=== PATIENT | female | born 1940 | race Hispanic/Latino ===

== ENCOUNTER 2020-06-20 09:51 | Inpatient (IN) | payer OTHER ==
--- OUTSIDE RECORDS SUMMARY | 2020-06-20 10:01 | XMS REPORT | Clinical Summary ---
:1940 Author Organization [facility] Address [address] [place] [address] Care Team Providers Name Role Phone Meghann Koroma MD Primary Care Provider Allergies No Known Active Allergies Medications Medication Sig Dispensed Refills Start Date End Date Status atorvastatin (LIPITOR) Take 80 mg by 0 Active 80 MG tablet mouth nightly. allopurinol (ZYLOPRIM) Take 100 mg by 1 Active 100 MG tablet mouth every morning. levETIRAcetam (KEPPRA) Take 500 mg by 3 Active 250 MG tablet mouth 2 (two) times a day. amLODIPine (NORVASC) 10 Take 10 mg by 3 Active MG tablet mouth daily. NAMENDA XR 28 mg Take 1 capsule by 0 Active capsule,sprinkle,ER mouth every 24hr morning. clopidogrel (PLAVIX) 75 Take 75 mg by 0 Active mg tablet mouth every morning. metoprolol succinate XL Take 100 mg by 0 Active (TOPROL-XL) 50 MG 24 hr mouth 2 (two) tablet times a day. ALPRAZolam (XANAX) 0.5 Take 0.5 mg by 0 Active MG tablet mouth 2 (two) times a day. aspirin (ECOTRIN) 81 MG Take 81 mg by 0 Active enteric coated tablet mouth every morning. cyanocobalamin, vitamin Place 6,000 mcg 0 Active B-12, 3,000 mcg tablet, under the tongue sublingual every morning. GLUC/CHND/OM3/DHA/EPA/F Take 1 tablet by 0 Active TERESA/STR (GLUCOSAMINE mouth daily. CHONDROITIN PLUS ORAL) [id number] Take 1 tablet by 0 Active S-MANGA ORAL mouth daily. Active Problems Problem Noted Date Dizziness 04/16/2016 Surgical History Surgery Date Site/Laterality Comments HYSTERECTOMY PERCUTANEOUS PLACEMENT INTRAVASCULAR 06/17/2013 - 06/16/2014 Right STENT CERVICAL CAROTID ARTERY PERCUTANEOUS PLACEMENT INTRAVASCULAR 06/17/2013 - 06/16/2014 Left STENT CERVICAL CAROTID ARTERY Medical History Medical History Date Comments Hypertension Stroke (HCC) CHF (congestive heart failure) (HCC) Hyperlipidemia Carotid arterial disease (HCC) Alzheimer disease (HCC) CKD (chronic kidney disease) Social History Tobacco Use Types Packs/Day Years Used Date Former Smoker 1 40 Alcohol Use Drinks/Week oz/Week Comments No Sex Assigned at Date Recorded Not on file Last Filed Vital Signs Not on file Plan of Treatment Health Maintenance Due Date Last Done Comments COVID-19 VACCINE (#1) 1957 SHINGLES VACCINES (#1) 1991 65+ PNEUMOCOCCAL VACCINE (1 of 1 - PPSV23) 2006 INFLUENZA VACCINE 01/16/2020 Results Not on fileafter 06/20/2019 Insurance Payer Benefit Plan / Subscriber ID Effective Dates Phone Addre ss Type Group MEDICARE MEDICARE PART A [id number] 2006-Present [place], [place] Medicare [place] B ([place] [address] Advance Directives For more information, please contact: [phone] Type Date Recorded Patient Doctor Of Podiatric Medicine Explanati on Advance Directives, Living Will and Medical Power of [employer]
--- OUTSIDE RECORDS SUMMARY | 2020-06-20 10:04 | XMS REPORT | Continuity of Care Document ---
:1940 Author Organization [facility] Information [place] Care Team Providers Name Role Phone [facility] [place] Unavailable Un available Problems Problem Status Onset Classification Date Comments Sour e Date Reported NEW ONSET OF Active 12/15/19 [facility] 19 Leonila theast FAILURE, P WEAKNESS Active 12/15/19 [facility] 19 [place] POSSIBLE STROKE Active 05/13/20 Jensen rial 17 Mikey RIGHT SIDED Active 05/13/20 [facility] WEAKNESS 17 [place] ACUTE KIDNEY Active 05/08/20 Memoria l INJURY, 17 Mikey GENERALIZED WEAKNES Weakness 05/18/2017 [place] Acute on chronic 12/22/2018 diastolic [place] (congestive) heart failure Carotid Active Problem 12/22/2018 endarterectomy [place] and, (procedure) [place] Cerebrovascular Resolved Problem 12/22/2018 accident [facility] (disorder) [place] Chronic Resolved Problem 12/22/2018 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[facility], disease (disorder) [place] Congestive heart Resolved Problem 12/22/2018 failure (disorder) [place], [place] Dementia Resolved Problem 12/22/2018 (disorder) [place], [place] Hypertensive Active Problem 12/22/2018 disorder, systemic [place], arterial [place] (disorder) ACUTE KIDNEY Active Memoria l FAILURE, Mikey UNSPECIFIED WEAKNESS Active [facility] DEHYDRATION Active [facility] ACUTE ON CHRONIC Active DIASTOLIC [place] (CONGESTIVE) Medications Medication Details Route Status Patient Ordering Order Source Instructions Provider Date apixaban 5 MG 5 mg, PO, Q12H, Active Oral Tablet # 60 tab, 3 2019 [place] [Eliquis] Refill(s) Doxycycline 100 mg = 1 tab, Active Monohydrate 100 PO, Q12H, X 7 2019 [place] MG Oral Tablet day, # 14 tab, 0 Refill(s) Furosemide 40 MG 40 mg = 1 tab, Active Oral Tablet PO, BID, # 60 2019 [place] [Lasix] tab, 0 Refill(s) Aspirin 81 MG Notes: Do not Inactive Enteric Coated crush or chew. 2019 [place] Tablet (Same As: Ecotrin) Aspirin Notes: Do not No Longer crush or chew. Active 2018 [facility] (Same As: Ecotrin) Eliquis Notes: Same as: No Longer Eliquis Active 2018 [facility] atorvastatin Notes: (Same Inactive as: Lipitor) 2018 [facility] Memantine Notes: (Same Inactive As: Namenda) 2018 [facility] Levetiracetam Notes: (Same Inactive as:Keppra) 2018 [facility] Furosemide 40 MG Notes: (Same No Longer Oral Tablet as: Lasix) October Active 2018 [place] [Lasix] cause GI upset. Give with food or milk. donepezil Notes: (Same Inactive as: Aricept) 2018 [facility] Spironolactone Notes: (Same Inactive As: Aldactone) 2018 [facility] Potassium Notes: (Same Inactive Chloride 1.33 as: K-Dur 20) 2018 [place] MEQ/ML Oral "Do Not Crush" Solution Give with food and full glass of water For patients unable to swallow tablet, dissolve in one half glass of water. Allow about 2 minutes for the tablets to disintegrate. Stir before giving to prepare slurry and administer. Please exclude Patient’s with feeding tube less than 14 Welsh (Dobhoff, J-tube etc) and pediatric and patients. Lasix Notes: (Same No Longer as: Lasix) Active 2018 [facility] MEDICATION WASTE Product Size: 40 mg Product Wasted: ___ mg pantoprazole Notes: Tablet No Longer should not be Active 2018 [facility] chewed or crushed. (Same as: Protonix) Atorvastatin 80 Atorvastatin 80 No Longer mg tab Pt's mg tab Pt's Active 2018 [place] Own MED Own MED, 80 mg, Drug form: MISC, Route: PO, Bedtime, 12/15/18 21:00:00 CDT, Duration: 30 day, Stop date: 01/13/19 21:00:00 CDT, 0 atorvastatin Notes: (Same Inactive as: Lipitor) 2018 [facility] Memantine 10 mg Memantine 10 mg No Longer tab Pt's Own tab Pt's Own Active 2019 [facility] Med Med, 10 mg, Drug form: MISC, Route: PO, BID, 12/15/18 17:00:00 CDT, Duration: 30 day, Stop date: 01/14/19 9:00:00 CDT, 0 Aspirin EC 81 mg Aspirin EC 81 No Longer tab Pt's Own mg tab Pt's Active 2018 Leonila theast Med Own Med, 81 mg, Drug form: MISC, Route: PO, Daily, 12/15/18 12:00:00 CDT, Duration: 30 day, Stop date: 01/14/19 9:00:00 CDT, 0 Levetiracetam Levetiracetam No Longer 250 mg tab 250 mg tab Active 2018 [facility] Pt's Own Med Pt's Own Med, 250 mg, Drug form: MISC, Route: PO, Q12H, 12/15/18 12:00:00 CDT, Duration: 30 day, Stop date: 01/14/19 9:00:00 CDT, 0 Donepezil 10 mg Donepezil 10 mg No Longer tab Pt's Own tab Pt's Own Active 2018 [facility] MED MED, 10 mg, Drug form: MISC, Route: PO, BID, 12/15/18 12:00:00 CDT, Duration: 30 day, Stop date: 01/14/19 9:00:00 CDT, 0 Clopidogrel 75 Clopidogrel 75 No Longer mg tab Pt's mg tab Pt's Active 2018 [place] Own MED Own MED, 75 mg, Drug form: MISC, Route: PO, Daily, 12/15/18 12:00:00 CDT, Duration: 30 day, Stop date: 01/14/19 9:00:00 CDT, 0 Levetiracetam Notes: (Same Inactive as:Keppra) 2018 [facility] donepezil Notes: (Same Inactive as: Aricept) 2018 [facility] clopidogrel Notes: (Same Inactive As: Plavix) 2018 [facility] carvedilol Notes: Give No Longer with food. Active 2018 [facility] (Same As: Coreg) Aspirin Notes: Take Inactive with food. 2019 [facility] Memantine Notes: (Same Inactive As: Namenda) 2018 [facility] losartan 25 mg 25 mg = 1 tab, No Longer oral tablet PO, Daily, 0 Active [address] [facility] [address] Refill(s) heparin Notes: porcine No Longer heparin Active 2018 [facility] Lasix Notes: (Same No Longer as: Lasix) Active 2018 [facility] MEDICATION WASTE Product Size: 40 mg Product Wasted: ___ mg Budesonide 0.25 Notes: (Same No Longer H MG/ML Inhalant As: Pulmicort) Active [place] Solution [Pulmicort] Albuterol 0.833 Notes: (Same No Longer H MG/ML / as: Duoneb) Active 2018 [facility] Ipratropium [place] 0.167 MG/ML Inhalant Solution [DuoNeb] Rocephin + Notes: (Same No Longer sterile water 10 As: Rocephin). Active 2018 [facility] mL Use with 100 mL NS and infuse over 30 min MEDICATION WASTE Product Size: 1000 mg Product Wasted: ___ mg Azithromycin Notes: (Same No Longer As: Zithromax Active 2018 [facility] IV) Lasix Notes: (Same Inactive as: Lasix) 2018 [place] MEDICATION WASTE Product Size: 40 mg Product Wasted: ___ mg Solu-Medrol Notes: (Same Inactive as:Solu-MEDROL, 2019 [place] A-Methapred) Magnesium Notes: WASTE: Inactive Sulfate F/P - Sink; E - 2019 [place] [facility] Albuterol 0.833 Notes: (Same Inactive MG/ML / as: Duoneb) 2018 [place] Ipratropium [place] 0.167 MG/ML Inhalant Solution [DuoNeb] pantoprazole 40 40 mg = 1 tab, Active H mg oral enteric PO, Before 2016 Elvie and coated tablet Breakfast, # 30 tab, 0 Refill(s), Pharmacy: [id number] Sodium Chloride 1,000 mL, Rate: Inactive 0.9% IV 1,000 mL 21 ml/hr, 2016 Elvie and Infuse over: 47.6 hr, Route: IV, Dosing Weight 65.2 kg, Total Volume: 1,000, Start date: 05/15/17 7:30:00 [facility] [employer], Duration: 30 day, Stop date: 06/14/17 7:29:00 [employer]MM[employer], 1.71, m2 atorvastatin atorvastatin No Longer 80mg pt own med 80mg pt own Active 2016 [place] med, 80 mg, Drug form: MISC, Route: PO, Bedtime, 05/14/17 21:00:00 [employer] IMM[employer]OLOGY, Duration: 30 day, Stop date: 06/12/17 21:00:00 [employer] atorvastatin Notes: (Same Inactive as: Lipitor) 2016 [place] Amlodipine Notes: (Same No Longer as: Norvasc) Active 2016 [place] Memantine Notes: (Same Inactive As: Namenda) 2016 [place] Allopurinol Notes: (Same No Longer as: Zyloprim) Active 2016 [place] Levetiracetam Notes: (Same No Longer as:Keppra) Active 2016 [place] donepezil Notes: (Same Inactive as: Aricept) 2016 [place] Memantine 10mg Memantine 10mg No Longer pt own med pt own med, 10 Active 2016 [place] mg, Drug form: MISC, Route: PO, BID, 05/14/17 9:00:00 SCI[employer] IMMUN[employer]Y, Duration: 30 day, Stop date: 06/12/17 17:00:00 [employer] clopidogrel Notes: (Same No Longer As: Plavix) Active 2016 [place] carvedilol Notes: Give No Longer with food. Active 2016 [place] (Same As: Coreg) Donepezil 10mg Donepezil 10mg No Longer pt own med pt own med, 10 Active 2016 [place] mg, Drug form: MISC, Route: PO, BID, 05/14/17 9:00:00 [employer] IMMUNOLOGY, Duration: 30 day, Stop date: 06/12/17 17:00:00 [employer] IMMUN[employer] Streptococcus Notes: Shake Inactive pneumoniae well prior to 2016 [place] serotype 1 use (Same as: capsular antigen Prevnar 13) diphtheria [id number] protein conjugate vaccine / Streptococcus pneumoniae serotype 14 capsular antigen diphtheria [id number] protein conjugate vaccine / Streptococcus pneumoniae serotype 18C capsular antigen d Aspirin Notes: Do not No Longer crush or chew. Active 2016 [place] (Same As: Ecotrin) influenza virus Notes: (Same Inactive vaccine, as: Fluzone 2016 [place] inactivated Quadrivalent, Fluarix Quadrivalent) For 3 years of age and older (0.5 mL IM) Shake well before use Protonix Notes: Tablet No Longer should not be Active 2016 [place] chewed or crushed. (Same as: Protonix) Saline Flush Notes: (Same No Longer 0.9% as: BD Active 2016 [place] Posiflush) Sodium Chloride 1,000 mL, Rate: No Longer 0.9% IV 1,000 mL 100 ml/hr, Active 2016 [place] Infuse over: 10 hr, Route: IV, Dosing Weight 65.2 kg, Total Volume: 1,000, Start date: 05/13/17 21:15:00 SCIENTIST IMMUNOLOGY, Duration: 30 day, Stop date: 06/12/17 21:14:00 SCI[employer] IMMUNOLOGY, 1.71, m2 Acetaminophen Notes: Do not No Longer exceed 4 Active 2016 [place] gm/day. (Same as: Tylenol) Ondansetron Notes: (Same No Longer as: Zofran) Active 2016 [place] MEDICATION WASTE Product Size: 4 mg Product Wasted: ___ mg Sodium Chloride 500 mL, 500 Inactive 0.9% (Bolus) IV ml/hr, Infuse 2016 [place] Over: 1 hr, Route: IV, 500, Drug form: INJ, ONCE, Priority: STAT, Dosing Weight 68.182 kg, Start date: 05/13/17 18:13:00 SCIENTIST IMMUNOLOGY, Stop date: 05/13/17 18:13:00 SCI[employer]IST IMMUNOLOGY NS (Bolus) IV 1,000 mL, 1,000 Inactive H ml/hr, Infuse 2016 [place] Over: 1 hr, Route: IV, 1,000, Drug form: INJ, ONCE, Priority: STAT, Dosing Weight 68.182 kg, Start date: 05/13/17 16:25:00 SCIENTIST IMMUNOLOGY, Stop date: 05/13/17 16:25:00 SCIENT[employer] IMMUNOLOG[employer] Saline Flush Notes: (Same No Longer 0.9% as: BD Active 2016 [place] Posiflush) Streptococcus Notes: Shake Inactive pneumoniae well prior to 2016 [place] serotype 1 use (Same as: capsular antigen Prevnar 13) diphtheria [id number] protein conjugate vaccine / Streptococcus pneumoniae serotype 14 capsular antigen diphtheria [id number] protein conjugate vaccine / Streptococcus pneumoniae serotype 18C capsular antigen d influenza virus Notes: (Same Inactive vaccine, as: Fluzone 2017 [place] inactivated Quadrivalent, Fluarix Quadrivalent) For 3 years of age and older (0.5 mL IM) Shake well before use clopidogrel Notes: (Same Inactive As: Plavix) 2016 [place] Aspirin Notes: Do not Inactive 05/09[facility] crush or chew. 2016 [place] (Same As: Ecotrin) Allopurinol Notes: (Same Inactive as: Zyloprim) 2016 [place] Sodium Chloride 1,000 mL, 1,000 Inactive 0.9% (Bolus) IV ml/hr, Infuse 2016 [facility] Over: 1 hr, Route: IV, 1,000, Drug form: INJ, ONCE, Priority: STAT, Dosing Weight 64.716 kg, Start date: 05/09/17 8:14:00 SCIENTIST IMMUNOLOGY, Stop date: 05/09/17 8:14:00 SCIENT[employer] IMMUN[employer] heparin Notes: porcine Inactive heparin 2016 [place] atorvastatin atorvastatin No Longer 80mg pt own med 80mg pt own Active 2016 [place] med, 80 mg, Drug form: MISC, Route: PO, Bedtime, 05/08/17 22:31:00 SCIENTIST IMMUNOLOGY, Duration: 30 day, Stop date: 06/07/17 21:00:00 SCI[employer] IMMUNOLOGY Memantine 10mg Memantine 10mg No Longer pt own med pt own med, 10 Active 2016 [place] mg, Drug form: MISC, Route: PO, BID, 05/08/17 22:29:00 SCIENTIST IMMUNOLOGY, Duration: 30 day, Stop date: 06/07/17 17:00:00 SCI[employer] IMMUNOLOG[employer] Donepezil 10mg Donepezil 10mg No Longer pt own med pt own med, 10 Active 2016 [place] mg, Drug form: MISC, Route: PO, BID, 05/08/17 22:24:00 SCIENTIST IMMUNOLOGY, Duration: 30 day, Stop date: 06/07/17 17:00:00 SCI[employer] IMMUNOLOG[employer] atorvastatin 80 mg, Route: Inactive PO, Drug form: 2016 [place] TAB, Bedtime, Dosing Weight 64.716, kg, Start date: 05/08/17 22:09:00 SCIENTIST IMMUNOLOGY, Duration: 30 day, Stop date: 06/07/17 21:00:00 [employer] IMM[employer] Levetiracetam Notes: (Same No Longer 250 MG Oral as:Keppra) Active 2016 [place] Tablet Amlodipine Notes: (Same No Longer as: Norvasc) Active 2016 [place] Memantine 10 mg, Route: Inactive PO, Drug form: 2016 [place] TAB, BID, Dosing Weight 64.716, kg, Start date: 05/08/17 22:07:00 SCIENTIST IMMUNOLOGY, Duration: 30 day, Stop date: 06/07/17 17:00:00 SCI[employer] IMM[employer] carvedilol Notes: Give No Longer with food. Active 2016 [place] (Same As: Coreg) donepezil Notes: (Same Inactive as: Aricept) 2017 [place] clopidogrel 75 mg, PO, Active Daily, 0 2016 [place] Refill(s) Azithromycin 250 mg, PO, No Longer Daily, Take 2 Active 2016 [place] tablets by mouth the first day then 1 tablet by mouth daily on days 2-5, # 6 tab, 0 Refill(s) Aspirin 81 mg, PO, Active Daily, 0 2016 [place] Refill(s) atorvastatin 80 mg, PO, Active Bedtime, 0 2016 [place] Refill(s) donepezil 10 mg, PO, BID, Active 0 Refill(s) 2016 [place] Levetiracetam 250 mg, PO, Active BID, 0 2016 [place] Refill(s) Memantine 10 mg, PO, BID, Active 0 Refill(s) 2016 [place] Amlodipine 10 mg, PO, Active Bedtime, 0 2016 [place] Refill(s) carvedilol 6.25 mg, PO, Active BID, 0 2016 [place] Refill(s) Allopurinol 100 mg, PO, Active Daily, 0 2016 [place] Refill(s) morphine Sulfate Notes: (Same No Longer as:MORPine Active 2016 [place] Sulfate) Docusate Notes: (Same No Longer as: Colace) (Do Active 2016 [place] Not Crush) Saline Flush Notes: (Same No Longer 0.9% as: BD Active 2016 [place] Posiflush) Sodium Chloride 1,000 mL, Rate: No Longer 0.9% IV 1,000 mL 125 ml/hr, Active 2016 [facility] Infuse over: 8 hr, Route: IV, Dosing Weight 63.636 kg, Total Volume: 1,000, Start date: 05/08/17 16:14:00 SCIENTIST IMMUNOLOGY, Duration: 30 day, Stop date: 06/07/17 16:13:00 SCIENTIST IMMUNOLOGY, 1.69, m2 Acetaminophen Notes: Do not No Longer exceed 4 Active 2016 [place] gm/day. (Same as: Tylenol) Acetaminophen Notes: (Same No Longer 325 MG / as: [place] Active 2016 [place] Hydrocodone 325/5) Do not Bitartrate 5 MG exceed 4gm/day Oral Tablet of acetaminophen. Morphine 2 mg, Route: Inactive IVP, Q4H, 2016 [place] Dosing Weight 63.636, kg, PRN Pain Score 7-10, Start date: 05/08/17 16:14:00 SCIENTIST IMMUNOLOGY, Duration: 30 day, Stop date: 06/07/17 16:13:00 SCI[employer] IMMUN[employer] Ondansetron Notes: (Same No Longer as: Zofran) Active 2016 [place] MEDICATION WASTE Product Size: 4 mg Product Wasted: ___ mg NS (Bolus) IV 1,000 mL, 1,000 Inactive H ml/hr, Infuse [place] Over: 1 hr, Route: IV, 1,000, Drug form: INJ, ONCE, Priority: STAT, Dosing Weight 63.636 kg, Start date: 05/08/17 14:28:00 SCIENTIST IMMUNOLOGY, Stop date: 05/08/17 14:28:00 SCIENTIST IMMUNOLOGY Pepcid Notes: (Same Inactive as: Pepcid) Can 2016 [place] be dilute in 5-10cc NS IVP: Slow IV push over at least 2 minutes. Allergies, Adverse Reactions, Alerts Substance Category Reaction Severity Reaction Status Date Comments S ource type Reported No Known Assertion Drug MH Medication allergy [facility] Allergies Immunizations Immunization Date Site Status Last Comments Source Given Updated pneumococcal Right completed Huang MH 13-valent 7 Deltoid [place],M H vaccine [place] influenza virus Left completed Huang MH vaccine, 7 Deltoid [place] H inactivated [place] influenza virus Not Given MH vaccine, 7 [place] inactivated [place] pneumococcal Not Given 13-valent 7 [place],M H vaccine [place] pneumococcal Left completed Emiliano MH 23-valent 0 deltoid [place],M H vaccine [place] Results Order Name Results Value Reference Date Interpretation Comments Leonila rce Range CHEM PANEL Glucose Lvl 99 70 - 99 12/19 [place] CHEM PANEL BUN 63 7 - 22 12/19 [place] CHEM PANEL Creatinine 2.55 0.50 - 07 Lvl 1.40 /2018 [place] CHEM PANEL Sodium Lvl 138 135 - 145 12/19 [place] CHEM PANEL Potassium 4.3 3.5 - 5.1 12/19 Lvl [place] CHEM PANEL Chloride Lvl 100 95 - 109 12/19 [place] CHEM PANEL CO2 28 24 - 32 12/19 [place] CHEM PANEL Calcium Lvl 8.9 8.5 - 10.5 12/19 [facility] CHEM PANEL AGAP 14.3 10.0 - 12/19 MH 20.0 /2018 [place] CHEM PANEL eGFR 18 12/19 Result Comment: [facility] eGFR is calculated using the CKD-EPI formula. In most young, healthy individuals the eGFR will be >90 mL/min/1.73m2 . The eGFR declines with age. An eGFR of 60-89 may be normal in some populations, particularly the elderly, for whom the CKD-EPI formula has not been extensively validated. Use of the eGFR is not recommended in the following populations:< br/>
Sadia viduals with unstable creatinine concentration s, including patients and those with serious co-morbid conditions.<b r/>
Patie nts with extremes in muscle mass or diet.

The data above are obtained from the National Kidney Disease Education Program (NKDEP) which additionally recommends that when the eGFR is used in patients with extremes of body mass index for purposes of drug dosing, the eGFR should be multiplied by the estimated BMI. CHEM PANEL Creatinine 2.35 0.50 - 12/18 Lvl 1.40 /2018 [place] CHEM PANEL BUN 60 7 - 22 12/18 [place] CHEM PANEL Glucose Lvl 122 70 - 99 12/18 [facility] CHEM PANEL Calcium Lvl 9.4 8.5 - 10.5 12/18 [place] CHEM PANEL CO2 30 24 - 32 12/18 [place] CHEM PANEL Chloride Lvl 101 95 - 109 12/18 [place] CHEM PANEL Potassium 4.0 3.5 - 5.1 12/18 MH Lvl [place] CHEM PANEL Sodium Lvl 139 135 - 145 12/18 [place] CHEM PANEL eGFR 19 12/18 Result Comment: [facility] eGFR is calculated using the CKD-EPI formula. In most young, healthy individuals the eGFR will be >90 mL/min/1.73m2 . The eGFR declines with age. An eGFR of 60-89 may be normal in some populations, particularly the elderly, for whom the CKD-EPI formula has not been extensively validated. Use of the eGFR is not recommended in the following populations:< br/>
Sadia viduals with unstable creatinine concentration s, including patients and those with serious co-morbid conditions.<b r/>
Patie nts with extremes in muscle mass or diet.

The data above are obtained from the National Kidney Disease Education Program (NKDEP) which additionally recommends that when the eGFR is used in patients with extremes of body mass index for purposes of drug dosing, the eGFR should be multiplied by the estimated BMI. CHEM PANEL AGAP 12.0 10.0 - 07/ MH 20.0 /2018 [facility] CHEM PANEL Magnesium 2.2 1.8 - 2.4 07/ MH Lvl /2018 [facility] HEMATOLOGY Lymphocytes 2.0 1.0 - 5.5 07/04 MH # /2019 [facility] HEMATOLOGY Monocytes # 0.8 0.0 - 0.8 07/ MH /2018 [facility] HEMATOLOGY Eosinophils 0.2 0.0 - 0.5 07/ MH # /2018 [facility] HEMATOLOGY Segs 57.0 45.0 - 07/ MH 75.0 /2018 [facility] HEMATOLOGY Monocytes 11.6 2.0 - 12.0 07/ MH /2018 [facility] HEMATOLOGY Eosinophils 2.7 0.0 - 4.0 07/ /2018 [facility] HEMATOLOGY Lymphocytes 28.5 20.0 - 07/ MH 40.0 /2018 [facility] HEMATOLOGY Neutrophils 4.0 1.5 - 8.1 / MH # /2018 [facility] HEMATOLOGY Basophils 0.2 0.0 - 1.0 07/ /2018 [facility] HEMATOLOGY Platelet 234 133 - 450 07/ /2018 [facility] HEMATOLOGY MCHC 32.2 32.0 - 07/ MH 36.0 /2019 [facility] HEMATOLOGY RDW 16.0 11.5 - 07/ MH 14.5 /2019 [facility] HEMATOLOGY MPV 9.0 7.4 - 10.4 07/ MH /2018 [facility] HEMATOLOGY MCV 91.9 80.0 - 07/ MH 98.0 /2019 [facility] HEMATOLOGY MCH 29.6 27.0 - 07/04 MH 31.0 /2019 [facility] HEMATOLOGY Hct 43.0 36.0 - 07/04 MH 48.0 /2019 [facility] HEMATOLOGY Hgb 13.9 12.0 - 07/04 MH 16.0 /2018 [facility] HEMATOLOGY RBC 4.68 4.20 - 07/04 MH 5.40 /2019 [facility] HEMATOLOGY WBC 7.0 3.7 - 10.4 07/04 /2018 [facility] CARDIAC Troponin-I <0.02 0.00 - 07 ENZYMES 0.40 /2018 [facility] ELECTROLYT AGAP 11.1 10.0 - 12/17 ES 20.0 /2018 [place] ELECTROLYT eGFR 20 12/17 Result Comment: The [facility] eGFR is calculated using the CKD-EPI formula. In most young, healthy individuals the eGFR will be >90 mL/min/1.73m2 . The eGFR declines with age. An eGFR of 60-89 may be normal in some populations, particularly the elderly, for whom the CKD-EPI formula has not been extensively validated. Use of the eGFR is not recommended in the following populations:< br/>
Sadia viduals with unstable creatinine concentration s, including patients and those with serious co-morbid conditions.<b r/>
Patie nts with extremes in muscle mass or diet.

The data above are obtained from the National Kidney Disease Education Program (NKDEP) which additionally recommends that when the eGFR is used in patients with extremes of body mass index for purposes of drug dosing, the eGFR should be multiplied by the estimated BMI. ELECTROLYT Sodium Lvl 140 135 - 145 12/17 ES [facility] ELECTROLYT BUN 61 7 - 22 12/17 ES [facility] ELECTROLYT Creatinine 2.30 0.50 - 12/17 ES Lvl 1.40 /2018 [facility] ELECTROLYT Potassium 3.1 3.5 - 5.1 12/17 ES Lvl /2018 [facility] ELECTROLYT Calcium Lvl 9.5 8.5 - 10.5 12/17 ES [facility] ELECTROLYT CO2 29 24 - 32 12/17 ES /2018 [facility] ELECTROLYT Chloride Lvl 103 95 - 109 12/17 ES /2018 [facility] ELECTROLYT Glucose Lvl 110 70 - 99 12/17 ES /2018 [facility] HEMATOLOGY Neutrophils 6.3 1.5 - 8.1 12/17 MH # /2018 [facility] HEMATOLOGY Basophils 0.2 0.0 - 1.0 12/17 /2018 [facility] HEMATOLOGY Lymphocytes 1.6 1.0 - 5.5 12/17 MH # /2019 [facility] HEMATOLOGY Monocytes # 0.9 0.0 - 0.8 12/17 /2018 [facility] HEMATOLOGY Segs 71.2 45.0 - 12/17 MH 75.0 /2018 [place] HEMATOLOGY Lymphocytes 18.5 20.0 - 07/ MH 40.0 /2018 [place] HEMATOLOGY Eosinophils 0.5 0.0 - 4.0 07/ /2018 [place] HEMATOLOGY Monocytes 9.6 2.0 - 12.0 07/ /2018 [place] HEMATOLOGY MPV 9.6 7.4 - 10.4 07/ /2018 [place] HEMATOLOGY WBC 8.8 3.7 - 10.4 07/ /2018 [place] HEMATOLOGY RBC 4.43 4.20 - 12/17 5.40 [place] HEMATOLOGY Hgb 13.3 12.0 - 07 16.0 [place] HEMATOLOGY MCV 91.6 80.0 - 07 98.0 /2018 [place] HEMATOLOGY Hct 40.6 36.0 - 12/17 48.0 [place] HEMATOLOGY MCHC 32.7 32.0 - 07 36.0 [place] HEMATOLOGY MCH 29.9 27.0 - 07 31.0 [place] HEMATOLOGY Platelet 217 133 - 450 07/ [place] HEMATOLOGY RDW 16.1 11.5 - 07 14.5 /2018 [place] HEMATOLOGY RDW 15.6 11.5 - 07/ 14.5 [place] HEMATOLOGY MPV 9.5 7.4 - 10.4 07/ [place] HEMATOLOGY Platelet 205 133 - 450 07/ MH /2018 [place] HEMATOLOGY RBC 3.86 4.20 - 07 5.40 [place] HEMATOLOGY Hgb 11.6 12.0 - 07 16.0 /2018 [place] HEMATOLOGY Hct 35.0 36.0 - 12/16 48.0 [place] HEMATOLOGY MCV 90.6 80.0 - 07/ 98.0 /2018 [place] HEMATOLOGY MCHC 33.3 32.0 - 07/ MH 36.0 /2018 [place] HEMATOLOGY MCH 30.2 27.0 - 07/ 31.0 [place] HEMATOLOGY WBC 11.7 3.7 - 10.4 07/ /2018 [place] HEMATOLOGY Lymphocytes 6.2 20.0 - 07/ 40.0 /2018 [place] HEMATOLOGY Segs 87.6 45.0 - 07/02 75.0 /2018 [place] HEMATOLOGY Basophils 0.4 0.0 - 1.0 07/02 /2018 [place] HEMATOLOGY Monocytes 5.8 2.0 - 12.0 / [facility] HEMATOLOGY Lymphocytes 0.7 1.0 - 5.5 / # /2019 [facility] HEMATOLOGY Neutrophils 10.3 1.5 - 8.1 / # /2018 [facility] HEMATOLOGY Monocytes # 0.7 0.0 - 0.8 12/16 [place] CHEM PANEL Magnesium 2.6 1.8 - 2.4 / [place] CHEM PANEL Phosphorus 5.1 2.5 - 4.5 12/15 [place] CHEM PANEL Magnesium 3.0 1.8 - 2.4 12/15 [place] CHEM PANEL AST 15 0 - 37 12/15 [place] CHEM PANEL Alk Phos 101 39 - 136 12/15 [facility] CHEM PANEL Bili Total 0.4 0.2 - 1.3 12/15 [place] CHEM PANEL ALT 16 0 - 65 12/15 [place] CHEM PANEL Total 7.4 6.4 - 8.4 12/15 Protein [place] CHEM PANEL Albumin Lvl 2.7 3.5 - 5.0 12/15 [place] CHEM PANEL A/G Ratio 0.6 0.7 - 1.6 12/15 [place] CHEM PANEL B/C Ratio 22 6 - 25 12/15 [place] CHEM PANEL Globulin 4.7 2.7 - 4.2 12/15 [place] CHEM PANEL Phosphorus 4.2 2.5 - 4.5 12/15 [place] CHEM PANEL ALT 16 0 - 65 12/15 [place] CHEM PANEL Alk Phos 103 39 - 136 12/15 [place] CHEM PANEL AST 15 0 - 37 / [place] CHEM PANEL Globulin 4.5 2.7 - 4.2 12/15 [place] CHEM PANEL A/G Ratio 0.6 0.7 - 1.6 12/15 [place] CHEM PANEL Bili Total 0.7 0.2 - 1.3 12/15 [place] CHEM PANEL Albumin Lvl 2.8 3.5 - 5.0 12/15 [place] CHEM PANEL Total 7.3 6.4 - 8.4 12/15 Protein [place] CHEM PANEL B/C Ratio 22 6 - 25 12/15 [facility] HEMATOLOGY Plt Morph Normal Normal 12/15 (12/15/18 1:30 AM) /2018 [facility] HEMATOLOGY RBC Morph Normal Normal 12/15 (12/15/18 1:30 AM) /[address] [facility] [address] URINE AND UA <=1.0 0.1 - 1.0 12/15 STOOL Urobilinogen mg/dL [place] URINE AND UA Color STRAW 12/15 STOOL [place] URINE AND UA Hyal Cast 3 0 - 2 12/15 STOOL [place] URINE AND UA pH 5.0 5.0 - 8.0 12/15 STOOL [place] URINE AND UA Protein 100 mg/dL Negative 12/15 [facility] mg/dL [place] URINE AND UA Spec Grav 1.008 <=1.030 12/15 [place] URINE AND UA Turbidity Slight Clear 12/15 [facility] *ABN* /2018 [place] (12/14/18 9:51 PM) URINE AND UA Blood Negative Negative 12/15 [facility] (12/14/18 9:51 PM) [place] URINE AND UA Nitrite Negative Negative 12/15 [facility] (12/14/18 9:51 PM) [place] URINE AND UA Ketones Negative Negative 12/15 [facility] mg/dL mg/dL [place] URINE AND UA Glucose Negative Negative 12/15 [facility] mg/dL mg/dL [place] URINE AND UA Bili Negative Negative 12/15 [facility] *NA* /2018 [place] (12/14/18 9:51 PM) URINE AND UA RBC 3 0 - 2 12/15 STOOL [place] URINE AND UA Bacteria Occasional None Seen 12/15 [facility]OOL /HPF /HPF /2018 [place] URINE AND UA Sq Epi Occasional Few /LPF 12/15 STOOL /LPF [place] URINE AND UA Mucus Few /LPF None Seen 12/15 STOOL /LPF [place] URINE AND UA Leuk Est Negative Negative 12/15 [facility] (12/14/18 9:51 PM) [place] URINE AND UA WBC 3 0 - 5 12/15 STOOL [place] CARDIAC BNP 764 <=100 12/15 [facility] pg/mL /2018 [place] CARDIAC Troponin-I 0.02 0.00 - 12/15 [facility] 0.40 [place] CHEM PANEL Lactic Acid 1.5 0.5 - 2.2 12/15 Lvl [place] ELECTROLYT AGAP 14.0 10.0 - 12/15 MH ES 20.0 /2018 [place] ELECTROLYT Globulin 4.7 2.7 - 4.2 12/15 [place] ELECTROLYT B/C Ratio 19 6 - 25 12/15 [place] ELECTROLYT A/G Ratio 0.6 0.7 - 1.6 12/15 [place] ELECTROLYT eGFR 21 12/15 Comment: The [place] eGFR is calculated using the CKD-EPI formula. In most young, healthy individuals the eGFR will be >90 mL/min/1.73m2 . The eGFR declines with age. An eGFR of 60-89 may be normal in some populations, particularly the elderly, for whom the CKD-EPI formula has not been extensively validated. Use of the eGFR is not recommended in the following populations:< br/>
Sadia viduals with unstable creatinine concentration s, including patients and those with serious co-morbid conditions.<b r/>
Patie nts with extremes in muscle mass or diet.

The data above are obtained from the National Kidney Disease Education Program (NKDEP) which additionally recommends that when the eGFR is used in patients with extremes of body mass index for purposes of drug dosing, the eGFR should be multiplied by the estimated BMI. ELECTROLYT AST 18 0 - 37 12/15 [place] ELECTROLYT Total 7.7 6.4 - 8.4 12/15 ES Protein [place] ELECTROLYT Calcium Lvl 8.9 8.5 - 10.5 12/15 [place] ELECTROLYT ALT 22 0 - 65 12/15 [place] ELECTROLYT Albumin Lvl 3.0 3.5 - 5.0 12/15 [place] ELECTROLYT Bili Total 0.6 0.2 - 1.3 12/15 [place] ELECTROLYT Alk Phos 109 39 - 136 12/15 [place] ELECTROLYT BUN 43 7 - 22 12/15 [place] ELECTROLYT Glucose Lvl 142 70 - 99 12/15 [place] ELECTROLYT CO2 23 24 - 32 12/15 MH ES [place] ELECTROLYT Sodium Lvl 140 135 - 145 07/ MH ES [place] ELECTROLYT Creatinine 2.22 0.50 - 07/ MH ES Lvl 1. [place] ELECTROLYT Chloride Lvl 107 95 - 109 07/ MH ES [place] ELECTROLYT Potassium 4.0 3.5 - 5.1 07/ MH ES Lvl /2018 [place] HEMATOLOGY Lymphocytes 1.5 1.0 - 5.5 07/ MH # /2018 [place] HEMATOLOGY Monocytes # 1.5 0.0 - 0.8 07/ [place] HEMATOLOGY Basophils 1.1 0.0 - 1.0 07/ [place] HEMATOLOGY Neutrophils 9.6 1.5 - 8.1 07 MH [place] HEMATOLOGY Monocytes 12.0 2.0 - 12.0 12/15 [place] HEMATOLOGY Segs 74.7 45.0 - 07/ MH 75.0 /2018 [place] HEMATOLOGY Lymphocytes 11.7 20.0 - 07 MH 40.0 [place] HEMATOLOGY Eosinophils 0.5 0.0 - 4.0 07/ [place] HEMATOLOGY Eosinophils 0.1 0.0 - 0.5 07/ MH [place] HEMATOLOGY Basophils # 0.1 0.0 - 0.2 07 [place] HEMATOLOGY MCV 90.9 80.0 - 07/ MH 98.0 [place] HEMATOLOGY Hct 35.4 36.0 - 07/ MH 48.0 2019 [place] HEMATOLOGY MCH 30.3 27.0 - 07/ MH 31.0 2019 [place] HEMATOLOGY WBC 12.9 3.7 - 10.4 07/ [place] HEMATOLOGY Hgb 11.8 12.0 - 07/ MH 16.0 2019 [place] HEMATOLOGY RBC 3.89 4.20 - 07 MH 5.40 [place] HEMATOLOGY MPV 9.2 7.4 - 10.4 07 [place] HEMATOLOGY Platelet 202 133 - 450 07 [place] HEMATOLOGY RDW 15.6 11.5 - 07/ MH 14.5 [place] HEMATOLOGY MCHC 33.3 32.0 - 07/ MH 36.0 2018 [place] MOLECULAR vanB Not Detected Not 07/01 DIAGNOSTIC Vancomycin (12/14/18 7:46 PM) Detected /2018 [place] Resistance MOLECULAR Nazanin Not Detected Not 12/15 DIAGNOSTIC Vancomycin (12/14/18 7:46 PM) Detected /2018 [place] Resistance MOLECULAR E. faecium Not Detected Not 12/15 DIAGNOSTIC (12/14/18 7:46 PM) Detected /2018 [place] MOLECULAR S. Not Detected Not 12/15 DIAGNOSTIC pneumoniae (12/14/18 7:46 PM) Detected /2018 [place] MOLECULAR S. pyogenes Not Detected Not 12/15 DIAGNOSTIC (12/14/18 7:46 PM) Detected /2018 [facility] MOLECULAR Streptococcu Not Detected Not 12/15 DIAGNOSTIC s spp. (12/14/18 7:46 PM) Detected /2018 [facility] MOLECULAR E. faecalis Not Detected Not 12/15 DIAGNOSTIC (12/14/18 7:46 PM) Detected /2018 [facility] MOLECULAR Staphylococc Not Detected Not 12/15 DIAGNOSTIC us spp. (12/14/18 7:46 PM) Detected /2018 [facility] MOLECULAR S. anginosus Not Detected Not 12/15 DIAGNOSTIC grp (12/14/18 7:46 PM) Detected /2018 [facility] MOLECULAR S. Not Detected Not 12/15 DIAGNOSTIC agalactiae (12/14/18 7:46 PM) Detected /2018 [place] MOLECULAR S. Not Detected Not 12/15 DIAGNOSTIC lugdunensis (12/14/18 7:46 PM) Detected /2018 [place] MOLECULAR S. Not Detected Not 12/15 DIAGNOSTIC epidermidis (12/14/18 7:46 PM) Detected /2018 [place] MOLECULAR S. aureus Not Detected Not 12/15 DIAGNOSTIC (12/14/18 7:46 PM) Detected /2018 [place] MOLECULAR Listeria Not Detected Not 12/15 DIAGNOSTIC spp. (12/14/18 7:46 PM) Detected /2018 [facility] MOLECULAR mecA Not Detected Not 12/15 DIAGNOSTIC Methicillin (12/14/18 7:46 PM) Detected [place] [facility] CHEM PANEL Magnesium 1.9 1.8 - 2.4 05/15 Lvl /2016 [place] CHEM PANEL Calcium Lvl 8.6 8.5 - 10.5 05/15 [place] CHEM PANEL AGAP 10.7 10.0 - 11/29 MH 20. [place] CHEM PANEL eGFR 46 05/15 Result Comment: The [place] eGFR is calculated using the CKD-EPI formula. In most young, healthy individuals the eGFR will be >90 mL/min/1.73m2 . The eGFR declines with age. An eGFR of 60-89 may be normal in some populations, particularly the elderly, for whom the CKD-EPI formula has not been extensively validated. Use of the eGFR is not recommended in the following populations:< br/>
Sadia viduals with unstable creatinine concentration s, including patients and those with serious co-morbid conditions.<b r/>
Patie nts with extremes in muscle mass or diet.

The data above are obtained from the National Kidney Disease Education Program (NKDEP) which additionally recommends that when the eGFR is used in patients with extremes of body mass index for purposes of drug dosing, the eGFR should be multiplied by the estimated BMI. CHEM PANEL Glucose Lvl 89 70 - 99 05/15 [place] CHEM PANEL CO2 26 24 - 32 05/15 [place] CHEM PANEL Potassium 3.7 3.5 - 5.1 05/15 Lv [place] CHEM PANEL Chloride Lvl 109 95 - 109 05/15 [place] CHEM PANEL Sodium Lvl 142 135 - 145 05/15 [place] CHEM PANEL BUN 22 7 - 22 05/15 [place] CHEM PANEL Creatinine 1.15 0.50 - 05/15 Lvl 1.40 [place] CHEM PANEL Magnesium 2.1 1.8 - 2.4 05/14 [place] CHEM PANEL Phosphorus 3.4 2.5 - 4.5 05/14 [place] ELECTROLYT AGAP 11.6 10.0 - 05/14 ES 20. [place] ELECTROLYT Calcium Lvl 9.0 8.5 - 10.5 05/14 [place] ELECTROLYT eGFR 43 05/14 Result Comment: The [place] eGFR is calculated using the CKD-EPI formula. In most young, healthy individuals the eGFR will be >90 mL/min/1.73m2 . The eGFR declines with age. An eGFR of 60-89 may be normal in some populations, particularly the elderly, for whom the CKD-EPI formula has not been extensively validated. Use of the eGFR is not recommended in the following populations:< br/>
Sadia viduals with unstable creatinine concentration s, including patients and those with serious co-morbid conditions.<b r/>
Patie nts with extremes in muscle mass or diet.

The data above are obtained from the National Kidney Disease Education Program (NKDEP) which additionally recommends that when the eGFR is used in patients with extremes of body mass index for purposes of drug dosing, the eGFR should be multiplied by the estimated BMI. ELECTROLYT Potassium 3.6 3.5 - 5.1 05/14 ES Lvl [place] ELECTROLYT Creatinine 1.23 0.50 - 05/14 ES Lvl 1.40 [place] ELECTROLYT Chloride Lvl 107 95 - 109 05/14 [place] ELECTROLYT Sodium Lvl 141 135 - 145 05/14 [place] ELECTROLYT CO2 26 24 - 32 05/14 [place] ELECTROLYT BUN 30 7 - 22 05/14 [place] ELECTROLYT Glucose Lvl 86 70 - 99 05/14 [place] HEMATOLOGY Platelet 155 133 - 450 05/14 [place] HEMATOLOGY MPV 9.6 7.4 - 10.4 05/14 [place] HEMATOLOGY WBC X 10x3 7.4 3.7 - 10.4 05/14 [place] HEMATOLOGY Hgb 14.2 12.0 - 05/14 MH 16.0 [place] HEMATOLOGY RBC X 10x6 4.75 4.20 - 05/14 MH 5.40 [place] HEMATOLOGY MCH 29.9 27.0 - 05/14 MH 31.0 [place] HEMATOLOGY MCV 90.0 80.0 - 05/14 MH 98.0 [place] HEMATOLOGY MCHC 33.3 32.0 - 05/14 MH 36.0 [place] HEMATOLOGY RDW 15.6 11.5 - 05/14 MH 14.5 [place] HEMATOLOGY Hct 42.7 36.0 - 05/14 MH 48.0 [place] HEMATOLOGY Basophils # 0.1 0.0 - 0.2 05/14 [place] HEMATOLOGY Segs-Bands # 3.6 1.5 - 8.1 05/14 /2016 [place] HEMATOLOGY Basophils 1.1 0.0 - 1.0 05/14 [place] HEMATOLOGY Lymphocytes 2.4 1.0 - 5.5 05/14 MH # /2017 [place] HEMATOLOGY Segs 48.0 45.0 - 05/14 MH 75.0 [place] HEMATOLOGY Eosinophils 0.7 0.0 - 0.5 05/14 MH # /2016 [place] HEMATOLOGY Monocytes # 0.7 0.0 - 0.8 05/14 /2016 [place] HEMATOLOGY Monocytes 9.4 2.0 - 12.0 05/14 [place] HEMATOLOGY Eosinophils 9.6 0.0 - 4.0 05/14 [place] HEMATOLOGY Lymphocytes 31.9 20.0 - 05/14 MH 40.0 [place] URINE AND UA WBC 0-2 /HPF None Seen 05/14 STOOL /HPF /2016 [place] URINE AND UA RBC None Seen 0 - 2 05/14 STOOL (05/13/17 6:20 PM) [place] [facility] URINE AND UA Bacteria None Seen None Seen 05/14 STOOL (05/13/17 6:20 PM) [place] [facility] URINE AND UA Sq Epi Rare /LPF Few /LPF 05/14 STOOL /2016 [place] URINE AND UA Hyal Cast 0-2 0 - 2 05/14 STO[facility] (05/13/17 6:20 PM) [place] [facility] URINE AND UA 0.2 0.1 - 1.0 05/14 STOOL Urobilinogen /2016 [place] URINE AND UA Nitrite Negative Negative 05/14 STOOL (05/13/17 6:20 PM) [place] [facility] URINE AND UA Leuk Est Negative Negative 05/14 STOOL (05/13/17 6:20 PM) [place] [facility] URINE AND UA Protein 100 mg/dL Negative 05/14 [facility] mg/dL /2016 [place] URINE AND UA Glucose Negative Negative 05/14 STOOL (05/13/17 6:20 PM) [place] [facility] URINE AND UA Ketones Negative Negative 05/14 STOOL *NA* /2016 [place] (05/13/17 6:20 PM) URINE AND UA Bili Negative Negative 05/14 STOOL *NA* /2016 [place] (05/13/17 6:20 PM) URINE AND UA Blood Negative Negative 05/14 STOOL (05/13/17 6:20 PM) [place] [facility] URINE AND UA Turbidity Clear Clear 05/14 STOOL (05/13/17 6:20 PM) [place] [facility] URINE AND UA Spec Grav 1.020 <=1.030 05/14 STOOL [place] URINE AND UA pH 6.5 5.0 - 8.0 05/14 STOOL [place] URINE AND UA Color Yellow Yellow 05/14 STOOL *NA* /2016 [place] (05/13/17 6:20 PM) CARDIAC Total CK 50 12 - 191 05/13 EN[facility] [place] CARDIAC Troponin-I 0.02 0.00 - 05/13 [facility] 0.40 [place] CARDIAC CK MB 3.3 0.5 - 3.6 05/13 EN[facility] [place] CARDIAC CK-MB INDEX 6.6 0.0 - 2.5 05/13 EN[facility] [place] CHEM PANEL eGFR 36 05/13 [facility] Comment: The [place] eGFR is calculated using the CKD-EPI formula. In most young, healthy individuals the eGFR will be >90 mL/min/1.73m2 . The eGFR declines with age. An eGFR of 60-89 may be normal in some populations, particularly the elderly, for whom the CKD-EPI formula has not been extensively validated. Use of the eGFR is not recommended in the following populations:< br/>
Sadia viduals with unstable creatinine concentration s, including patients and those with serious co-morbid conditions.<b r/>
Patie nts with extremes in muscle mass or diet.

The data above are obtained from the National Kidney Disease Education Program (NKDEP) which additionally recommends that when the eGFR is used in patients with extremes of body mass index for purposes of drug dosing, the eGFR should be multiplied by the estimated BMI. CHEM PANEL Creatinine 1.43 0.50 - 05/13 MH Lvl 1.40 [place] CHEM PANEL Calcium Lvl 9.8 8.5 - 10.5 05/13 [place] CHEM PANEL AGAP 10.0 10.0 - 05/13 MH 20.0 [place] CHEM PANEL Sodium Lvl 138 135 - 145 05/13 [place] CHEM PANEL CO2 28 24 - 32 05/13 [place] CHEM PANEL Potassium 4.0 3.5 - 5.1 05/13 MH Lvl /2016 [place] CHEM PANEL BUN 34 7 - 22 05/13 [place] CHEM PANEL Glucose Lvl 105 70 - 99 05/13 [place] CHEM PANEL Chloride Lvl 104 95 - 109 05/13 [place] HEMATOLOGY INR 1.03 0.85 - 05/13 MH 1.17 [place] HEMATOLOGY PROTIME 13.5 12.0 - 05/13 MH 14.7 [place] HEMATOLOGY aPTT 38.0 22.9 - 05/13 MH 35.8 [place] HEMATOLOGY MCH 29.8 27.0 - 05/13 MH 31.0 [place] HEMATOLOGY RDW 15.9 11.5 - 05/13 MH 14. [place] HEMATOLOGY Hct 46.5 36.0 - 05/13 MH 48.0 [place] HEMATOLOGY Hgb 15.4 12.0 - 05/13 MH 16.0 [place] HEMATOLOGY MCV 90.2 80.0 - 05/13 MH 98.0 [place] HEMATOLOGY MPV 9.0 7.4 - 10.4 05/13 [place] HEMATOLOGY Platelet 175 133 - 450 05/13 [place] HEMATOLOGY MCHC 33.0 32.0 - 05/13 MH 36.0 [place] HEMATOLOGY RBC X 10x6 5.16 4.20 - 05/13 MH 5.40 [place] HEMATOLOGY WBC X 10x3 8.2 3.7 - 10.4 05/13 [place] HEMATOLOGY Eosinophils 0.7 0.0 - 0.5 05/13 MH # /2016 [place] HEMATOLOGY Basophils # 0.1 0.0 - 0.2 05/13 [place] HEMATOLOGY Lymphocytes 2.6 1.0 - 5.5 05/13 MH # /2016 [place] HEMATOLOGY Segs-Bands # 4.2 1.5 - 8.1 05/13 [place] HEMATOLOGY Monocytes # 0.7 0.0 - 0.8 05/13 [place] HEMATOLOGY Basophils 1.0 0.0 - 1.0 05/13 [place] HEMATOLOGY Segs 51.6 45.0 - 05/13 MH 75.0 [place] HEMATOLOGY Lymphocytes 30.9 20.0 - 11 MH 40.0 [place] HEMATOLOGY Monocytes 8.5 2.0 - 12.0 05/13 [place] HEMATOLOGY Eosinophils 8.0 0.0 - 4.0 05/13 [place] CHEM PANEL Bili Total 0.6 0.2 - 1.3 05/09 [place] CHEM PANEL Alk Phos 116 39 - 136 05/09 [place] CHEM PANEL ASPARTATE 25 0 - 37 05/09 TRANSAMINASE [place] CHEM PANEL Bili Direct 0.1 0.0 - 0.3 05/09 [place] CHEM PANEL Bili 0.5 0.0 - 1.0 05/09 Indirect [place] CHEM PANEL ALANINE 21 0 - 65 05/09 AMINOTRANSFE [place] RASE CHEM PANEL Globulin 3.7 2.7 - 4.2 05/09 [place] CHEM PANEL Total 6.7 6.4 - 8.4 05/09 Protein [place] CHEM PANEL A/G Ratio 0.8 0.7 - 1.6 05/09 [place] CHEM PANEL Albumin Lvl 3.0 3.5 - 5.0 05/09 [place] CHEM PANEL Calcium Lvl 9.0 8.5 - 10.5 05/09 [place] CHEM PANEL eGFR 41 05/09 [facility] Comment: The [place] eGFR is calculated using the CKD-EPI formula. In most young, healthy individuals the eGFR will be >90 mL/min/1.73m2 . The eGFR declines with age. An eGFR of 60-89 may be normal in some populations, particularly the elderly, for whom the CKD-EPI formula has not been extensively validated. Use of the eGFR is not recommended in the following populations:< br/>
Sadia viduals with unstable creatinine concentration s, including patients and those with serious co-morbid conditions.<b r/>
Patie nts with extremes in muscle mass or diet.

The data above are obtained from the National Kidney Disease Education Program (NKDEP) which additionally recommends that when the eGFR is used in patients with extremes of body mass index for purposes of drug dosing, the eGFR should be multiplied by the estimated BMI. CHEM PANEL Glucose Lvl 97 70 - 99 05/09 [place] CHEM PANEL Creatinine 1.26 0.50 - 05/09 MH Lvl 1.40 [place] CHEM PANEL CO2 25 24 - 32 05/09 [place] CHEM PANEL AGAP 10.7 10.0 - 05/09 MH 20.0 [place] CHEM PANEL BUN 27 7 - 22 05/09 [place] CHEM PANEL Sodium Lvl 140 135 - 145 05/09 [place] CHEM PANEL Potassium 3.7 3.5 - 5.1 05/09 MH Lvl [place] CHEM PANEL Chloride Lvl 108 95 - 109 05/09 [place] LIPIDS VLDL 23 05/09 [place] LIPIDS LDL 34 <=99 mg/dL 05/09 (Calculated) [place] LIPIDS Trig 117 <=149 05/09 mg/dL [place] LIPIDS CHD Risk 2.30 3.90 - 05/09 MH 5.80 [place] LIPIDS HDL 44 >=61 mg/dL 05/09 [place] LIPIDS Chol 101 <=199 05/09 mg/dL [place] ANEMIA Vitamin B12 >2000 254 - 1320 05/09 STUDY Lvl [place] ANEMIA Folate Lvl 49.5 >=3.0 05/09 STUDY ng/mL [place] CHEM PANEL Procalcitoni <0.05 0.00 - 05/09 MH n Lvl ng/mL 0.10 [place] HEMATOLOGY Sed Rate 5 0 - 20 05/09 [place] HEMATOLOGY MPV 9.2 7.4 - 10.4 05/09 [place] HEMATOLOGY RBC X 10x6 5.36 4.20 - 05/09 MH 5.40 [place] HEMATOLOGY Hgb 15.8 12.0 - 05/09 MH 16.0 [place] HEMATOLOGY WBC X 10x3 8.5 3.7 - 10.4 05/09 [place] HEMATOLOGY MCH 29.6 27.0 - 05/09 MH 31.0 [place] HEMATOLOGY MCHC 32.8 32.0 - 05/09 MH 36.0 [place] HEMATOLOGY RDW 15.7 11.5 - 05/09 MH 14.5 /2017 [place] HEMATOLOGY Platelet 199 133 - 450 05/09 [place] HEMATOLOGY Hct 48.3 36.0 - 05/09 MH 48.0 [place] HEMATOLOGY MCV 90.2 80.0 - 05/09 MH 98.0 [place] HEMATOLOGY Basophils # 0.1 0.0 - 0.2 05/09 [place] HEMATOLOGY Monocytes # 0.5 0.0 - 0.8 05/09 [place] HEMATOLOGY Eosinophils 0.5 0.0 - 0.5 05/09 MH # /2016 [place] HEMATOLOGY Lymphocytes 3.0 1.0 - 5.5 05/09 MH # /2016 [place] HEMATOLOGY Segs 52.2 45.0 - 05/09 MH 75.0 [place] HEMATOLOGY Lymphocytes 35.2 20.0 - 05/09 MH 40.0 [place] HEMATOLOGY Monocytes 6.4 2.0 - 12.0 05/09 [place] HEMATOLOGY Segs-Bands # 4.4 1.5 - 8.1 05/09 [place] HEMATOLOGY Eosinophils 5.5 0.0 - 4.0 05/09 [place] HEMATOLOGY Basophils 0.7 0.0 - 1.0 05/09 [place] IMMUNOLOGY C-REACTIVE <2.9 <=2.9 mg/L 05/09 [place] IMMUNOLOGY RF Qnt <10 0 - 20 05/09 [place] IMMUNOLOGY P-ANCA Negative Negative 05/09 (05/08/17 6:52 PM) [place] [facility] IMMUNOLOGY C-ANCA Negative Negative 05/09 (05/08/17 6:52 PM) [place] [facility] IMMUNOLOGY [place] Positive Negative 05/09 *ABN* /2016 [place] (05/08/17 6:52 PM) IMMUNOLOGY Sm Ab <0.2 <=0.9 AI 05/09 [place] IMMUNOLOGY IT INSTRUCTOR Ab <0.2 <=0.9 AI 05/09 [place] IMMUNOLOGY [place] Interp Pattern 05/09 appears [place] Nucleolar. IMMUNOLOGY SS-A (Ro) Ab <0.2 <=0.9 AI 05/09 [place] IMMUNOLOGY SS-B (La) Ab <0.2 <=0.9 AI 05/09 [place] IMMUNOLOGY [place] Titer 1:40 Negative 05/09 MH *ABN* /2016 [place] (05/08/17 6:52 PM) IMMUNOLOGY Hep B Core Negative Negative 05/09 IgM *NA* [place] (05/08/17 6:52 PM) IMMUNOLOGY Hep C Ab Negative 05/09 MH *NA* [place] (05/08/17 6:52 PM) IMMUNOLOGY Hep Bs Ag Negative Negative 05/09 MH *NA* [place] (05/08/17 6:52 PM) IMMUNOLOGY Hep A IgM Negative Negative 05/09 MH *NA* [place] (05/08/17 6:52 PM) IMMUNOLOGY EBV VCA IgG >8.0 <=0.8 AI 05/09 [place] IMMUNOLOGY EBV NA IgG >8.0 <=0.8 AI 05/09 [place] IMMUNOLOGY EBV VCA IgM <0.2 <=0.8 AI 05/09 [place] MYOGLOBIN Myoglobin 93 25 - 72 05/09 [place] URINE AND UA Protein 100 mg/dL Negative 05/08 STOOL mg/dL [place] URINE AND UA Glucose Negative Negative 05/08 STOOL (05/08/17 2:02 PM) [place] and URINE AND UA Ketones Negative Negative 05/08 STOOL *NA* [place] (05/08/17 2:02 PM) URINE AND UA Bili Negative Negative 05/08 STOOL *NA* [place] (05/08/17 2:02 PM) URINE AND UA Leuk Est Negative Negative 05/08 STOOL (05/08/17 2:02 PM) [place] and URINE AND UA Nitrite Negative Negative 05/08 STOOL (05/08/17 2:02 PM) [place] [facility] URINE AND UA Blood Negative Negative 05/08 STOOL (05/08/17 2:02 PM) [place] and URINE AND UA 0.2 0.1 - 1.0 05/08 STOOL Urobilinogen [place] URINE AND UA Color Yellow Yellow 05/08 STOOL *NA* [place] (05/08/17 2:02 PM) URINE AND UA Turbidity Clear Clear 05/08 STOOL (05/08/17 2:02 PM) [place] and URINE AND UA Spec Grav 1.020 <=1.030 05/08 STOOL [place] URINE AND UA pH 6.0 5.0 - 8.0 05/08 STOOL [place] URINE AND UA RBC None Seen 0 - 2 05/08 STOOL (05/08/17 2:02 PM) [place] and URINE AND UA Bacteria None Seen None Seen 05/08 STOOL (05/08/17 2:02 PM) [place] [facility] URINE AND UA WBC 0-2 /HPF None Seen 05/08 STOOL /HPF /2016 [place] URINE AND UA Sq Epi Rare /LPF Few /LPF 05/08 STOOL [place] CARDIAC Troponin-I <0.02 0.00 - 05/08 [facility] 0.40 /2016 [place] CARDIAC CK MB 2.5 0.5 - 3.6 05/08 ENZYMES [place] CARDIAC Total CK 74 12 - 191 05/08 ENZYMES [place] CARDIAC CK-MB INDEX 3.4 0.0 - 2.5 05/08 ENZYMES [place] CHEM PANEL eGFR 27 05/08 Comment: The [place] eGFR is calculated using the CKD-EPI formula. In most young, healthy individuals the eGFR will be >90 mL/min/1.73m2 . The eGFR declines with age. An eGFR of 60-89 may be normal in some populations, particularly the elderly, for whom the CKD-EPI formula has not been extensively validated. Use of the eGFR is not recommended in the following populations:< br/>
Sadia viduals with unstable creatinine concentration s, including patients and those with serious co-morbid conditions.<b r/>
Patie nts with extremes in muscle mass or diet.

The data above are obtained from the National Kidney Disease Education Program (NKDEP) which additionally recommends that when the eGFR is used in patients with extremes of body mass index for purposes of drug dosing, the eGFR should be multiplied by the estimated BMI. CHEM PANEL A/G Ratio 0.8 0.7 - 1.6 05/08 [place] CHEM PANEL ASPARTATE 42 0 - 37 05/08 TRANSAMINASE [place] CHEM PANEL ALANINE 24 0 - 65 05/08 AMINOTRANSFE [place] RASE CHEM PANEL Alk Phos 137 39 - 136 05/08 [place] CHEM PANEL Bili Total 0.8 0.2 - 1.3 05/08 [place] CHEM PANEL Potassium 4.7 3.5 - 5.1 05/08 Result MH Lvl /2016 Comment: [place] Specimen Hemolyzed. CHEM PANEL Albumin Lvl 3.7 3.5 - 5.0 05/08 [place] CHEM PANEL Globulin 4.7 2.7 - 4.2 05/08 [place] CHEM PANEL Calcium Lvl 9.5 8.5 - 10.5 05/08 [place] CHEM PANEL CO2 27 24 - 32 05/08 [place] CHEM PANEL AGAP 12.7 10.0 - 05/08 MH 20.0 [place] CHEM PANEL Total 8.4 6.4 - 8.4 05/08 MH [place] CHEM PANEL B/C Ratio 22 6 - 25 05/08 [place] CHEM PANEL Glucose Lvl 116 70 - 99 05/08 [place] CHEM PANEL BUN 39 7 - 22 05/08 [place] CHEM PANEL Creatinine 1.80 0.50 - 05/08 MH Lvl 1.40 [place] CHEM PANEL Sodium Lvl 138 135 - 145 05/08 [place] CHEM PANEL Chloride Lvl 103 95 - 109 05/08 [place] CHEM PANEL Lactic Acid 1.5 0.5 - 2.2 05/08 [facility] Lvl /2016 [place] [facility] PANEL Lipase Lvl 465 73 - 393 05/08 [place] [facility]EMATOLOG[facility] MPV 9.0 7.4 - 10.4 05/08 [place] [facility] RDW 15.7 11.5 - 05/08 [facility] 14.5 [place] [facility] Platelet 207 133 - 450 05/08 [place] [facility]EMAT[facility] MCH 29.9 27.0 - 05/08 [facility] 31.0 [place] [facility] MCHC 33.2 32.0 - 05/08 [facility] 36.0 [place] [facility] Hct 50.0 36.0 - 05/08 [facility] 48.0 [place] [facility] MCV 90.2 80.0 - 05/08 [facility] 98.0 [place] [facility] Hgb 16.6 12.0 - 05/08 [facility] 16.0 [place] [facility] WBC X 10x3 10.0 3.7 - 10.4 05/08 [place] [facility] RBC X 10x6 5.54 4.20 - 05/08 5.40 /2016 [place] [facility]EMATOLOG[facility] Basophils # 0.1 0.0 - 0.2 05/08 [place] HEMATOLOGY Eosinophils 0.5 0.0 - 0.5 05/08 # /2017 [place] HEMATOLOGY Segs-Bands # 6.1 1.5 - 8.1 05/08 [place] HEMATOLOGY Basophils 1.0 0.0 - 1.0 05/08 [place] HEMATOLOGY Monocytes # 1.0 0.0 - 0.8 05/08 [place] HEMATOLOGY Lymphocytes 2.3 1.0 - 5.5 05/08 [place] HEMATOLOGY Eosinophils 5.1 0.0 - 4.0 05/08 [place] HEMATOLOGY Monocytes 9.7 2.0 - 12.0 05/08 [place] HEMATOLOGY Lymphocytes 23.1 20.0 - 05/08 40.0 [place] HEMATOLOGY Segs 61.1 45.0 - 05/08 75.0 [place] Pathology Reports No Data Provided for This Section Diagnostic Reports Report Value Date Source Chest 1view DX Portable chest: There is bee n improvement in pulmonary venous congestion and edema compared to 12/15/2018 with mild residual interstitial edema in the perihilar regions. The lungs and pleural spaces are 12/18/2018 [facility] otherwise clear. The cardia c silhouette is enlarged but decreased in size. There is no other significant change. SL [id number] Chest 1view DX Portable chest: The cardiac silhouette is enlarged. There is pulmonary venous congestion and perihilar edema in the lung showing no significant change from the previous day considering technical differe 12/15/2018 [facility] nces and phase of respiratio n. There is no significant effusion. There is no other change. SL [id number] Retroperitoneal Complete Clinical Indication: - LILIANA. 12/15/2018 [facility] US Comparison: None. TECHNIQUE: Multiple longitudinal and tr ansverse real time sonographic images of the kidneys and urinary bladder are obtained. FINDINGS: KIDNEY: The right kidney measures 7.7 x 4.1 x 4.3 cm. The left kidney measures 9.8 x 6.0 x 4.0 cm. The right kidney demonstrate s cortical thinning and increased echogenicity. The left kidney appears to demonstrate normal echogenicity. No hydronephrosis. No echoge chaitanya foci/nephrolithiasis. No abnormal perinephric collections. A small simple appearing right renal cyst measuring 1.0 x 0.9 cm. BLADDER: The bladder is decompressed by Song catheter, l imiting evaluation. AORTA, COMMON ILIAC ARTERIES AND IVC: The visualized segments of t he aorta are within normal caliber. The common iliac arteries are not well visualized due to overlying bowel gas. The visualized segment of the IVC is patent. ASCITES: No ascites noted. IMPRESSION: The right kidney is small an d demonstrates increased echogenicity without evidence of hydronephrosis. The left kidney demonstrates no evidence of hydronephrosis and appears to demonstrate normal echogenicity. SL: CLAUDIA Chest 1view DX PROCEDURE: Chest Radiograph. 12/14/2018 [facility] Clinical Indication: Cough, shortness of breath. Comparison: Chest radiograph 05/13/2017. FINDINGS: The chest shows diffuse bila teral pulmonary infiltrate/edema most pronounced in the midlung zones and lower lobes. The cardiac silhouette is en larged. Degenerative change involves the thoracic spine. IMPRESSION: 1. Cardiomegaly with bilateral pulmonary infiltr ate/edema. [id number] Carotid artery Doppler Study: Carotid artery Dopple r bilat US 05/14/2017 9:47 AM SCIENTIST IMMUNOLOGY 05/14/2017 [facility] bil US Clinical Indication: - stro ke like symptoms; status post left carotid stenting Comparison: Neck CTA of 12/16/2009 TECHNIQUE: Calvillo-scale, color Doppler and spectral Doppler of the carotid arteries was performed. Any reported ICA stenoses indirectly reference the distal internal carotid diameter as the denominator fo r stenosis measurement, utilizing consensus pane l criteria. FINDINGS: RIGHT: There is mild visible plaque formation. ICA PSV 17 0 cm/sec CCA PSV 201 cm/sec ICA/CCA ratio 1.2 Vertebral flow is antegrade. LEFT: Left carotid stent is noted ICA PSV 62 cm/sec CCA PSV 75 c m/sec ICA/CCA ratio 1.2 Vertebral flow is antegrade. IMPRESSION: 1. RIGHT: ICA stenosis less than 50 % by velocit y criteria. 2. LEFT: ICA stenosis less than 50 % by velocity criteria. End Impression Consensus panel Doppler US criteria for diagnosi s of ICA stenosis. Stenosis (%) ICA PSV (cm/sec) ICA/CC A ratio <50 <125 <2.0 50-69 125-230 2.0-4.0 >70 but less than >230 >4.0 near occlusion Near occlusion High, low, or undetectab le Variable SL: JH-M Brain wo contrast MRI Clinical Indication: - Right sided we akness x 2 weeks; 05/13/2017 [facility] Comparison: None TECHNIQUE: MRI of the brain is performed without gadolinium contrast with axial T1, T2, FLAIR and diffusion weighted imaging along with sagittal T2, and coronal T1 weighted imaging. FINDINGS: BRAIN PARENCHYMA: There is m ild generalized cortical atrophy. Moderate nonspecific periventricular white matter foci of increased T2 and FLAIR signal are seen, likely related to small vessel disease. T here is volume loss involvin g the left posterior parietal vertex. There is no mass effect or midline shift. There are no extra-axial fluid collection, or intraparenchymal hemorrhage. The corpus callosum appears normal. There is no diffusion weighted imaging or ADC map abnormality to suggest acute/subacute ischemia. . There is serpiginous susceptibility artifact visualized along the left posterior parietal lobe.. CEREBELLOPONTINE REGIONS AND SKULL BASE: The cerebellopontine angles appear unremarkable. The skull base, craniocervical junction, and brainstem region are normal. The optic chiasm is normal. The sellar and pineal regions are unremarkable. VENTRICLES: The ventricles a re normal in size and configuration. The basilar cisterns are normal. VESSELS: The venous sinuses are grossly unremarkable. The expected intracranial flow voids are present. ORBITS, VISUALIZED PARANASAL SINUSES AND MASTOIDS: The visualized orbits and paranasal sinuses are unremarkable. The mastoid air cells are clear. IMPRESSION: 1. No acute intracranial abnormality wit hout acute stroke, hemorrhage or mass. 2. Generalized brain parench ymal atrophy with associated nonspecific periventricular white matter disease changes/small vessel disease. There is encephalomalacia along with chronic cortical hemosiderin from remote hemorrhage in the left posterior par ietal vertex. SL: [id number] Brain wo contrast CT Patient Name: LAURIE OLEARY 04/18 [facility] : 1940; Age: 77 years y/o Female MR: [id number] Study: Brain wo contrast CT 05/13/2017 2:[address] Ordering Physician: Kate Rodriguez Clinical Indication: - right side weakness, DLP -910.57MGY-CM; Comparison: 05/08/2017 TECHNIQUE: CT images were ob tained from the foramen magnum to the vertex without the use of intravenous contrast on a multidetector CT. Coronal and sagittal reconstructions were obtained. CT radiation dose DLP: 910 mGy-cm FINDINGS: There is no evidence of acut e intracranial hemorrhage, subacute territorial infarct, mass effect, midline shift, extra-axial fluid collection, hydrocephalus or other acute abnormalities. There is moderate generalize d cerebral volume loss with associated ventricular prominence. There are moderate nonspecific supratentorial white matter ill- defined hypodensities likely representing chroni c small vessel ischemic altamirano ges in this age. Small cortically based encephalomalacia/gliosis in the left parietal lobe involving the postcentral gyri suggestive of old infarct. There are calcifications in the carotid siphons and intradural vertebral arteries. The calvarium, paranasal sinuses and mastoids ar e unremarkable. If there is further concern for intracranial pathology or acute stroke, further assessment with an MRI of the brain should be considered. IMPRESSION: No evidence of acute intracranial process. Moderate chronic small vessel ischemic changes. 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 SL: [id number] Chest 1view DX Chest 1view DX 05/13/2017 2:15 PM SCIENTIST IMMUNOLOGY 05/13/2017 [facility] Ordering Physician: Kate Rodriguez CLINICAL HISTORY: - weakness//pt to ER for righ t sided weakness x 2 weeks; TECHNIQUE: A single AP view of the chest was obt ained. COMPARISON: None FINDINGS: No focal consolidation or pl eural effusion is seen. No radiographically detectable pneumothorax is present. The cardiomediastinal silhou ette and its contours are normal. No acute osseous abnormality is evident. Vascular stent in the left neck is partly seen. IMPRESSION: No acute radiographic abnormality of the chest. SL: [id number] Abdomen RUQ US Patient Name: LAURIE OLEARY 7 [facility] : 1940; Age: 77 years y/o Female MR: [id number] Study: Abdomen RUQ US Order Date: 05/08/2017 5:07 PM SCIENTIST IMMUNOLOGY Ordering Physician: Clinical Indication: Elevated hepatic enzymes Comparison: None TECHNIQUE: Grayscale and limited color sonographic evaluation of the right upper quadrant of the abdomen and gallbladder region was performed with standard technique. FINDINGS: LIVER: The visualized liver shows n ormal contour, size, and morphology with normal parenchymal echo texture. BILE DUCTS: The intrahepatic and extrahe patic bile ducts are not dilated with the common bile duct measuring 2 mm. The distal common bile duct is not well seen. GALLBLADDER: There are no gallstones, gal lbladder sludge, pericholecystic fluid or wall thickening. PANCREAS: The visualized pancreas appears unremarkable. KIDNEY: The right kidney measures 6.9 x 3.8 x 4.0 cm. There is normal renal contou r with diffuse increased parenchymal echotexture. Right kidney shows 0.9 x 0.9 x 1.0 cm midpole hypoechoic lesion. There is no hydronephrosis. AORTA AND INFERIOR VENA CAVA: Visualized portions appear unremarkable. ASCITES: There is no right upper quadrant abdominal ascit es. IMPRESSION: No focal hepatic lesion Atrophic kidney shows diffus e increased renal cortical echogenicity compatible with medical renal disease. SL: PRASHANTH Chest wo contrast CT Study: Chest wo contrast CT 05/08/2017 [facility] Clinical Indication: - r/o acute pathology/Weakness, not eating for the past 8 days. Seen by PCP yesterday \\T\\ was Rx Z-pack. Seen at [facility] last Saturday \\T\\ Saturday for the same problem/pt. denies pain/ct dlp 439.99 mGy-cm Comparison: Chest x-ray from 05/08/2017 TECHNIQUE: Multiple axial CT images of the chest were acquired without the administration of intravenous contrast. Coronal and sagittal reconstructions were obtained. Dose: DLP = 439.99 mGy-cm FINDINGS: Heart is normal in size. Pericardium is unremarkable. Aortic annular, coronary artery, and thoracic aortic calcifications are seen. No pathologic mediastinal, hilar, or axillary adenopathy is seen. No endobronchial lesions are identified within the central airways. Mild dependent atelectasis i n the bilateral lower lobes is seen.No pleural effusion or pneumothorax is seen. The superficial soft tissues of the chest wall are unremarkable. No suspicious osseous lesions are seen. Limited views of the upper abdomen show no focal abnormality. IMPRESSION: 1. No acute cardiopulmonary disease. 2. Mild dependent atelectasis in the bilateral l ower lobes. SL: CHENTE-PC Abdomen/Pelvis wo IV Patient Name: LAURIE CEDILLO 05/08/2017 [facility] contrast CT : 1940; Age: 77 years y/o Female MR: [id number] Study: Abdomen/Pelvis wo IV contrast CT 05/08/20 17 2:44 PM SCIENTIST IMMUNOLOGY Referring physician:Antonette Giordano DO Clinical Indication: abdomin al pain - pt complain of decreased appetite and abdominal pain/DLP:435.44mGy-cm; Comparison: None TECHNIQUE: Sequential trans-axial image s were obtained with a multi-detector helical CT without administration of IV contrast. Coronal and sagittal reconstructions were obtained. FINDINGS: LUNG BASES: Lung bases are c lear without significant pleural effusion bilaterally. ABDOMINAL ORGANS: No focal l iver or splenic abnormality. Right kidney is severely atrophic. 1 cm right renal cyst. Left kidney normal. No adrenal mass. Pancreas normal. Gallbladder normal. No biliary ductal dilatation. PERITONEUM AND RETROPERITONE UM: No abdominal or pelvic lymphadenopathy. No free intraperitoneal air. No abnormal fluid collection identified in the abdomen or pelvis. The abdominal aorta is nonaneurysma l. There is extensive athero sclerotic calcific plaque within the abdominal aorta and proximal visceral arteries. Bilateral renal artery stents are present. BOWEL: No bowel abnormality identified in the abdomen or pelvis. The appendix is not specifically visualized although no pericecal inflammation or pathologic fluid. No evidence for colitis or diverticulitis. PELVIS: Hysterectomy. No pelvic mass. Bladder is unremarkable. BONES: There are no definite significant osseous abnormalities seen. IMPRESSION: Extensive aortic and proximal visceral artery at herosclerosis. Although no definite signs o f acute mesenteric ischemia, consider mesenteric vascular evaluation to consider possibility of chronic mesenteric ischemia. (Considering the stated clinical indication) No additional acute abdominal or pelvic noncontr ast CT findings. SL: [id number] Brain wo contrast CT Patient Name: LAURIE CEDILLO 05/08/2017 [facility] : 1940; Age: 77 years y/o Female MR: [id number] Study: Brain wo contrast CT 05/08/2017 2:[address] Ordering Physician: Opal Quintanilla MD Clinical Indication: - ams, weakness/DLP: 884.2 4mGy-cm; Comparison: 08/07/2008 TECHNIQUE: CT images were ob tained from the foramen magnum to the vertex without the use of intravenous contrast on a multidetector CT. Coronal and sagittal reconstructions were obtained. CT radiation dose DLP: 884 mGy-cm FINDINGS: There is no evidence of acut e intracranial hemorrhage, subacute territorial infarct, mass effect, midline shift, extra-axial fluid collection, hydrocephalus or other acute abnormalities. There is moderate generalize d volume loss. There are confluent hypodensities in the supratentorial white matter, predominantly in the periventricular regions,, more prominent compared to 08/07/2001. Thes e likely represent chronic s mall vessel ischemic changes. There is resultant increase in ventricular size, likely secondary to volume loss. There is a chronic appearing cortically based infarct in the l eft parietal lobe involving the postcentral/sensory gyrus. There are calcifications in the carotid siphons and intradural vertebral arteries. The calvarium, paranasal sinuses and mastoids ar e unremarkable. If there is further concern for intracranial pathology or acute stroke, further assessment with an MRI of the brain should be considered. IMPRESSION: 1. No acute intracranial hemorrhage. 2. Interval progression of chronic small vessel ischemic changes compared to 08/07/2008. Ventricular prominence is most likely related to atrophy. 3. 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 SL: [id number] Chest 1view DX CHEST 1 VIEW 05/08/2017 [facility] INDICATION: Heart failure. Not eating for the co st 8 days. COMPARISON: 08/10/2008 chest x-ray FINDINGS: Faint opacity righ t base. The lungs are otherwise clear. No pleural abnormality. The cardiomediastinal silhouette is normal. Vascular stent left side of the neck. IMPRESSION: Subtle area of a telectasis or infiltrate right base. Otherwise normal exam. END IMPRESSION SL: [id number] Consultation Notes No Data Provided for This Section Discharge Summaries No Data Provided for This Section History and Physicals No Data Provided for This Section Vital Signs Vital Sign Value Date Comments Source Temperature Oral (F) 98.2 F 12/20/2018 [place] Systolic (mm Hg) 120 12/20/2018 [facility] [place] Diastolic (mm Hg) 98 12/20/[address] [address] Respitory Rate 18 12/20/2018 [place] Systolic (mm Hg) 132 12/20/2018 [facility] [place] [facility] Diastolic (mm Hg) 84 12/20/[address] Respitory Rate 19 12/20/2018 [place] Systolic (mm Hg) 119 12/20/2018 [facility] [place] [facility] Diastolic (mm Hg) 75 12/20/[address] Respitory Rate 16 12/20/2018 [place] Temperature Oral (F) 98.0 F 12/20/2018 [facility] Temperature Oral (F) 97.7 F 12/20/2018 [facility] Height 160.02 cm 12/15/2018 [place] Weight 69.545 12/15/2018 [facility] BMI Calculated 27.16 12/15/2018 [place] Systolic (mm Hg) 141 12/15/2018 [place] Diastolic (mm Hg) 66 12/15/2018 [place] Respitory Rate 17 12/15/2018 [facility] [place] Systolic (mm Hg) 141 12/15/2018 [facility] [place] Diastolic (mm Hg) 61 12/15/2018 [place] Respitory Rate 25 12/15/2018 [place] Temperature Oral (F) 97.9 F 12/15/2018 [place] Systolic (mm Hg) 156 12/15/2018 [place] Diastolic (mm Hg) 68 12/15/2018 [place] Respitory Rate 41 12/15/2018 [place] Height 162.56 cm 12/14/2018 [place] Heart Rate 85 12/14/2018 [facility] [place] Temperature Oral (F) 97.9 F 12/14/2018 [place] BMI Calculated 24.08 12/14/2018 [place] Weight 63.636 12/14/2018 [facility] [place] Respitory Rate 18 05/15/2017 [place] Systolic (mm Hg) 165 05/15/2017 [facility] [place] Diastolic (mm Hg) 73 05/15/2017 [place] Systolic (mm Hg) 161 05/15/2017 [facility] [place] Diastolic (mm Hg) 76 05/15/2017 [place] Respitory Rate 14 05/15/2017 [place] Systolic (mm Hg) 164 05/15/2017 [place] Diastolic (mm Hg) 77 05/15/2017 [place] Heart Rate 67 05/15/2017 [place] Respitory Rate 19 05/15/2017 [place] Heart Rate 73 05/15/2017 [place] Temperature Oral (F) 99.1 F 05/15/2017 [place] Heart Rate 70 05/15/2017 [place] Temperature Oral (F) 97.5 F 05/15/2017 [place] Temperature Oral (F) 98.1 F 05/15/2017 [place] Weight 65.2 05/14/2017 [place] Height 157.48 cm 05/14/2017 [place] BMI Calculated 26.29 05/14/2017 [place] Weight 68.182 05/13/2017 [place] BMI Calculated 22.86 05/13/2017 [place] Height 172.72 cm 05/13/2017 [place] Heart Rate 63 05/09/2017 [place] Temperature Oral (F) 97.8 F 05/09/2017 [place] Systolic (mm Hg) 138 05/09/2017 [place] Diastolic (mm Hg) 76 05/09/2017 [place] Respitory Rate 17 05/09/2017 [place] Respitory Rate 15 05/09/2017 [place] Systolic (mm Hg) 153 05/09/2017 [place] Diastolic (mm Hg) 73 05/09/2017 [place] Respitory Rate 17 05/09/2017 [place] Temperature Oral (F) 97.7 F 05/09/2017 [place] Heart Rate 60 05/09/2017 [place] Temperature Oral (F) 97.9 F 05/09/2017 [place] Heart Rate 62 05/09/2017 [place] Systolic (mm Hg) 144 05/09/2017 [place] Diastolic (mm Hg) 74 05/09/2017 [place] Height 157.48 cm 05/08/2017 [place] BMI Calculated 26.1 05/08/2017 [place] Weight 64.716 05/08/2017 [place] Weight 63.636 05/08/2017 [place] BMI Calculated 25.66 05/08/2017 [place] Height 157.48 cm 05/08/2017 [facility] Encounters Location Location Encounter Encounter Reason Attending ADM DC Stat us Source Details Type Number For Provider Date Date Visit [facility] [id number] Shruthi 05/08 05/09 Mikey Vazquez /2016 [facility] [id number] Valeri 05/13 05/15 Mikey Amor /2016 [facility] Emergency [id number] Angie Felicity 12/14 12/15 Mikey /2018 [facility] Inpatient [id number] Taso 12/15 [facility] Procedures Procedure Code Date Perfomer Comments Source Hysterectomy [id number] Mariano [id number] [facility] and [facility] Assessment and Plan Date Source Extracted from:Title: Clinical Document 12/20/2018 [facility] Author: Fransisca Hensley MD Date: 12/20/18 Pulmonary and Critical Care Progress Note [facility] Sujective/overnight events: Chart reviewed. Patient seen and examin ed. She is on 2 L nasal cannula and when I took her off supplemental oxygen her oxygenation remained stable on room air. She states that her shortness of breath and cough is overall improved. Scheduled Meds (13): 12/15/18 albuterol-ipratropium (DuoNeb inhalation solution) 3 mL NEB RQ4H 12/18/18 apixaban (Eliquis) 5 mg PO Q12H 12/20/18 aspirin (aspirin 81 mg tablet, enteric coated) 81 m g PO Daily 12/15/18 budesonide (Pulmicort Respules 0.5 mg/2 mL inhalation suspension) 0.5 mg NEB RBID 12/18/18 carvedilol 6.25 mg PO BID 12/15/18 cefTRIAXone + sterile water 10 mL (Rocephin + sterile water 10 mL) 1 gm IV [id number] 120 ml/hr 12/18/18 furosemide (Lasix 40 mg oral tablet) 40 mg PO BID 12/15/18 non-formulary (Levetiracetam 25 0 mg tab Pt's Own Med) 250 mg PO Q12H 12/15/18 non-formulary (Aspirin EC 81 mg tab Pt's Own Med* *) 81 mg PO Daily 12/15/18 non-formulary (Donepezil 10 mg tab Pt's Own MED* *) 10 mg PO BID 12/15/18 non-formulary (Atorvastatin 80 mg tab Pt's Own MED) 80 mg PO Bedtime 12/15/18 non-formulary (Memantine 10 mg tab Pt's Own Med* *) 10 mg PO BID 12/16/18 pantoprazole 40 mg PO Before Breakfast Continuous Infusions: None Labs (Last four charted values) WBC 7.0 (DEC 18) 8.8 (DEC 17) H 11.7 (DEC 16) 8.9 (DEC 15) Hgb 13.9 (DEC 18) 13.3 (DEC 17) L 11.6 (DEC 16) 12.0 (DEC 15) Hct 43.0 (DEC 18) 40.6 (DEC 17) L 35.0 (DEC 16) 36.3 (DEC 15) Plt 234 (DEC 18) 217 (DEC 17) 205 (DEC 16) 174 (DEC 15) Na 138 (DEC 19) 139 (DEC 18) 140 (DEC 17) 137 (DEC 16) K 4.3 (DEC 19) 4.0 (DEC 18) L 3.1 (DEC 17) 3.5 (DEC 16) CO2 28 (DEC 19) 30 (DEC 18) 29 (DEC 17) L 23 (DEC 16) Cl 100 (DEC 19) 101 (DEC 18) 103 (DEC 17) 105 (DEC 16) Cr H 2.55 (Dec) H 2.35 (DEC 18) H 2.30 (DEC 17) H 2.37 (DEC 16) BUN H 63 (DEC 19) H 60 (DEC 18) H 61 (DEC 17) H 63 (DEC 16) Glucose Random 99 (DEC 19) H 122 (DEC 18) H 110 (DEC 17) H 214 (DEC 16) Mg 2.2 (DEC 18) H 2.6 (DEC 16) H 3.0 (DEC 15) H 2.9 (DEC 15) Phos H 5.1 (DEC 15) 4.2 (DEC 15) Ca 8.9 (DEC 19) 9.4 (GAEL 04) 9.5 (DEC 17) 9.1 (DEC 16) Troponin <0.02 (DEC 17) Objective: I&O Record In Out Bal 12/20 24hr Tot 0 0 0 12/19 24hr Tot 10 0 10 12/20/2018 11:01 Oxygen Therapy Mode Nasal cannula SpO2 percent 92 12/19/2018 15:12 FIO2 (%) 21 Vital Signs (last 24 hrs) Last Charted Temp Oral 98.0 DegF (DEC 20 12:02) Heart Rate Apical 81 bpm (DEC 20) Resp Rate 15 BRMIN (DEC 20) SBP 130 mmHg (DEC 20) DBP 73 mmHg (DEC 20:) SpO2 92 % (DEC 20) Exam: General: No acute distress HEENT: No pallor, anicteric sclera CV: irregular Resp: CTAB Abd: Soft, NTTP, ND, +BS Extremities: No c/c/e Neuro: A&Ox3, non focal Skin: No break down . Problems: Acute hypoxic respiratory failure Acute on chronic diastolic heart failure exacerbation Hypertension COPD Acute on chronic kidney disease Coronary artery disease Possible pneumonia Atrial fibrillation Plan: I discussed the case with the nurse at t he bedside. Please obtain ambulatory saturations. Continue to wean oxygen to maintain SPO2 greater than 89%. Today's day 6 of antibiotics she can be switc hed to p.o. antibiotic to complete a 7-d ay course total. Oxygenation remained stable on exertion she is okay to discharge from pulmonary standpoint. Fransisca Hensley MD Pulmonary and Critical Care Medicine Extracted from:Title: Clinical Document Author: Ankit De Los Santos MD Date: 12/16/18 Internal Medicine Consultation [facility] Ankit De Los Santos MD SUBJECTIVE: pt seen and examined, events noted no new c/o today OBJECTIVE: Vitals and Temp: Vitals Tmp(F) Pulse BP RR SpO2 FIO2 12/16 20:11 ---- --- ----- 21 95 32% 12/16 20:10 ---- --- ----- -- 95 3.0L/m 12/16 20:00 98.3 --- ----- -- --- --- 12/16 18:00 ---- 88 141/75 21 92 --- 12/16 17:16 ---- 89 98/72 21 91 --- 24 Hr Tmax: 98.4F (36.89c) at 12/16 00:0 0 Vital Signs are the last 5 in the past 48 hours. Labs (Last four charted values) WBC H 11.7 (Dec 2) 8.9 (DEC 15) 9.7 (DEC 15) Hgb L 11.6 (Dec 2) 12.0 (DEC 15) L 11.8 (DEC 15) Hct L 35.0 (Dec 2) 36.3 (DEC 15) L 35.5 (DEC 15) Plt 205 (DEC 16) 174 (DEC 15) 180 (DEC 15) Na 137 (DEC 16) 140 (DEC 15) 138 (DEC 15) K 3.5 (DEC 16) 3.9 (DEC 15) 3.9 (DEC 15) CO2 L 23 (DEC 16) L 21 (DEC 15) L 21 (DEC 15) Cl 105 (DEC 16) 109 (DEC 15) 109 (DEC 15) Cr H 2.37 (Dec 2) H 2.14 (DEC 15) H 2.18 (DEC 15) BUN H 63 (DEC 16) H 47 (DEC 15) H 47 (DEC 15) Glucose Random H 214 () H 193 (DEC 15) H 187 (DEC 15) Mg H 2.6 (DEC 16 ) H 3.0 (DEC 15) H 2.9 (DEC 15) Phos H 5.1 (DEC 15) 4.2 (DEC 15) Ca 9.1 (DEC 16) 9.0 (DEC 15) 8.8 (DEC 15) ASSESSMENT and EXAM: General: in no apparent distress at this time. Eyes: Pupils equal, round and reactive to light. Eyes shira l inspection. ENT: Ears normal. Nose normal. Pharynx normal. Neck: Normal inspection. No jugular venous distention. Nec k supple. CVS: Heart sounds normal. Pulses normal. no murmurs Respiratory: No respiratory distress. Breath sounds normal. no wheezing Abdomen: Soft and nontender. no organomegaly Back: Normal inspection. Skin: Skin warm and dry. Normal skin color. Extremities: Extremities exhibit normal ROM. No lower extre mity edema. Neuro: Oriented X 3. No motor deficit. DIAGNOSES and PROBLEMS: PLAN and TREATMENT: MEDICATIONS Scheduled Meds (14):albuterol-ipratropiu m (DuoNeb inhalation solution), azithromycin + Sodium Chloride 0.9% IV 250 mL, budesonide (Pulmicort Respules 0.5 mg/2 mL inhalation suspension), (Suspended) carv edilol, cefTRIAXone + sterile water 10 m L (Rocephin + sterile water 10 mL), furosemide (Lasix), heparin, non-formulary (Levetiracetam 250 mg tab Pt's Own Med), non-formulary (Clopidogrel 75 mg tab Pt's Own MED), non-formulary (A spirin EC 81 mg tab Pt's Own Med), non-formulary (Donepezil 10 mg tab Pt's Own MED), non-formulary (Atorvastatin 80 mg tab Pt's Ow n MED), non-formulary (Memantine 10 mg tab Pt's Own Med ), pantoprazole Unscheduled Meds: None PRN Meds: None One Time Meds: None Continuous Infusions: None Extracted from:Title: Shortness of breath Author: Francisco Cano DO Date: 12/15/18 Critical Care Medicine Chief complaint: Shortness of breath History of present illness: 78 y.o female with a h/o diastolic CHF, CAD with h/o stents, HTN, dementia, and COPD presented to [facility] with a 2 day h/o progressive shortness of breath. She was hypoxic on presentation and placed on NIP PV. She has LILIANA on CKD with a BNP of 764 . CXR reveals CM and pulm edema. The patient also has been having nasal congestion and her WBC is slightly at 12. Past medical history: HTN (hypertension) COPD (chronic obstructive pulmonary disease) CHF (congestive heart failure) Stroke Dementia Past family history: Father: Heart attack Brother: Stroke Sister: Stroke Surgical history: Stent placement Hysterectomy Social history: Alcohol Details: Never Tobacco Details: Use: Former smoker. Type: Ciga rettes. Tobacco smoke exposure: None. Did the Patient Smoke Cigarettes Anytime During the Last 365 Days? No. Cessation Counseling Provided? No. Substance Abuse Details: Use: None. Medications: Medication List Active Medications Prescribed pantoprazole: 40 mg, 1 tab, P O, Before Breakfast, for 30 day, 30 tab, 0 Refill(s). Documented allopurinol: 100 mg, PO, Daily, 0 Refill(s). amLODIPine: 10 mg, PO, Bedtime, 0 Refill(s). aspirin: 81 mg, PO, Daily, 0 Refill(s). atorvastatin: 80 mg, PO, Bedtime, 0 Refill(s). carvedilol: 6.25 mg, PO, BID, 0 Refill(s). clopidogrel: 75 mg, PO, Daily, 0 Refill(s). donepezil: 10 mg, PO, BID, 0 Refill(s). levETIRAcetam: 250 mg, PO, BID, 0 Refill(s). memantine: 10 mg, PO, BID, 0 Refill(s). Medications Inactivated in the Last 72 Hours albuterol-ipratropium: 9 mL, NEB, ONCE. albuterol-ipratropium: 9 mL, PYXIS, ONCE. furosemide: 40 mg, 4 mL, IVP, ONCE. furosemide: 40 mg, 4 mL, PYXIS, ONCE. magnesium sulfate: 2 gm, 50 mL, 25 ml/hr, IVPB, ONCE. magnesium sulfate: 2 gm, 50 mL, PYXIS, ONCE. methylPREDNISolone: 125 mg, 2 mL, IVP, ONCE. methylPREDNISolone: 125 mg, 2 mL, PYXIS, ONCE. Review of systems: General: No fevers chills, weight loss, weakness. HEENT: No blurring of vision, sore throa t, nasal congestion, epistaxis, tinnitus. Cardiovascular: No palpitations, chest p ain, syncope/near syncope, dyspnea on exertion, paroxysmal nocturnal dyspnea Respiratory: shortness of breath, cough, pain with respirati on, hemoptysis Gastrointestinal: Normal appetite, no h ematemesis, vomiting, bloody stool, abdominal pain, diarrhea Genitourinary: No frequency, urgency, nocturia, hematuria or dysuria. Musculoskeletal: No arthralgias or myalgias. Dermatology: No swelling, bruising, contusions, abrasions, l ymphangitis. Neurology: No headache, neck pain, numbn ess or tingling of the extremities. or weakness. Endocrine: No history of thyroid, diabetes or adrenal proble ms. Hematologic: No bleeding, petechiae, bruising. Allergy: No asthma, urticaria. Psychiatric: No confusion or depression Physical Exam Vitals Tmp(F) Pulse BP RR SpO2 FIO2 12/15 00:50 97.9 63 116/49 17 98 --- 12/15 00:43 ---- --- ----- 18 98 50% 24 Hr Tmax: 97.9F (36.61c) at 12/15 00:5 0 Vital Signs are the last 5 in the past 48 hours. Gen: no acute distress HEENT: protecting airway Neuro: nonlateralizing, somnolent but wakes up when stimula luís Cardio: S1S2 reg, no murmurs Pulm: diminished Abd: soft, normal bowel sounds Derm: no rash Ext: no edema, no cyanosis, no limb ischemia All imaging and labs from [facility] reviewed Impression: 1. Hypoxic respiratory failure 2. Need for NIPPV 3. Acute on chronic diastolic heart failure 4. Pulmonary edema 5. Possible pneumonia 6. CAD with h/o stents 7. HTN 8. LILIANA on CKD 9. COPD Plan: - ICU care - cont NIPPV - IV diuresis - renal US, nephro consultation - cardiac echo, cardiology notified - zithromax and rocephin - SQ prophylaxis CCM time exclusive of procedures is: 34min Time was spent in reviewing, laboratory and radiographic data, in direct management of patient at bedside as well as coordination Requires critical care due to the acute impairment of vital organ systems and a high probability of imminent and life threatening deterioration. 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 intake. The patient does not endorse any other significant GI symptoms except poor appetite and mild weight loss. GI consult called for the same. EGD 05/15/17 with Small hiatal hernia. Mild to moderate antr al gastritis. Submucosal antral nodule; biopsied. Random stomach biopsied. Recommend Follow up results of biopsies. Follow antireflux precautions including raising the head end of bed, small frequent low fat meals, no meals within 2 hours of bedtime and avoiding caffiene, peppermint and alcohol in evening. Prilosec 40 mg po once daily. 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 Outpt EUS for antral nodule. Colonoscopy can be done at the same time as pt will need to come off Plavix for both. F/up with Dr. Gomez in clinic in 2 weeks Consider Marinol for appetite stimulation. Consider underlying depression as cause of her symptoms. Contrast study with CT angio protocol of abd/pelvis can be considered as outp if above unrevealing and symptoms persist. SUBJECTIVE: Pt underwent EGD today. 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 Lines, Tubes, and Drains: 05/13/2017 17:02 Peripheral Lines: Antec ubital Right 20 gauge Over the needle catheter Stent placement Hysterectomy I&O Record In Out Bal 05/15 24hr Tot 0 0 0 05/14 24hr Tot 1840 0 1840 Medications (15) Active Scheduled: (10) allopurinol 100 mg TAB 100 mg 1 tab, PO, Daily amLODIPine 5 mg TAB 10 mg 2 tab, PO, Bedtime aspirin 81 mg ECT 81 mg 1 tab, PO, Daily atorvastatin 80mg pt own med 80 mg, PO, Bedtime carvedilol 3.125 mg TAB 6.25 mg 2 tab, PO, BID clopidogrel 75 mg TAB 75 mg 1 tab, PO, Daily Donepezil 10mg pt own med 10 mg, PO, BID levETIRAcetam 250 mg TAB 250 mg 1 tab, PO, BID Memantine 10mg pt own med 10 mg, PO, BID pantoprazole 40 mg ECT 40 mg 1 tab, PO, Before Breakfast Continuous: (1) sodium chloride 0.9% 1000 ml INJ 1,000 mL 1,000 mL, IV, 21 ml/hr PRN: (4) acetaminophen 325 mg TABLET 325 mg 1 tab, PO, Q4H ondansetron 4 mg/2ml INJ VL 4 mg 2 mL, IVP, Q6H sodium chloride 0.9% 10 ml flush syr BD 10 mL, IVP, PRN sodium chloride 0.9% 10 ml flush syr BD 10 ml, IVP, PRN Labs Most Recent Results Previous Results Previous Results Previous Results WBC 7.4 (MAY 14) 8.2 (MAY 13) -- -- Hgb 14.2 (MAY 14) 15.4 (MAY 13) -- -- Hct 42.7 (MAY 14) 46.5 (MAY 13) -- -- Plt 155 (MAY 14) 175 (MAY 13) -- -- Na 142 (MAY 15) 141 (MAY 14) 138 (MAY 13) -- K 3.7 (MAY 15) 3.6 (MAY 14) 4.0 (MAY 13) -- CO2 26 (MAY 15) 26 (MAY 14) 28 (MAY 13) -- Cl 109 (MAY 15) 107 (MAY 14) 104 (MAY 13) -- Cr 1.15 (MAY 15) 1.23 (MAY 14) H 1.43 (MAY 13) -- BUN 22 (MAY 15) H 30 (MAY 14) H 34 (MAY 13) -- Glucose Random 89 (MAY 15) 86 (MAY 14) H 105 (MAY 13) -- Mg 1.9 (MAY 15) 2.1 (MAY 14) -- -- Phos 3.4 (MAY 14) -- -- -- Ca 8.6 (MAY 15) 9.0 (MAY 14) 9.8 (MAY 13) -- PT 13.5 (MAY 13) -- -- -- INR 1.03 (MAY 13) -- -- -- PTT H 38.0 (MAY 13) -- -- -- Troponin 0.02 (MAY 13) -- -- -- CK MB 3.3 (MAY 13) -- -- -- Total CK 50 (MAY 13) [facility], -- [facility], -- [facility], -- Extracted from:Title: Clinical Document Author: Ford Rowan MD Date: 05/14/17 full H&P dictated, #[id number] date/time: 05/13/2017 20:45 Extracted from:Title: Teleneurology Consultation--ROUTINE GEORGE Quintana Author: Juan Lockhart MD Date: 05/09/17 TELEMEDICINE NEUROLOGY - HISTORY AND PHYSICAL Date of Consult: 05/09/17 CC: Gen Weakness HISTORY OF PRESENT ILLNESS: Patient is a 77 yr old with a past medic al history sig for CHF, CVA with min to no residual right sided deficits, dementia, sz, and CKD who was brought in for generalized weakness per family. She has be en treated for flu and ? strep but again brought back to ED for persistent chills and body aches, did have a recent cough. SHe had been feeling more lethargic At baseline she walks on her own, and ca n take care of herself. She does see Dr. Lacy at [facility] as her neurological issues. no new med changes Since admission she has improved a bit s/p IVF PAST MEDICAL HISTORY: per HPI PAST SURGICAL HISTORY: Carotid stents b/l hysterectomy SOCIAL HISTORY: no current t/a/d MEDS: asa, plavix, aricept, namenda, norvasc, coreg, lipitor MAR: Scheduled Meds (11): 05/09/17 9:00 allopurinol 100 mg PO Daily 05/08/17 22:08 amLODIPine 10 mg PO Bedtime 05/09/17 9:00 aspirin 81 mg PO Daily 05/08/17 22:05 carvedilol 6.25 mg PO Q12H 05/09/17 9:00 clopidogrel 75 mg PO Daily 05/08/17 17:00 docusate 100 mg PO BID 05/09/17 0:00 heparin 5,000 unit SUB-Q Q8H 05/08/17 22:08 levETIRAcetam (levETIRAcetam 250 mg oral tabl et) 250 mg PO BID 05/08/17 22:24 non-formulary (Donepezil 10mg pt own med) 10 mg PO BID 05/08/17 22:29 non-formulary (Memantine 10mg pt own med) 10 mg PO BID 05/08/17 22:31 non-formulary (atorvastatin 80mg pt own med) 80 mg PO Bedtime PHYSICAL EXAM: Vitals Tmp(F) Tmp(C) Ttype B P MAP Pulse RR SpO2 FIO2 ETCO2 05/09 08:29 ---- ---- ---- - ---- --- --- 15 97 3.0L/m --- 05/09 08:28 ---- ---- ---- - ---- --- --- -- 97 3.0L/m --- 05/09 07:36 97.7 36.50 oral 153/73 --- 60 17 95 --- --- 05/09 04:00 97.9 36.61 oral 144/74 --- 62 20 96 3.0L/m --- 05/09 02:33 ---- ---- ---- - ---- --- --- 20 97 3.0L/m --- 24 Hr Tmax: 98.2F (36.78c) at 05/09 00:0 0 24 Hr Tmin: 97.6F (36.44c) at 05/08 16:40 36 Hr Tmax: 98.2F (36.78c) at 05/09 00:0 0 36 Hr Tmin: 97.6F (36.44c) at 05/08 16:40 Vital Signs are the last 5 in the past 4 8 hours. Weights are the last 5 in 60 days, plus initial. NEURO: Pt is awake, speech is fluent, follows commands Oriented to self, age, knows [place] [place] C/W diffuse body aches moves all ext antigravity LABS: 36hr Labs 05/09 0652 Glucose Lvl 97 BUN 27 H Creatinine Lvl 1.26 Sodium Lvl 140 Potassium Lvl 3.7 Chloride Lvl 108 CO2 25 AGAP 10.7 Calcium Lvl 9.0 eGFR 41 Total Protein 6.7 Albumin Lvl 3.0 L Bili Total 0.6 Bili Direct 0.1 Bili Indirect 0.5 Alk Phos 116 AST 25 ALT 21 Globulin 3.7 A/G Ratio 0.8 05/08 1852 T4 Free 1.45 TSH 1.800 Procalcitonin Lvl <0.05 Folate Lvl 49.5 Vitamin B12 Lvl >2000 H Myoglobin 93 H WBC 8.5 RBC 5.36 Hgb 15.8 Hct 48.3 H MCV 90.2 MCH 29.6 MCHC 32.8 RDW 15.7 H Platelet 199 MPV 9.2 Segs 52.2 Monocytes 6.4 Lymphocytes 35.2 Eosinophils 5.5 H Basophils 0.7 Segs-Bands # 4.4 Lymphocytes # 3.0 Monocytes # 0.5 Eosinophils # 0.5 Basophils # 0.1 Sed Rate 5 CRP <2.9 Hep Bs Ag Negative Hep B Core IgM Negative Hep A IgM Negative Hep C Ab Negative RF Qnt <10 UA Color Yellow UA Turbidity Clear UA Spec Grav 1.020 UA pH 6.0 UA Protein 100 UA Glucose Negative UA Ketones Negative UA Bili Negative UA Blood Negative UA Urobilinogen 0.2 UA Nitrite Negative UA Leuk Est Negative UA RBC None Seen UA WBC 0-2 UA Bacteria None Seen UA Sq Epi Rare 05/08 1341 Blood Cx: Pending DIAGNOSTIC TESTS: CT Head: 1. No acute intracranial hemorrhage. 2. Interval progression of chronic smal l vessel ischemic changes compared to 08/07/2008. Ventricular prominence is most likely related to atrophy. 3. 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 ASSESSMENT: Patient is a 77 yr old with a past medic al history sig for CHF, CVA, dementia, sz, and CKD, p/w gen weakenss PLAN --no new focal neurological complaints/sxn --appears to be systemic, ? related to dehydration --no further neurological issues or testing needed --will sign off, please call with ? Juan Lockhart MD ([place]) [employer] Attendant of Neurology Call Center: [phone] Extracted from:Title: Nephrology Progress Note * Author: Chris Blum MD Date: 05/09/17 Impression and Plan This is a 77-year-old female with histor y of chronic kidney disease, COPD, congestive heart failure, previous stroke, dementia, seizure, presented to the emergency room complaining of generalized weakne ss. Found to have a creatinine 1.8. Re nal was consulted for evaluation of renal failure. 1. Resolving LILIANA on Chronic kidney dise ase stage 3. unknown creatinine baseline. Creatinine on admission 1.8. Current creat: 1.26. Etiology likely related to hypertension atherosclerosis. 2. Congestive heart failure, not in exacerbation. 3. History of COPD. No wheezing. 4. Corrected hypovolemia. Recommendations Taper off fluids. Avoid nephrotoxic medi cation will NSAIDs. Avoid KESHIA inhibitors or ARB which can be introduced as outpatient. Plan of Care No Data Provided for This Section Social History Social History Date Source Social History TypeResponse 05/08/2017 [facility] Substance Abuse Use: None. Alcohol Never Smoking Status Former smoker; Type: Cigarettes; Exposur e to Tobacco Smoke None; Cigarette Smoking Last 365 Days No; Reg Smoking Cessation Counseling No entered on: 12/14/18 Social History TypeResponse 05/08/2017 [facility] Substance Abuse Use: None. Alcohol Never Smoking Status Former smoker; Type: Cigarettes; Exposur e to Tobacco Smoke None; Cigarette Smoking Last 365 Days No; Reg Smoking Cessation Counseling No entered on: 12/14/18 Family History No Data Provided for This Section Advance Directives No Data Provided for This Section Functional Status No Data Provided for This Section
--- OUTSIDE RECORDS SUMMARY | 2020-06-20 10:08 | XMS REPORT | Continuity of Care Document ---
:1940 Author Organization [facility] t Address [address] [place] [address] Care Team Providers Name Role Phone Ga GILBERT, Meghann Primary Care Physician Filiberto Attending Clinician Sheryl Blevins Attending Clinician Anjum Amor Attending Clinician Breonna Vazquez Attending Clinician Filiberto Admitting Clinician Anjum Amor Admitting Clinician Breonna Vazquez Admitting Clinician Problems Condition Condition Condition Status Onset Resolution Last Treating Co mments Source Name Details Category Date Date Treatment Clinician Date NEW ONSET Diagnosis Active 2018-12-29 Memoria OF 12-14 22:24:00 l CONGESTIVE NEW 00:00: Eduardo ingram HEART ONSET OF 00 FAILURE, P CONGESTIVE HEART FAILURE, P Active 12/14/2018 [facility] WEAKNESS Diagnosis Active 2018-12-14 M emoria 12-14 18:48:00 l WEAKNESS 00:00: Eduardo n 00 Active 12/14/2018 [facility] Mikey POSSIBLE Diagnosis Active 2016-062017-05-13 M emoria STROKE 07-13 15:34:00 l POSSIBLE 00:00: Eduardo n STROKE 00 Active 05/13/2017 [facility] RIGHT Diagnosis Active 2016-062017-06-12 Mem oria SIDED 07-13 11:14:00 l WEAKNESS RIGHT 00:00: Mikey SIDED 00 WEAKNESS Active 05/13/[address] [facility] ACUTE Diagnosis Active 2016-2017-05-15 Mem oria KIDNEY - 21:58:00 l INJURY, ACUTE 00:00: Mikey GENERALIZE KIDNEY 00 D WEAKNES INJURY, GENERALIZE D WEAKNES Active 05/08/2017 [facility] Dizziness Dizziness Disease Active 2015-06 [facility] 0-31 [facility] 00:00: st 00 Weakness Problem 2017-05-18 Mem oria 03:14:20 l Weakness Eduardo n 05/18/2017 [facility] Acute on Problem 2018-12-22 Mem oria chronic 21:52:09 l diastolic Acute on Her grider (congestiv chronic e) heart diastolic failure (congestiv e) heart failure 12/22/2018 [facility] Cerebrovas Problem Resolve 2018-12-22 Memoria cular d 21:52:09 l accident Mikey (disorder) Cerebrovas cular accident (disorder) Resolved Problem [facility]22[facility] Problem Resolve 2018-12-22 Mem oria obstructiv d 21:52:09 l e lung 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 (disorder) Resolved Problem 12/22/2018 [facility] Congestive Problem Resolve 2018-12-22 Memoria heart d 21:52:09 l failure Mikey (disorder) Congestive heart failure (disorder) Resolved Problem 12/22/2018 [facility] Dementia Problem Resolve 2018-12-22 Me moria (disorder) d 21:52:09 l Dementia Eduardo n (disorder) Resolved [facility] Carotid Problem Active 2018-12-22 Jensen ricco endarterec 21:52:09 l delmis Carotid Mikey (procedure endarterec ) delmis (procedure ) Active Problem 12/22/2018 [facility] Hypertensi Problem Active 2018-12-22 M emoria ve 21:52:09 l disorder, [place] systemic Hypertensi arterial ve (disorder) disorder, systemic arterial (disorder) Active Problem [facility]/22/[facility] ACUTE Diagnosis Active 2017-05-15 Mem oria KIDNEY 21:58:00 l FAILURE, ACUTE Mikey UNSPECIFIE KIDNEY D FAILURE, UNSPECIFIE D Active [facility] DEHYDRATIO Diagnosis Active 2017-05-15 Memoria N 21:58:00 l Mikey DEHYDRATIO N Active [facility] ACUTE ON Diagnosis Active 2018-12-29 M emoria CHRONIC 22:24:00 l DIASTOLIC ACUTE ON Her grider (CONGESTIV CHRONIC E) DIASTOLIC (CONGESTIV E) Active [facility] Allergies, Adverse Reactions, Alerts Allergy Allergy Status Severity Reaction(s) Onset Inactive Treating Comm ents Source Name Type Date Date Clinician No Known No Known Active Memori a Medicati Medicati l on on Mikey Allergie Allergmakayla s s Social History Social Habit Start Date Stop Date Quantity Comments Source Sex Assigned At [facility] ethodist Social History 2017-05-08 2017-05-08 [facility] ermann 23:39:20 23:39:20 Cigarettes smoked 2016-04-17 2016-04-17 Joe Anglin current (pack per 00:00:00 00:00:00 day) - Reported Cigarette 2016-04-17 2016-04-17 Joe Mcnamara ist pack-years 00:00:00 00:00:00 Alcohol intake 2016-04-17 2016-04-17 Current Joe Garibay thodist 00:00:00 00:00:00 non-drinker of alcohol (finding) Smoking Status Start Date Stop Date Source Former smoker 2016-04-17 00:00:00 2016-04-17 00:00:00 Joe Anglin Medications Ordered Filled Start Stop Current Ordering Indication Dosage Frequency Signature Comments Components Source Medication Medication Date Date Medication? Clinician (SIG) Name Name apixaban 5 Yes 5 mg, PO, Me moria MG Oral 706 Q12H, # 60 l Tablet 20:41: tab, 3 Mikey [Eliquis] 00 Refill(s) Doxycycline Yes 100 mg = 1 Memoria Monohydrate 7-06 tab, PO, l 100 MG Oral 19:01: Q12H, X 7 H ermann Tablet 00 day, # 14 tab, 0 Refill(s) Furosemide Yes 40 mg = 1 Me moria 40 MG Oral 7-06 tab, PO, l Tablet 19:01: BID, # 60 Eduardo n [Lasix] 00 tab, 0 Refill(s) Aspirin 81 No Notes: Do Me moria MG Enteric -06 not crush l Coated 14:00: or chew. [place] Tablet 00 (Same As: Ecotrin) Aspirin No Notes: Do Memor ia - not crush l 14:00: or chew. Mikey (Same As: Ecotrin) Eliquis No Notes: Memoria 12-19 Same as: l 02:00: Eliquis atorvastati No Notes: Jensen ricco n 12-19 (Same as: l 02:00: Lipitor) Memantine No Notes: Memori a - (Same As: l 22:00: Namenda) Levetiracet No Notes: Jnesen ricco am 12-18 (Same l 22:00: as:Keppra) Furosemide No Notes: Memor ia 40 MG Oral 12-18 (Same as: l Tablet 22:00: Lasix) [Lasix] May cause GI upset. Give with food or milk. donepezil No Notes: Memori a 12-18 (Same as: l 22:00: Aricept) Spironolact No Notes: Jensen ricco one 12-17 (Same As: l 15:06: Aldactone) Potassium No Notes: Memori a Chloride 12-17 (Same as: l 1.33 MEQ/ML 15:06: K-Dur 20) H erm Oral "Do Not Solution Crush" Give with food and full glass of water For patients unable to swallow tablet, dissolve in one half glass of water. Allow about 2 minutes for the tablets to disintegra te. Stir before giving to prepare slurry and administer . Please exclude Patient s with feeding tube less than 14 Telugu (Dobhoff, J-tube etc) and pediatric and patients. Lasix No Notes: Memoria 12-16 (Same as: l 18:00: Lasix) MEDICATION WASTE Product Size: 40 mg Product Wasted: ___ mg pantoprazol No Notes: Jensen ricco e - Tablet l 12:30: should not be chewed or crushed. (Same as: Protonix) Atorvastati No Atorvastat Memoria n 80 mg tab 7-02 in 80 mg l Pt's Own 02:00: tab Eduardo n MED 00 Pt's Own MED, 80 mg, Drug form: MISC, Route: PO, Bedtime, 12/15/18 21:00:00 CDT, Duration: 30 day, Stop date: 01/13/19 21:00:00 CDT, 0 atorvastati 2019-0 No Notes: Jensen ricco n 12-16 (Same as: l 02:00: Lipitor) [place] 00 Memantine 2018-0 No Memantine Mem oria 10 mg tab 12-15 10 mg tab l Pt's Own 22:00: Pt's Her grider Med 00 Own Med, 10 mg, Drug form: MISC, Route: PO, BID, 12/15/18 17:00:00 CDT, Duration: 30 day, Stop date: 01/14/19 9:00:00 CDT, 0 Aspirin EC 2018-0 No Aspirin EC M emoria 81 mg tab 12-15 81 mg tab l Pt's Own 17:00: Pt's Own H ermann Med 00 Med, 81 mg, Drug form: MISC, Route: PO, Daily, 12/15/18 12:00:00 CDT, Duration: 30 day, Stop date: 01/14/19 9:00:00 CDT, 0 Levetiracet 2018-0 No Levetirace Memoria am 250 mg 12-15 saba 250 mg l tab Pt's 17:00: tab Pt's H ermann Own Med 00 Own Med, 250 mg, Drug form: MISC, Route: PO, Q12H, 12/15/18 12:00:00 CDT, Duration: 30 day, Stop date: 01/14/19 9:00:00 CDT, 0 Donepezil 2018-0 No Donepezil Mem oria 10 mg tab 12-15 10 mg tab l Pt's Own 17:00: Pt's Her grider MED 00 Own MED, 10 mg, Drug form: MISC, Route: PO, BID, 12/15/18 12:00:00 CDT, Duration: 30 day, Stop date: 01/14/19 9:00:00 CDT, 0 Clopidogrel No Clopidogre Memoria 75 mg tab 12-15 l 75 mg l Pt's Own 17:00: tab Eduardo n MED 00 Pt's Own MED, 75 mg, Drug form: MISC, Route: PO, Daily, 12/15/18 12:00:00 CDT, Duration: 30 day, Stop date: 01/14/19 9:00:00 CDT, 0 Levetiracet No Notes: Jensen ricco am 12-15 (Same l 14:00: as:Keppra) donepezil No Notes: Memori a 12-15 (Same as: l 14:00: Aricept) clopidogrel No Notes: Jensen ricco 12-15 (Same As: l 14:00: Plavix) carvedilol No Notes: Memor ia 12-15 Give with l 14:00: food. (Same As: Coreg) Aspirin No Notes: Memoria 12-15 Take with l 14:00: food. Memantine No Notes: Memori a 12-15 (Same As: l 14:00: Namenda) [place] losartan 25 No 25 mg = 1 M emoria mg oral 12-15 tab, PO, l tablet 13:25: Daily, 0 Refill(s) heparin No Notes: Memoria 12-15 porcine l 13:00: heparin Lasix No Notes: Memoria 12-15 (Same as: l 13:00: Lasix) MEDICATION WASTE Product Size: 40 mg Product Wasted: ___ mg Budesonide No Notes: Memor ia 0.25 MG/ML 12-15 (Same As: l Inhalant 13:00: Pulmicort) [facility] Solution [Pulmicort] Albuterol No Notes: Memori a 0.833 MG/ML 12-15 (Same as: l / 08:00: Duoneb) Mikey Ipratropium 00 [place] 0.167 MG/ML Inhalant Solution [DuoNeb] Rocephin + No Notes: Memor ia sterile 12-15 (Same As: l water 10 mL 06:28: Rocephin). [place] 00 Use with 100 mL NS and infuse over 30 min MEDICATION WASTE Product Size: 1000 mg Product Wasted: ___ mg Azithromyci No Notes: Jensen ricco n 12-15 (Same As: l 06:28: Zithromax Mikey 00 IV) Lasix No Notes: Memoria 12-15 (Same as: l 00:08: Lasix) MEDICATION WASTE Product Size: 40 mg Product Wasted: ___ mg Solu-Medrol No Notes: Jensen ricco 12-14 (Same l 23:39: as:Solu-ME DROL, A-Methapre d) Magnesium No Notes: Memori a Sulfate 12-14 WASTE: F/P l 23:39: - Sink; E Mikey - [employer] Trash [facility] Albuterol No Notes: Memori a 0.833 MG/ML 12-14 (Same as: l / 23:38: Duoneb) Ipratropium 00 [place] 0.167 MG/ML Inhalant Solution [DuoNeb] pantoprazol 2016-06 Yes 40 mg = 1 M emoria e 40 mg 1-29 tab, PO, l oral 19:38: Before [place] enteric 00 Breakfast, coated # 30 tab, tablet 0 Refill(s), Pharmacy: [facility] [id number] Sodium 2016-06 No 1,000 mL, Memori a Chloride - Rate: 21 l 0.9% IV 13:30: ml/hr, Mikey 1,000 mL 00 Infuse over: 47.6 hr, Route: IV, Dosing Weight 65.2 kg, Total Volume: 1,000, Start date: 05/15/17 7:30:00 BAR ATTENDANT, Duration: 30 day, Stop date: 06/14/17 7:29:00 BAR ATTENDANT, 1.71, m2 atorvastati 2016-06 No atorvastat Memoria n 80mg pt -29 in 80mg pt l own med 03:00: own med, Eduardo n 00 80 mg, Drug form: MISC, Route: PO, Bedtime, 05/14/17 21:00:00 BAR ATTENDANT, Duration: 30 day, Stop date: 06/12/17 21:00:00 BAR ATTENDANT atorvastati 2016-06 No Notes: Jensen ricco n 07-15 (Same as: l 03:00: Lipitor) Amlodipine 2016-06 No Notes: Memor ia 07-15 (Same as: l 03:00: Norvasc) Memantine 2016-06 No Notes: Memori a 07-14 (Same As: l 15:00: Namenda) Allopurinol 2016-06 No Notes: Jensen ricco 07-14 (Same as: l 15:00: Zyloprim) Levetiracet 2016-06 No Notes: Jensen ricco am 07-14 (Same l 15:00: as:Keppra) donepezil 2016-06 No Notes: Memori a 07-14 (Same as: l 15:00: Aricept) Memantine 2016-06 No Memantine Mem oria 10mg pt own 07-14 10mg pt l med 15:00: own med, Mikey 00 10 mg, Drug form: MISC, Route: PO, BID, 05/14/17 9:00:00 BAR ATTENDANT, Duration: 30 day, Stop date: 06/12/17 17:00:00 BAR ATTENDANT clopidogrel 2016-06 No Notes: Jensen ricco 07-14 (Same As: l 15:00: Plavix) carvedilol 2016-06 No Notes: Memor ia 07-14 Give with l 15:00: food. (Same As: Coreg) Donepezil 2016-06 No Donepezil Mem oria 10mg pt own 28 10mg pt l med 15:00: own med, Mikey 00 10 mg, Drug form: MISC, Route: PO, BID, 05/14/17 9:00:00 BAR ATTENDANT, Duration: 30 day, Stop date: 06/12/17 17:00:00 BAR ATTENDANT Streptococc 2016-06 No Notes: Jensen ricco us 07-14 Shake well l pneumoniae 15:00: prior to Her grider serotype 1 00 use (Same capsular as: antigen Prevnar diphtheria 13) [id number] protein conjugate vaccine / Streptococc us pneumoniae serotype 14 capsular antigen diphtheria [id number] protein conjugate vaccine / Streptococc us pneumoniae serotype 18C capsular antigen d Aspirin 2016-06 No Notes: Do Memor ia 07-14 not crush l 15:00: or chew. [place] 00 (Same As: Ecotrin) influenza 2016-06 No Notes: Memori a virus 07-14 (Same as: l vaccine, 15:00: Fluzone Eduardo n inactivated 00 Quadrivale nt, Fluarix Quadrivale nt) For 3 years of age and older (0.5 mL IM) Shake well before use Protonix 2016-06 No Notes: Memoria 07-14 Tablet l 13:30: should not Mikey 00 be chewed or crushed. (Same as: Protonix) Saline 2016-06 No Notes: Memoria Flush 0.9% 07-14 (Same as: l 03:15: BD [place] 00 Posiflush) Sodium 2016-06 No 1,000 mL, Memori a Chloride 07-14 Rate: 100 l 0.9% IV 03:15: ml/hr, Mikey 1,000 mL 00 Infuse over: 10 hr, Route: IV, Dosing Weight 65.2 kg, Total Volume: 1,000, Start date: 05/13/17 21:15:00 BAR ATTENDANT, Duration: 30 day, Stop date: 06/12/17 21:14:00 BAR ATTENDANT, 1.71, m2 Acetaminoph 2016-06 No Notes: Do M emoria en 07-14 not exceed l 03:15: 4 gm/day. Mikey 00 (Same as: Tylenol) Ondansetron 2016-06 No Notes: Jensen ricco 07-14 (Same as: l 03:15: Zofran) Mikey 00 MEDICATION WASTE Product Size: 4 mg Product Wasted: ___ mg Sodium 2016-06 No 500 mL, Memoria Chloride 07-14 500 ml/hr, l 0.9% 00:13: Infuse Mikey (Bolus) IV 00 Over: 1 hr, Route: IV, 500, Drug form: INJ, ONCE, Priority: STAT, Dosing Weight 68.182 kg, Start date: 05/13/17 18:13:00 BAR ATTENDANT, Stop date: 05/13/17 18:13:00 BAR ATTENDANT NS (Bolus) 2016-06 No 1,000 mL, Me moria IV -27 1,000 l 22:25: ml/hr, Mikey 00 Infuse Over: 1 hr, Route: IV, 1,000, Drug form: INJ, ONCE, Priority: STAT, Dosing Weight 68.182 kg, Start date: 05/13/17 16:25:00 BAR ATTENDANT, Stop date: 05/13/17 16:25:00 BAR ATTENDANT Saline 2016-06 No Notes: Memoria Flush 0.9% 07-13 (Same as: l 20:15: BD [place] Posiflush) Streptococc 2016-06 No Notes: Jensen ricco us -23 Shake well l pneumoniae 15:00: prior to Her grider serotype 1 00 use (Same capsular as: antigen Prevnar diphtheria 13) [id number] protein conjugate vaccine / Streptococc us pneumoniae serotype 14 capsular antigen diphtheria [id number] protein conjugate vaccine / Streptococc us pneumoniae serotype 18C capsular antigen d influenza 2016-06 No Notes: Memori a virus - (Same as: l vaccine, 15:00: Fluzone Eduardo n inactivated 00 Quadrivale nt, Fluarix Quadrivale nt) For 3 years of age and older (0.5 mL IM) Shake well before use clopidogrel 2016-06 No Notes: Jensen ricco -23 (Same As: l 15:00: Plavix) Mikey Aspirin 2016-06 No Notes: Do Memor ia - not crush l 15:00: or chew. [place] 00 (Same As: Ecotrin) Allopurinol 2016-06 No Notes: Jensen ricco -23 (Same as: l 15:00: Zyloprim) Mikey 00 Sodium 2016-06 No 1,000 mL, Memori a Chloride 1-23 1,000 l 0.9% 14:14: ml/hr, Mikey (Bolus) IV 00 Infuse Over: 1 hr, Route: IV, 1,000, Drug form: INJ, ONCE, Priority: STAT, Dosing Weight 64.716 kg, Start date: 05/09/17 8:14:00 BAR ATTENDANT, Stop date: 05/09/17 8:14:00 BAR ATTENDANT heparin 2016-06 No Notes: Memoria 1-23 porcine l 06:00: heparin Mikey 00 atorvastati 2016-06 No atorvastat Memoria n 80mg pt 1-23 in 80mg pt l own med 04:31: own med, Eduardo n 00 80 mg, Drug form: MISC, Route: PO, Bedtime, 05/08/17 22:31:00 BAR ATTENDANT, Duration: 30 day, Stop date: 06/07/17 21:00:00 BAR ATTENDANT Memantine 2016-06 No Memantine Mem oria 10mg pt own 1-23 10mg pt l med 04:29: own med, Mikey 00 10 mg, Drug form: MISC, Route: PO, BID, 05/08/17 22:29:00 BAR ATTENDANT, Duration: 30 day, Stop date: 06/07/17 17:00:00 BAR ATTENDANT Donepezil 2016-06 No Donepezil Mem oria 10mg pt own 1-23 10mg pt l med 04:24: own med, Mikey 00 10 mg, Drug form: MISC, Route: PO, BID, 05/08/17 22:24:00 BAR ATTENDANT, Duration: 30 day, Stop date: 06/07/17 17:00:00 BAR ATTENDANT atorvastati 2016-06 No 80 mg, Jensen ricco n 07-09 Route: PO, l 04:09: Drug form: Mikey 00 TAB, Bedtime, Dosing Weight 64.716, kg, Start date: 05/08/17 22:09:00 BAR ATTENDANT, Duration: 30 day, Stop date: 06/07/17 21:00:00 BAR ATTENDANT Levetiracet 2016-06 No Notes: Jensen ricco am 250 MG 07-09 (Same l Oral Tablet 04:08: as:Keppra) Amlodipine 2016-06 No Notes: Memor ia -23 (Same as: l 04:08: Norvasc) Memantine 2016-06 No 10 mg, Memori a - Route: PO, l 04:07: Drug form: [place] 00 TAB, BID, Dosing Weight 64.716, kg, Start date: 05/08/17 22:07:00 BAR ATTENDANT, Duration: 30 day, Stop date: 06/07/17 17:00:00 BAR ATTENDANT carvedilol 2016-06 No Notes: Memor ia 07-09 Give with l 04:05: food. [place] 00 (Same As: Coreg) donepezil 2016-06 No Notes: Memori a 07-09 (Same as: l 04:03: Aricept) clopidogrel 2016-06 Yes 75 mg, PO, Memoria - Daily, 0 l 23:43: Refill(s) Azithromyci 2016-06 No 250 mg, Mem oria n 07-08 PO, Daily, l 23:43: Take 2 tablets by mouth the first day then 1 tablet by mouth daily on days 2-5, # 6 tab, 0 Refill(s) Aspirin 2016-06 Yes 81 mg, PO, Jensen ricco 07-08 Daily, 0 l 23:43: Refill(s) atorvastati 2016-06 Yes 80 mg, PO, Memoria n 07-08 Bedtime, 0 l 23:43: Refill(s) donepezil 2016-06 Yes 10 mg, PO, Me moria 07-08 BID, 0 l 23:43: Refill(s) Levetiracet 2016-06 Yes 250 mg, Mem oria am 07-08 PO, BID, 0 l 23:43: Refill(s) Memantine 2016-06 Yes 10 mg, PO, Me moria 07-08 BID, 0 l 23:43: Refill(s) Amlodipine 2016-06 Yes 10 mg, PO, M emoria 07-08 Bedtime, 0 l 23:43: Refill(s) carvedilol 2016-06 Yes 6.25 mg, Mem oria 07-08 PO, BID, 0 l 23:43: Refill(s) Allopurinol 2016-06 Yes 100 mg, Mem oria 22 PO, Daily, l 23:43: 0 Refill(s) morphine 2016-06 No Notes: Memoria Sulfate 07-08 (Same l 23:20: as:[place] Sulfate) Docusate 2016-06 No Notes: Memoria 07-08 (Same as: l 23:00: Colace) (Do Not Crush) Saline 2016-06 No Notes: Memoria Flush 0.9% 07-08 (Same as: l 22:14: BD [place] 00 Posiflush) Sodium 2016-06 No 1,000 mL, Memori a Chloride 07-08 Rate: 125 l 0.9% IV 22:14: ml/hr, Mikey 1,000 mL 00 Infuse over: 8 hr, Route: IV, Dosing Weight 63.636 kg, Total Volume: 1,000, Start date: 05/08/17 16:14:00 BAR ATTENDANT, Duration: 30 day, Stop date: 06/07/17 16:13:00 BAR ATTENDANT, 1.69, m2 Acetaminoph 2016-06 No Notes: Do M emoria en 07-08 not exceed l 22:14: 4 gm/day. Mikey 00 (Same as: Tylenol) Acetaminoph 2016-06 No Notes: Jensen ricco en 325 MG / 07-08 (Same as: l Hydrocodone 22:14: [place] Naty nn Bitartrate 00 325/5) Do 5 MG Oral not exceed Tablet 4gm/day of acetaminop hen. Morphine 2016-06 No 2 mg, Memoria 07-08 Route: l 22:14: IVP, Q4H, [place] 00 Dosing Weight 63.636, kg, PRN Pain Score 7-10, Start date: 05/08/17 16:14:00 BAR ATTENDANT, Duration: 30 day, Stop date: 06/07/17 16:13:00 BAR ATTENDANT Ondansetron 2016-06 No Notes: Jensen ricco 07-08 (Same as: l 22:14: Zofran) Mikey 00 MEDICATION WASTE Product Size: 4 mg Product Wasted: ___ mg NS (Bolus) 2016-06 No 1,000 mL, Me moria IV 07-08 1,000 l 20:28: ml/hr, Mikey 00 Infuse Over: 1 hr, Route: IV, 1,000, Drug form: INJ, ONCE, Priority: STAT, Dosing Weight 63.636 kg, Start date: 05/08/17 14:28:00 BAR ATTENDANT, Stop date: 05/08/17 14:28:00 BAR ATTENDANT Pepcid 2016-06 No Notes: Memoria 07-08 (Same as: l 18:11: Pepcid) Mikey Can be dilute in 5-10cc NS IVP: Slow IV push over at least 2 minutes. atorvastati 2015-06 Yes 80mg QD Take 80 mg Diaz n (LIPITOR) 02 by mouth Meth wilber 80 MG 14:17: nightly. st tablet 31 allopurinol 2015-06 Yes 100mg QD Take 100 [place] (ZYLOPRIM) 1-02 mg by Methodi 100 MG 14:17: mouth st tablet 31 every morning. levETIRAcet 2015-06 Yes 500mg Q.5D Take 500 [place] am (KEPPRA) 1-02 mg by Method[facility] 250 MG 14:17: mouth 2 st tablet 31 (two) times a day. amLODIPine 2015-06 Yes 10mg QD Take 10 mg [place] (NORVASC) 02 by mouth Method i 10 MG 14:17: daily. st tablet 31 NAMENDA XR 2015-06 Yes 1{capsu QD Take 1 [place] 28 mg 06-18 le} capsule by [facility] capsule,spr 14:17: mouth st inkle,ER 31 every 24hr morning. clopidogrel 2015-06 Yes 75mg QD Take 75 mg Diaz (PLAVIX) 75 02 by mouth Meth wilber mg tablet 14:17: every st 31 morning. metoprolol 2015-06 Yes 100mg Q.5D Take 100 [place] succinate 1-02 mg by Method[facility] XL 14:17: mouth 2 st (TOPROL-XL) 31 (two) 50 MG 24 hr times a tablet day. ALPRAZolam 2015-06 Yes .5mg Q.5D Take 0.5 [address] (XANAX) 0.5 1-02 mg by Method[facility] MG tablet 14:17: mouth 2 st 31 (two) times a day. aspirin 2015-06 Yes 81mg QD Take 81 mg [place] (ECOTRIN) 02 by mouth Method i 81 MG 14:17: every st enteric 31 morning. coated tablet cyanocobala 2015-[address] [place] ston min, -02 6,000 mcg [facility] vitamin 14:17: under the st B-12, 3,000 31 tongue mcg tablet, every sublingual morning. GLUC/CHND/O 2015-06 Yes 1{tbl} QD Take 1 [place] M3/DHA/EPA/ 02 tablet by Met francis FISH/STR 14:17: mouth st (GLUCOSAMIN 31 daily. E CHONDROITIN PLUS ORAL) POTASSIUM-C 2015- Yes 1{tbl} QD Take 1 [place] ALCIUM-MAGN 1-02 tablet by Met francis HOLDER 14:17: mouth st ORAL 31 daily. Vital Signs Vital Name Observation Time Observation Value Comments Source Temperature Oral (F) 2018-12-20 21:37:00 98.2 F [facility]key Systolic (mm Hg) 2018-12-20 20:13:00 Jensen rial [place] Diastolic (mm Hg) 2018-12-20 20:13:00 Mem orial Mikey Respitory Rate 2018-12-20 20:13:00 Memori al Mikey Systolic (mm Hg) 2018-12-20 19:00:00 Jensen rial Mikey Diastolic (mm Hg) 2018-12-20 19:00:00 Mem orial [place] Respitory Rate 2018-12-20 19:00:00 Memori al [place] Systolic (mm Hg) 2018-12-20 18:00:00 Jensen rial [place] Diastolic (mm Hg) 2018-12-20 18:00:00 Mem orial Mikey Respitory Rate 2018-12-20 18:00:00 Memori al [place] Temperature Oral (F) 2018-12-20 17:02:00 98.0 F [facility] [place] Temperature Oral (F) 2018-12-20 13:00:00 97.7 F [facility] Height 2018-12-15 06:10:00 160.02 cm [facility] Weight 2018-12-15 06:10:00 [facility] BMI Calculated 2018-12-15 06:10:00 Memori al [place] Systolic (mm Hg) 2018-12-15 03:53:00 Jensen rial [place] Diastolic (mm Hg) 2018-12-15 03:53:00 Mem orial [place] Respitory Rate 2018-12-15 03:53:00 Memori al [place] Systolic (mm Hg) 2018-12-15 02:45:00 Jensen rial Mikey Diastolic (mm Hg) 2018-12-15 02:45:00 Mem orial Mikey Respitory Rate 2018-12-15 02:45:00 Memori al [place] Temperature Oral (F) 2018-12-15 02:45:00 97.9 F [facility] [place] Systolic (mm Hg) 2018-12-15 01:04:00 Jensen rial [place] Diastolic (mm Hg) 2018-12-15 01:04:00 Mem orial [place] Respitory Rate 2018-12-15 01:04:00 Memori al Mikey Height 2018-12-14 23:18:00 162.56 cm [facility] [place] Heart Rate 2018-12-14 23:18:00 [facility] [place] Temperature Oral (F) 2018-12-14 23:18:00 97.9 F [facility] [place] BMI Calculated 2018-12-14 23:18:00 Memori al [place] Weight 2018-12-14 23:18:00 [facility] [place] Respitory Rate 2017-05-15 18:40:00 Memori al [place] Systolic (mm Hg) 2017-05-15 18:40:00 Jensen rial Mi[place] Diastolic (mm Hg) 2017-05-15 18:40:00 Mem orial Mi[place] Systolic (mm Hg) 2017-05-15 18:30:00 Jensen rial [place] Diastolic (mm Hg) 2017-05-15 18:30:00 Mem orial Mikey Respitory Rate 2017-05-15 18:30:00 Memori al [place] Systolic (mm Hg) 2017-05-15 17:36:00 Jensen rial Mikey Diastolic (mm Hg) 2017-05-15 17:36:00 Mem orial [place] Heart Rate 2017-05-15 17:36:00 [facility] [place] Respitory Rate 2017-05-15 17:36:00 Memori al [place] Heart Rate 2017-05-15 14:54:00 [facility] [place] Temperature Oral (F) 2017-05-15 14:54:00 99.1 F [facility] [place] Heart Rate 2017-05-15 09:05:00 [facility] [place] Temperature Oral (F) 2017-05-15 09:05:00 97.5 F [facility] Temperature Oral (F) 2017-05-15 05:40:00 98.1 F [facility] [place] Weight 2017-05-14 02:15:00 [facility] [place] Height 2017-05-14 02:15:00 157.48 cm [facility] BMI Calculated 2017-05-14 02:15:00 [facility] Weight 2017-05-13 20:07:00 [facility] BMI Calculated 2017-05-13 20:07:00 [facility] Height 2017-05-13 20:07:00 172.72 cm [facility] Heart Rate 2017-05-09 17:15:00 [facility] Temperature Oral (F) 2017-05-09 17:15:00 97.8 F [facility] Systolic (mm Hg) 2017-05-09 17:15:00 [facility] Diastolic (mm Hg) 2017-05-09 17:15:00 [facility] Respitory Rate 2017-05-09 17:15:00 [facility] Respitory Rate 2017-05-09 14:29:00 [facility] Systolic (mm Hg) 2017-05-09 13:36:00 [facility] Diastolic (mm Hg) 2017-05-09 13:36:00 [facility] Respitory Rate 2017-05-09 13:36:00 [facility] Temperature Oral (F) 2017-05-09 13:36:00 97.7 F [facility] Heart Rate 2017-05-09 13:36:00 [facility] Temperature Oral (F) 2017-05-09 10:00:00 97.9 F [facility] [place] [facility] Rate 2017-05-09 10:00:00 [facility] Systolic (mm Hg) 2017-05-09 10:00:00 [facility] [place] Diastolic (mm Hg) 2017-05-09 10:00:00 [facility] [place] Height 2017-05-08 23:34:00 157.48 cm [facility] BMI Calculated 2017-05-08 23:34:00 [facility] [place] Weight 2017-05-08 23:34:00 [facility] [place] Weight 2017-05-08 18:08:00 [facility] BMI Calculated 2017-05-08 18:08:00 [facility] [place] Height 2017-05-08 18:08:00 157.48 cm [facility] Procedures Procedure Date / Time Performed Performing Clinician Sourc e Hysterectomy [facility] Stent placement [facility] Plan of Care Planned Activity Planned Date Details Comments Source Future Scheduled 2020-01-16 INFLUENZA VACCINE [place] [facility] 00:00:00 [code = INFLUENZA VACCINE] Future Scheduled 2006 65+ PNEUMOCOCCAL [facility] 00:00:00 VACCINE (1 of 1 - PPSV23) [code = 65+ PNEUMOCOCCAL VACCINE (1 of 1 - PPSV23)] Future Scheduled 1991 SHINGLES VACCINES (#1) H [facility] 00:00:00 [code = SHINGLES VACCINES (#1)] Future Scheduled 1957 COVID-19 VACCINE (#1) Ho pamela [facility] 00:00:00 [code = COVID-19 VACCINE (#1)] Encounters Start End Encounter Admission Attending Care Care Encounter Source Date/Time Date/Time Type Type Clinicians Facility Department ID 2018-12-15 Inpatient U MHSE MED [id number] 00:39:00 [facility] l 2018-12-15 2018-12-20 Outpatient Filiberto SE SE [id number] 00:39:00 16:45:00 Taso 81 2018-12-14 2018-12-14 Outpatient Angie Blevins MHPL MHPL [id number] 18:07:42 23:10:00 Sheryl 04 2018-12-14 2018-12-14 Emergency E MHBL MHBL [id number] MHBL 18:07:00 18:07:00 2017-05-13 2017-05-15 Outpatient Mt, MHPL MHPL [id number] 14:04:00 14:38:00 Trammell 03 Anjum 2017-05-08 2017-05-09 Outpatient George, MHPL MHPL [id number] 11:57:00 13:32:00 Shruthi 02 Breonna Results Test Description Test Time Test Comments Results Result Comments Source CHEM PANEL 2018-12-19 99 [facility] 12:08:00 CHEM PANEL 2018-12-19 63 [facility] 12:08:00 CHEM PANEL 2018-12-19 2.55 [facility] 12:08:00 CHEM PANEL 2018-12-19 138 [facility] 12:08:00 CHEM PANEL 2018-12-19 4.3 [facility] 12:08:00 CHEM PANEL 2018-12-19 100 [facility] 12:08:00 CHEM PANEL 2018-12-19 28 [facility] 12:08:00 CHEM PANEL 2018-12-19 8.9 [facility] 12:08:00 CHEM PANEL 2018-12-19 14.3 [facility] 12:08:00 CHEM PANEL 2018-12-19 18 [facility] 12:08:00 CHEM PANEL 2018-12-18 2.35 [facility] 09:42:00 CHEM PANEL 2018-12-18 60 [facility] 09:42:00 CHEM PANEL 2018-12-18 122 [facility] 09:42:00 CHEM PANEL 2018-12-18 9.4 [facility] 09:42:00 CHEM PANEL 2018-12-18 30 [facility] 09:42:00 CHEM PANEL 2018-12-18 101 [facility] 09:42:00 CHEM PANEL 2018-12-18 4.0 [facility] 09:42:00 CHEM PANEL 2018-12-18 139 [facility] 09:42:00 CHEM PANEL 2018-12-18 19 [facility] 09:42:00 CHEM PANEL 2018-12-18 12.0 [facility] 09:42:00 CHEM PANEL 2018-12-18 2.2 [facility] 09:42:00 HEMATOLOGY 2018-12-18 2.0 [facility] 09:42:00 HEMATOLOGY 2018-12-18 0.8 [facility] 09:42:00 HEMATOLOGY 2018-12-18 0.2 [facility] 09:42:00 HEMATOLOGY 2018-12-18 57.0 [facility] 09:42:00 HEMATOLOGY 2018-12-18 11.6 [facility] 09:42:00 HEMATOLOGY 2018-12-18 2.7 [facility] 09:42:00 HEMATOLOGY 2018-12-18 28.5 [facility] 09:42:00 HEMATOLOGY 2018-12-18 4.0 [facility] 09:42:00 HEMATOLOGY 2018-12-18 0.2 [facility] 09:42:00 HEMATOLOGY 2018-12-18 234 [facility] 09:42:00 HEMATOLOGY 2018-12-18 32.2 [facility] 09:42:00 HEMATOLOGY 2018-12-18 16.0 [facility] 09:42:00 HEMATOLOGY 2018-12-18 9.0 [facility] 09:42:00 HEMATOLOGY 2018-12-18 91.9 [facility] 09:42:00 HEMATOLOGY 2018-12-18 09:42:00 Test Item Value Reference Range Interpretation Comme nts MCH (test code = MCH) 29.6 pg 27.0-31.0 [facility] ExuiymsTURXAWRLCE3632-82-34 09:42:0043.0[facility]annHEMATOLOGY 2018-12-18 09:42:0013.9[facility] EbqdwivXVPCHIIMWG2191-70-69 09:42:004.68[facility] UslsevtMWHCOHVOZI1533-61-53 09:42:007.0[facility] HermannCARDIAC FICGUTS7603-85-63 12:00:00<0.02[facility] DpcfrttTDCFTBSOLAOJ9435-21-96 12:00:0011.1[facility] WsezdheATLQBZSOLPTQ0941-72-95 12:00:0020[facility] LnaidhnGHCNMRDTOXJY3121-79-71 12:00:23385Kydgxdjd OmqqptqEAHISPFGRYOP4625-94-44 12:00:0061[facility] ULRBVUBCUCIA4288-92-63 12:00:002.30[facility] VuguvanQLDBNUHOXKYW1931-79-00 12:00:003.1[facility] UtxhxvqONAFXTHZZISZ7429-40-71 12:00:009.5[facility] WWSMVIGCYCOR7763-37-89 12:00:0029[facility] ApyuwexVCLIRYRAFISQ1577-74-30 12:00:00 103[facility] MldwfhmCAIBQCGADOGS4516-40-29 12:00:60469Gplozzpi HermannHEMATOLOGY 2018-12-17 12:00:006.3[facility] AyiocruJKXCFNGTOS7564-20-82 12:00:000.2[facility] IcklrkeZQOKWWBFIV8348-92-37 12:00:001.6[facility] NmwnyiuDVCYXVJTWM6939-20-74 12:00:000.9[facility] UidllioZKHRELNJFO0960-13-83 12:00:0071.2[facility] RJXDDMAQZK0027-57-96 12:00:0018.5[facility] MuxaqyiXCOSMPXGQD6064-85-19 12:00:00 0.5[facility] EdlwawdBOCHIZNBNU1578-66-12 12:00:009.6[facility] HermannHEMATOLOGY 2018-12-17 12:00:009.6[facility] OizrtzaQQBQUQAZMB8104-03-09 12:00:008.8[facility] DlgjpqnPDEXHJMPBH1292-54-88 12:00:004.43[facility] LnhibthJQHDSIJWRG5429-18-80 12:00:0013.3[facility] RfzetcoXDZAPQMHKR2675-57-39 12:00:0091.6[facility] AEWXHYQVOL5783-82-25 12:00:0040.6[facility] HcbavabLIUXGNNMNH9073-10-81 12:00:00 32.7[facility] MtzjssjAPGMTTSRBW8263-92-51 12:00:00 Test Item Value Reference Range Interpretation Comments MCH (test code = MCH) 29.9 pg 27.0-31.0 [facility] YxfnfvuGQVKLGCUQW9511-39-38 12:00:23964Mzobwint HermannHEMATOLOGY 2018-12-17 12:00:0016.1[facility] JzlnnknHDKSOOIQSK7934-47-30 09:47:0015.6[facility] TaezrvwVJACHPNIKJ4669-39-14 09:47:009.5[facility] OshyjnpRPGLNSGVAK4121-72-08 09:47:01529Hhhjoxhi GwfxxevVPWGYWHXEY9367-40-75 09:47:003.86[facility] POWCGFYOAG3623-39-26 09:47:0011.em[facility] HozrkktKQKUMXSMFT7779-30-45 09:47:00 35.0[facility] MezvulgLMIOLSXKMS5234-77-53 09:47:0090.6[facility] HermannHEMATOLOGY 2018-12-16 09:47:0033.3[facility] PymwbrgGDVOKTWUFW4656-76-31 09:47:00 Test Item Value Reference Range Interpretation Comments MCH (test code = MCH) 30.2 pg 27.0-31.0 [facility] VqqzvdvLBTFIFGDEJ9970-75-06 09:47:0011.7[facility] HermannHEMATOLOGY 2018-12-16 09:47:006.2[facility] GgerxjlJIRPJXPUBM2940-09-74 09:47:0087.6[facility] LdnkkxyHNJYIZGPMH3034-43-76 09:47:000.4[facility] OmioaczIKTRJVCATK3031-69-87 09:47:005.8[facility] LyftekpULUDJUWAAR9505-30-64 09:47:000.7[facility] JDCDFSLGNN1876-94-42 09:47:0010.3[facility] CwgntwyIWPYAZIAFG9500-25-39 09:47:00 0.7[facility] HermannCHEM UIFGD9038-61-46 05:14:002.6[facility] HermannCHEM PANEL 2018-12-15 09:25:005.1[facility] HermannCHEM WEADB9253-04-62 09:25:003.0[facility] HermannCHEM ZMWTF5464-97-47 09:25:0015[facility]annCHEM BIENQ4708-91-20 09:25:76314Kltstsvz HermannCHEM XADPO4377-33-32 09:25:000.4[facility]annCHEM LKWEQ2805-02-96 09:25:0016[facility] HermannCHEM MOENF1254-71-51 09:25:007.4 [facility]annCHEM GVYXN6844-62-37 09:25:002.7[facility] HermannCHEM PANEL 2018-12-15 09:25:00 Test Item Value Reference Range Interpretation Comments A/G Ratio (test code = A/G Ratio) 0.6 1 0.7-1.6 [facility]annCHEM KKCPG7887-99-72 09:25:00 Test Item Value Reference Range Interpretation Comments B/C Ratio (test code = B/C Ratio) 22 1 6-25 [facility]annCHE[facility] KBIKF7090-56-64 09:25:004.7[facility] HermannCHEM PANEL 2018-12-15 06:30:004.2[facility] HermannCHEM ZMTMN2150-61-40 06:30:0016[facility]annCHEM TKIVZ0144-55-87 06:30:95517Itszfpgf HermannCHEM IMUAH9388-54-69 06:30:0015[facility] HermannCHEM AFVEG4536-69-63 06:30:004.5[facility]annCHEM YMDQR7932-16-28 06:30:00 Test Item Value Reference Range Interpretation Comments A/G Ratio (test code = A/G Ratio) 0.6 1 0.7-1.6 [facility]annCHEM FQPZZ1833-05-97 06:30:000.7[facility] HermannCHEM PANEL 2018-12-15 06:30:002.8[facility] HermannCHEM NNIYW5174-15-96 06:30:007.3[facility] HermannCHEM BGXOU5538-64-13 06:30:00 Test Item Value Reference Range Interpretation Comments B/C Ratio (test code = B/C Ratio) 22 1 6-25 [facility] HlxiyjaRYOCZRQFPL8445-83-94 06:30:00Normal (12/15/18 1:30 AM)[facility] WvbmfdnNOOOOTVYIX2990-29-02 06:30:00Normal (12/15/18 1:30 AM)[facility] AND PJAOC2379-37-18 02:51:003[facility] AND JFHOJ7744-39-43 02:51:00 Test Item Value Reference Range Interpretation Comments UA pH (test code = UA pH) 5.0 1 5.0-8.0 [facility] LAHEF6179-19-16 02:51:00 Test Item Value Reference Range Interpretation Comments UA Spec Grav (test code = UA Spec 1.008 1 Grav) [facility] JEIQI8619-44-98 02:51:00Slight *ABN*(12/14/18 9:51 PM) [facility] EBQTQ0579-05-56 02:51:00Negative (12/14/18 9:51 PM) [facility] ZYNZB9898-79-07 02:51:00Negative (12/14/18 9:51 PM) [facility] SXMEV0237-98-12 02:51:00Negative *NA*(12/14/18 9:51 PM) [facility] FTCZL6581-12-45 02:51:003[facility] DXXXH6189-62-54 02:51:00Negative (12/14/18 9:51 PM)[facility] AHJGX5141-04-55 02:51:003[facility] HermannCARDIAC KTTLSWT5654-43-29 00:46:24843 [facility]annCARDIAC RHQQBNE7344-84-96 00:46:000.02[facility] HermannCHEM PANEL 2018-12-15 00:46:001.5[facility] UapbkdjEJIZBYLVKVRB3144-54-57 00:46:0014.0 [facility] XfsgozzTCFMNHJPQUMK2847-15-52 00:46:004.7[facility] HermannELECTROLYTES 2018-12-15 00:46:00 Test Item Value Reference Range Interpretation Comments B/C Ratio (test code = B/C Ratio) 19 1 6-25 [facility] IznirdnUDVRIWHPUYOY1674-15-71 00:46:00 Test Item Value Reference Range Interpretation Comments A/G Ratio (test code = A/G Ratio) 0.6 1 0.7-1.6 [facility] CpqjhogYOBFGZHOTXBB0399-59-37 00:46:0021[facility] HermannELECTROLYTES 2018-12-15 00:46:0018[facility] MriojviBCKGQUCJCCIG9474-89-97 00:46:007.7[facility] DuzkogbXCMMZMYMEBID1690-79-94 00:46:008.9[facility] JmadgmvUDVAXCWSHYXW5349-49-86 00:46:0022[facility] AxktmylRKIBAJIQHLXM8294-40-06 00:46:003.0[facility] XKXWYZGPQZFA4265-77-60 00:46:000.6[facility] NyeanfqMDZJTXAWPVYC2165-01-32 00:46:61983Udacijxt PakehxyDNZWPGYPEMFB1231-36-55 00:46:0043[facility] MOJZMXDIDRPL2508-15-25 00:46:00200Nicdoodr NsewrnzGEIPUHOFSCWG6968-25-26 00:46:0023[facility] VtbibcdVMPWYZVHWMXV4856-80-23 00:46:08889Acuxgerj [place] IVJCPZALTHFQ3287-95-55 00:46:002.22[facility] FheszglDKQMOZEHGZDJ1314-99-23 00:46:88069Wmaiuull SsbhwqjUWOEPQEFXRSH7986-44-31 00:46:004.0[facility] JYVFDEHKIS1817-43-68 00:46:001.5[facility] FpnkiexYYZFRGCDVN7680-71-85 00:46:001.5 [facility] EwkcnqpQNZTCHJTBG6143-41-36 00:46:001.1[facility] HermannHEMATOLOGY 2018-12-15 00:46:009.6[facility] VgziozdLOIXUYLTPA3050-18-77 00:46:0012.0[facility] LfukfapTFGMSIIRKJ2079-82-07 00:46:0074.7[facility] ObwwfsdHBEGRWGDVP4855-85-55 00:46:0011.7[facility] HvqblsxVLSCJHUNKL8020-08-54 00:46:000.5[facility] LJWSLHHPER7372-53-48 00:46:000.1[facility] JyfzrkmQYDMCTABMN9810-30-73 00:46:000.1 [facility] ZcyakvaKUMUMSEODS1206-86-32 00:46:0090.9[facility] HermannHEMATOLOGY 2018-12-15 00:46:0035.4[facility] KbeooxiNQMHGZZBXG2635-40-69 00:46:00 Test Item Value Reference Range Interpretation Comments MCH (test code = MCH) 30.3 pg 27.0-31.0 [facility] UgvpkcsPHRVQMDYPJ0459-52-62 00:46:0012.9[facility] HermannHEMATOLOGY 2018-12-15 00:46:0011.8[facility] FykwvdaYILYKQLOKP0928-68-03 00:46:003.89[facility] KacawsiIKHXPLCSTZ8503-91-64 00:46:009.2[facility] LvvkmdjWNPJUEOJUA4330-33-90 00:46:20032Rvstwind QdkkarqIOSJZDBBXZ4752-09-18 00:46:0015.6[facility] GUWVFVIVST5252-17-30 00:46:0033.3[facility] HermannMOLECULAR GKXWXSAQHW9778-19-30 00:46:00Not Detected (12/14/18 7:46 PM)[facility]annMOLECULAR DIAGNOSTIC 2018-12-15 00:46:00Not Detected (12/14/18 7:46 PM)[facility]annMOLECULAR SJFEFURWTW9993-48-39 00:46:00Not Detected (12/14/18 7:46 PM)[facility] MOLECULAR UEBBDJKJFH4948-91-78 00:46:00Not Detected (12/14/18 7:46 PM)[facility] HermannMOLECULAR KHAHGHGTNX6576-48-03 00:46:00Not Detected (12/14/18 7:46 PM) [facility]annMOLECULAR MVIDFIBFLD8025-24-94 00:46:00Not Detected (12/14/18 7:46 PM)[facility]annMOLECULAR TBVAGEDVEZ3060-06-63 00:46:00Not Detected (12/14/18 7:46 PM)[facility]annMOLECULAR LIIUOYJRRM6730-37-79 00:46:00Not Detected (12/14/18 7:46 PM)[facility]annMOLECULAR GQPUOHAMCI5459-15-66 00:46:00Not Detected (12/14/18 7:46 PM)[facility]annMOLECULAR DIAGNOSTIC 2018-12-15 00:46:00Not Detected (12/14/18 7:46 PM)[facility]annMOLECULAR XTKRUGHZHK1606-31-74 00:46:00Not Detected (12/14/18 7:46 PM)[facility] MOLECULAR XWTGKPSRUX1779-18-57 00:46:00Not Detected (12/14/18 7:46 PM)[facility]annMOLECULAR SCDUPNMBMN6270-86-12 00:46:00Not Detected (12/14/18 7:46 PM) [facility]annMOLECULAR TPOOGVKTRQ1641-04-48 00:46:00Not Detected (12/14/18 7:46 PM)[facility]annMOLECULAR GGQYFNRIBH7665-62-82 00:46:00Not Detected (12/14/18 7:46 PM)[facility]annCHEM ARMSV7236 10:55:001.9[facility] HermannCHEM MIJNW3674-16-09 10:55:008.6[facility]annCHEM YFEPT2620-81-39 10:55:0010.7[facility]annCHEM IYIZS9904-96-01 10:55:0046[facility]annCHEM QBHIQ8677-02-76 10:55:0089[facility]annCHEM BTMQH3631-77-66 10:55:0026 [facility]annCHEM IZANK8477-54-44 10:55:003.7[facility]annCHEM PANEL 2017-05-15 10:55:95403Mdsrukko HermannCHEM QYQEW4266-72-82 10:55:58475Kmgqchip HermannCHEM OHMKU2136-67-94 10:55:0022[facility]annCHEM NUJFP4557-43-11 10:55:001.15[facility]annCHEM PAGWY7403-52-61 09:12:002.1[facility]annCHEM RACPH2151-53-29 09:12:003.4[facility] YcgvcgyJODAYGTZDQTB3168-21-15 09:12:0011.6 [facility] FbyqxrlGJBBVKBIUSPR1384-51-54 09:12:009.0[facility] HermannELECTROLYTES 2017-05-14 09:12:0043[facility] MmnnxexGNJGVBBVTNXC0639-64-73 09:12:003.6[facility] ZxljzvlLSTJPNJIGIKG8725-33-01 09:12:001.23[facility] JldmgnoNXZTSDZNPVEC7801-20-72 09:12:16823Inprszpq QdoyorvSFPDNTGVRZNF2326-34-56 09:12:63587Anfctxam [facility] GOTGFGVBHIRU5003-31-68 09:12:0026[facility] WkxqkabUQCGOXSKHRCC3486-89-75 09:12:00 30[facility] QcamixlQRLVSMVBJFYH7786-08-55 09:12:0086[facility]annHEMATOLOGY 2017-05-14 09:12:34283Xcqtmnhk MgpiplpRTRQHLIYKU3455-41-06 09:12:009.6[facility] EtdmshdHGIXTWVJLU7858-16-69 09:12:007.4[facility] YhrrlpaDDCSORMHFX9420-64-28 09:12:0014.2[facility] OneztedKITYXATHTC4618-92-81 09:12:004.75[facility] FLHLNPOHIH7357-03-99 09:12:00 Test Item Value Reference Range Interpretation Comments MCH (test code = MCH) 29.9 pg 27.0-31.0 [facility] FerufghLDCFQSSMDJ1902-66-58 09:12:0090.0[facility] HermannHEMATOLOGY 2017-05-14 09:12:0033.3[facility] PojkhzkAJQDZUBUXQ7357-52-61 09:12:0015.6[facility] DrlqwruYNNLXQWWWF8452-87-01 09:12:0042.7[facility] DwsnklcJAEJPNRYHS8257-05-92 09:12:000.1[facility] VlcafenJRGFWHZXHV1760-27-37 09:12:003.6[facility] BFPMDLSNFT5593-18-00 09:12:001.1[facility] FvwhfphFTODJKIGFQ3982-22-35 09:12:002.4 [facility] PqijcxaVLXQOQOLUF3024-75-75 09:12:0048.0[facility] HermannHEMATOLOGY 2017-05-14 09:12:000.7[facility] GpgtoknCTPCIXQROK9895-83-86 09:12:000.7[facility] ZzldkdgMNDBQWUKNM0634-02-76 09:12:009.4[facility] RzffujpCUNJLKTBMC4009-17-62 09:12:009.6[facility] NivdghdQQWCINGNQM2181-87-70 09:12:0031.9[facility] URINE AND RMNBC9011-20-54 00:20:00None Seen (05/13/17 6:20 PM)[facility] URINE AND MBJCB6211-74-21 00:20:00None Seen (05/13/17 6:20 PM)[facility] URINE AND XYTPU7127-89-07 00:20:000-2 (05/13/17 6:20 PM)[facility]annUR[facility] AND FTMXC3009-22-83 00:20:000.2[facility]UR[facility] AND TWKRQ1064-37-22 00:20:00Negative (05/13/17 6:20 PM)[facility] JQKVH5864-73-23 00:20:00Negative (05/13/17 6:20 PM)[facility] KILQV4373-53-69 00:20:00Negative (05/13/17 6:20 PM)[facility] UMLPO4535-43-89 00:20:00Negative *NA*(05/13/17 6:20 PM)[facility] GMXGB9220-61-56 00:20:00Negative *NA*(05/13/17 6:20 PM)[facility] ZPLZO0882-02-44 00:20:00Negative (05/13/17 6:20 PM)[facility] YFCEJ0013-09-32 00:20:00Clear (05/13/17 6:20 PM)[facility] YJCIB5347-24-58 00:20:00 Test Item Value Reference Range Interpretation Comments UA Spec Grav (test code = UA Spec 1.020 1 Grav) [facility] LOFLQ8691-33-50 00:20:00 Test Item Value Reference Range Interpretation Comments UA pH (test code = UA pH) 6.5 1 5.0-8.0 [facility] XGTMU9644-70-84 00:20:00Yellow *NA*(05/13/17 6:20 PM) [facility]annCARDIAC KTSCQYE2696-12-03 22:28:0050[facility] HermannCARDIAC OYAXSOQ6109-95-61 22:28:000.02[facility] HermannCARDIAC MWDZCJG7796-10-44 22:28:00 3.3[facility]annCARDIAC DJPQFAO0375-47-45 22:28:006.6[facility] HermannCHEM RKYHB9274-44-14 22:28:0036[facility] HermannCHEM QBJIU6718-85-70 22:28:001.43 [facility]annCHEM YDUZW9061-71-80 22:28:009.8[facility] HermannCHEM PANEL 2017-05-13 22:28:0010.0[facility] HermannCHEM HSWNZ9165-66-67 22:28:82401Netqqinm HermannCHEM MXJWW6551-42-15 22:28:0028[facility] HermannCHEM FYBGF2865-75-77 22:28:004.0[facility] HermannCHEM APJHP1476-05-17 22:28:0034[facility] HermannCHEM XHDPT0280-11-55 22:28:12379Lsldwgih HermannCHEM JMPOL3548-76-30 22:28:14547 [facility] QwzxbwgEPPXRJEBWV9945-44-79 22:28:001.03[facility] HermannHEMATOLOGY 2017-05-13 22:28:00 Test Item Value Reference Range Interpretation Comments PROTIME (test code = PROTIME) 13.5 s 12.0-14.7 [facility] DakkytyCHEXVOJWMM0288-69-83 22:28:00 Test Item Value Reference Range Interpretation Comments aPTT (test code = aPTT) 38.0 s 22.9-35.[address] [facility]XapgtshZVNLRCTEFT8917-69-26 22:28:00 Test Item Value Reference Range Interpretation Comments MCH (test code = MCH) 29.8 pg 27.0-31.0 [facility] HliilbqKSUEQHCCHO1820-23-84 22:28:0015.9[facility] HermannHEMATOLOGY 2017-05-13 22:28:0046.5[facility] VifeghgSSSUFOBETN2127-73-22 22:28:0015.4[facility] PgqjjzfXFHSGEEOMC5424-44-06 22:28:0090.2[facility] SrfwmyuTIREOJVPSN2351-99-69 22:28:009.0[facility] YwfvbqaPRCWZURFVB7944-28-12 22:28:35486Rikowiyo [facility] VFJRHVPKGP3331-85-70 22:28:0033.0[facility] RvvajewUTFMQSRIXQ7159-73-02 22:28:00 5.16[facility] QyqkwzaIZOHBYDBMT2251-58-26 22:28:008.2[facility] HermannHEMATOLOGY 2017-05-13 22:28:000.7[facility] ZnxtkjyOYAHGWZGYE8535-87-70 22:28:000.1[facility] VqqjztpPSKGGUFOVR3170-76-76 22:28:002.6[facility] MytpmzoDAAZLZROUZ7064-62-64 22:28:004.2[facility] DdowkejSVKSPRWNUP3734-11-35 22:28:000.7[facility] ZWIJZTPRJD1846-45-12 22:28:001.0[facility] BnokuhvEQEFDMPNIK9477-10-02 22:28:00 51.emorial FjclqqiEBFDYFQWVI5713-28-36 22:28:0030.9[facility] HermannHEMATOLOGY 2017-05-13 22:28:008.5[facility] FlznkkoZGUKYAKNKN9276-12-63 22:28:008.0[facility] HermannCHEM AFIGO1779-09-45 12:52:000.6[facility] HermannCHEM MIIKI7819-36-27 12:52:00797Asfmzamc HermannCHEM XPTGE2405-51-82 12:52:0025[facility] HermannCHEM SVUNP5622-82-21 12:52:000.1[facility] HermannCHEM UDPTI7958-83-77 12:52:000.5 [facility]annCHEM XOBNG4707-59-26 12:52:0021[facility] HermannCHEM PANEL 2017-05-09 12:52:003.7[facility]annCHEM OEODA4292-18-28 12:52:006.7[facility]annCHE[facility] YSHBC0427-83-71 12:52:000.8[facility]annCHEM VEALD5875-70-64 12:52:003.0[facility]annCHE[facility] FIAXF5155-71-11 12:52:009.0[facility]annCHE[facility] JSWFV7653-45-11 12:52:0041[facility]annCHE[facility] XLKUG6714-86-67 12:52:0097 [facility]CHE[facility] IQMJG8066-06-62 12:52:001.26[facility]annCHEM PANEL 2017-05-09 12:52:0025[facility]annCHE[facility] HHNZA0765-36-18 12:52:0010.7[facility]annCHE[facility] GCOKJ7780-81-63 12:52:0027[facility]annCHEM SZBNA8808-73-11 12:52:24499Nceslrzd HermannCHEM ILKSJ9572-04-60 12:52:003.7[facility]annCHEM ZVLPT4571-23-81 12:52:33620Fvgdqfdw MhyxjisUFUMTS1981-08-96 12:52:0023[facility] ZnwvwuqWKUMKS1389-37-56 12:52:0034[facility] TvckuvbYSYIUS4653-60-25 12:52:20812 [facility] JzosyaaAJHYUK3558-62-09 12:52:002.30[facility] YveualjFEJSKP6300-30-49 12:52:0044[facility] EaureuuOFKDBG6549-37-63 12:52:22040Eimksxhu HermannANEMIA SVQFC5221-69-81 00:52:00>2000[facility]annANEMIA KSRXP1811-97-05 00:52:00 49.5[facility] XijdoypKKOZPCHWMO6545-29-83 00:52:005[facility]annHEMATOLOGY 2017-05-09 00:52:009.2[facility] GfihdwePWETSLVWFA1716-37-70 00:52:005.36[facility] IxjfxewCRONXKVUPA0796-83-61 00:52:0015.8[facility] PgorilbCTSCIAWTNZ1637-72-98 00:52:008.5[facility] FqpktboTTOJTPIJAQ5119-66-74 00:52:00 Test Item Value Reference Range Interpretation Comments MCH (test code = MCH) 29.6 pg 27.0-31.0 [facility] YvgqfuyCSUNQYZKBM7191-57-77 00:52:0032.8[facility] HermannHEMATOLOGY 2017-05-09 00:52:0015.7[facility] DsgsgblOOXLXAUGFT7654-00-87 00:52:84784Ftjztlyv BgnlxkvLIJPQELFOL5992-86-51 00:52:0048.3[facility] KdcduyqIGKDXXKAYR2528-86-65 00:52:0090.2[facility] ZradaxxKOWOAUJJNI9781-38-07 00:52:000.1[facility] HQCUCRGGLF4047-88-60 00:52:000.5[facility] WtplvkiLYWXWZPXUH8091-04-40 00:52:000.5 [facility] HoxrefgVUOJWLJBHH6893-52-28 00:52:003.0[facility]annHEMATOLOGY 2017-05-09 00:52:0052.2[facility] NiahsfjEOWDGVZJYW5219-64-07 00:52:0035.2[facility] ZrmvgucZQAKVHJFON1434-76-56 00:52:006.4[facility] PhfvkfpEVQKEJKUNL0610-45-62 00:52:004.4[facility] ZqbjawfQDTGEBEXAC2878-44-03 00:52:005.5[facility] HQHAWLAKYY6552-29-90 00:52:000.7[facility] VcbmifcCRJEADVDDF4766-42-35 00:52:00 <2.9[facility] UhwfwtfGQVTLNRVWV7307-94-20 00:52:00<10[facility] VRQQPLLYDR9253-00-30 00:52:00Negative (05/08/17 6:52 PM)[facility] KDCLVBBCVQ6310-30-38 00:52:00Negative (05/08/17 6:52 PM)[facility] WKPAMLZERJ2319-10-05 00:52:00Positive *ABN*(05/08/17 6:52 PM)[facility] TCLWDNNXWF8619-64-60 00:52:00<0.2[facility] OyanujgLNUXCFVOEZ9224-36-37 00:52:00<0.2[facility] DnehcyoIBXBDYALKO8095-14-75 00:52:00<0.2[facility] RjfigsmFKSETFADVK3317-20-49 00:52:00<0.2[facility] QvqmbryJZVYBSRZAS1888-39-92 00:52:001:40 *ABN*(05/08/17 6:52 PM)[facility] OndwosvGIQLYCPLLR7163-68-38 00:52:00Negative *NA*(05/08/17 6:52 PM)[facility] IrjyhbcIDHQIBCFHA5762-26-10 00:52:00Negative *NA*(05/08/17 6:52 PM)[facility] DroblggFGZZJDPUEC2491-77-20 00:52:00Negative *NA*(05/08/17 6:52 PM)[facility] JuamnzbLUKVLBNZZA1072-08-55 00:52:00Negative *NA*(05/08/17 6:52 PM)[facility] HvstqbyJEDNUGGDIC0938-63-25 00:52:00>8.0[facility] ZxugxvrLCOJPTVVUU6096-09-87 00:52:00>8.0[facility] QtzbehiYNYNWFGOKW3664-28-18 00:52:00<0.2[facility] AhgyquySEMHMNXLG1918-76-05 00:52:0093[facility]UR[facility] AND FURIL8242-49-21 20:02:00Negative (05/08/17 2:02 PM)[facility] KUPWX6522-54-95 20:02:00Negative *NA*(05/08/17 2:02 PM)[facility] MCKOQ7286-94-20 20:02:00Negative *NA*(05/08/17 2:02 PM)[facility] YMEOV3006-41-08 20:02:00Negative (05/08/17 2:02 PM)[facility] IXLFV6280-61-71 20:02:00Negative (05/08/17 2:02 PM)[facility] XBVFH6402-56-12 20:02:00Negative (05/08/17 2:02 PM)[facility] NQBVK6550-68-51 20:02:000.2[facility] URINE AND ZEHGS0187-80-65 20:02:00Yellow *NA*(05/08/17 2:02 PM)[facility] URINE AND LNVYE6305-50-87 20:02:00Clear (05/08/17 2:02 PM)[facility] FOOGF6841-44-87 20:02:00 Test Item Value Reference Range Interpretation Comments UA Spec Grav (test code = UA Spec 1.020 1 Grav) [facility] ODJXN1933-05-38 20:02:00 Test Item Value Reference Range Interpretation Comments UA pH (test code = UA pH) 6.0 1 5.0-8.0 [facility] JXUWF6770-48-51 20:02:00None Seen (05/08/17 2:02 PM) [facility] WMGFZ5585-68-22 20:02:00None Seen (05/08/17 2:02 PM) [facility]annCARDIAC GDNVCQX5440-18-78 19:41:00<0.02[facility] CARDIAC FYSYLFQ7770-20-59 19:41:002.5[facility]annCARDIAC KLNATRF8870-10-67 19:41:0074[facility]annCARDIAC NLLHLKI6285-73-10 19:41:003.4[facility] CHEM NWKDX7601-92-42 19:41:0027[facility]annCHEM SAGTC3746-36-96 19:41:000.8 [facility]annCHE[facility] JJYXN6463-50-84 19:41:0042[facility]annCHEM PANEL 2017-05-08 19:41:0024[facility]annCHEM NIQVA4609-60-04 19:41:27254Wkotisqp HermannCHEM BHNNL5046-80-97 19:41:000.8[facility]annCHEM HAZJB8241-86-11 19:41:004.7[facility]annCHEM BIUNC3605-84-80 19:41:003.7[facility]annCHEM BMAHP5725-39-48 19:41:004.7[facility]annCHEM EFHNI6964-45-82 19:41:009.5 [facility]CHE[facility] UWPIY4551-50-41 19:41:0027[facility]annCHEM PANEL 2017-05-08 19:41:0012.7[facility]annCHEM OTCIP3657-74-80 19:41:008.4[facility]annCHEM BRXAP6693-84-82 19:41:0022[facility]annCHEM NOSSU7834-48-68 19:41:16063Rfzawzii HermannCHEM PCREO3222-69-06 19:41:0039[facility]annCHEM MBDGT7152-10-57 19:41:001.80[facility]annCHE[facility] QXMQI1738-89-28 19:41:53514 [facility]annCHE[facility] LAUNU5902-86-34 19:41:40288Nhywyhcd HermannCHEM PANEL 2017-05-08 19:41:001.5[facility] HermannCHEM [id number] 19:41:34995Ayaczlaa MpttsubTKZFFYHFJY6726-42-55 19:41:009.0[facility] YpozizoXJJPVKQUCM4307-83-37 19:41:0015.7[facility] EmowbztFBYRTVOBWZ5623-65-10 19:41:41413Agicsvag [place] [id number] 19:41:00 Test Item Value Reference Range Interpretation Comments MCH (test code = MCH) 29.9 pg 27.0-31.0 [facility] [id number] 19:41:0033.2[facility] HermannHEMATOLOGY 2017-05-08 19:41:0050.0[facility] NvlngvvVXUFOROCDX8341-94-03 19:41:0090.2[facility] YzuskgbVXZTXYDKYW1375-09-47 19:41:0016.6[facility] EpyqpxnXOKXVGRVJV8101-58-33 19:41:0010.0[facility] IbqxgmdDDMBPUJBDT4517-23-16 19:41:005.54[facility] [place] HKGVQBNYOZ8214-21-06 19:41:000.1[facility] XinxdfdRYGEUFAZKS5762-36-31 19:41:000.5 [facility] XjwfvobSUXJAREPAM1474-23-92 19:41:006.1[facility] HermannHEMATOLOGY 2017-05-08 19:41:001.0[facility] DmchxcpQUFWJSWUBV3739-68-02 19:41:001.0[facility] TgwbvxvEOGJUELCLM6371-51-80 19:41:002.3[facility] LdoybznGZJEWZUABO1133-99-98 19:41:005.1[facility] YkosemzRCSBPLGVJQ0375-10-75 19:41:009.7[facility] [place] UWCGPDGYDM8910-10-47 19:41:0023.1[facility] LkuexeeWAJKCEMCVK5375-92-81 19:41:00 61.1[facility] Mikey
[2020-06-20] MEDS ORDERED: METHYLPREDNISOLONE 125 MG INJ ONE (10:36)
[2020-06-20] MEDS ORDERED: FAMOTIDINE 20 MG/2 ML VIAL IV ONE (10:37)
[2020-06-20] MEDS ORDERED: ALBUTEROL 2.5 MG/3 ML NEB SOL ONE (10:37)
[2020-06-20] MEDS ORDERED: FUROSEMIDE 40 MG/4 ML VIAL ONE (10:37)
[2020-06-20] MEDS ORDERED: CEFTRIAXONE/SWI 1gm 1 GM/10 ML SYR ONE (10:37)
[2020-06-20] MEDS ORDERED: NA CHLORIDE 0.9% 100 ML ONE (10:37)
[2020-06-20] MEDS ORDERED: IPRATROPIUM BROM 0.5MG/2.5ML ONE (10:37)
--- NOTE | 2020-06-20 10:46 | RAD REPORT ---
EXAM DESCRIPTION: RAD - Chest Single View - 06/20/2020 10:32 am CLINICAL HISTORY: COPD;Dyspnea Chest pain. COMPARISON: Chest Pa And Lat (2 Views) dated 06/04/2018; Chest Single View dated 05/03/2017; Chest P a And Lat (2 Views) dated 04/26/2017; Chest Single View dated 03/30/2016 FINDINGS: Portable technique limits examination quality. Airspace opacities are present in the right upper lobe and right lung base most compatible with pneum onia. Trace bilateral pleural effusions. The heart is moderately enlarged with pacer device present. No displaced fractures. IMPRESSION: Moderately severe right-sided pneumonia pattern.
--- NOTE | 2020-06-20 10:54 | EDPHYS ---
Physician Documentation [facility] Name: Tamia Colon Age: 80 yrs Sex: Female : 1940 Arrival Date: 06/20/2020 Time: 09:49 Bed 23 Private MD: SHY Physician Tulio Mi HPI: 06/20 10:01 This 80 yrs old Female presents to ER via EMS with complaints of Respiratory edelmira Distress. 10:01 The patient has shortness of breath at rest, with light activity. Onset: The edelmira symptoms/episode began/occurred 1 day(s) ago. Duration: The symptoms are continuous, and are steadily getting worse. The patient's shortness of breath is aggravated by exertion, supine position. Associated signs and symptoms: Pertinent positives: non-productive cough. Severity of symptoms: At their worst the symptoms were moderate in the emergency department the symptoms are unchanged. The patient or guardian reports cough, described as moderate, difficulty breathing, flu symptoms, arthralgias, myalgias. Severity of symptoms: At their worst the symptoms were moderate, in the emergency department the symptoms are actually worse, mildly. Historical: - Allergies: 10:01 No Known Allergies; bp - PMHx: 10:01 CHF; CVA; Hypertension; Renal Disease; bp - Immunization history:: Adult Immunizations not up to date. - Social history:: Smoking status: Patient denies any tobacco usage or history of. - Family history:: not pertinent. ROS: 10:01 Constitutional: Negative for fever, chills, and weight loss, Eyes: Negative for injury, edelmira pain, redness, and discharge, ENT: Negative for injury, pain, and discharge, Neck: Negative for injury, pain, and swelling, Cardiovascular: Negative for chest pain, palpitations, and edema, Abdomen/GI: Negative for abdominal pain, nausea, vomiting, diarrhea, and constipation, Back: Negative for injury and pain, : Negative for injury, bleeding, discharge, and swelling, MS/Extremity: Negative for injury and deformity, Skin: Negative for injury, rash, and discoloration, Neuro: Negative for headache, weakness, numbness, tingling, and seizure, Psych: Negative for depression, anxiety, suicide ideation, homicidal ideation, and hallucinations, Allergy/Immunology: Negative for hives, rash, and allergies, Endocrine: Negative for neck swelling, polydipsia, polyuria, polyphagia, and marked weight changes, Hematologic/Lymphatic: Negative for swollen nodes, abnormal bleeding, and unusual bruising. 10:01 Respiratory: Positive for cough, shortness of breath, at rest. wheezing, expiratory. 10:01 MS/extremity: Negative for acute changes. Exam: 10:01 Constitutional: This is a well developed, well nourished patient who is awake, alert, edelmira and in no acute distress. Head/Face: Normocephalic, atraumatic. Eyes: Pupils equal round and reactive to light, extra-ocular motions intact. Lids and lashes normal. Conjunctiva and sclera are non-icteric and not injected. Cornea within normal limits. Periorbital areas with no swelling, redness, or edema. ENT: Nares patent. No nasal discharge, no septal abnormalities noted. Tympanic membranes are normal and external auditory canals are clear. Oropharynx with no redness, swelling, or masses, exudates, or evidence of obstruction, uvula midline. Mucous membranes moist. Neck: Trachea midline, no thyromegaly or masses palpated, and no cervical lymphadenopathy. Supple, full range of motion without nuchal rigidity, or vertebral point tenderness. No Meningismus. Chest/axilla: Normal chest wall appearance and motion. Nontender with no deformity. No lesions are appreciated. Abdomen/GI: Soft, non-tender, with normal bowel sounds. No distension or tympany. No guarding or rebound. No evidence of tenderness throughout. Back: No spinal tenderness. No costovertebral tenderness. Full range of motion. Female : Normal external genitalia. Skin: Warm, dry with normal turgor. Normal color with no rashes, no lesions, and no evidence of cellulitis. MS/ Extremity: Pulses equal, no cyanosis. Neurovascular intact. Full, normal range of motion. Neuro: Awake and alert, GCS 15, oriented to person, place, time, and situation. Cranial nerves II-XII grossly intact. Motor strength 5/5 in all extremities. Sensory grossly intact. Cerebellar exam normal. Normal gait. Psych: Awake, alert, with orientation to person, place and time. Behavior, mood, and affect are within normal limits. 10:01 Cardiovascular: Rate: normal, Rhythm: regular, Pulses: Pulses are 4+ in bilateral radial, brachial, femoral, popliteal, posterior tibial and and dorsalis pedis arteries.. Heart sounds: murmur, systolic, grade 2 over 6, Edema: is not appreciated, JVD: is not appreciated. 10:01 Musculoskeletal/extremity: DVT Exam: No signs of deep vein thrombosis. no pain, no swelling, no tenderness, negative Homans' sign noted on exam, no appreciated bluish discoloration, no erythema, no increased warmth. 12:24 ECG was reviewed by the Attending Physician. [facility] Vital Signs: 09:50 BP 130 / 80; Pulse 72; Resp 28; Temp 98.3; Pulse Ox 88% 15 lpm ; bp 11:00 BP 114 / 67; Pulse 70; Resp 13; Pulse Ox 94% on 15% BiPAP; bp MDM: 09:50 Patient medically screened. [facility] 10:04 Differential diagnosis: asthma, Bronchitis CHF exacerbation, Chronic Obstructive edelmira Pulmonary Disease pneumonia, pulmonary edema, reactive airway disease, Unstable Angina. Antibiotic administration: rocephin. The patient's Wells Deep Vein Thrombosis Score was calculated as follows: Total Score: 0-2 Pts- Low Risk. Differential Diagnosis: Bronchitis Influenza Upper Respiratory Infection Pharyngitis Asthma Exacerbation Viral Syndrome Pneumonia. The patient's pulmonary embolism risk score was calculated as follows: Total Score: 0-2 points. This patient was found to be at low risk for a pulmonary embolism by using the Well's assessment criteria. Immunization status: Pneumococcal vaccine: Influenza vaccine: Data reviewed: vital signs, nurses notes, lab test result(s), EKG, radiologic studies, plain films. Data interpreted: school lunch monitor: rate is 72 beats/min, rhythm is regular, Pulse oximetry: on room air is 88 %. Test interpretation: by ED physician or midlevel provider: ECG, plain radiologic studies. 06/20 10:00 Order name: Basic Metabolic Panel; Complete Time: 12:16 [facility] 06/20 10:00 Order name: CBC with Diff; Complete Time: 12:16 [facility] 06/20 10:00 Order name: LFT's; Complete Time: 12:16 [facility] 06/20 10:00 Order name: Magnesium; Complete Time: 12:16 [facility] 06/20 10:00 Order name: NT PRO-BNP; Complete Time: 12:16 [facility] 06/20 10:00 Order name: PT-INR; Complete Time: 12:16 [facility] 06/20 10:00 Order name: Troponin (emerg Dept Use Only); Complete Time: 12:16 [facility] 06/20 10:00 Order name: Blood Culture Adult (2) [facility] 06/20 10:00 Order name: Lactate; Complete Time: 12:16 [facility] 06/20 10:00 Order name: Influenza Screen (a \T\ B) [facility] 06/20 10:00 Order name: COVID-19 [facility] 06/20 10:54 Order name: ABG; Complete Time: 12:16 06/20 11:16 Order name: Urine Culture: verbal order from Dr. iM 3 06/20 11:37 Order name: Urine Dipstick--Ancillary (enter results) 06/20 10:00 Order name: XRAY Chest (1 view); Complete Time: 10:49 [facility] 06/20 10:00 Order name: EKG; Complete Time: 10:01 [facility] 06/20 10:00 Order name: Cardiac monitoring; Complete Time: 11:10 [facility] 06/20 10:00 Order name: EKG - Nurse/Tech; Complete Time: 11:11 [facility] 06/20 10:00 Order name: IV Saline Lock; Complete Time: 11:11 [facility] 06/20 10:00 Order name: BIPAP [facility] 06/20 10:59 Order name: CONS Physician Consult [facility] 06/20 12:23 Order name: Urine Dipstick-Ancillary; Complete Time: 13:55 [facility] 06/20 14:57 Order name: COVID-19/FLU A+B EDTX 06/20 10:00 Order name: Labs collected and sent; Complete Time: 11:11 [facility] 06/20 10:00 Order name: O2 Per Protocol; Complete Time: 11:11 [facility] 06/20 10:00 Order name: O2 Sat Monitoring; Complete Time: 11:11 [facility] 06/20 10:00 Order name: Song; Complete Time: 11:09 [facility] EC:24 Rate is 73 beats/min. Rhythm is regular. QRS [place] is Normal. NE interval is normal. QRS edelmira interval is normal. QT interval is normal. No Q waves. T waves are Normal. No ST changes noted. Clinical impression: NSR w/ Non-specific ST/T Changes and No evidence of ischemia. Interpreted by me. Reviewed by me. Administered Medications: 10:30 Drug: Pepcid 20 mg Route: IVP; Site: right antecubital; bp 10:45 Drug: SOLU-Medrol 125 mg Route: IVP; Site: right antecubital; bp 10:45 Drug: Lasix 40 mg Route: IVP; Site: right antecubital; bp 10:45 Drug: Albuterol - atroVENT (3:1) (2.5 mg - 0.5 mg) 3 ml Route: Nebulizer; bp 10:45 Drug: Rocephin 1 grams Route: IV; Rate: per protocol; Site: right antecubital; bp 12:30 Drug: Zithromax 500 mg Route: IVPB; Infused Over: 1 hrs; Site: right antecubital; bp 13:26 Drug: vancoMYCIN 1 grams Route: IVPB; Infused Over: 2 hrs; Site: right antecubital; bp Disposition: 06/20/20 10:54 Hospitalization ordered by Ariana Koroma for Inpatient Admission. Preliminary diagnosis are Pneumonia due to other specified bacteria - right upper and lower lobe , moderate , severe, Hypoxemia, Urinary tract infection, site not specified. - Bed requested for Telemetry/MedSurg (Inpatient). - Status is Inpatient Admission. dm5 - Condition is Serious. - Problem is new. - Symptoms have improved. Signatures: Dispatcher [employer] EDMS Jessica Jackson RN RN hermes5 Tulio Mi MD MD cha Calderon, Audri, RN RN aa5 Lit Tipton RN RN bp Corrections: (The following items were deleted from the chart) 11:18 10:54 Hospitalization Ordered by Ariana Koroma MD for Inpatient Admission. Preliminary [facility] diagnosis is Pneumonia due to other specified bacteria - right upper and lower lobe , moderate , severe; Hypoxemia. Bed requested for Telemetry/MedSurg (Inpatient). Status is Inpatient Admission. Condition is Serious. Problem is new. Symptoms have improved. [facility] 13:28 11:18 06/20/2020 10:54 Hospitalization Ordered by Ariana Koroma MD for Inpatient dm5 Admission. Preliminary diagnosis is Pneumonia due to other specified bacteria - right upper and lower lobe , moderate , severe; Hypoxemia; Urinary tract infection, site not specified. Bed requested for Telemetry/MedSurg (Inpatient). Status is Inpatient Admission. Condition is Serious. Problem is new. Symptoms have improved. edelmira 15:57 13:28 06/20/2020 10:54 Hospitalization Ordered by Ariana Koroma MD for Inpatient aa5 Admission. Preliminary diagnosis is Pneumonia due to other specified bacteria - right upper and lower lobe , moderate , severe; Hypoxemia; Urinary tract infection, site not specified. Bed requested for [facility] ER HOLD. Status is Inpatient Admission. Condition is Serious. Problem is new. Symptoms have improved. dm5 18:08 15:57 06/20/2020 10:54 Hospitalization Ordered by Ariana Koroma MD for Inpatient dm5 Admission. Preliminary diagnosis is Pneumonia due to other specified bacteria - right upper and lower lobe , moderate , severe; Hypoxemia; Urinary tract infection, site not specified. Bed requested for Telemetry/MedSurg (Inpatient). Status is Inpatient Admission. Condition is Serious. Problem is new. Symptoms have improved. aa5
--- NOTE | 2020-06-20 10:54 | ER ---
Nurse's Notes [facility] Name: Tamia Colon Age: 80 yrs Sex: Female : 1940 Arrival Date: 06/20/2020 Time: 09:49 Bed 23 Private MD: Diagnosis: Pneumonia due to other specified bacteria-right upper and lower lobe , moderate , severe;Hypoxemia;Urinary tract infection, site not specified Presentation: 06/20 09:50 Chief complaint: EMS states: RESPIRATORY DISTRESS AT HOME. Coronavirus screen: cough bp unrelated to allergies, shortness of breath, Client presents with at least one sign or symptom that may indicate coronavirus-19. Standard/surgical mask placed on the client. Provider contacted for isolation considerations. Ebola Screen: No symptoms or risks identified at this time. Initial Sepsis Screen: Does the patient meet any 2 criteria? RR > 20 per min. No. Patient's initial sepsis screen is negative. Does the patient have a suspected source of infection? No. Patient's initial sepsis screen is negative. Risk Assessment: Do you want to hurt yourself or someone else? Patient reports no desire to harm self or others. Onset of symptoms was June 19, 2020 at 21:00. Care prior to arrival: IV initiated. 20 GA, in the right antecubital area. 09:50 Method Of Arrival: EMS: [facility] bp 09:50 Acuity: SARA 2 bp Triage Assessment: 10:01 General: Appears distressed, uncomfortable, ill, Behavior is calm, cooperative, bp appropriate for age. Pain: Denies pain. EENT: No deficits noted. Neuro: No deficits noted. Cardiovascular: Rhythm is sinus rhythm. Respiratory: Reports shortness of breath air hunger Onset: The symptoms/episode began/occurred yesterday, the patient has moderate shortness of breath. GI: No signs and/or symptoms were reported involving the gastrointestinal system. : No signs and/or symptoms were reported regarding the genitourinary system. Derm: No deficits noted. Musculoskeletal: No deficits noted. Historical: - Allergies: 10: No Known Allergies; bp - PMHx: 10: CHF; CVA; Hypertension; Renal Disease; bp - Immunization history:: Adult Immunizations not up to date. - Social history:: Smoking status: Patient denies any tobacco usage or history of. - Family history:: not pertinent. Screenin:00 Abuse screen: Denies threats or abuse. Denies injuries from another. Nutritional bp screening: No deficits noted. Tuberculosis screening: No symptoms or risk factors identified. Fall Risk None identified. Assessment: 10:00 General: SEE TRIAGE NOTE. bp 11:00 Reassessment: PT ON BIPAP, ALL CURRENT ORDERS COMPLETE. Cardiovascular: Rhythm is sinus bp rhythm. Respiratory: Airway is patent Respiratory effort is labored, Breath sounds with crackles bilaterally. Breath sounds with rhonchi bilaterally. Vital Signs: 09:50 BP 130 / 80; Pulse 72; Resp 28; Temp 98.3; Pulse Ox 88% 15 lpm ; bp 11:00 BP 114 / 67; Pulse 70; Resp 13; Pulse Ox 94% on 15% BiPAP; bp ED Course: 09:49 Patient arrived in ED. bp 09:49 Tulio Mi MD is Attending Physician. edelmira 09:54 Triage completed. bp 09:58 Lit Tipton, JHON is Primary Nurse. bp 10:00 Patient has correct armband on for positive identification. Side rails up X 1. bp 10:00 Maintain EMS IV. Dressing intact. Good blood return noted. Site clean \T\ dry. Gauge \T\ bp site: 20 G R AC. 10:01 Arm band placed on. bp 10:33 XRAY Chest (1 view) In Process Unspecified. EDMS 10:50 Song cath inserted, using sterile technique, 16 Fr., by mn, balloon inflated, to dh3 gravity drainage, urine specimen collected. returned cloudy urine. Patient tolerated well. 10:52 Ariana Koroma MD is Hospitalizing Provider. edelmira Administered Medications: 10:30 Drug: Pepcid 20 mg Route: IVP; Site: right antecubital; bp 10:45 Drug: SOLU-Medrol 125 mg Route: IVP; Site: right antecubital; bp 10:45 Drug: Lasix 40 mg Route: IVP; Site: right antecubital; bp 10:45 Drug: Albuterol - atroVENT (3:1) (2.5 mg - 0.5 mg) 3 ml Route: Nebulizer; bp 10:45 Drug: Rocephin 1 grams Route: IV; Rate: per protocol; Site: right antecubital; bp 12:30 Drug: Zithromax 500 mg Route: IVPB; Infused Over: 1 hrs; Site: right antecubital; bp 13:26 Drug: vancoMYCIN 1 grams Route: IVPB; Infused Over: 2 hrs; Site: right antecubital; bp Outcome: 10:54 Decision to Hospitalize by Provider. [facility] 18:08 Patient left the ED. dm5 Signatures: Dispatcher [employer] Jessica Hogue, RN RN dm5 Tulio Mi MD MD cha Swanson, Donovan ds4 Angela Sher 3 Lit Tipton, JHON RN bp Corrections: (The following items were deleted from the chart) 11:13 10:50 Song cath inserted, using sterile technique, 16 Fr., by mn, balloon inflated, to dh3 gravity drainage, urine specimen collected. returned clear yellow urine. Patient tolerated well. ds4
[2020-06-20 11:07] LABS: Absolute Lymphocytes (CBC) 0.6 K/uL (0.7-4.9); Basophils % 0.8 % (0-1.3); Hematocrit 34.1 % (36.0-45.0); Lymphocytes % 8.2 % (15.3-44.8); MPV 8.8 fL (7.6-11.3); RBC Red Blood Cell Count 4.04 M/uL (3.86-4.86)
[2020-06-20 11:08] LABS: Protime INR 1.99
[2020-06-20 11:29] LABS: ALT/SGPT 45 U/L (12-78); AST/SGOT 30 U/L (15-37); Albumin 2.8 g/dL (3.4-5.0); Alkaline Phosphatase 105 U/L (45-117); BUN Blood Urea Nitrogen 42 mg/dL (7-18); Bicarbonate 26 mmol/L (21-32); Bilirubin Direct 0.2 mg/dL (0-0.2); Bilirubin Total 0.6 mg/dL (0.2-1.0); Glucose Level 154 mg/dL (74-106); Magnesium 2.6 mg/dL (1.8-2.4); NT PRO-BNP 19816 pg/mL (<450); Protein, Total 7.2 g/dL (6.4-8.2); Sodium Level 138 mmol/L (136-145); Troponin (Emerg Dept Use Only) < 0.02 ng/mL (0.0-0.045)
[2020-06-20 11:38] LABS: Arterial Blood Carboxyhemoglob 1.4 % (0-1.5); Blood Gas Oxyhemoglobin 86.8 % (94-97); Blood O2 Saturation 88.6 % (92-98.5)
[2020-06-20] MEDS ORDERED: AZITHROMYCIN IV 500 MG in NA CHLORIDE 0.9% 250 ML IVPB ONE (12:00)
[2020-06-20] MEDS ORDERED: VANCOMYCIN/NS 1 gm 1 GM/250 ML BAG IV ONE (12:00)
[2020-06-20 12:22] LABS: Urine Blood TRACE (NEG); Urine Glucose NEGATIVE (NEG); Urine Protein 2+ (NEG); Urine Specific Gravity 1.025 (1.005-1.030)
[2020-06-20 14:56] LABS: SARS-COV-2 RT PCR NEGATIVE (NEGATIVE)
[2020-06-20 15:18] VITALS: BMI 24.0
[2020-06-20] MEDS ORDERED: ONDANSETRON 4 MG/2 ML VIAL IV PRN (17:05)
[2020-06-20] MEDS ORDERED: IPRATROPIUM BROM 0.5MG/2.5ML NEB PRN (17:05)
[2020-06-20] MEDS ORDERED: ALBUTEROL 2.5 MG/3 ML NEB SOL NEB PRN (17:05)
[2020-06-20] MEDS ORDERED: ACETAMINOPHEN 325 MG TABLET PO PRN (17:28)
[2020-06-20] MEDS ORDERED: MORPHINE 2 MG/ML SYR IV PRN (17:36)
[2020-06-20] MEDS: METHYLPREDNISOLONE 40 MG INJ IV SCH (18:10)
[2020-06-20] MEDS: CEFTRIAXONE/SWI 1gm 1 GM/10 ML SYR IVP SCH (21:00)
[2020-06-20] MEDS ORDERED: FAMOTIDINE 20 MG/2 ML VIAL IV SCH (21:00)
[2020-06-20] MEDS: carvediloL 12.5 MG TAB PO SCH (21:41)
[2020-06-20] MEDS: ATORVASTATIN 40 MG TAB PO SCH (21:41)
[2020-06-20] MEDS: APIXABAN 5 MG TABLET PO SCH (21:41)
--- NOTE | 2020-06-20 22:00 | HP ---
Date of Admission: 06/20/2020 History Of Present Illness: A 80-year-old female, who was brought to the emergency room bec ause of shortness of breath. It has been going on with her for few days. Her workup in the emergenc y room showed that she has a right lobar pneumonia and she was admitted for that along with hypoxia a nd respiratory failure, acute. At this time, history from her and her family, denies any fever or ch ills and no chest pain. Review of Systems: Respiratory: As above. Cardiovascular: No complaints. Genitourinary: No complaints. Skeletomuscular: Osteoarthritic pains off and on, chronic. Neurologic: No complaints. Past Medical History: Includes: 1.Hypertension. 2.Chronic renal disease, for which she follows up with Nephrology secondary to her hypertension. 3.History of CVA. 4.Congestive heart failure, systolic, chronic. Social History: No smoking, alcohol, or drug abuse history. Family History: Noncontributing. Medications: Include allopurinol 100 mg p.o. daily, Pacerone 200 mg p.o. daily, Norvasc 10 mg p.o. d aily, Eliquis 5 mg p.o. b.i.d., atorvastatin 20 mg p.o. daily, Coreg 12 mg p.o. b.i.d., donepezil 10 mg p.o. b.i.d., furosemide 40 mg p.o. b.i.d., Myrbetriq 50 mg p.o. daily, melatonin 10 mg p.o. at bed time p.r.n., vitamin D2. Allergies: NO KNOWN DRUG ALLERGIES. Physical Examination: Vital Signs: Blood pressure 130/64, pulse 79, temperature 97.5. Heart: Regular rate and rhythm. Chest: Bilateral crackles. Abdomen: Soft, benign. Bowel sounds are active. Extremities: Trace bilateral pedal and tibial edema. Neurologic: Patient is drowsy, on BiPAP, but alert. Laboratory Data: Chest x-ray showed moderate right lobar infiltrate. ABG showed pH of 7.39, pCO2 of 43.6, pO2 of 57.9, saturation 88.6, and this is on BiPAP 50% inspired oxygen. CBC; white cell count 7.5, hemoglobin 10.9, hematocrit 34.1, and platelets 284. PT 23.2 and INR 1.99. Chemistry; BUN 42, creatinine 2.76, GFR 17, glucose 164, magnesium 2.6. BNP 19,816. Assessment And Plan: Right lobar pneumonia with acute respiratory failure and hypoxia. Patient is b eing admitted to the hospital, put her on the BiPAP oxygen support and put on IV azithromycin and IV ceftriaxone and vancomycin. COVID-19 has been drawn. We will continue home medicines for chronic me dical illnesses. We will monitor her kidney functions and her electrolytes. Look orders for details . MFS/MODL Voice ID: [id number]
[2020-06-21] MEDS: METHYLPREDNISOLONE 40 MG INJ IV SCH ×2 (01:02→09:04)
[2020-06-21 05:37] LABS: Absolute Lymphocytes (CBC) 0.4 K/uL (0.7-4.9); Basophils % 0.3 % (0-1.3); Hematocrit 32.1 % (36.0-45.0); Lymphocytes % 8.2 % (15.3-44.8); MPV 8.8 fL (7.6-11.3)
[2020-06-21 05:59] LABS: Potassium 3.8 mmol/L (3.5-5.1)
--- NOTE | 2020-06-21 06:43 | RAD REPORT ---
EXAM DESCRIPTION: Nit[place] Single View06/21/2020 6:06 am CLINICAL HISTORY: Chest pain COMPARISON: June 20, 2020 FINDINGS: Some improvement in the right upper lobe alveolar opacities. Mild worsening in right basi lar lung opacities. No significant change in left basilar lung opacities. The heart remains enlarged. Pacemaker leads in place IMPRESSION: Bilateral pulmonary opacities probably pneumonia. Another consideration but probably les s likely is that this represents pulmonary edema
[2020-06-21 07:06] LABS: Blood Morphology Comment NOT SEEN (NOT SEEN); Platelet Estimate ADEQ
[2020-06-21] MEDS: APIXABAN 5 MG TABLET PO SCH ×2 (09:00→20:50)
[2020-06-21] MEDS: MIRABEGRON 50 MG PO SCH (09:00)
[2020-06-21] MEDS: AMLODIPINE 10 MG TAB PO SCH (09:00)
[2020-06-21] MEDS: carvediloL 12.5 MG TAB PO SCH ×2 (09:00→20:50)
[2020-06-21] MEDS ORDERED: FAMOTIDINE 20 MG/2 ML VIAL IV SCH (09:00)
[2020-06-21] MEDS ORDERED: AMIODARONE HCL 200 MG TAB PO SCH (09:00)
[2020-06-21] MEDS ORDERED: AZITHROMYCIN IV 500 MG in NA CHLORIDE 0.9% 250 ML IVPB SCH (09:00)
[2020-06-21] MEDS: CEFTRIAXONE/SWI 1gm 1 GM/10 ML SYR IVP SCH (09:04)
--- NOTE | 2020-06-21 12:30 | P.CNS ---
Date of Consult: 06/21/20 Reason for Consult: Pneumonia Chief Complaint: Shortness of breath History of Present Illness: An is 80 years of age current hospital admissions due to pneumonia was an [facility] twice was discharge in April suddenly became short of breath was admitted from the emergency room luu has consolidation on the right lung right upper and lower lobes as no fever patient's white count is normal for present at the bedside Allergies No Known Allergies Allergy (Verified 10/29/13 17:32) Home Medications: Amlodipine [Norvasc*] 10 mg PO DAILY 10/29/13 Atorvastatin Calcium [Lipitor*] 40 mg PO BEDTIME 10/29/13 allopurinoL [Zyloprim*] 100 mg PO DAILY 10/29/13 Amiodarone HCl [Pacerone] 1 tab PO DAILY 06/20/20 Apixaban [Eliquis] 1 tab PO BID 06/20/20 Donepezil HCl 10 mg PO BID 06/20/20 Ergocalciferol (Vitamin D2) [Vitamin D2] 50,000 unit PO SEECOM 06/20/20 Furosemide [Lasix] 40 mg PO BID 06/20/20 Memantine HCl 10 mg PO BID 06/20/20 Mirabegron [Myrbetriq] 50 mg PO DAILY 06/20/20 carvediloL [Coreg] 12.5 mg PO BID 06/20/20 - Past Medical/Surgical History Diabetic: No -: HTN -: CVA -: Pneumonia -: Atrial fibrillation -: Hysterectomy -: Carotid stents bilat -: Stent in kidney - Family History Father Medical History: Heart disease Brother Medical History: Heart disease - Social History Smoking Status: Current every day smoker Alcohol use: No CD- Drugs: No Caffeine use: Yes Review of Systems General: Weakness Respiratory: Shortness of Breath Physical Examination Temp Pulse Resp BP Pulse Ox 98 F 74 18 127/59 L 94 06/21/20 08:00 06/21/20 08:00 06/21/20 08:00 06/21/20 08:00 06/21/20 08:00 General: Alert Respiratory: Crackles/rales (On the right side) Cardiovascular: No edema Gastrointestinal: Normal bowel sounds, Soft and benign Musculoskeletal: No clubbing, No swelling Integumentary: No rashes, No breakdown External genitalia: No edema - Problems (1) Pneumonia Current Visit: Yes Status: Acute Plan: Can't is 80 years of age admitted with recurrent episodes of pneumonia last 2 admissions were heard [facility] in is mildly anemic normal white count patient was also hypoxic renal function is worse his baseline chronic renal impairment influenza and lara virus screens are both negative urinalysis shows no evidence of sepsis there is a pacemaker cardiomegaly and maybe congestive heart failure she has been form the she is fluid in the lungs would also get an echo report 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
--- NOTE | 2020-06-21 12:44 | PN ---
Subjective: The patient has no new complaints. Still short of breath, requiring CPAP/BiPAP at 40% i nspired oxygen that keeps her pulse oximetry at about 98. Objective: Vital signs: Blood pressure 127/60, pulse 74, temperature 98. Heart: Regular rate and rhythm. Chest: Bilateral crackles. Abdomen: Soft. Benign. Neurologic: Alert and oriented. Grossly intact. Extremities: Trace bilateral pedal and tibial edema. Diagnostic Data: Chest x-ray showed bilateral opacities representing pneumonia versus pulmonary zeb a. Chemistry; sodium 142, chloride 108, BUN 48, creatinine 2.62. GFR up to 18. BNP 20,662. CBC; w anjel cell count of 5, hemoglobin 10.4, hematocrit 32.1, platelets 282. Assessment And Plan: 1.Shortness of breath with acute respiratory failure and hypoxia, likely secondary to pneumonia, how ever, considering her history of systolic congestive heart failure, we will also put her on IV Lasix. We will monitor her kidney and renal functions because of her chronic renal insufficiency. 2.Microbiology; blood cultures, no growth to date. 3.Anemia of chronic illness is clinically stable. 4.Look orders for details. MFS/MODL Voice ID: [id number] Report ID: [id number]
--- NOTE | 2020-06-21 13:52 | RAD REPORT ---
EXAM DESCRIPTION: CT - Thorax Wo Con - 06/21/2020 1:42 pm CLINICAL HISTORY: recurrent pneumonia COMPARISON: Chest Single View dated 06/21/2020 TECHNIQUE: Axial 5 mm thick images of the chest were obtained without IV contrast. All CT scans are performed using dose optimization technique as appropriate and may include automated exposure control or mA/KV adjustment according to patient size. FINDINGS: Motion degradation is present. Patient has bilateral airspace opacification in all lobes. Partial atelectasis present in each lower lobe. Patient has small bilateral pleural effusions. No pne umothorax. No pleural based mass identified. Delete select No abnormal mediastinal or hilar masses or lymphadenopathy seen. No aortic dilatation. Calcifications of the aorta and coronary arteries noted. Pacemaker is in place. Minimal pericardial thickening or e ffusion noted along the left lateral and posterior border of the heart. No chest wall mass or abnormal axillary lymphadenopathy. IMPRESSION: Nonspecific bilateral pneumonia. No suspicious mass or cavitation. Small bilateral pleu ral effusions are present. Pneumonia pattern is nonspecific and can be seen in both bacterial and viral pneumonias including COV ID-19 pneumonia. Minimal pericardial effusion.
[2020-06-21] MEDS: FUROSEMIDE 20 MG/ 2ML VIAL IV SCH ×2 (16:33→16:44)
[2020-06-21] MEDS: AMOX/K CLAV 500 MG TAB PO SCH (20:46)
[2020-06-21] MEDS: ATORVASTATIN 40 MG TAB PO SCH (20:50)
[2020-06-21] MEDS ORDERED: METHYLPREDNISOLONE 40 MG INJ IV SCH (21:00)
[2020-06-22 05:48] LABS: Absolute Lymphocytes (CBC) 0.4 K/uL (0.7-4.9); Basophils % 0.2 % (0-1.3); Hematocrit 30.8 % (36.0-45.0); Lymphocytes % 4.7 % (15.3-44.8); MPV 8.4 fL (7.6-11.3); RBC Red Blood Cell Count 3.71 M/uL (3.86-4.86)
[2020-06-22 05:57] LABS: Potassium 3.8 mmol/L (3.5-5.1)
[2020-06-22 08:49] LABS: C-Reactive Protein 12.6 mg/L (<3.00); Ferritin 54.7 ng/mL (8-388)
[2020-06-22] MEDS: APIXABAN 5 MG TABLET PO SCH ×2 (09:00→20:44)
[2020-06-22] MEDS: MIRABEGRON 50 MG PO SCH (09:00)
[2020-06-22] MEDS: carvediloL 12.5 MG TAB PO SCH ×2 (09:00→20:44)
[2020-06-22] MEDS: AMLODIPINE 10 MG TAB PO SCH ×2 (09:00→20:44)
[2020-06-22] MEDS: AMOX/K CLAV 500 MG TAB PO SCH ×2 (09:31→20:45)
[2020-06-22] MEDS: METHYLPREDNISOLONE 125 MG INJ IV SCH ×2 (09:31→20:45)
[2020-06-22] MEDS: FUROSEMIDE 20 MG/ 2ML VIAL IV SCH ×2 (09:31→16:39)
--- NOTE | 2020-06-22 12:28 | P.PN ---
Subjective Date of Service: 06/22/20 Chief Complaint: Bilateral pneumonia No change still hypoxic CT scan shows bilateral pulmonary infiltrate Review of Systems General: Weakness Respiratory: Shortness of Breath Physical Examination - Vital Signs Temperature: 98.4 F Blood Pressure: 139/61 Pulse: 72 Respirations: 28 Pulse Ox (%): 92 - Physical Exam General: Alert, Cooperative Respiratory: Crackles/rales (Bilateral crackle) Cardiovascular: No edema, Regular rate/rhythm - Studies Microbiology Data (last 24 hrs): 06/20/20 10:50 Catheterized Urine [place] Count - Final No growth. 06/20/20 10:50 Catheterized Urine - Final No growth. 06/20/20 10:45 Blood - Blood Blood Culture Gram Stain - Final 06/20/20 10:45 Blood - Blood Gram Stain - Final Assessment & Plan - Problems (Diagnosis) (1) Pneumonia Current Visit: Yes Status: Acute Plan: Patient has bilateral pneumonia she is chronic she has repeatedly test negative for lara virus infection normal white count mildly anemic DT scan reviewed bilateral pulmonary infiltrates continue with steroid patient is still hypoxic renal function worse consulted Nephrology BNP is above 20,000 trial of BiPAP Qualifiers: Laterality: bilateral
[2020-06-22 13:08] LABS: Urine Appearance CLEAR; Urine Bilirubin NEGATIVE (NEG); Urine Blood NEGATIVE (NEG); Urine Color YELLOW; Urine Glucose NEGATIVE (NEG); Urine Protein 1+ (NEG); Urine Urobilinogen 0.2 mg/dL (0.2-1.0); Urine pH 5.5 (5.0-7.0)
[2020-06-22 13:20] LABS: Urine Microscopic Reflex ORDER UMIC
[2020-06-22 13:36] LABS: Urine Bacteria <20 /HPF (<20); Urine RBC <5 /HPF (NONE SEEN)
[2020-06-22 13:56] LABS: Urine Protein/Creatinine Ratio 0.44 ratio (<0.15)
--- NOTE | 2020-06-22 14:57 | RAD REPORT ---
EXAM DESCRIPTION: US - UPPER EXTREMITY VENOUS UNILATE - 06/22/2020 2:29 pm CLINICAL HISTORY: left arm swelling Arm swelling and edema. COMPARISON: No comparisons FINDINGS: Left upper extremity venous system was interrogated with Doppler technique. Normal flow, c ompressibility and augmentation was noted. There is no DVT present. IMPRESSION: No evidence of left upper extremity deep venous thrombosis.
--- NOTE | 2020-06-22 15:12 | RAD REPORT ---
EXAM DESCRIPTION: US - Renal Ultrasound-Complete - 06/22/2020 2:41 pm CLINICAL HISTORY: LILIANA Flank pain COMPARISON: Renal Ultrasound-Complete dated 04/14/2020 FINDINGS: Both kidneys are mildly echogenic. Small benign cysts are present bilaterally. The right kidney measures 6.6 x 3.9 x 3.6 cm. No hydronephrosis, focal mass or perinephric fluid. The left kidney measures 8.6 x 5.7 x 4.6 cm. No hydronephrosis, focal mass or perinephric fluid. The urinary bladder is incompletely distended without gross abnormality seen. IMPRESSION: Mildly echogenic kidneys bilaterally compatible with medical renal disease.
[2020-06-22] MEDS: ATORVASTATIN 80 MG TAB PO SCH (20:45)
--- NOTE | 2020-06-22 20:59 | PN ---
Subjective: The patient is still short of breath, requiring oxygen, but now on a nasal cannula at fl ow rate of 6 L/minute. She is having 92% saturation. Objective: Physical exam, no change. Laboratory Data: Her CBC showed white cell count 8.3, hemoglobin 10.2, hematocrit 30.8, and platelet s 304. Chemistry; BUN 68, creatinine 2.90. COVID test negative. Microbiology, no growth to date. Urine analysis for infection, result is still pending. Chest x-ray showed bilateral pneumonia. Assessment And Plan: 1.Pneumonia bilobar bilateral. We will continue current antibiotics. 2.Acute respiratory failure with hypoxia. We will continue support with oxygen. 3.Chronic renal failure, slightly worse. We have consulted Nephrology. 4.Anemia of chronic illness, stable at this time. 5.Left upper extremity swelling. No deep vein thrombosis. 6.We think that the patient also has an element of diastolic congestive heart failure. We are going to go ahead and order an echo on her heart. We will continue IV Lasix. Look orders for details. MFS/MODL Voice ID: [id number] Report ID: [id number]
[2020-06-22] MEDS ORDERED: ATORVASTATIN 80 MG TAB PO SCH (21:00)
[2020-06-22] MEDS ORDERED: carvediloL 12.5 MG TAB PO SCH (21:00)
--- NOTE | 2020-06-22 23:05 | CON ---
Date of Consultation: 06/22/2020 Reason For Consultation: Elevated BUN and creatinine. 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 The patient had baseline creatinine of 2 with GFR 24 back in March 2020, CVA, coronary artery disease with congestive heart failure, TIA, the patient was in her regular state of health. In the last couple of months started having polyuria. Visited her Urology. Patient was started on Myrbetriq. Did not find any significant response. The patient came complaining of cough and shortness of breath, found to be over volume. Upon arrival to the hospital, the patient was found to have elevation in BUN and creatinine. Creatinine 2.6 with GFR down to the 18. For that reason, we are being consulted. The patient denied taking any nonsteroidal. No change in her medication except Myrbetriq and the patient was started on diuresis. Kidney function continued to decline. Today, creatinine 2.9. GFR of 16. For that reason, we have been consulted. Again, patient denied taking any nonsteroidal. No IV contrast. No recent exposure for antibiotic. Past Medical History: Includes, 1. Chronic kidney disease, solitary kidney/polycystic kidney disease, questionable renal artery stenosis/cardiorenal. 2. Hypertension. 3. Hyperlipidemia. 4. TIA. Social History: Denies smoking. Denies drinking. Denies drugs abuse. Family History: Positive for hypertension. Allergies: NO KNOWN DRUG ALLERGIES. Home Medications: Include, 1. Allopurinol. 2. Tylenol 3. Eliquis. 4. Atorvastatin. 5. Carvedilol. 6. Donepezil. 7. Lasix 40 b.i.d. 8. Myrbetriq. 9. Melatonin. 10. Vitamin D. Review of Systems: Head and Neck: No red eye. No ear pain. GI: No nausea. No vomiting. : Has polyuria dysuria . Respiratory: has shortness of breath. Has cough. Cardiovascular: Has leg swelling. Endocrine: No polydipsia. Skin: No rash. Neuro: Has neuropathy. Has forgetfulness. Musculoskeletal: No joint pain. Physical Examination: Vital Signs: Blood pressure 119/58, pulse of 74, afebrile. The patient had urine output of 500 even balance. Chest: Crackles bilateral. Heart: S1, S2. Systolic murmur. Abdomen: Soft, nontender. Extremities: +1 edema. Neuro: Alert and oriented x3. No focal. Laboratory Data: Sodium 136, potassium 3.8, bicarb 25, BUN 68, creatinine 2.9, GFR of 16, calcium 8.8. BNP 20, 662. ABG; pH 7.39, CO2 43, O2 57. WBC 8.3, H and H 10.2/30.8, platelets 304. Current Medications: The patient on include, 1. Augmentin. 2. Tylenol. 3. Lasix 20 b.i.d. 4. Solu-Medrol. 5. Morphine. 6. Breathing treatment. Assessment And Plan: 1. Acute kidney injury, advanced solitary kidney secondary to renal artery stenosis, cardiorenal, polycystic kidney disease with acute kidney injury secondary to cardiorenal. Continue to progress. Over volume. I am going to go ahead and increase Lasix to 40 mg b.i.d. We will monitor the patient. I had long discussion with the patient in the presence of the 2 daughters regarding the disease and possible patient if kidney function continue to decline patient may need to be initiated on renal replacement therapy. Family not decided yet. 2. Given the history of the polyuria, we ordered a bladder scan and post void. We will follow up and we will do a bladder scan after pending the Song catheter and see if the patient is sensing any urge. 3. Hypertension, controlled, optimal. We will keep utilizing the blood pressure for diuresis. 4. Coronary artery disease with congestive heart failure. We will try to establish better volume control with diuresis. I am going to go ahead and decrease her prednisone if okay with Pulmonary. 5. Anemia with the presence of renal failure. We will send for anemia workup and serum protein electrophoresis. 6. Pneumonia, respiratory failure, combination of over volume and pneumonia. We will follow up with Pulmonary. time spend exam the patient face to face , place order , discussed the case with other steam distribution supervisor hospitalist and other [employer] wms consultant 75 min. DANIELE Voice ID: [id number] Report ID: [id number] [facility] CENTERMihai
[2020-06-23 06:21] LABS: Absolute Lymphocytes (CBC) 0.3 K/uL (0.7-4.9); Basophils % 0.1 % (0-1.3); Hematocrit 31.7 % (36.0-45.0); Lymphocytes % 3.6 % (15.3-44.8)
[2020-06-23 07:01] LABS: Albumin 2.5 g/dL (3.4-5.0); Ferritin 51.7 ng/mL (8-388); Folic Acid, (Folate) 7.4 ng/mL (3.1-17.5); Phosphorus 4.3 mg/dL (2.5-4.9); Potassium 4.2 mmol/L (3.5-5.1); Thyroid Stimulating Hormone 1.17 uIU/mL (0.360-3.740); Uric Acid 7.3 mg/dL (2.6-6.0)
[2020-06-23] MEDS ORDERED: FUROSEMIDE 40 MG/4 ML VIAL IV SCH (09:00)
[2020-06-23] MEDS: AMOX/K CLAV 500 MG TAB PO SCH ×2 (09:27→20:32)
[2020-06-23] MEDS: MIRABEGRON 50 MG PO SCH (09:28)
[2020-06-23] MEDS: AMLODIPINE 2.5 MG TAB PO SCH (09:28)
[2020-06-23] MEDS: METHYLPREDNISOLONE 125 MG INJ IV SCH ×2 (09:28→20:34)
[2020-06-23] MEDS: APIXABAN 5 MG TABLET PO SCH ×2 (09:29→20:35)
[2020-06-23] MEDS: carvediloL 12.5 MG TAB PO SCH ×2 (09:29→20:35)
--- NOTE | 2020-06-23 12:51 | PN ---
Date of Progress Note: 06/23/2020 Subjective: The patient was admitted with acute kidney injury on chronic kidney disease, advanced secondary to cardiorenal. The patient was placed on diuresis. Kidney function stay stable. Ultrasound did not show any obstruction. Yesterday, we had done a bladder scan after kinking the Song. The patient has sensation of urge to go to the bathroom at volume of less than 20 mL. Physical Examination: Vital Signs: When I saw the patient, blood pressure 121/56, pulse of 68. The patient had good urine output of 650. Chest: Faint rales, bilateral base. Heart: S1, S2. Systolic murmur. Abdomen: Soft, nontender. Extremities: Trace edema. Neuro: Alert, oriented no tremor. Laboratory Data: WBC 8.3, H and H 10.4/31.7, platelets 299. Sodium 137, potassium 4.2, bicarb 25, BUN 80, creatinine 2.9. GFR of 16. Calcium 8.6. Phosphorus 4.3. Iron saturation of 2. Ferritin of 51, PTH 170. Serum protein electrophoresis is still pending. Current Medications: Include Augmentin, Tylenol, furosemide 40 b.i.d., breathing treatment, Solu-Medrol. Assessment And Plan: 1. Acute kidney injury on advanced chronic kidney disease secondary to cardiorenal, still on the over volume side. I am going to continue the patient on diuresis. We will increase Lasix to 3 times a day. 2. Polyuria. No post void as by bladder scan. I had long discussion with the patient regarding the need of diuresis and the need of workup as outpatient with Urology. Daughter verbalized understanding. 3. Hypertension. We will utilize the blood pressure for more diuresis. Keep avoiding any KESHIA inhibitor or ARB. 4. Pneumonia. Continue current antibiotic. We will follow up with Pulmonary. 5. Congestive heart failure with exacerbation. We will try to establish better volume control with diuresis. 6. Iron deficiency anemia with the presence of coronary artery disease and the symptoms. I am going to start the patient on IV iron to establish better oxygenation for the patient. Time spent discussing with the patient, [id number], using the translation, discussing with the staff and placing an order, discussing with over subspecialty and hospitalist 45 minutes. DANIELE Voice ID: [id number] Report ID: [id number] MTDD
[2020-06-23] MEDS ORDERED: SOD FERRIC GLUC COMPLX/SUCROSE 250 MG in NA CHLORIDE 0.9% 250 ML IV SCH (13:00)
--- NOTE | 2020-06-23 13:15 | P.PN ---
Subjective Date of Service: 06/23/20 Chief Complaint: Bilateral pneumonia [place] present at the bedside feeling a little better oxygenation has improved Review of Systems is unable to be obtained Physical Examination - Vital Signs Temperature: 98.1 F Blood Pressure: 121/56 Pulse: 68 Respirations: 15 Pulse Ox (%): 94 - Studies Microbiology Data (last 24 hrs): 06/20/20 10:30 Blood - Blood Aerobic Blood Culture - Final Staph Aureus 06/20/20 10:30 Blood - Blood Blood Culture Gram Stain - Final 06/20/20 10:30 Blood - Blood Anaerobic Blood Culture - Final Staph Aureus 06/20/20 10:30 Blood - Blood Gram Stain - Final 06/20/20 10:45 Blood - Blood Aerobic Blood Culture - Final Staph Aureus 06/20/20 10:45 Blood - Blood Blood Culture Gram Stain - Final 06/20/20 10:45 Blood - Blood Anaerobic Blood Culture - Final Staph Aureus 06/20/20 10:45 Blood - Blood Gram Stain - Final 06/20/20 10:50 Catheterized Urine [place] Count - Final No growth. 06/20/20 10:50 Catheterized Urine - Final No growth. Assessment & Plan - Problems (Diagnosis) (1) Pneumonia Current Visit: Yes Status: Acute Plan: Bilateral pneumonia the new with steroids plan to discharge tomorrow on prednisone 10 b.i.d. for at least 2 weeks follow up in my office in 2 weeks continue with diuretics as per Nephrology the ultrasound suggestive of chronic renal disease continue with Augmentin no evidence of active ongoing sepsis patient has home oxygen [place] to per longer duration of steroids until the x- rays of cleared and then plan to taper he has had multiple intermittent doses of steroids with some help Qualifiers: Laterality: bilateral
[2020-06-23] MEDS: FUROSEMIDE 40 MG/4 ML VIAL IV SCH ×2 (13:42→20:34)
--- NOTE | 2020-06-23 13:48 | PN ---
Subjective: The patient feels better. She is on nasal prong oxygen. Eating and sitting in bed comf ortable. Objective: Vital Signs: Blood pressure 120/56, pulse 68, temperature 98.1. Heart: Regular rate and rhythm. Chest: Mild bilateral crackles. Abdomen: Soft, benign. Neurological: Alert, oriented x4. Grossly intact. Extremities: No edema. No cyanosis. Laboratory Data: The patient's CBC noted a white cell count of 8.3, hemoglobin 10.4, hematocrit 31.7 , and platelets . Chemistry; BUN 80, creatinine 2.92, GFR 16. Fingersticks blood sugar wa s 171. Iron profile is noted. C-reactive protein at 12.60, albumin at 2.5, and PTH 170.3. TSH with in normal. Assessment And Plan: 1.Mixed picture of congestive heart failure, likely diastolic and bilateral pneumonia. The patient is on IV Lasix and on IV antibiotics. We will continue this regimen. 2.Chronic renal insufficiency. Nephrology are following the patient with us at this time and they w ill not dialyze. They will initiate dialysis as needed. Her blood workup for anemia of chronic mo l disease is also ordered by Nephrology, and they will follow up on that. 3.The patient and her family complain of insomnia. She was put by Neurology on trazodone. I reques luís to reinstitute that. We are going to go ahead and do 50 mg or original dose at bedtime p.r.n. 4.Rest of her medical problems are stable. Continue current treatment. MFS/MODL Voice ID: [id number] Report ID: [id number]
--- NOTE | 2020-06-23 14:52 | ECHO ---
HEIGHT: 5 ft 4 in WEIGHT: 138 lb 0 oz DATE OF STUDY: 06/23/[address]: Ariana Koroma MD 2-DIMENSIONAL: YES M.MODE: YES DOPPLER: YES COLOR FLOW: YES TDS: PORTABLE: DEFINITY: BUBBLE STUDY: DIAGNOSIS: CONGESTIVE HEART FAILURE CARDIAC HISTORY: CATHERIZATION: YES SURGERY: NO PROSTHETIC VALVE: NO PACEMAKER: YES MEASUREMENTS (cm) DIASTOLIC (NORMALS) SYSTOLIC (NORMALS) IVSd 1.0 (0.6-1.2) LA Diam 4.2 (1.9-4.0) LVEF 64% LVIDd 4.0 (3.5-5.7) LVIDs 2.6 (2.0-3.5) %FS 34% LVPWd 1.1 (0.6-1.2) Ao Diam 2.2 (2.0-3.7) 2 DIMENSIONAL ASSESSMENT: RIGHT ATRIUM: NORMAL LEFT ATRIUM: ENLARGED RIGHT VENTRICLE: NORMAL LEFT VENTRICLE: NORMAL TRICUSPID VALVE: MILD TRICUSPID REGURGITATION MITRAL VALVE: MILD MITRAL REGURGITATION PULMONIC VALVE: NORMAL AORTIC VALVE: NORMAL PERICARDIAL EFFUSION: NONE AORTIC ROOT: NORMAL LEFT VENTRICULAR WALL MOTION: NORMAL DOPPLER/COLOR FLOW: SEE BELOW COMMENTS: NORMAL LEFT VENTRICULAR EJECTION FRACTION 55-60% WITH NORMAL WALL MOTION. DIASTOLIC DYSFUNCTION (MODERATE). MODERATE PULMONARY HYPERTENSION WITH RIGHT VENTRICULAR SYSTOLIC PRESSURE OF 50-55mmHg. MILD TRICUSPID REGURGITATION. TECHNOLOGIST: YO COMBS
[2020-06-23] MEDS: AMLODIPINE 10 MG TAB PO SCH (20:35)
[2020-06-23] MEDS: ATORVASTATIN 80 MG TAB PO SCH (20:35)
[2020-06-23] MEDS: TRAZODONE 50 MG TABLET PO PRN (20:39)
[2020-06-24 06:26] LABS: Albumin 2.5 g/dL (3.4-5.0); Phosphorus 5.5 mg/dL (2.5-4.9); Potassium 4.3 mmol/L (3.5-5.1)
[2020-06-24] MEDS: carvediloL 12.5 MG TAB PO SCH ×2 (09:22→20:49)
[2020-06-24] MEDS: AMLODIPINE 2.5 MG TAB PO SCH (09:22)
[2020-06-24] MEDS: AMOX/K CLAV 500 MG TAB PO SCH ×2 (09:22→20:47)
[2020-06-24] MEDS: APIXABAN 5 MG TABLET PO SCH ×2 (09:22→20:49)
[2020-06-24] MEDS: MIRABEGRON 50 MG PO SCH (09:22)
[2020-06-24] MEDS: FUROSEMIDE 40 MG/4 ML VIAL IV SCH ×3 (09:23→20:46)
[2020-06-24] MEDS: METHYLPREDNISOLONE 125 MG INJ IV SCH ×2 (09:23→20:46)
--- NOTE | 2020-06-24 12:36 | P.PN ---
Subjective Date of Service: 06/24/20 Chief Complaint: Bilateral pneumonia Subjective Pt with COPD on [place] oxygen , CKD baseline Cr ~2.0 , admitted with SOB and edema , Cr 2.9 today still have rales and Lt arm swelling will cont lasix will repeat CXR tomorrow Physical exam general: AAOX3, thin, in mild distress Neck; Supple, No elevated JVD hear: RRR, normal S1,2 no murmur or rub Chest: diffuse rales Abdomen: Soft , Nt Extremities No leg edema , Lt arm selling Assessment And Plan: LILIANA on CKD possibly due to cardiorenal syndrome cont lasix Cr stable HTN BP controlled now COPD exacerbation Cont lasix and inhalers Afib rate controlled now RASHAWN cpnt IV iron Lt arm swelling DVT study negative CHF cont lasix total time spent 30min Physical Examination - Vital Signs Temperature: 97.6 F Blood Pressure: 130/60 Pulse: 67 Respirations: 20 Pulse Ox (%): 95 - Studies Microbiology Data (last 24 hrs): 06/20/20 10:30 Blood - Blood Aerobic Blood Culture - Final Staph Aureus 06/20/20 10:30 Blood - Blood Blood Culture Gram Stain - Final 06/20/20 10:30 Blood - Blood Anaerobic Blood Culture - Final Staph Aureus 06/20/20 10:30 Blood - Blood Gram Stain - Final 06/20/20 10:45 Blood - Blood Aerobic Blood Culture - Final Staph Aureus 06/20/20 10:45 Blood - Blood Blood Culture Gram Stain - Final 06/20/20 10:45 Blood - Blood Anaerobic Blood Culture - Final Staph Aureus 06/20/20 10:45 Blood - Blood Gram Stain - Final
--- NOTE | 2020-06-24 13:05 | PN ---
Subjective: The patient is a doing well. No increased shortness of breath. Has no new complaints. Objective: Vital Signs: Blood pressure 130/60, pulse 67, temperature 97.6. Rest of her physical ex am, no change. Diagnostic Studies: The patient's BUN 90, creatinine 2.92, sodium 135, phosphorus 5.5, calcium 8.7. Cardiac echo showed left ventricular ejection fraction of 64% and moderate diastolic dysfunction suki ng with moderate pulmonary hypertension. Assessment And Plan: Acute respiratory failure with hypoxia, improved while the patient on nasal pro ngs and she has home oxygen. I think this is combined between the patient's pneumonia and her diasto lic congestive heart failure exacerbation. Nephrology is following up the case for diuresis because of her chronic renal insufficiency and dosage of Lasix 20 mg has been increased to 3 times a day and electrolytes are managed by Nephrology. As far as her pneumonia, Dr. Ferguson had a good suspicion t hat the patient has COVID-19 pneumonia and he put her on steroids, then prednisone 10 mg p.o. b.i.d. for the next 14 days, and will continue her antibiotics, also Augmentin. The rest of the patient's m edical problems are stable. If Nephrology by tomorrow have established a good volume and fluid yandel ce and they agree on discharging the patient, then the plan is to discharge the patient tomorrow with Home Health and look orders for details. MFS/MODL Voice ID: [id number] Report ID: [id number]
[2020-06-24] MEDS: TRAZODONE 50 MG TABLET PO PRN (20:47)
[2020-06-24] MEDS: ATORVASTATIN 80 MG TAB PO SCH (20:48)
[2020-06-24] MEDS: AMLODIPINE 10 MG TAB PO SCH (20:48)
[2020-06-25 07:12] LABS: Albumin 2.4 g/dL (3.4-5.0); Phosphorus 5.5 mg/dL (2.5-4.9); Potassium 4.3 mmol/L (3.5-5.1)
[2020-06-25] MEDS: AMOX/K CLAV 500 MG TAB PO SCH (09:44)
[2020-06-25] MEDS: METHYLPREDNISOLONE 125 MG INJ IV SCH (09:44)
[2020-06-25] MEDS: MIRABEGRON 50 MG PO SCH (09:45)
[2020-06-25] MEDS: APIXABAN 5 MG TABLET PO SCH (09:47)
[2020-06-25] MEDS: FUROSEMIDE 40 MG/4 ML VIAL IV SCH ×2 (09:49→13:28)
[2020-06-25] MEDS: carvediloL 12.5 MG TAB PO SCH (09:49)
[2020-06-25] MEDS: AMLODIPINE 2.5 MG TAB PO SCH (09:50)
--- NOTE | 2020-06-25 12:12 | RAD REPORT ---
EXAM DESCRIPTION: RAD - Chest Single View - 06/25/2020 11:26 am CLINICAL HISTORY: Pneumonia COMPARISON: June 21 TECHNIQUE: AP portable chest image was obtained 06/25/2020 11:26 am . FINDINGS: Substantial clearing of the bilateral pneumonia pattern since June 21. There is minimal remnant pneumonia changes seen. Heart size is enlarged but reduced. Vasculature is still prominent bu t also improved. Left pleural effusion is probably still present. No pneumothorax. Pacemaker in place . Long length left carotid stenting again noted. No acute bony abnormality seen. No acute aortic find ings suspected. IMPRESSION: Substantial clearing of the bilateral pneumonia pattern since June 21. Left pleural effusion is still evident.
[2020-06-25 13:28] VITALS: BP 119/76
--- NOTE | 2020-06-25 13:57 | DS ---
History Of Present Illness: 80-year-old female, who was admitted from the emergency room because of bilateral lower lobe pneumonia and acute respiratory failure on top of chronic with hypoxia secondary to pneumonia and also congestive heart failure was considered. Past Medical History: As per admit note. Social History: As per admit note. Family History: As per admit note. Medications: As per admit note. Allergies: PER ADMIT NOTE. Physical Examination: As per admit note. Diagnostic Data: As per admit note. Hospital Course: The patient was admitted to the hospital. She was put on IV azithromycin, ceftriax one. COVID-19 was negative, however, was consulted Pulmonary, Dr. Ferguson, who thought that the pat ient may still have that virus. He put her on IV steroids and the patient improved with that. Also, because of the patient's chronic renal failure with slight worsening. Because of her pneumonia, Nep hrology was consulted and they managed to see the patient with us and at this time, they did not thin k that she is to have dialysis. With the patient being on antibiotics and IV Lasix for diuresis, we did a cardiac echo which showed normal ejection fraction of the left ventricular, however patient had moderate diastolic dysfunction along with moderate pulmonary hypertension, which also improved with IV Lasix for the diastolic congestive heart failure exacerbation. A chest x-ray today showed much cl earing of the bilateral infiltrates with left pleural effusion. The patient is doing well. Dr. Beverly ingram and we thought that the patient is stable enough to be discharged. We will discharge her on oral a ntibiotic, Augmentin at the same time, give her steroids of 10 mg for the next 12 days p.o. b.i.d. an d patient continue the rest of her home medicines. We have increased her furosemide to 40 mg t.i.d. instead of b.i.d. Patient was put by Nephrology on trazodone as an outpatient for insomnia, so we wi ll discharge her on that because she is considered well while in the hospital. As per family, she sl ept better. Patient will follow up with me and with Nephrology. Look discharge orders for details. MFS/MODL Voice ID: [id number] Report ID: [id number]
[2020-06-25 14:39] VITALS: TEMP 97.3
[2020-06-25 15:47] VITALS: O2SAT 93
[2020-06-27 06:18] LABS: Albumin, (SPE) 2.7 g/dL (3.8-4.8); Alpha-1-Globulins 0.4 g/dL (0.2-0.3); Alpha-2-Globulins 0.9 g/dL (0.5-0.9); Gamma Globulins 1.1 g/dL (0.8-1.7); INTERPRETATION REPORT
[2020-06-27 13:00] LABS: Vitamin D 1,25-Dihydroxy Total 24 pg/mL (18-72); Vitamin D,1,25-OH2, D2 24 pg/mL
== END 2020-06-25 15:48 | disposition home health service (06) | DRG 177 ==
LOC: ER 09:51 → ERHOLD 10:56 → 2ND 17:53
PROVIDERS: ADMIT Internal Medicine; ATTEND Internal Medicine
DX: U07.1 COVID-19 (principal); J96.01 Acute respiratory failure with hypoxia; I50.33 Acute on chronic diastolic (congestive) heart failure; J12.82 Pneumonia due to coronavirus disease 2019; I13.0 Hypertensive heart and chronic kidney disease with heart failure and stage 1 through stage 4 chronic kidney disease, or unspecified chronic kidney disease; N17.9 Acute kidney failure, unspecified; J44.1 Chronic obstructive pulmonary disease with (acute) exacerbation; J44.0 Chronic obstructive pulmonary disease with (acute) lower respiratory infection; I27.20 Pulmonary hypertension, unspecified; I48.91 Unspecified atrial fibrillation; D50.9 Iron deficiency anemia, unspecified; N18.9 Chronic kidney disease, unspecified; E78.5 Hyperlipidemia, unspecified; I25.10 Atherosclerotic heart disease of native coronary artery without angina pectoris; D63.8 Anemia in other chronic diseases classified elsewhere; F17.200 Nicotine dependence, unspecified, uncomplicated; Z86.73 Personal history of transient ischemic attack (TIA), and cerebral infarction without residual deficits; Z79.01 Long term (current) use of anticoagulants; Z79.899 Other long term (current) drug therapy; Z90.710 Acquired absence of both cervix and uterus; Z99.81 Dependence on supplemental oxygen
CPT/HCPCS: 0240U; 36415; 51702; 71045; 71250; 76770; 80048; 80069; 80076; 81003; 81015; 82570; 82607; 82652; 82728; 82746; 82805; 83540; 83605; 83735; 83880; 83970; 84156; 84165; 84443; 84466; 84484; 84550; 85025; 85044; 85610; 86140; 87040; 87077; 87086; 87088; 87186; 87205; 93005; 93306; 93971; 94660; 94760; 96374; 96375; 97110; 97112; 97161; 99285; J0456; J0696; J1940; J2916; J2920; J2930; J3370; J7050

== ENCOUNTER 2020-07-02 17:43 | Inpatient (IN) | payer OTHER ==
--- OUTSIDE RECORDS SUMMARY | 2020-07-02 17:45 | XMS REPORT | Clinical Summary ---
:1940 Author Organization [facility] Address [address] [place] [address] Care Team Providers Name Role Phone Meghann [...] TERESA/STR (GLUCOSAMINE mouth daily. CHONDROITIN PLUS ORAL) [id number] Take 1 tablet by 0 Active S-MANGA [...] Due Date Last Done Comments COVID-19 VACCINE (1 of 2) 1957 SHINGLES VACCINES (#1) 1991 65+ PNEUMOCOCCAL VACCINE (1 of 1 - PPSV23) 2006 INFLUENZA VACCINE 01/16/2020 Results Not on fileafter 07/02/2019 Insurance Payer Benefit Plan / Subscriber ID Effective Dates Phone Addre ss Type Group MEDICARE MEDICARE PART A [id number] 2006-Present [place], [place] Medicare AND B ([place]) [place] [address] Advance Directives For more information, please contact: [phone] Type Date Recorded Patient Barrel Tester Explanati on Advance Directives, Living Will and Medical Power of Government Auditor
--- OUTSIDE RECORDS SUMMARY | 2020-07-02 17:48 | XMS REPORT | Continuity of Care Document ---
:1940 Author Organization [facility] Information [place] Care Team Providers Name Role Phone [facility] Information [place] Unavailable Un available Problems Problem Status Onset Classification Date Comments Sour e Date Reported NEW ONSET OF Active 12/15/19 [facility] 19 Leonila theast FAILURE, P WEAKNESS Active 12/15/19 [facility] [place] 19 Mikey POSSIBLE STROKE Active 05/13/20 Jensen rial 17 Corin[place] RIGHT SIDED Active 05/13/20 [facility] [place] WEAKNESS 17 [place] ACUTE KIDNEY Active 05/08/20 Memoria l INJURY, 17 Mikey GENERALIZED WEAKNES Weakness 05/18/2017 [place] Acute on chronic 12/22/2018 diastolic [place] (congestive) heart failure Carotid Active Problem 12/22/2018 endarterectomy [place] and, (procedure) [place] Cerebrovascular Resolved Problem 12/22/2018 accident [facility] (disorder) [place] Chronic Resolved Problem 12/22/2018 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 Active 2018 [facility] (Same As: Ecotrin) Eliquis Notes: Same as: No Longer Eliquis Active 2018 [facility] atorvastatin Notes: (Same Inactive as: Lipitor) 2018 [facility] Memantine Notes: (Same Inactive As: Namenda) 2018 [facility] Levetiracetam Notes: (Same Inactive as:Keppra) 2018 [facility] Furosemide 40 MG Notes: (Same No Longer Oral Tablet as: Lasix) October Active 2018 [place] [Lasix] cause GI upset. Give with food or milk. donepezil Notes: (Same Inactive as: Aricept) 2018 [facility] Spironolactone Notes: (Same Inactive As: Aldactone) 2018 [facility] Potassium Notes: (Same Inactive Chloride [...] Patient’s with feeding tube less than 14 Setswana (Dobhoff, J-tube etc) and pediatric and patients. Lasix Notes: (Same No Longer as: Lasix) Active 2018 [facility] MEDICATION WASTE Product Size: 40 mg Product Wasted: ___ mg pantoprazole Notes: Tablet No Longer should not be Active 2018 [facility] chewed or crushed. (Same as: Protonix) Atorvastatin 80 Atorvastatin 80 No Longer mg tab Pt's mg tab Pt's Active 2018 [place] Own MED Own MED, 80 mg, Drug form: MISC, Route: PO, Bedtime, 12/15/18 21:00:00 CDT, Duration: 30 day, Stop date: 01/13/19 21:00:00 CDT, 0 atorvastatin Notes: (Same Inactive as: Lipitor) 2018 [facility] Memantine 10 mg Memantine 10 mg No Longer tab Pt's Own tab Pt's Own Active 2019 [facility] Med Med, 10 mg, Drug [...] mg tab 250 mg tab Active 2018 [facility] Pt's Own Med Pt's Own Med, 250 mg, Drug form: MISC, Route: PO, Q12H, 12/15/18 12:00:00 CDT, Duration: 30 day, Stop date: 01/14/19 9:00:00 CDT, 0 Donepezil 10 mg Donepezil 10 mg No Longer tab Pt's Own tab Pt's Own Active 2018 [facility] MED MED, 10 mg, Drug [...] 0 Levetiracetam Notes: (Same Inactive as:Keppra) 2018 [facility] donepezil Notes: (Same Inactive as: Aricept) 2018 [facility] clopidogrel Notes: (Same Inactive As: Plavix) 2018 [facility] carvedilol Notes: Give No Longer with food. Active 2018 [facility] (Same As: Coreg) Aspirin Notes: Take Inactive with food. 2019 [facility] Memantine Notes: (Same Inactive As: Namenda) 2018 [facility] losartan 25 mg 25 mg = 1 tab, No Longer oral tablet PO, Daily, 0 Active [address] [facility] [address] Refill(s) heparin Notes: porcine No Longer heparin Active 2018 [facility] Lasix Notes: (Same No Longer as: Lasix) Active 2018 [facility] MEDICATION WASTE Product Size: 40 mg Product Wasted: ___ mg Budesonide 0.25 Notes: (Same No Longer H MG/ML Inhalant As: Pulmicort) Active 2018 [place] Solution [Pulmicort] Albuterol 0.833 Notes: (Same No Longer H MG/ML / as: Duoneb) Active 2018 [facility] Ipratropium Peacham 0.167 MG/ML Inhalant Solution [DuoNeb] Rocephin + Notes: (Same No Longer sterile water 10 As: Rocephin). Active 2018 [facility] mL Use with 100 mL NS and infuse over 30 min MEDICATION WASTE Product Size: 1000 mg Product Wasted: ___ mg Azithromycin Notes: (Same No Longer As: Zithromax Active 2018 [facility] IV) Lasix Notes: (Same Inactive as: Lasix) 2018 [place] MEDICATION WASTE Product Size: 40 mg Product Wasted: ___ mg Solu-Medrol Notes: (Same Inactive as:Solu-MEDROL, 2019 [place] A-Methapred) Magnesium Notes: WASTE: Inactive Sulfate F/P - Sink; E - 2019 [place] [facility] Albuterol 0.833 Notes: (Same Inactive MG/ML / as: Duoneb) 2018 [place] Ipratropium Peacham 0.167 MG/ML Inhalant Solution [DuoNeb] pantoprazole 40 40 mg = 1 tab, Active H mg oral enteric PO, Before 2016 Elvie and coated tablet Breakfast, # 30 tab, 0 Refill(s), Pharmacy: [id number] Sodium Chloride 1,000 mL, Rate: Inactive 0.9% IV 1,000 mL 21 ml/hr, 2016 Elvie and Infuse over: 47.6 hr, Route: IV, Dosing Weight 65.2 kg, Total Volume: 1,000, Start date: 05/15/17 7:30:00 DEPUTY CHIEF COUNSEL, Duration: 30 day, Stop date: 06/14/17 7:29:00 DEPUTY CHIEF COUNSEL, 1.71, m2 atorvastatin atorvastatin No Longer 80mg pt own med 80mg pt own Active 2016 [place] med, 80 mg, Drug form: MISC, Route: PO, Bedtime, 05/14/17 21:00:00 DEPUTY CHIEF COUNSEL, Duration: 30 day, Stop date: 06/12/17 21:00:00 DEPUTY CHIEF COUNSEL atorvastatin Notes: (Same Inactive as: Lipitor) 2016 [place] Amlodipine Notes: (Same No Longer as: Norvasc) Active 2016 [place] Memantine Notes: (Same Inactive As: Namenda) 2016 [place] Allopurinol Notes: (Same No Longer as: Zyloprim) Active 2016 [place] Levetiracetam Notes: (Same No Longer as:Keppra) Active 2016 [place] donepezil Notes: (Same Inactive as: Aricept) 2016 [place] Memantine 10mg Memantine 10mg No Longer pt own med pt own med, 10 Active 2016 [place] mg, Drug form: MISC, Route: PO, BID, 05/14/17 9:00:00 DEPUTY CHIEF COUNSEL, Duration: 30 day, Stop date: 06/12/17 17:00:00 DEPUTY CHIEF COUNSEL clopidogrel Notes: (Same No Longer As: Plavix) Active 2016 [place] carvedilol Notes: Give No Longer with food. Active 2016 [place] (Same As: Coreg) Donepezil 10mg Donepezil 10mg No Longer pt own med pt own med, 10 Active 2016 [place] mg, Drug form: MISC, Route: PO, BID, 05/14/17 9:00:00 DEPUTY CHIEF COUNSEL, Duration: 30 day, Stop date: 06/12/17 17:00:00 DEPUTY CHIEF COUNSEL Streptococcus Notes: Shake Inactive pneumoniae well prior to 2016 [place] serotype 1 use (Same as: capsular antigen Prevnar 13) diphtheria [id number] protein conjugate vaccine / Streptococcus pneumoniae serotype 14 capsular antigen diphtheria [id number] protein conjugate vaccine / Streptococcus pneumoniae serotype [...] No Longer should not be Active 2016 [place] chewed or crushed. (Same as: Protonix) Saline Flush Notes: (Same No Longer 0.9% as: BD Active 2016 [place] Posiflush) Sodium Chloride 1,000 mL, Rate: No Longer 0.9% IV 1,000 mL 100 ml/hr, Active 2016 [place] Infuse over: 10 hr, Route: IV, Dosing Weight 65.2 kg, Total Volume: 1,000, Start date: 05/13/17 21:15:00 DEPUTY CHIEF COUNSEL, Duration: 30 day, Stop date: 06/12/17 21:14:00 DEPUTY CHIEF COUNSEL, 1.71, m2 Acetaminophen Notes: Do not No [...] Weight 68.182 kg, Start date: 05/13/17 18:13:00 DEPUTY CHIEF COUNSEL, Stop date: 05/13/17 18:13:00 DEPUTY CHIEF COUNSEL NS (Bolus) IV 1,000 mL, 1,000 Inactive H ml/hr, Infuse 2016 [place] Over: 1 hr, Route: IV, 1,000, Drug form: INJ, ONCE, Priority: STAT, Dosing Weight 68.182 kg, Start date: 05/13/17 16:25:00 DEPUTY CHIEF COUNSEL, Stop date: 05/13/17 16:25:00 DEPUTY CHIEF COUNSEL Saline Flush Notes: (Same No Longer 0.9% as: BD Active 2016 [place] Posiflush) Streptococcus Notes: Shake Inactive pneumoniae well prior to 2016 [place] serotype 1 use (Same as: capsular antigen Prevnar 13) diphtheria [id number] protein conjugate vaccine / Streptococcus pneumoniae serotype 14 capsular antigen diphtheria [id number] protein conjugate vaccine / Streptococcus pneumoniae serotype 18C capsular antigen d influenza virus Notes: (Same Inactive vaccine, as: Fluzone 2017 [place] inactivated Quadrivalent, Fluarix Quadrivalent) For 3 years of age and older (0.5 mL IM) Shake well before use clopidogrel Notes: (Same Inactive As: Plavix) 2016 [place] Aspirin Notes: Do not Inactive 05/[facility] crush or chew. 2016 [place] (Same As: Ecotrin) Allopurinol Notes: (Same Inactive as: Zyloprim) 2016 [place] Sodium Chloride 1,000 mL, 1,000 Inactive 0.9% (Bolus) IV ml/hr, Infuse 2016 [facility] Over: 1 hr, Route: IV, 1,000, Drug form: INJ, ONCE, Priority: STAT, Dosing Weight 64.716 kg, Start date: 05/09/17 8:14:00 DEPUTY CHIEF COUNSEL, Stop date: 05/09/17 8:14:00 DEPUTY CHIEF COUNSEL heparin Notes: porcine Inactive heparin 2016 [place] atorvastatin atorvastatin No Longer 80mg pt own med 80mg pt own Active 2016 [place] med, 80 mg, Drug form: MISC, Route: PO, Bedtime, 05/08/17 22:31:00 DEPUTY CHIEF COUNSEL, Duration: 30 day, Stop date: 06/07/17 21:00:00 DEPUTY CHIEF COUNSEL Memantine 10mg Memantine 10mg No Longer pt own med pt own med, 10 Active 2016 [place] mg, Drug form: MISC, Route: PO, BID, 05/08/17 22:29:00 DEPUTY CHIEF COUNSEL, Duration: 30 day, Stop date: 06/07/17 17:00:00 DEPUTY CHIEF COUNSEL Donepezil 10mg Donepezil 10mg No Longer pt own med pt own med, 10 Active 2016 [place] mg, Drug form: MISC, Route: PO, BID, 05/08/17 22:24:00 DEPUTY CHIEF COUNSEL, Duration: 30 day, Stop date: 06/07/17 17:00:00 DEPUTY CHIEF COUNSEL atorvastatin 80 mg, Route: Inactive PO, Drug form: 2016 [place] TAB, Bedtime, Dosing Weight 64.716, kg, Start date: 05/08/17 22:09:00 DEPUTY CHIEF COUNSEL, Duration: 30 day, Stop date: 06/07/17 21:00:00 DEPUTY CHIEF COUNSEL Levetiracetam Notes: (Same No Longer 250 MG Oral as:Keppra) Active 2016 [place] Tablet Amlodipine Notes: (Same No Longer as: Norvasc) Active 2016 [place] Memantine 10 mg, Route: Inactive PO, Drug form: 2016 [place] TAB, BID, Dosing Weight 64.716, kg, Start date: 05/08/17 22:07:00 DEPUTY CHIEF COUNSEL, Duration: 30 day, Stop date: 06/07/17 17:00:00 DEPUTY CHIEF COUNSEL carvedilol Notes: Give No Longer with food. Active 2016 [place] (Same As: Coreg) donepezil Notes: (Same Inactive as: Aricept) 2017 [place] clopidogrel 75 mg, PO, Active Daily, 0 2016 [place] Refill(s) Azithromycin 250 mg, PO, No Longer Daily, Take 2 Active 2016 [place] tablets by mouth the first day then 1 tablet by mouth daily on days 2-5, # 6 tab, 0 Refill(s) Aspirin 81 mg, PO, Active Daily, 0 2016 [place] Refill(s) atorvastatin 80 mg, PO, Active Bedtime, 0 2016 [place] Refill(s) donepezil 10 mg, PO, BID, Active 0 Refill(s) 2016 [place] Levetiracetam 250 mg, PO, Active BID, 0 2016 [place] Refill(s) Memantine 10 mg, PO, BID, Active 0 Refill(s) 2016 [place] Amlodipine 10 mg, PO, Active Bedtime, 0 2016 [place] Refill(s) carvedilol 6.25 mg, PO, Active BID, 0 2016 [place] Refill(s) Allopurinol 100 mg, PO, Active Daily, 0 2016 [place] Refill(s) morphine Sulfate Notes: (Same No Longer as:MORPine Active 2016 [place] Sulfate) Docusate Notes: (Same No Longer as: Colace) (Do Active 2016 [place] Not Crush) Saline Flush Notes: (Same No Longer 0.9% as: BD Active 2016 [place] Posiflush) Sodium Chloride 1,000 mL, Rate: No Longer 0.9% IV 1,000 mL 125 ml/hr, Active 2016 [facility] Infuse over: 8 hr, Route: IV, Dosing Weight 63.636 kg, Total Volume: 1,000, Start date: 05/08/17 16:14:00 DEPUTY CHIEF COUNSEL, Duration: 30 day, Stop date: 06/07/17 16:13:00 DEPUTY CHIEF COUNSEL, 1.69, m2 Acetaminophen Notes: Do not No Longer exceed 4 Active 2016 [place] gm/day. (Same as: Tylenol) Acetaminophen Notes: (Same No Longer 325 MG / as: Hubbard Active 2016 [place] Hydrocodone 325/5) Do not Bitartrate 5 MG exceed 4gm/day Oral Tablet of acetaminophen. Morphine 2 mg, Route: Inactive IVP, Q4H, 2016 [place] Dosing Weight 63.636, kg, PRN Pain Score 7-10, Start date: 05/08/17 16:14:00 DEPUTY CHIEF COUNSEL, Duration: 30 day, Stop date: 06/07/17 16:13:00 DEPUTY CHIEF COUNSEL Ondansetron Notes: (Same No Longer as: Zofran) Active 2016 [place] MEDICATION WASTE Product Size: 4 mg Product Wasted: ___ mg NS (Bolus) IV 1,000 mL, 1,000 Inactive H ml/hr, Infuse [place] Over: 1 hr, Route: IV, 1,000, Drug form: INJ, ONCE, Priority: STAT, Dosing Weight 63.636 kg, Start date: 05/08/17 14:28:00 DEPUTY CHIEF COUNSEL, Stop date: 05/08/17 14:28:00 DEPUTY CHIEF COUNSEL Pepcid Notes: (Same Inactive as: Pepcid) Can 2016 [place] be dilute in 5-10cc NS IVP: Slow IV push over at least 2 minutes. Allergies, Adverse Reactions, Alerts Substance Category Reaction Severity Reaction Status Date Comments S ource type Reported No Known Assertion Drug MH Medication allergy [facility] Allergies Immunizations Immunization Date Site Status Last Comments Source Given Updated pneumococcal Right completed Huang MH 13-valent 7 Deltoid [place] H vaccine [place] influenza virus Left completed Huang MH vaccine, 7 Deltoid [place] inactivated [place] influenza virus Not Given MH vaccine, 7 [place] inactivated [place] pneumococcal Not Given 13-valent 7 [place] H vaccine [place] pneumococcal Left completed Emiliano MH 23-valent 0 deltoid [place] H vaccine [place] Results Order Name Results [...] Calcium Lvl 8.9 8.5 - 10.5 12/19 [facility] CHEM PANEL AGAP 14.3 10.0 - 12/19 MH 20.0 /2018 [place] CHEM PANEL eGFR 18 12/19 Result Comment: The [facility] eGFR is calculated using the [...] Glucose Lvl 122 70 - 99 12/18 [facility] CHEM PANEL Calcium Lvl 9.4 8.5 - 10.5 12/18 [place] CHEM PANEL CO2 30 24 - 32 12/18 [place] CHEM PANEL Chloride Lvl 101 95 - 109 12/18 [place] CHEM PANEL Potassium 4.0 3.5 - 5.1 12/18 MH Lvl [place] CHEM PANEL Sodium Lvl 139 135 - 145 12/18 [place] CHEM PANEL eGFR 19 12/18 Result Comment: [facility] eGFR is calculated using the [...] 12.0 10.0 - 07/ MH 20.0 /2018 [facility] CHEM PANEL Magnesium 2.2 1.8 - 2.4 07/ MH Lvl /2018 [facility] HEMATOLOGY Lymphocytes 2.0 1.0 - 5.5 07/04 MH # /2019 [facility] HEMATOLOGY Monocytes # 0.8 0.0 - 0.8 07/ MH /2018 [facility] HEMATOLOGY Eosinophils 0.2 0.0 - 0.5 07/ MH # /2018 [facility] HEMATOLOGY Segs 57.0 45.0 - 07/ MH 75.0 /2018 [facility] HEMATOLOGY Monocytes 11.6 2.0 - 12.0 07/ MH /2018 [facility] HEMATOLOGY Eosinophils 2.7 0.0 - 4.0 07/ /2018 [facility] HEMATOLOGY Lymphocytes 28.5 20.0 - 07/ MH 40.0 /2018 [facility] HEMATOLOGY Neutrophils 4.0 1.5 - 8.1 / MH # /2018 [facility] HEMATOLOGY Basophils 0.2 0.0 - 1.0 07/ /2018 [facility] HEMATOLOGY Platelet 234 133 - 450 07/ /2018 [facility] HEMATOLOGY MCHC 32.2 32.0 - 07/ MH 36.0 /2019 [facility] HEMATOLOGY RDW 16.0 11.5 - 07/ MH 14.5 /2019 [facility] HEMATOLOGY MPV 9.0 7.4 - 10.4 07/ MH /2018 [facility] HEMATOLOGY MCV 91.9 80.0 - 07/ MH 98.0 /2019 [facility] HEMATOLOGY MCH 29.6 27.0 - 07/04 MH 31.0 /2019 [facility] HEMATOLOGY Hct 43.0 36.0 - 07/04 MH 48.0 /2019 [facility] HEMATOLOGY Hgb 13.9 12.0 - 07/04 MH 16.0 /2018 [facility] HEMATOLOGY RBC 4.68 4.20 - 07/04 MH 5.40 /2019 [facility] HEMATOLOGY WBC 7.0 3.7 - 10.4 07/04 /2018 [facility] CARDIAC Troponin-I <0.02 0.00 - 07 ENZYMES 0.40 /2018 [facility] ELECTROLYT AGAP 11.1 10.0 - 12/17 ES 20.0 /2018 [place] ELECTROLYT eGFR 20 12/17 Result Comment: The [facility] eGFR is calculated using the [...] Lvl 140 135 - 145 12/17 ES [facility] ELECTROLYT BUN 61 7 - 22 12/17 ES [facility] ELECTROLYT Creatinine 2.30 0.50 - 12/17 ES Lvl 1.40 /2018 [facility] ELECTROLYT Potassium 3.1 3.5 - 5.1 12/17 ES Lvl /2018 [facility] ELECTROLYT Calcium Lvl 9.5 8.5 - 10.5 12/17 ES [facility] ELECTROLYT CO2 29 24 - 32 12/17 ES /2018 [facility] ELECTROLYT Chloride Lvl 103 95 - 109 12/17 ES /2018 [facility] ELECTROLYT Glucose Lvl 110 70 - 99 12/17 ES /2018 [facility] HEMATOLOGY Neutrophils 6.3 1.5 - 8.1 12/17 MH # /2018 [facility] HEMATOLOGY Basophils 0.2 0.0 - 1.0 12/17 /2018 [facility] HEMATOLOGY Lymphocytes 1.6 1.0 - 5.5 12/17 MH # /2019 [facility] HEMATOLOGY Monocytes # 0.9 0.0 - 0.8 12/17 /2018 [facility] HEMATOLOGY Segs 71.2 45.0 - [...] HEMATOLOGY Monocytes 5.8 2.0 - 12.0 / [facility] HEMATOLOGY Lymphocytes 0.7 1.0 - 5.5 / # /2019 [facility] HEMATOLOGY Neutrophils 10.3 1.5 - 8.1 / # /2018 [facility] HEMATOLOGY Monocytes # 0.7 0.0 - 0.8 12/16 [place] CHEM PANEL Magnesium 2.6 1.8 - 2.4 / [place] CHEM PANEL Phosphorus 5.1 2.5 - 4.5 12/15 [place] CHEM PANEL Magnesium 3.0 1.8 - 2.4 12/15 [place] CHEM PANEL AST 15 0 - 37 12/15 [place] CHEM PANEL Alk Phos 101 39 - 136 12/15 [facility] CHEM PANEL Bili Total 0.4 [...] B/C Ratio 22 6 - 25 12/15 [facility] HEMATOLOGY Plt Morph Normal Normal 12/15 (12/15/18 1:30 AM) /2018 [facility] HEMATOLOGY RBC Morph Normal Normal 12/15 (12/15/18 1:30 AM) /2018 [facility] [address] URINE AND UA <=1.0 0.1 - 1.0 12/15 STOOL Urobilinogen mg/dL [place] URINE AND UA Color STRAW 12/15 STOOL [place] URINE AND UA Hyal Cast 3 0 - 2 12/15 STOOL [place] URINE AND UA pH 5.0 5.0 - 8.0 12/15 STOOL [place] URINE AND UA Protein 100 mg/dL Negative 12/15 [place] mg/dL [place] URINE AND UA Spec Grav 1.008 <=1.030 12/15 [place] URINE AND UA Turbidity Slight Clear 12/15 [place] *ABN* /2018 [place] (12/14/18 9:51 PM) URINE AND UA Blood Negative Negative 12/15 [place] (12/14/18 9:51 PM) [place] URINE AND UA Nitrite Negative Negative 12/15 [place] (12/14/18 9:51 PM) [place] URINE AND UA Ketones Negative Negative 12/15 [place]O[facility] mg/dL mg/dL [place] URINE AND UA Glucose Negative Negative 12/15 [place]OOL mg/dL mg/dL [place] URINE AND UA Bili Negative Negative 12/15 [place]O[facility] *NA* /2018 [place] (12/14/18 9:51 PM) URINE AND UA RBC 3 0 - 2 12/15 STOOL [place] URINE AND UA Bacteria Occasional None Seen 12/15 STOOL /HPF /HPF /2018 [place] URINE AND UA Sq Epi Occasional Few /LPF 12/15 STOOL /LPF [place] URINE AND UA Mucus Few /LPF None Seen 12/15 [place]OOL /LPF [place] URINE AND UA Leuk Est Negative Negative 12/15 [place] (12/14/18 9:51 PM) [place] URINE AND UA WBC 3 0 - 5 12/15 STOOL [place] CARDIAC BNP 764 <=100 12/15 ENZYMES pg/mL /2018 [place] CARDIAC Troponin-I 0.02 0.00 - 12/15 ENZYMES 0.40 [place] CHEM PANEL Lactic Acid 1.5 0.5 - 2.2 12/15 Lvl [place] ELECTROLYT AGAP 14.0 10.0 - 12/15 MH ES 20.0 /2018 [place] ELECTROLYT Globulin 4.7 2.7 - 4.2 12/15 [place] ELECTROLYT B/C Ratio 19 6 - 25 12/15 [place] ELECTROLYT A/G Ratio 0.6 0.7 - 1.6 12/15 [place] ELECTROLYT eGFR 21 12/15 Comment: The [place] eGFR is calculated using the CKD-EPI formula. [...] ELECTROLYT AST 18 0 - 37 12/15 [place] ELECTROLYT Total 7.7 6.4 - 8.4 12/15 ES Protein [place] ELECTROLYT Calcium Lvl 8.9 8.5 - 10.5 12/15 [place] ELECTROLYT ALT 22 0 - 65 12/15 [place] ELECTROLYT Albumin Lvl 3.0 3.5 - 5.0 12/15 [place] ELECTROLYT Bili Total 0.6 0.2 - 1.3 12/15 [place] ELECTROLYT Alk Phos 109 39 - 136 12/15 [place] ELECTROLYT BUN 43 7 - 22 12/15 [place] ELECTROLYT Glucose Lvl 142 70 - 99 12/15 [place] ELECTROLYT CO2 23 24 - 32 12/15 MH ES [place] ELECTROLYT Sodium Lvl 140 135 - 145 07/ MH ES [place] ELECTROLYT Creatinine 2.22 0.50 - 07/ MH ES Lvl 1. [place] ELECTROLYT Chloride Lvl 107 95 - 109 07/ MH ES [place] ELECTROLYT Potassium 4.0 3.5 - 5.1 07/ MH ES Lvl /2018 [place] HEMATOLOGY Lymphocytes 1.5 1.0 - 5.5 07/ MH # /2018 [place] HEMATOLOGY Monocytes # 1.5 0.0 - 0.8 07/ [place] HEMATOLOGY Basophils 1.1 0.0 - 1.0 07/ [place] HEMATOLOGY Neutrophils 9.6 1.5 - 8.1 07 MH [place] HEMATOLOGY Monocytes 12.0 2.0 - 12.0 12/15 [place] HEMATOLOGY Segs 74.7 45.0 - 07/ MH 75.0 /2018 [place] HEMATOLOGY Lymphocytes 11.7 20.0 - 07 MH 40.0 [place] HEMATOLOGY Eosinophils 0.5 0.0 - 4.0 07/ [place] HEMATOLOGY Eosinophils 0.1 0.0 - 0.5 07/ MH [place] HEMATOLOGY Basophils # 0.1 0.0 - 0.2 07 [place] HEMATOLOGY MCV 90.9 80.0 - 07/ MH 98.0 [place] HEMATOLOGY Hct 35.4 36.0 - 07/ MH 48.0 2019 [place] HEMATOLOGY MCH 30.3 27.0 - 07/ MH 31.0 2019 [place] HEMATOLOGY WBC 12.9 3.7 - 10.4 07/ [place] HEMATOLOGY Hgb 11.8 12.0 - 07/ MH 16.0 2019 [place] HEMATOLOGY RBC 3.89 4.20 - 07 MH 5.40 [place] HEMATOLOGY MPV 9.2 7.4 - 10.4 07 [place] HEMATOLOGY Platelet 202 133 - 450 07 [place] HEMATOLOGY RDW 15.6 11.5 - 07/ MH 14.5 [place] HEMATOLOGY MCHC 33.3 32.0 - 07/ MH 36.0 2018 [place] MOLECULAR vanB Not Detected Not 07/01 DIAGNOSTIC Vancomycin (12/14/18 7:46 PM) Detected /2018 [place] Resistance MOLECULAR Nazanin Not Detected Not 12/15 DIAGNOSTIC Vancomycin (12/14/18 7:46 PM) Detected /2018 [place] Resistance MOLECULAR E. faecium Not Detected Not 12/15 DIAGNOSTIC (12/14/18 7:46 PM) Detected /2018 [place] MOLECULAR S. Not Detected Not 12/15 DIAGNOSTIC pneumoniae (12/14/18 7:46 PM) Detected /2018 [place] MOLECULAR S. pyogenes Not Detected Not 12/15 DIAGNOSTIC (12/14/18 7:46 PM) Detected /2018 [facility] MOLECULAR Streptococcu Not Detected Not 12/15 DIAGNOSTIC s spp. (12/14/18 7:46 PM) Detected /2018 [facility] MOLECULAR E. faecalis Not Detected Not 12/15 DIAGNOSTIC (12/14/18 7:46 PM) Detected /2018 [facility] MOLECULAR Staphylococc Not Detected Not 12/15 DIAGNOSTIC us spp. (12/14/18 7:46 PM) Detected /2018 [facility] MOLECULAR S. anginosus Not Detected Not 12/15 DIAGNOSTIC grp (12/14/18 7:46 PM) Detected /2018 [facility] MOLECULAR S. Not Detected Not 12/15 DIAGNOSTIC agalactiae (12/14/18 7:46 PM) Detected /2018 [place] MOLECULAR S. Not Detected Not 12/15 DIAGNOSTIC lugdunensis (12/14/18 7:46 PM) Detected /2018 [place] MOLECULAR S. Not Detected Not 12/15 DIAGNOSTIC epidermidis (12/14/18 7:46 PM) Detected /2018 [place] MOLECULAR S. aureus Not Detected Not 12/15 DIAGNOSTIC (12/14/18 7:46 PM) Detected /2018 [place] MOLECULAR Listeria Not Detected Not 12/15 DIAGNOSTIC spp. (12/14/18 7:46 PM) Detected /2018 [facility] MOLECULAR mecA Not Detected Not 12/15 DIAGNOSTIC Methicillin (12/14/18 7:46 PM) Detected [place] Resistance CHEM PANEL Magnesium 1.9 1.8 - 2.4 05/15 Lvl /2016 [place] CHEM PANEL Calcium Lvl 8.6 8.5 - 10.5 05/15 [place] CHEM PANEL AGAP 10.7 10.0 - 11/29 MH 20. [place] CHEM PANEL eGFR 46 05/15 Result Comment: The [place] eGFR is calculated using the CKD-EPI formula. [...] Glucose Lvl 89 70 - 99 05/15 [place] CHEM PANEL CO2 26 24 - 32 05/15 [place] CHEM PANEL Potassium 3.7 3.5 - 5.1 05/15 Lv [place] CHEM PANEL Chloride Lvl 109 95 - 109 05/15 [place] CHEM PANEL Sodium Lvl 142 135 - 145 05/15 [place] CHEM PANEL BUN 22 7 - 22 05/15 [place] CHEM PANEL Creatinine 1.15 0.50 - 05/15 Lvl 1.40 [place] CHEM PANEL Magnesium 2.1 1.8 - 2.4 05/14 [place] CHEM PANEL Phosphorus 3.4 2.5 - 4.5 05/14 [place] ELECTROLYT AGAP 11.6 10.0 - 05/14 ES 20. [place] ELECTROLYT Calcium Lvl 9.0 8.5 - 10.5 05/14 [place] ELECTROLYT eGFR 43 05/14 Result Comment: The [place] eGFR is calculated using the CKD-EPI formula. [...] 3.6 3.5 - 5.1 05/14 ES Lvl [place] ELECTROLYT Creatinine 1.23 0.50 - 05/14 ES Lvl 1.40 [place] ELECTROLYT Chloride Lvl 107 95 - 109 05/14 [place] ELECTROLYT Sodium Lvl 141 135 - 145 05/14 [place] ELECTROLYT CO2 26 24 - 32 05/14 [place] ELECTROLYT BUN 30 7 - 22 05/14 [place] ELECTROLYT Glucose Lvl 86 70 - 99 05/14 [place] HEMATOLOGY Platelet 155 133 - 450 05/14 [place] HEMATOLOGY MPV 9.6 7.4 - 10.4 05/14 [place] HEMATOLOGY WBC X 10x3 7.4 3.7 - 10.4 05/14 [place] HEMATOLOGY Hgb 14.2 12.0 - 05/14 MH 16.0 [place] HEMATOLOGY RBC X 10x6 4.75 4.20 - 05/14 MH 5.40 [place] HEMATOLOGY MCH 29.9 27.0 - 05/14 MH 31.0 [place] HEMATOLOGY MCV 90.0 80.0 - 05/14 MH 98.0 [place] HEMATOLOGY MCHC 33.3 32.0 - 05/14 MH 36.0 [place] HEMATOLOGY RDW 15.6 11.5 - 05/14 MH 14.5 [place] HEMATOLOGY Hct 42.7 36.0 - 05/14 MH 48.0 [place] HEMATOLOGY Basophils # 0.1 0.0 - 0.2 05/14 [place] HEMATOLOGY Segs-Bands # 3.6 1.5 - 8.1 05/14 /2016 [place] HEMATOLOGY Basophils 1.1 0.0 - 1.0 05/14 [place] HEMATOLOGY Lymphocytes 2.4 1.0 - 5.5 05/14 MH # /2017 [place] HEMATOLOGY Segs 48.0 45.0 - 05/14 MH 75.0 [place] HEMATOLOGY Eosinophils 0.7 0.0 - 0.5 05/14 MH # /2016 [place] HEMATOLOGY Monocytes # 0.7 0.0 - 0.8 05/14 /2016 [place] HEMATOLOGY Monocytes 9.4 2.0 - 12.0 05/14 [place] HEMATOLOGY Eosinophils 9.6 0.0 - 4.0 05/14 [place] HEMATOLOGY Lymphocytes 31.9 20.0 - 05/14 MH 40.0 [place] URINE AND UA WBC 0-2 /HPF None Seen 05/14 [facility] /HPF /2016 [place] URINE AND UA RBC None Seen 0 - 2 05/14 [facility] (05/13/17 6:20 PM) [place] and URINE AND UA Bacteria None Seen None Seen 05/14 [facility] (05/13/17 6:20 PM) [place] [facility] URINE AND UA Sq Epi Rare /LPF Few /LPF 05/14 [facility] /2016 [place] URINE AND UA Hyal Cast 0-2 0 - 2 05/14 [facility] (05/13/17 6:20 PM) [place] URINE AND UA 0.2 0.1 - 1.0 05/14 [facility] Urobilinogen /2016 [place] URINE AND UA Nitrite Negative Negative 05/14 [facility] (05/13/17 6:20 PM) [place] [facility] URINE AND UA Leuk Est Negative Negative 05/14 [facility] (05/13/17 6:20 PM) [place] and URINE AND UA Protein 100 mg/dL Negative 05/14 [facility] mg/dL /2016 [place] URINE AND UA Glucose Negative Negative 05/14 [facility] (05/13/17 6:20 PM) [place] [facility] URINE AND UA Ketones Negative Negative 05/14 [facility] *NA* /2016 [place] (05/13/17 6:20 PM) URINE AND UA Bili Negative Negative 05/14 [facility] *NA* /2016 [place] (05/13/17 6:20 PM) URINE AND UA Blood Negative Negative 05/14 [facility] (05/13/17 6:20 PM) [place] [facility] URINE AND UA Turbidity Clear Clear 05/14 [facility] (05/13/17 6:20 PM) [place] and URINE AND UA Spec Grav 1.020 <=1.030 05/14 STOOL [place] URINE AND UA pH 6.5 5.0 - 8.0 05/14 STOOL [place] URINE AND UA Color Yellow Yellow 05/14 [facility] *NA* /2016 [place] (05/13/17 6:20 PM) CARDIAC Total CK 50 12 - 191 05/13 ENZYMES [place] CARDIAC Troponin-I 0.02 0.00 - 05/13 ENZYMES 0.40 [place] CARDIAC CK MB 3.3 0.5 - 3.6 05/13 ENZYMES [place] CARDIAC CK-MB INDEX 6.6 0.0 - 2.5 05/13 ENZYMES [place] CHEM PANEL eGFR 36 05/13 [place] Comment: The [place] eGFR is calculated using the CKD-EPI formula. [...] 1.43 0.50 - 05/13 MH Lvl 1.40 [place] CHEM PANEL Calcium Lvl 9.8 8.5 - 10.5 05/13 [place] CHEM PANEL AGAP 10.0 10.0 - 05/13 MH 20.0 [place] CHEM PANEL Sodium Lvl 138 135 - 145 05/13 [place] CHEM PANEL CO2 28 24 - 32 05/13 [place] CHEM PANEL Potassium 4.0 3.5 - 5.1 05/13 MH Lvl /2016 [place] CHEM PANEL BUN 34 7 - 22 05/13 [place] CHEM PANEL Glucose Lvl 105 70 - 99 05/13 [place] CHEM PANEL Chloride Lvl 104 95 - 109 05/13 [place] HEMATOLOGY INR 1.03 0.85 - 05/13 MH 1.17 [place] HEMATOLOGY PROTIME 13.5 12.0 - 05/13 MH 14.7 [place] HEMATOLOGY aPTT 38.0 22.9 - 05/13 MH 35.8 [place] HEMATOLOGY MCH 29.8 27.0 - 05/13 MH 31.0 [place] HEMATOLOGY RDW 15.9 11.5 - 05/13 MH 14. [place] HEMATOLOGY Hct 46.5 36.0 - 05/13 MH 48.0 [place] HEMATOLOGY Hgb 15.4 12.0 - 05/13 MH 16.0 [place] HEMATOLOGY MCV 90.2 80.0 - 05/13 MH 98.0 [place] HEMATOLOGY MPV 9.0 7.4 - 10.4 05/13 [place] HEMATOLOGY Platelet 175 133 - 450 05/13 [place] HEMATOLOGY MCHC 33.0 32.0 - 05/13 MH 36.0 [place] HEMATOLOGY RBC X 10x6 5.16 4.20 - 05/13 MH 5.40 [place] HEMATOLOGY WBC X 10x3 8.2 3.7 - 10.4 05/13 [place] HEMATOLOGY Eosinophils 0.7 0.0 - 0.5 05/13 MH # /2016 [place] HEMATOLOGY Basophils # 0.1 0.0 - 0.2 05/13 [place] HEMATOLOGY Lymphocytes 2.6 1.0 - 5.5 05/13 MH # /2016 [place] HEMATOLOGY Segs-Bands # 4.2 1.5 - 8.1 05/13 [place] HEMATOLOGY Monocytes # 0.7 0.0 - 0.8 05/13 [place] HEMATOLOGY Basophils 1.0 0.0 - 1.0 05/13 [place] HEMATOLOGY Segs 51.6 45.0 - 05/13 MH 75.0 [place] HEMATOLOGY Lymphocytes 30.9 20.0 - 11 MH 40.0 [place] HEMATOLOGY Monocytes 8.5 2.0 - 12.0 05/13 [place] HEMATOLOGY Eosinophils 8.0 0.0 - 4.0 05/13 [place] CHEM PANEL Bili Total 0.6 0.2 - 1.3 05/09 [place] CHEM PANEL Alk Phos 116 39 - 136 05/09 [place] CHEM PANEL ASPARTATE 25 0 - 37 05/09 TRANSAMINASE [place] CHEM PANEL Bili Direct 0.1 0.0 - 0.3 05/09 [place] CHEM PANEL Bili 0.5 0.0 - 1.0 05/09 Indirect [place] CHEM PANEL ALANINE 21 0 - 65 05/09 AMINOTRANSFE [place] RASE CHEM PANEL Globulin 3.7 2.7 - 4.2 05/09 [place] CHEM PANEL Total 6.7 6.4 - 8.4 05/09 Protein [place] CHEM PANEL A/G Ratio 0.8 0.7 - 1.6 05/09 [place] CHEM PANEL Albumin Lvl 3.0 3.5 - 5.0 05/09 [place] CHEM PANEL Calcium Lvl 9.0 8.5 - 10.5 05/09 [place] CHEM PANEL eGFR 41 05/09 [place] Comment: The [place] eGFR is calculated using the CKD-EPI formula. [...] Glucose Lvl 97 70 - 99 05/09 [place] CHEM PANEL Creatinine 1.26 0.50 - 05/09 MH Lvl 1.40 [place] CHEM PANEL CO2 25 24 - 32 05/09 [place] CHEM PANEL AGAP 10.7 10.0 - 05/09 MH 20.0 [place] CHEM PANEL BUN 27 7 - 22 05/09 [place] CHEM PANEL Sodium Lvl 140 135 - 145 05/09 [place] CHEM PANEL Potassium 3.7 3.5 - 5.1 05/09 MH Lvl [place] CHEM PANEL Chloride Lvl 108 95 - 109 05/09 [place] LIPIDS VLDL 23 05/09 [place] LIPIDS LDL 34 <=99 mg/dL 05/09 (Calculated) [place] LIPIDS Trig 117 <=149 05/09 mg/dL [place] LIPIDS CHD Risk 2.30 3.90 - 05/09 MH 5.80 [place] LIPIDS HDL 44 >=61 mg/dL 05/09 [place] LIPIDS Chol 101 <=199 05/09 mg/dL [place] ANEMIA Vitamin B12 >2000 254 - 1320 05/09 STUDY Lvl [place] ANEMIA Folate Lvl 49.5 >=3.0 05/09 STUDY ng/mL [place] CHEM PANEL Procalcitoni <0.05 0.00 - 05/09 MH n Lvl ng/mL 0.10 [place] HEMATOLOGY Sed Rate 5 0 - 20 05/09 [place] HEMATOLOGY MPV 9.2 7.4 - 10.4 05/09 [place] HEMATOLOGY RBC X 10x6 5.36 4.20 - 05/09 MH 5.40 [place] HEMATOLOGY Hgb 15.8 12.0 - 05/09 MH 16.0 [place] HEMATOLOGY WBC X 10x3 8.5 3.7 - 10.4 05/09 [place] HEMATOLOGY MCH 29.6 27.0 - 05/09 MH 31.0 [place] HEMATOLOGY MCHC 32.8 32.0 - 05/09 MH 36.0 [place] HEMATOLOGY RDW 15.7 11.5 - 05/09 MH 14.5 /2017 [place] HEMATOLOGY Platelet 199 133 - 450 05/09 [place] HEMATOLOGY Hct 48.3 36.0 - 05/09 MH 48.0 [place] HEMATOLOGY MCV 90.2 80.0 - 05/09 MH 98.0 [place] HEMATOLOGY Basophils # 0.1 0.0 - 0.2 05/09 [place] HEMATOLOGY Monocytes # 0.5 0.0 - 0.8 05/09 [place] HEMATOLOGY Eosinophils 0.5 0.0 - 0.5 05/09 MH # /2016 [place] HEMATOLOGY Lymphocytes 3.0 1.0 - 5.5 05/09 MH # /2016 [place] HEMATOLOGY Segs 52.2 45.0 - 05/09 MH 75.0 [place] HEMATOLOGY Lymphocytes 35.2 20.0 - 05/09 MH 40.0 [place] HEMATOLOGY Monocytes 6.4 2.0 - 12.0 05/09 [place] HEMATOLOGY Segs-Bands # 4.4 1.5 - 8.1 05/09 [place] HEMATOLOGY Eosinophils 5.5 0.0 - 4.0 05/09 [place] HEMATOLOGY Basophils 0.7 0.0 - 1.0 05/09 [place] IMMUNOLOGY C-REACTIVE <2.9 <=2.9 mg/L 05/09 [place] IMMUNOLOGY RF Qnt <10 0 - 20 05/09 [place] IMMUNOLOGY P-ANCA Negative Negative 05/09 (05/08/17 6:52 PM) [place] and IMMUNOLOGY C-ANCA Negative Negative 05/09 (05/08/17 6:52 PM) [place] [facility] IMMUNOLOGY C[place] Positive Negative 05/09 *ABN* /2016 [place] (05/08/17 6:52 PM) IMMUNOLOGY Sm Ab <0.2 <=0.9 AI 05/09 [place] IMMUNOLOGY ANIMAL PATHOLOGY TEACHER Ab <0.2 <=0.9 AI 05/09 [place] IMMUNOLOGY [place] Interp Pattern 05/09 appears [place] Nucleolar. IMMUNOLOGY SS-A (Ro) Ab <0.2 <=0.9 AI 05/09 [place] IMMUNOLOGY SS-B (La) Ab <0.2 <=0.9 AI 05/09 [place] IMMUNOLOGY [place] Titer 1:40 Negative 05/09 MH *ABN* /2016 [place] (05/08/17 6:52 PM) IMMUNOLOGY Hep B Core Negative Negative 05/09 IgM *NA* [place] (05/08/17 6:52 PM) IMMUNOLOGY Hep C Ab Negative 05/09 MH *NA* [place] (05/08/17 6:52 PM) IMMUNOLOGY Hep Bs Ag Negative Negative 05/09 MH *NA* [place] (05/08/17 6:52 PM) IMMUNOLOGY Hep A IgM Negative Negative 05/09 MH *NA* [place] (05/08/17 6:52 PM) IMMUNOLOGY EBV VCA IgG >8.0 <=0.8 AI 05/09 [place] IMMUNOLOGY EBV NA IgG >8.0 <=0.8 AI 05/09 [place] IMMUNOLOGY EBV VCA IgM <0.2 <=0.8 AI 05/09 [place] MYOGLOBIN Myoglobin 93 25 - 72 05/09 [place] URINE AND UA Protein 100 mg/dL Negative 05/08 [facility] mg/dL [place] URINE AND UA Glucose Negative Negative 05/08 [facility] (05/08/17 2:02 PM) [place] and URINE AND UA Ketones Negative Negative 05/08 [facility] *NA* [place] (05/08/17 2:02 PM) URINE AND UA Bili Negative Negative 05/08 [facility] *NA* [place] (05/08/17 2:02 PM) URINE AND UA Leuk Est Negative Negative 05/08 [facility] (05/08/17 2:02 PM) [place] and URINE AND UA Nitrite Negative Negative 05/08 [facility] (05/08/17 2:02 PM) [place] and URINE AND UA Blood Negative Negative 05/08 [facility] (05/08/17 2:02 PM) [place] and URINE AND UA 0.2 0.1 - 1.0 05/08 [facility] Urobilinogen [place] URINE AND UA Color Yellow Yellow 05/08 [facility] *NA* [place] (05/08/17 2:02 PM) URINE AND UA Turbidity Clear Clear 05/08 [facility] (05/08/17 2:02 PM) [place] and URINE AND UA Spec Grav 1.020 <=1.030 05/08 STOOL [place] URINE AND UA pH 6.0 5.0 - 8.0 05/08 STOOL [place] URINE AND UA RBC None Seen 0 - 2 05/08 [facility] (05/08/17 2:02 PM) [place] and URINE AND UA Bacteria None Seen None Seen 05/08 [facility] (05/08/17 2:02 PM) [place] [facility] URINE AND UA WBC 0-2 /HPF None Seen 05/08 [facility] /HPF /2016 [place] URINE AND UA Sq Epi Rare /LPF Few /LPF 05/08 STOOL [place] CARDIAC Troponin-I <0.02 0.00 - 05/08 ENZYMES 0.40 /2016 [place] CARDIAC CK MB 2.5 0.5 - 3.6 05/08 ENZYMES [place] CARDIAC Total CK 74 12 - 191 05/08 ENZYMES [place] CARDIAC CK-MB INDEX 3.4 0.0 - 2.5 05/08 ENZYMES [place] CHEM PANEL eGFR 27 05/08 Comment: The [place] eGFR is calculated using the CKD-EPI formula. [...] A/G Ratio 0.8 0.7 - 1.6 05/08 [place] CHEM PANEL ASPARTATE 42 0 - 37 05/08 TRANSAMINASE [place] CHEM PANEL ALANINE 24 0 - 65 05/08 AMINOTRANSFE [place] RASE CHEM PANEL Alk Phos 137 39 - 136 05/08 [place] CHEM PANEL Bili Total 0.8 0.2 - 1.3 05/08 [place] CHEM PANEL Potassium 4.7 3.5 - 5.1 05/08 Result MH Lvl /2016 Comment: [place] Specimen Hemolyzed. CHEM PANEL Albumin Lvl 3.7 3.5 - 5.0 05/08 [place] CHEM PANEL Globulin 4.7 2.7 - 4.2 05/08 [place] CHEM PANEL Calcium Lvl 9.5 8.5 - 10.5 05/08 [place] CHEM PANEL CO2 27 24 - 32 05/08 [place] CHEM PANEL AGAP 12.7 10.0 - 05/08 MH 20.0 [place] CHEM PANEL Total 8.4 6.4 - 8.4 05/08 MH [place] CHEM PANEL B/C Ratio 22 6 - 25 05/08 [place] CHEM PANEL Glucose Lvl 116 70 - 99 05/08 [place] CHEM PANEL BUN 39 7 - 22 05/08 [place] CHEM PANEL Creatinine 1.80 0.50 - 05/08 MH Lvl 1.40 [place] CHEM PANEL Sodium Lvl 138 135 - 145 05/08 [place] CHEM PANEL Chloride Lvl 103 95 - 109 05/08 [place] CHEM PANEL Lactic Acid 1.5 0.5 - 2.2 05/08 MH Lvl /2016 [place] CHEM PANEL Lipase Lvl 465 73 - 393 05/08 [place] HEMATOLOGY MPV 9.0 7.4 - 10.4 05/08 [place] HEMATOLOGY RDW 15.7 11.5 - 05/08 MH 14.5 [place] HEMATOLOGY Platelet 207 133 - 450 05/08 [place] HEMATOLOGY MCH 29.9 27.0 - 05/08 MH 31.0 [place] HEMATOLOGY MCHC 33.2 32.0 - 05/08 MH 36.0 [place] HEMATOLOGY Hct 50.0 36.0 - 05/08 MH 48.0 [place] HEMATOLOGY MCV 90.2 80.0 - 05/08 MH 98.0 [place] HEMATOLOGY Hgb 16.6 12.0 - 05/08 MH 16.0 [place] HEMATOLOGY WBC X 10x3 10.0 3.7 - 10.4 05/08 [place] HEMATOLOGY RBC X 10x6 5.54 4.20 - 05/08 5.40 /2016 [place] HEMATOLOGY Basophils # 0.1 0.0 - 0.2 05/08 [place] HEMATOLOGY Eosinophils 0.5 0.0 - 0.5 05/08 # /2017 [place] HEMATOLOGY Segs-Bands # 6.1 1.5 - 8.1 05/08 [place] HEMATOLOGY Basophils 1.0 0.0 - 1.0 05/08 [place] HEMATOLOGY Monocytes # 1.0 0.0 - 0.8 05/08 [place] HEMATOLOGY Lymphocytes 2.3 1.0 - 5.5 05/08 [place] HEMATOLOGY Eosinophils 5.1 0.0 - 4.0 05/08 [place] HEMATOLOGY Monocytes 9.7 2.0 - 12.0 05/08 [place] HEMATOLOGY Lymphocytes 23.1 20.0 - 05/08 40.0 [place] HEMATOLOGY Segs 61.1 45.0 - 05/08 75.0 [place] Pathology Reports No Data Provided for This Section Diagnostic Reports Report Value Date Source Chest 1view DX Portable chest: There is bee n improvement in pulmonary venous congestion and edema compared to 12/15/2018 with mild residual interstitial edema in the perihilar regions. The lungs and pleural spaces are 12/18/2018 [facility] otherwise clear. The cardia c silhouette is enlarged but decreased in size. There is no other significant change. SL [id number] Chest 1view DX Portable chest: The cardiac silhouette is enlarged. There is pulmonary venous congestion and perihilar edema in the lung showing no significant change from the previous day considering technical differe 12/15/2018 [facility] nces and phase of respiratio n. There is no significant effusion. There is no other change. SL [id number] Retroperitoneal Complete Clinical Indication: - LILIANA. 12/15/2018 [facility] US Comparison: None. TECHNIQUE: Multiple longitudinal [...] Chest 1view DX PROCEDURE: Chest Radiograph. 12/14/2018 [facility] Clinical Indication: Cough, shortness of breath. Comparison: Chest radiograph 05/13/2017. FINDINGS: The chest shows diffuse bila teral pulmonary infiltrate/edema most pronounced in the midlung zones and lower lobes. The cardiac silhouette is en larged. Degenerative change involves the thoracic spine. IMPRESSION: 1. Cardiomegaly with bilateral pulmonary infiltr ate/edema. [id number] Carotid artery Doppler Study: Carotid artery Dopple r bilat US 05/14/2017 9:47 AM DEPUTY CHIEF COUNSEL 05/14/2017 [facility] bil US Clinical Indication: - stro ke [...] sided we akness x 2 weeks; 05/13/2017 [facility] Comparison: None TECHNIQUE: MRI of the brain [...] contrast CT Patient Name: LAURIE OLEARY 04/18 [facility] : 1940; Age: 77 years y/o Female MR: [id number] Study: Brain wo contrast CT 05/13/2017 2:15 [...] cortically based left parietal infarct . SL: [id number] Chest 1view DX Chest 1view DX 05/13/2017 2:15 PM DEPUTY CHIEF COUNSEL 05/13/2017 [facility] Ordering Physician: Kate Rodriguez CLINICAL HISTORY: - [...] acute radiographic abnormality of the chest. SL: [id number] Abdomen RUQ US Patient Name: LAURIE OLEARY 7 [facility] : 1940; Age: 77 years y/o Female MR: [id number] Study: Abdomen RUQ US Order Date: 05/08/2017 5:07 PM DEPUTY CHIEF COUNSEL Ordering Physician: Clinical Indication: Elevated hepatic enzymes [...] CT Study: Chest wo contrast CT 05/08/2017 [facility] Clinical Indication: - r/o acute pathology/Weakness, not eating for the past 8 days. Seen by PCP yesterday \\T\\ was Rx Z-pack. [facility] Saturday \\T\\ Saturday for the [...] wo IV Patient Name: LAURIE CEDILLO 05/08/2017 [facility] contrast CT : 1940; Age: 77 years y/o Female MR: [id number] Study: Abdomen/Pelvis wo IV contrast CT 05/08/20 17 2:44 PM DEPUTY CHIEF COUNSEL Referring physician:Antonetet Giordano DO Clinical Indication: abdomin al pain [...] or pelvic noncontr ast CT findings. SL: [id number] Brain wo contrast CT Patient Name: LAURIE CEDILLO 05/08/2017 [facility] : 1940; Age: 77 years y/o Female MR: [id number] Study: Brain wo contrast CT 05/08/2017 2:28 [...] 3. 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 SL: [id number] Chest 1view DX CHEST 1 VIEW 05/08/2017 [facility] INDICATION: Heart failure. Not eating for the nj st 8 days. COMPARISON: 08/10/2008 chest x-ray FINDINGS: Faint opacity righ t base. The lungs are otherwise clear. No pleural abnormality. The cardiomediastinal silhouette is normal. Vascular stent left side of the neck. IMPRESSION: Subtle area of a telectasis or infiltrate right base. Otherwise normal exam. END IMPRESSION SL: [id number] Consultation Notes No Data Provided for This [...] 12/15/2018 [place] Systolic (mm Hg) 141 12/15/2018 [place] Diastolic (mm Hg) 66 12/15/2018 [place] Respitory Rate 17 12/15/2018 MH [place] Systolic (mm Hg) 141 12/15/2018 MH [place] Diastolic (mm Hg) 61 12/15/2018 [place] Respitory Rate 25 12/15/2018 [place] Temperature Oral (F) 97.9 F 12/15/2018 [place] Systolic (mm Hg) 156 12/15/2018 [place] Diastolic (mm Hg) 68 12/15/2018 [place] Respitory Rate 41 12/15/2018 [place] Height 162.56 cm 12/14/2018 [place] Heart Rate 85 12/14/2018 MH [place] Temperature Oral (F) 97.9 F 12/14/2018 [place] BMI Calculated 24.08 12/14/2018 [place] Weight 63.636 12/14/2018 MH [place] Respitory Rate 18 05/15/2017 [place] Systolic (mm Hg) 165 05/15/2017 MH [place] Diastolic (mm Hg) 73 05/15/2017 [place] Systolic (mm Hg) 161 05/15/2017 MH [place] Diastolic (mm Hg) 76 05/15/2017 [place] Respitory Rate 14 05/15/2017 [place] Systolic (mm Hg) 164 05/15/2017 [place] Diastolic (mm Hg) 77 05/15/2017 [place] Heart Rate 67 05/15/2017 [place] Respitory Rate 19 05/15/2017 [place] Heart Rate 73 05/15/2017 [place] Temperature Oral (F) 99.1 F 05/15/2017 [place] Heart Rate 70 05/15/2017 [place] Temperature Oral (F) 97.5 F 05/15/2017 [place] Temperature Oral (F) 98.1 F 05/15/2017 [place] Weight 65.2 05/14/2017 [place] Height 157.48 cm 05/14/2017 [place] BMI Calculated 26.29 05/14/2017 [place] Weight 68.182 05/13/2017 [place] BMI Calculated 22.86 05/13/2017 [place] Height 172.72 cm 05/13/2017 [place] Heart Rate 63 05/09/2017 [place] Temperature Oral (F) 97.8 F 05/09/2017 [place] Systolic (mm Hg) 138 05/09/2017 [place] Diastolic (mm Hg) 76 05/09/2017 [place] Respitory Rate 17 05/09/2017 [place] Respitory Rate 15 05/09/2017 [place] Systolic (mm Hg) 153 05/09/2017 [place] Diastolic (mm Hg) 73 05/09/2017 [place] Respitory Rate 17 05/09/2017 [place] Temperature Oral (F) 97.7 F 05/09/2017 [place] Heart Rate 60 05/09/2017 [place] Temperature Oral (F) 97.9 F 05/09/2017 [place] Heart Rate 62 05/09/2017 [place] Systolic (mm Hg) 144 05/09/2017 [place] Diastolic (mm Hg) 74 05/09/2017 [place] Height 157.48 cm 05/08/2017 [place] BMI Calculated 26.1 05/08/2017 [place] Weight 64.716 05/08/2017 [place] Weight 63.636 05/08/2017 [place] BMI Calculated 25.66 05/08/2017 [place] Height 157.48 cm 05/08/2017 [facility] Encounters Location Location Encounter Encounter Reason Attending ADM DC Stat us Source Details Type Number For Provider Date Date Visit [facility] [id number] Shruthi 05/08 05/09 Mikey Vazquez /2016 [facility] [id number] Valeri 05/13 05/15 Mikey Amor /2016 [facility] [id number] Angie Felicity 12/14 12/15 Mikey /2018 [facility] Inpatient [id number] Taso 12/15 12/20 [facility] Mougreinaldo /2018 [facility] Procedures Procedure Code Date Perfomer Comments Source Hysterectomy [id number] Mariano [facility] Stent [id number] [facility] and Plan Assessment and Plan Date Source Extracted from:Title: Clinical Document 12/20/2018 [facility] Author: Fransisca Hensley MD Date: 12/20/18 Pulmonary and Critical Care Progress Note [facility] Sujective/overnight events: Chart reviewed. Patient [...] sterile water 10 mL) 1 gm IV [id number] 120 ml/hr 12/18/18 furosemide (Lasix 40 mg [...] Santos MD Date: 12/16/[address] [facility] Ankit De Los Santos MD SUBJECTIVE: pt [...] stents, HTN, dementia, and COPD presented to [facility] with a 2 day h/o progressive shortness [...] limb ischemia All imaging and labs from [facility] reviewed Impression: 1. Hypoxic respiratory failure 2. [...] as Motrin, Aspirin, Al jessica, Advil, Ibuprofen usp if possible. Outpt EUS for antral nodule. [...] , BS + Ext : no edema NETWORK CABLER: No gross motor/sensory defects Vitals Tmp(F) Pulse [...] Rowan MD Date: 05/14/17 full H&P dictated, #[id number] date/time: 05/13/2017 20:45 Extracted from:Title: Teleneurology Consultation--ROUTINE [...] herself. She does see Dr. Lacy at [facility] as her neurological issues. no new med [...] call with ? Juan Lockhart MD ([place]) [employer]gage [employer] Mail Agent of Neurology Call Center: [phone] Extracted from:Title: Nephrology Progress Note * Author: [...] History Date Source Social History TypeResponse 05/08/2017 [facility] Substance Abuse Use: None. Alcohol Never Smoking Status Former smoker; Type: Cigarettes; Exposur e to Tobacco Smoke None; Cigarette Smoking Last 365 Days No; Reg Smoking Cessation Counseling No entered on: 12/14/18 Social History TypeResponse 05/08/2017 [facility] Substance Abuse Use: None. Alcohol Never [...]
--- OUTSIDE RECORDS SUMMARY | 2020-07-02 17:52 | XMS REPORT | Continuity of Care Document ---
:1940 Author Organization [facility] t Address [address] [place] [address] Care Team Providers Name Role Phone Ga GILBERT, Meghann Primary Care Physician Filiberto Attending Clinician Sheryl Blevins Attending Clinician Anjum Amor Attending Clinician Breonna Vazquez Attending Clinician Filiberto Admitting Clinician Anjum Amor Admitting Clinician Breonna Vaqzuez Admitting Clinician Problems Condition Condition Condition Status [...] WEAKNESS 00:00: Eduardo n 00 Active 12/14/[address] [facility] Mikey POSSIBLE Diagnosis Active 2016-062017-05-13 M emoria STROKE 07-13 15:34:00 l POSSIBLE 00:00: Eduardo n STROKE 00 Active 05/13/2017 [facility] [place] RIGHT Diagnosis Active 2016-062017-06-12 Mem oria SIDED 07-13 11:14:00 l WEAKNESS RIGHT 00:00: [place] SIDED 00 WEAKNESS [facility] ACUTE Diagnosis Active 2016-2017-05-15 Mem oria KIDNEY - 21:58:00 l INJURY, ACUTE 00:00: Mikey GENERALIZE KIDNEY 00 D WEAKNES INJURY, GENERALIZE D WEAKNES Active 05/08/2017 [facility] Dizziness Dizziness Disease Active 2015-06 [facility] patle 0-31 Methodi 00:00: st 00 Weakness Problem 2017-05-18 Mem oria 03:14:20 l Weakness Eduardo n 05/18/2017 [facility] Acute on Problem 2018-12-22 Mem oria chronic 21:52:09 l diastolic Acute on Her grider (congestiv chronic e) heart diastolic failure (congestiv e) heart failure 12/22/2018 [facility] Cerebrovas Problem Resolve 2018-12-22 Memoria cular d 21:52:09 l accident [place] (disorder) Cerebrovas cular accident (disorder) Resolved Problem 12/22/[facility] Chronic Problem Resolve 2018-12-22 Mem oria obstructiv d 21:52:09 l e lung 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 (disorder) Resolved Problem 12[facility]22/2018 [facility] Congestive Problem Resolve 2018-12-22 Memoria heart d 21:52:09 l failure [place] (disorder) Congestive heart failure (disorder) Resolved Problem 12/22/2018 [facility] Dementia Problem Resolve 2018-12-22 Me moria (disorder) d 21:52:09 l Dementia Eduardo n (disorder) Resolved [facility] Carotid Problem Active 2018-12-22 Jensen ricco endarterec 21:52:09 l delmis Carotid [place] (procedure endarterec ) delmis (procedure ) Active Problem 12/22/2018 [facility] Hypertensi Problem Active 2018-12-22 M emoria ve 21:52:09 l disorder, [place] systemic Hypertensi arterial ve (disorder) disorder, systemic arterial (disorder) Active Problem 12/22/2018 [facility] ACUTE Diagnosis Active 2017-05-15 Mem oria KIDNEY 21:58:00 l FAILURE, ACUTE Mikey UNSPECIFIE KIDNEY D FAILURE, UNSPECIFIE D [facility] DEHYDRATIO Diagnosis Active 2017-05-15 Memoria N 21:58:00 l Mikey DEHYDRATIO N Active [facility] ACUTE ON Diagnosis Active 2018-12-29 M emoria CHRONIC 22:24:00 l DIASTOLIC ACUTE ON Her grider (CONGESTIV CHRONIC E) DIASTOLIC (CONGESTIV E) Active [facility] Allergies, Adverse Reactions, Alerts Allergy Allergy Status Severity Reaction(s) Onset Inactive Treating Comm ents Source Name Type Date Date Clinician No Known No Known Active Memori a Medicati Medicati l on on Mikey Allergie Allergmakayla s s Social History Social Habit Start Date Stop Date Quantity Comments Source Sex Assigned At [facility] ethodist Social History 2017-05-08 2017-05-08 [facility] ermann 23:39:20 23:39:20 Cigarettes smoked 2016-04-17 [...] # 60 l Tablet 20:41: tab, 3 [place] [Eliquis] 00 Refill(s) Doxycycline Yes 100 mg [...] not crush l Coated 14:00: or chew. Mikey Tablet 00 (Same As: Ecotrin) Aspirin No Notes: Do Memor ia - not crush l 14:00: or chew. Mikey (Same As: Ecotrin) Eliquis No Notes: Memoria 12-19 Same as: l 02:00: Eliquis atorvastati No Notes: Jensen ricco n 12-19 (Same as: l 02:00: Lipitor) Memantine No Notes: Memori a - (Same As: l 22:00: Namenda) Levetiracet No Notes: Jensen ricco am 12-18 (Same l 22:00: as:Keppra) [...] s with feeding tube less than 14 [place] (Dobhoff, J-tube etc) and pediatric and patients. [...] n 12-16 (Same as: l 02:00: Lipitor) [place] 00 Memantine 2018-0 No Memantine Mem oria [...] a 12-15 (Same As: l 14:00: Namenda) [place] losartan 25 No 25 mg = 1 M emoria mg oral 12-15 tab, PO, l tablet 13:25: Daily, 0 Refill(s) heparin No Notes: Memoria 12-15 porcine l 13:00: heparin Lasix No Notes: Memoria 12-15 (Same as: l 13:00: Lasix) MEDICATION WASTE Product Size: 40 mg Product Wasted: ___ mg Budesonide No Notes: Memor ia 0.25 MG/ML 12-15 (Same As: l Inhalant 13:00: Pulmicort) [facility] Solution [Pulmicort] Albuterol No Notes: Memori a 0.833 MG/ML 12-15 (Same as: l / 08:00: Duoneb) [place] Ipratropium 00 Century 0.167 MG/ML Inhalant Solution [DuoNeb] Rocephin + No Notes: Memor ia sterile 12-15 (Same As: l water 10 mL 06:28: Rocephin). [place] 00 Use with 100 mL NS and infuse over 30 min MEDICATION WASTE Product Size: 1000 mg Product Wasted: ___ mg Azithromyci No Notes: Jensen ricco n 12-15 (Same As: l 06:28: Zithromax [place] 00 IV) Lasix No Notes: Memoria 12-15 (Same as: l 00:08: Lasix) MEDICATION WASTE Product Size: 40 mg Product Wasted: ___ mg Solu-Medrol No Notes: Jensen ricco 12-14 (Same l 23:39: as:Solu-ME DROL, A-Methapre d) Magnesium No Notes: Memori a Sulfate 12-14 WASTE: F/P l 23:39: - Sink; E [place] - [facility] Albuterol No Notes: Memori a 0.833 MG/ML 12-14 (Same as: l / 23:38: Duoneb) Ipratropium 00 Century 0.167 MG/ML Inhalant Solution [DuoNeb] pantoprazol 2016-06 Yes 40 mg = 1 M emoria e 40 mg 1-29 tab, PO, l oral 19:38: Before [place] enteric 00 Breakfast, coated # 30 tab, tablet 0 Refill(s), Pharmacy: [id number] Sodium 2016-06 No 1,000 mL, Memori a Chloride - Rate: 21 l 0.9% IV 13:30: ml/hr, Mikey 1,000 mL 00 Infuse over: 47.6 hr, Route: IV, Dosing Weight 65.2 kg, Total Volume: 1,000, Start date: 05/15/17 7:30:00 L[employer]ING [employer]TURE INSTALLER, Duration: 30 day, Stop date: 06/14/17 7:29:00 LIGHTING FIXTURE INSTALLER, 1.71, m2 atorvastati 2016-06 No atorvastat Memoria n 80mg pt -29 in 80mg pt l own med 03:00: own med, Eduardo n 00 80 mg, Drug form: MISC, Route: PO, Bedtime, 05/14/17 21:00:00 L[employer]ING FIXTURE INSTALLER, Duration: 30 day, Stop date: 06/12/17 21:00:00 LIGHTING FIXTURE INSTALLER atorvastati 2016-06 No Notes: Jensen ricco n [...] form: MISC, Route: PO, BID, 05/14/17 9:00:00 LIGHTING FIXTURE INSTALLER, Duration: 30 day, Stop date: 06/12/17 17:00:00 LIGHTING FIXTURE INSTALLER clopidogrel 2016-06 No Notes: Jensen ricco 07-14 (Same As: l 15:00: Plavix) carvedilol 2016-06 No Notes: Memor ia 07-14 Give with l 15:00: food. (Same As: Coreg) Donepezil 2016-06 No Donepezil Mem oria 10mg pt own 28 10mg pt l med 15:00: own med, [place] 00 10 mg, Drug form: MISC, Route: PO, BID, 05/14/17 9:00:00 LIGHTING FIXTURE INSTALLER, Duration: 30 day, Stop date: 06/12/17 17:00:00 L[employer]ING FIXTURE INSTALLER Streptococc 2016-06 No Notes: Jensen ricco us 07-14 Shake well l pneumoniae 15:00: prior to Her grider serotype 1 00 use (Same capsular as: antigen Prevnar diphtheria 13) [id number] protein conjugate vaccine / Streptococc us pneumoniae serotype 14 capsular antigen diphtheria [id number] protein conjugate vaccine / Streptococc us pneumoniae serotype 18C capsular antigen d Aspirin 2016-06 No Notes: Do Memor ia 07-14 not crush l 15:00: or chew. Mikey 00 (Same As: Ecotrin) influenza 2016-06 No Notes: Memori a virus 07-14 (Same as: l vaccine, 15:00: Fluzone Eduardo n inactivated 00 Quadrivale nt, Fluarix Quadrivale nt) For 3 years of age and older (0.5 mL IM) Shake well before use Protonix 2016-06 No Notes: Memoria 07-14 Tablet l 13:30: should not [place] 00 be chewed or crushed. (Same as: Protonix) Saline 2016-06 No Notes: Memoria Flush 0.9% 07-14 (Same as: l 03:15: BD [place] 00 Posiflush) Sodium 2016-06 No 1,000 mL, Memori a Chloride 07-14 Rate: 100 l 0.9% IV 03:15: ml/hr, Mikey 1,000 mL 00 Infuse over: 10 hr, Route: IV, Dosing Weight 65.2 kg, Total Volume: 1,000, Start date: 05/13/17 21:15:00 L[employer]ING FIX[employer] INSTALLER, Duration: 30 day, Stop date: 06/12/17 21:14:00 LIGHTING FIXTURE INSTALLER, 1.71, m2 Acetaminoph 2016-06 No Notes: Do M emoria en 07-14 not exceed l 03:15: 4 gm/day. [place] 00 (Same as: Tylenol) Ondansetron 2016-06 No [...] Weight 68.182 kg, Start date: 05/13/17 18:13:00 L[employer]ING FIXTURE INSTALLER, Stop date: 05/13/17 18:13:00 LIGHTING FIXTURE INSTALLER NS (Bolus) 2016-06 No 1,000 mL, Me moria IV -27 1,000 l 22:25: ml/hr, [place] 00 Infuse Over: 1 hr, Route: IV, 1,000, Drug form: INJ, ONCE, Priority: STAT, Dosing Weight 68.182 kg, Start date: 05/13/17 16:25:00 LIGHTING FIXTURE INSTALLER, Stop date: 05/13/17 16:25:00 LIGHTING FIXTURE INSTALLER Saline 2016-06 No Notes: Memoria Flush 0.9% 07-13 (Same as: l 20:15: BD Mikey Posiflush) Streptococc 2016-06 No Notes: Jensen ricco us -23 Shake well l pneumoniae 15:00: prior to Her grider serotype 1 00 use (Same capsular as: antigen Prevnar diphtheria 13) [id number] protein conjugate vaccine / Streptococc us pneumoniae serotype 14 capsular antigen diphtheria [id number] protein conjugate vaccine / Streptococc us pneumoniae [...] - not crush l 15:00: or chew. [place] 00 (Same As: Ecotrin) Allopurinol 2016-06 No Notes: Jensen ricco -23 (Same as: l 15:00: Zyloprim) Mikey 00 Sodium 2016-06 No 1,000 mL, Memori a Chloride 1-23 1,000 l 0.9% 14:14: ml/hr, Mikey (Bolus) IV 00 Infuse Over: 1 hr, Route: IV, 1,000, Drug form: INJ, ONCE, Priority: STAT, Dosing Weight 64.716 kg, Start date: 05/09/17 8:14:00 L[employer]ING FIXTURE INSTALLER, Stop date: 05/09/17 8:14:00 LIGHTING FIXTURE INSTALLER heparin 2016-06 No Notes: Memoria 1-23 porcine l 06:00: heparin [place] 00 atorvastati 2016-06 No atorvastat Memoria n 80mg pt 1-23 in 80mg pt l own med 04:31: own med, Eduardo n 00 80 mg, Drug form: MISC, Route: PO, Bedtime, 05/08/17 22:31:00 LIGHTING FIXTURE INSTALLER, Duration: 30 day, Stop date: 06/07/17 21:00:00 LIGHTING FIXTURE INSTALLER Memantine 2016-06 No Memantine Mem oria 10mg pt own 1-23 10mg pt l med 04:29: own med, Mikey 00 10 mg, Drug form: MISC, Route: PO, BID, 05/08/17 22:29:00 LIGHTING FIXTURE INSTALLER, Duration: 30 day, Stop date: 06/07/17 17:00:00 LIGHTING FIXTURE INSTALLER Donepezil 2016-06 No Donepezil Mem oria 10mg pt own 1-23 10mg pt l med 04:24: own med, [place] 00 10 mg, Drug form: MISC, Route: PO, BID, 05/08/17 22:24:00 LIGHTING FIXTURE INSTALLER, Duration: 30 day, Stop date: 06/07/17 17:00:00 LIGHTING FIXTURE INSTALLER atorvastati 2016-06 No 80 mg, Jensen ricco n 07-09 Route: PO, l 04:09: Drug form: [place] 00 TAB, Bedtime, Dosing Weight 64.716, kg, Start date: 05/08/17 22:09:00 LIGHTING FIXTURE INSTALLER, Duration: 30 day, Stop date: 06/07/17 21:00:00 LIGHTING FIXTURE INSTALLER Levetiracet 2016-06 No Notes: Jensen ricco am 250 MG 07-09 (Same l Oral Tablet 04:08: as:Keppra) Amlodipine 2016-06 No Notes: Memor ia -23 (Same as: l 04:08: Norvasc) Memantine 2016-06 No 10 mg, Memori a - Route: PO, l 04:07: Drug form: [place] 00 TAB, BID, Dosing Weight 64.716, kg, Start date: 05/08/17 22:07:00 LIGHTING FIXTURE INSTALLER, Duration: 30 day, Stop date: 06/07/17 17:00:00 LIGHTING FIXTURE INSTALLER carvedilol 2016-06 No Notes: Memor ia 07-09 Give with l 04:05: food. [place] 00 (Same As: Coreg) donepezil 2016-06 No [...] 0.9% 07-08 (Same as: l 22:14: BD Mikey 00 Posiflush) Sodium 2016-06 No 1,000 mL, Memori a Chloride 07-08 Rate: 125 l 0.9% IV 22:14: ml/hr, Mikey 1,000 mL 00 Infuse over: 8 hr, Route: IV, Dosing Weight 63.636 kg, Total Volume: 1,000, Start date: 05/08/17 16:14:00 LIGHTING FIXTURE INSTALLER, Duration: 30 day, Stop date: 06/07/17 16:13:00 LIGHTING FIXTURE INSTALLER, 1.69, m2 Acetaminoph 2016-06 No Notes: Do M emoria en 07-08 not exceed l 22:14: 4 gm/day. [place] 00 (Same as: Tylenol) Acetaminoph 2016-06 No Notes: Jensen ricco en 325 MG / 07-08 (Same as: l Hydrocodone 22:14: [place] nn Bitartrate 00 325/5) Do 5 MG Oral not exceed Tablet 4gm/day of acetaminop hen. Morphine 2016-06 No 2 mg, Memoria 07-08 Route: l 22:14: IVP, Q4H, Mikey 00 Dosing Weight 63.636, kg, PRN Pain Score 7-10, Start date: 05/08/17 16:14:00 LIGHTING FIXTURE INSTALLER, Duration: 30 day, Stop date: 06/07/17 16:13:00 LIGHTING FIXTURE INSTALLER Ondansetron 2016-06 No Notes: Jensen ricco 07-08 (Same as: l 22:14: Zofran) Mikey 00 MEDICATION WASTE Product Size: 4 mg Product Wasted: ___ mg NS (Bolus) 2016-06 No 1,000 mL, Me moria IV 07-08 1,000 l 20:28: ml/hr, [place] 00 Infuse Over: 1 hr, Route: IV, 1,000, Drug form: INJ, ONCE, Priority: STAT, Dosing Weight 63.636 kg, Start date: 05/08/17 14:28:00 LIGHTING FIXTURE INSTALLER, Stop date: 05/08/17 14:28:00 LIGHTING FIXTURE INSTALLER Pepcid 2016-06 No Notes: Memoria 07-08 (Same as: l 18:11: Pepcid) [place] Can be dilute in 5-10cc NS IVP: [...] Systolic (mm Hg) 2018-12-20 20:13:00 Jensen rial Mikey Diastolic (mm Hg) 2018-12-20 20:13:00 Mem orial [place] Respitory Rate 2018-12-20 20:13:00 Memori al Mikey Systolic (mm Hg) 2018-12-20 19:00:00 Jensen rial Mikey Diastolic (mm Hg) 2018-12-20 19:00:00 Mem orial [place] Respitory Rate 2018-12-20 19:00:00 Memori al [place] Systolic (mm Hg) 2018-12-20 18:00:00 Jensen rial Mikey Diastolic (mm Hg) 2018-12-20 18:00:00 Mem orial Mi[place] Respitory Rate 2018-12-20 18:00:00 Memori al [place] Temperature Oral (F) 2018-12-20 17:02:00 98.0 F [facility] Mikey Temperature Oral (F) 2018-12-20 13:00:00 97.7 F [facility] [place] Height 2018-12-15 06:10:00 160.02 cm [facility] [place] Weight 2018-12-15 06:10:00 [facility] [place] BMI Calculated 2018-12-15 06:10:00 Memori al [place] Systolic (mm Hg) 2018-12-15 03:53:00 Jensen rial [place] Diastolic (mm Hg) 2018-12-15 03:53:00 Mem orial [place] Respitory Rate 2018-12-15 03:53:00 Memori al [place] Systolic (mm Hg) 2018-12-15 02:45:00 Jensen rial Mikey Diastolic (mm Hg) 2018-12-15 02:45:00 Mem orial [place] Respitory Rate 2018-12-15 02:45:00 Memori al [place] Temperature Oral (F) 2018-12-15 02:45:00 97.9 F [facility] [place] Systolic (mm Hg) 2018-12-15 01:04:00 Jensen rial [place] Diastolic (mm Hg) 2018-12-15 01:04:00 Mem orial Mikey Respitory Rate 2018-12-15 01:04:00 Memori al [place] Height 2018-12-14 23:18:00 162.56 cm [facility] [place] Heart Rate 2018-12-14 23:18:00 [facility] Mikey Temperature Oral (F) 2018-12-14 23:18:00 97.9 F [facility] [place] BMI Calculated 2018-12-14 23:18:00 Memori al Mikey Weight 2018-12-14 23:18:00 [facility] Mi[place] Respitory Rate 2017-05-15 18:40:00 Memori al [place] Systolic (mm Hg) 2017-05-15 18:40:00 Jensen rial [place] Diastolic (mm Hg) 2017-05-15 18:40:00 Mem orial Mikey Systolic (mm Hg) 2017-05-15 18:30:00 Jensen rial [place] Diastolic (mm Hg) 2017-05-15 18:30:00 Mem orial Mikey Respitory Rate 2017-05-15 18:30:00 Memori al [place] Systolic (mm Hg) 2017-05-15 17:36:00 Jensen rial [place] Diastolic (mm Hg) 2017-05-15 17:36:00 Mem orial Mikey Heart Rate 2017-05-15 17:36:00 [facility] [place] Respitory Rate 2017-05-15 17:36:00 Memori al [place] Heart Rate 2017-05-15 14:54:00 [facility] Mikey Temperature Oral (F) 2017-05-15 14:54:00 99.1 F [facility] [place] Heart Rate 2017-05-15 09:05:00 [facility] Mikey Temperature Oral (F) 2017-05-15 09:05:00 97.5 F [facility] [place] Temperature Oral (F) 2017-05-15 05:40:00 98.1 F [facility] [place] Weight 2017-05-14 02:15:00 [facility] [place] Height 2017-05-14 02:15:00 157.48 cm [facility] [place] BMI Calculated 2017-05-14 02:15:00 Memori al [place] Weight 2017-05-13 20:07:00 [facility] [place] BMI Calculated 2017-05-13 20:07:00 Memori al Mikey Height 2017-05-13 20:07:00 172.72 cm [facility] [place] Heart Rate 2017-05-09 17:15:00 [facility] [place] Temperature Oral (F) 2017-05-09 17:15:00 97.8 F [facility] [place] Systolic (mm Hg) 2017-05-09 17:15:00 Jensen rial Mikey Diastolic (mm Hg) 2017-05-09 17:15:00 Mem orial [place] Respitory Rate 2017-05-09 17:15:00 Memori al [place] Respitory Rate 2017-05-09 14:29:00 Memori al Mikey Systolic (mm Hg) 2017-05-09 13:36:00 Jensen rial Mi[place] Diastolic (mm Hg) 2017-05-09 13:36:00 Mem orial [place] Respitory Rate 2017-05-09 13:36:00 Memori al Mikey Temperature Oral (F) 2017-05-09 13:36:00 97.7 F [facility] [place] Heart Rate 2017-05-09 13:36:00 [facility] [place] Temperature Oral (F) 2017-05-09 10:00:00 97.9 F [facility] [place] Heart Rate 2017-05-09 10:00:00 [facility] [place] Systolic (mm Hg) 2017-05-09 10:00:00 Jensen rial [place] Diastolic (mm Hg) 2017-05-09 10:00:00 Mem orial [place] Height 2017-05-08 23:34:00 157.48 cm [facility] [place] BMI Calculated 2017-05-08 23:34:00 Memori al Mikey Weight 2017-05-08 23:34:00 [facility] [place] Weight 2017-05-08 18:08:00 [facility] [place] BMI Calculated 2017-05-08 18:08:00 Memori al Mi[place] Height 2017-05-08 18:08:00 157.48 cm [facility] [place] Procedures Procedure Date / Time Performed Performing Clinician Sourc e Hysterectomy [facility] Stent placement [facility] [place] Plan of Care Planned Activity Planned Date Details Comments Source Future Scheduled 2020-01-16 INFLUENZA VACCINE [place] [facility] 00:00:00 [code = INFLUENZA VACCINE] Future Scheduled 2006 65+ PNEUMOCOCCAL [facility] 00:00:00 VACCINE (1 of 1 - PPSV23) [code = 65+ PNEUMOCOCCAL VACCINE (1 of 1 - PPSV23)] Future Scheduled 1991 SHINGLES VACCINES (#1) [place] [facility] 00:00:00 [code = SHINGLES VACCINES (#1)] Future Scheduled 1957 COVID-19 VACCINE (1 of [place] [facility] 00:00:00 2) [code = COVID-19 VACCINE (1 of 2)] Encounters Start End Encounter Admission Attending Care Care Encounter Source Date/Time Date/Time Type Type Clinicians Facility Department ID 2018-12-15 Inpatient U [facility] [id number] 00:39:00 [facility] l 2018-12-15 2018-12-20 Outpatient Filiebrto SE SE [id number] 00:39:00 16:45:00 Taso 81 2018-12-14 2018-12-14 Outpatient Angie Blevins [facility]PL [id number] 18:07:42 23:10:00 Sheryl 04 2018-12-14 2018-12-14 Emergency E MHBL MHBL [id number] MHBL 18:07:00 18:07:00 2017-05-13 2017-05-15 Outpatient Mt, [facility]PL MHPL [id number] 14:04:00 14:38:00 Trammell 03 Anjum 2017-05-08 2017-05-09 Outpatient George, [facility]PL MHPL [id number] 11:57:00 13:32:00 Shruthi 02 Breonna Results Test [...] code = MCH) 29.6 pg 27.0-31.0 [facility] CcfwyvgGLPDMZCALI5063-20-40 09:42:0043.0[facility] 2018-12-18 09:42:0013.9[facility] CiinpbuNCHIPBYLJQ3995-01-33 09:42:004.68[facility] XmhwannMNPGWNAWCK0435-56-10 09:42:007.0[facility] HermannCARDIAC DSSPTUM6462-83-11 12:00:00<0.02[facility] SykoainEXJYCDBVHCYK4965-50-65 12:00:0011.1[facility] JlsvfcqCCREOTSRZTBW9000-34-15 12:00:0020[facility] DrmyappQAHCFUARCUTJ0387-31-29 12:00:37678Ophueqmd KtjclocJRMVOMQGHZSA2874-50-85 12:00:0061[facility] [place] MKZAGJHFUSMM5824-49-83 12:00:002.30[facility] AwfzharDQUGOCFLBJNT1742-13-46 12:00:003.1[facility] ZktbhykDZCLSKYFFPJE6244-85-67 12:00:009.5[facility] [place] SMERIQZUMCFI6407-49-03 12:00:0029[facility] GfuxoinXQCHORCTAOIK7528-89-04 12:00:00 103[facility] ZfvwtrpKSEKGAFPVHKP1086-38-60 12:00:19831Gnvtxioy HermannHEMATOLOGY 2018-12-17 12:00:006.3[facility] TilhtgoXSMNLIPHNN8408-40-41 12:00:000.2[facility] GwpzvsbVZASZNLLEM3355-56-57 12:00:001.6[facility] NpprxpbEVQNIFTEFP2805-88-83 12:00:000.9[facility] NzfhiesTQQITJZIMK9830-37-96 12:00:0071.2[facility] [place] UJJEQYDNRN7318-57-73 12:00:0018.5[facility] XixvtnpOCGIWKQRXL7899-76-60 12:00:00 0.5[facility] OpcydeqYMERIRNKVQ2129-94-40 12:00:009.6[facility]annHEMATOLOGY 2018-12-17 12:00:009.6[facility] PvsxipbOYXMTDCPKC0247-07-25 12:00:008.8[facility] YeznugbBXWQDBCOBP9327-17-33 12:00:004.43[facility] TaajhnnQSJHRHQZGT8547-92-22 12:00:0013.3[facility] YhncersIBAOTAYUPH0971-75-99 12:00:0091.6[facility] [place] RQHPOLOGEX5165-02-20 12:00:0040.6[facility] SppzmogPWYOELUJVD0010-95-46 12:00:00 32.7[facility] LkpceivYETIMDSFKQ8532-85-15 12:00:00 Test Item Value Reference Range Interpretation Comments MCH (test code = MCH) 29.9 pg 27.0-31.0 [facility] FkuoskrFKKUJLYKLQ2739-50-37 12:00:48186Gjjcjvje HermannHEMATOLOGY 2018-12-17 12:00:0016.1[facility] GayancrVYJXPBPRJI2934-32-34 09:47:0015.6[facility] RwochydOOKKCTLESG0998-22-09 09:47:009.5[facility] LlnswniUVESWZIHYU0340-36-83 09:47:06900Txqlmffr HxoauuvBKZITKPJTW3065-42-40 09:47:003.86[facility] Mikey VRQUPNEATE3398-82-02 09:47:0011.emorial SmnebzyMLHVEJUDCP3572-13-82 09:47:00 35.0[facility] BhmrfocGIZLQWTAQW1015-77-92 09:47:0090.6[facility] HermannHEMATOLOGY 2018-12-16 09:47:0033.3[facility] ZhwwkxoPCWWVXAUHO4164-54-14 09:47:00 Test Item Value Reference Range Interpretation Comments MCH (test code = MCH) 30.2 pg 27.0-31.0 [facility] EzfrpauYNRAIBNVZM0822-53-63 09:47:0011.7[facility] HermannHEMATOLOGY 2018-12-16 09:47:006.2[facility] CdhfdeeOVUDNNDDPY6858-19-43 09:47:0087.6[facility] MxfnrbmWVFESQJKIZ8947-37-71 09:47:000.4[facility] MrualeeQCDIBNGDJR5061-46-22 09:47:005.8[facility] PykhdqwLPOVQQFGAR8980-63-21 09:47:000.7[facility] [place] TLJAFZHCKQ3634-41-70 09:47:0010.3[facility] WjnhslxHDILTHOTNJ0897-22-09 09:47:00 0.7[facility] HermannCHEM GAAWC4901-90-37 05:14:002.6[facility] HermannCHEM PANEL 2018-12-15 09:25:005.1[facility] HermannCHEM OKIKG6498-28-93 09:25:003.0[facility] HermannCHEM GSTQY9071-54-87 09:25:0015[facility] HermannCHEM BAMIR2479-13-98 09:25:55311Vkzmyqfi HermannCHEM YIDZY7231-63-13 09:25:000.4[facility] HermannCHEM JMUFD8608-14-84 09:25:0016[facility] HermannCHEM BKBMA8541-02-16 09:25:007.4 [facility] HermannCHEM TWTVY1366-27-36 09:25:002.7[facility] HermannCHEM PANEL 2018-12-15 09:25:00 Test Item Value Reference Range Interpretation Comments A/G Ratio (test code = A/G Ratio) 0.6 1 0.7-1.6 [facility] HermannCHEM [id number] 09:25:00 Test Item Value Reference Range Interpretation Comments B/C Ratio (test code = B/C Ratio) 22 1 6-25 [facility] HermannCHEM FWRTP5004-73-85 09:25:004.7[facility] HermannCHEM PANEL 2018-12-15 06:30:004.2[facility] HermannCHEM MQCVO8780-89-78 06:30:0016[facility] HermannCHEM EYYKJ6499-86-88 06:30:99666Vbwcwgon HermannCHEM KZKAM5940-92-88 06:30:0015[facility] [id number] 06:30:004.5[facility] [id number] 06:30:00 Test Item Value Reference Range Interpretation Comments A/G Ratio (test code = A/G Ratio) 0.6 1 0.7-1.6 [facility] [id number] 06:30:000.7[facility]CHE[facility] PANEL 2018-12-15 06:30:002.8[facility] [id number] 06:30:007.3[facility] [id number] 06:30:00 Test Item Value Reference Range Interpretation Comments B/C Ratio (test code = B/C Ratio) 22 1 6-25 [facility] [id number] 06:30:00Normal (12/15/18 1:30 AM)[facility] JwncsbaYEJKILZDKD4145-03-29 06:30:00Normal (12/15/18 1:30 AM)[facility] [id number] 02:51:003[facility] [id number] 02:51:00 Test Item Value Reference Range Interpretation Comments UA pH (test code = UA pH) 5.0 1 5.0-8.0 [facility] [id number] 02:51:00 Test Item Value Reference Range Interpretation Comments UA Spec Grav (test code = UA Spec 1.008 1 Grav) [facility] [id number] 02:51:00Slight *ABN*(12/14/18 9:51 PM) [facility] [id number] 02:51:00Negative (12/14/18 9:51 PM) [facility] [id number] 02:51:00Negative (12/14/18 9:51 PM) [facility] [id number] 02:51:00Negative *NA*(12/14/18 9:51 PM) [facility] [id number] 02:51:003[facility] [id number] 02:51:00Negative (12/14/18 9:51 PM)[facility] [id number] 02:51:003[facility]annCARDIAC [id number] 00:46:25141 [facility] [id number] 00:46:000.02[facility]annCHEM PANEL 2018-12-15 00:46:001.5[facility] QxkdnjjTHQFAAEAJYXB2035-03-71 00:46:0014.0 [facility] KzizetfSIJPNWAMZPCE0099-67-90 00:46:004.7[facility]annELECTROLYTES 2018-12-15 00:46:00 Test Item Value Reference Range Interpretation Comments B/C Ratio (test code = B/C Ratio) 19 1 6-25 [facility] [id number] 00:46:00 Test Item Value Reference Range Interpretation Comments A/G Ratio (test code = A/G Ratio) 0.6 1 0.7-1.6 [facility] [id number] 00:46:0021[facility]annELECTROLYTES 2018-12-15 00:46:0018[facility] LwhyswxRYBXUWRMVJCG9661-92-32 00:46:007.7[facility] NdrttopZJJZJCMOBBWR2928-59-22 00:46:008.9[facility] OcapypoNHDOMZDDWPHS6238-70-86 00:46:0022[facility] MianqmzSYEMRUKJMHYJ0101-43-47 00:46:003.0[facility] MDOTISNRJCJT7498-37-91 00:46:000.6[facility] AodpfoxBRSKYGWELHGC9057-00-25 00:46:00935Zhdkzeuz VpcrkcdVMYUXVUCGKBC8361-61-46 00:46:0043[facility] TUHAQVCLQJAV2378-49-71 00:46:48512Xzmpnlbv QqohiwcXVZCPPESRIWX0485-57-02 00:46:0023[facility] BfvuzbkJAUBLOYLAMRJ3723-03-43 00:46:90261Booirhkh Mikey NAUMWZQGKLPN5419-50-68 00:46:002.22[facility] GqlevavISHHDDNRCRSC8389-29-00 00:46:27412Aderhhag WrzowciGOYEPVGIDTHP2818-74-04 00:46:004.0[facility] YCCWNJIFEF6041-27-91 00:46:001.5[facility] QtbztwqOQQRQIYEGW3796-65-12 00:46:001.5 [facility] GeefwleYKIMGEXWZY7568-28-86 00:46:001.1[facility]annHEMATOLOGY 2018-12-15 00:46:009.6[facility] ZkxxfmuBPIAVPVRAN9743-68-41 00:46:0012.0[facility] GcymbfqXETHKOWUCR4149-77-61 00:46:0074.7[facility] BwicikkLARJSGNOUW5668-23-39 00:46:0011.7[facility] WvzgpkgZQFPZNGBLA3424-43-70 00:46:000.5[facility] PGNMDXJSTX1682-48-85 00:46:000.1[facility] AqcadpaNYAMXEACHO5290-14-61 00:46:000.1 [facility] GwyzinnKJBUBXZWKA0066-18-73 00:46:0090.9[facility]annHEMATOLOGY 2018-12-15 00:46:0035.4[facility] OhrjkwfQVSOJACUVV6110-12-10 00:46:00 Test Item Value Reference Range Interpretation Comments MCH (test code = MCH) 30.3 pg 27.0-31.0 [facility] WzvixihSQGANUGZWR1724-44-12 00:46:0012.9[facility]annHEMATOLOGY 2018-12-15 00:46:0011.8[facility] SemjcejMNOIHYKIKQ7496-59-70 00:46:003.89[facility] UdqrpcxWJKVLECEEJ2876-23-31 00:46:009.2[facility] WszfkhaAQVLEECMLJ2888-32-08 00:46:26241Oxnazftj LvoozxdMMPWCYHEZC7384-64-55 00:46:0015.6[facility] ASMBTUASBY9353-78-34 00:46:0033.3[facility]annMOLECULAR NXAPFLUJIT6366-91-70 00:46:00Not Detected (12/14/18 7:46 PM)[facility]annMOLECULAR DIAGNOSTIC 2018-12-15 00:46:00Not Detected (12/14/18 7:46 PM)[facility]annMOLECULAR UBUUWZVHBE5814-20-29 00:46:00Not Detected (12/14/18 7:46 PM)[facility] MOLECULAR QWLXAMMUKA2434-31-21 00:46:00Not Detected (12/14/18 7:46 PM)[facility]annMOLECULAR NBHZPATSAZ8345-54-18 00:46:00Not Detected (12/14/18 7:46 PM) [facility] MYQIVBTFOF9932-29-01 00:46:00Not Detected (12/14/18 7:46 PM)[facility]annMOLECULAR HNBPETFDPX0989-02-44 00:46:00Not Detected (12/14/18 7:46 PM)[facility]annMOLECULAR FVXOAZGUTE6329-22-95 00:46:00Not Detected (12/14/18 7:46 PM)[facility]annMOLECULAR NTJJVTSOGQ7638-56-23 00:46:00Not Detected (12/14/18 7:46 PM)[facility]annMOLECULAR DIAGNOSTIC 2018-12-15 00:46:00Not Detected (12/14/18 7:46 PM)[facility]annMOLECULAR ZNMQUASCDG5374-06-68 00:46:00Not Detected (12/14/18 7:46 PM)[facility] MOLECULAR PQXKXQSGGD2746-83-69 00:46:00Not Detected (12/14/18 7:46 PM)[facility]annMOLECULAR NEPRWCLWFA0888-59-23 00:46:00Not Detected (12/14/18 7:46 PM) [facility]annMOLE[facility]ULAR WRYRGHUXQO7913-90-33 00:46:00Not Detected (12/14/18 7:46 PM)[facility]annMOLECULAR VBCQPLRHFA7848-91-46 00:46:00Not Detected (12/14/18 7:46 PM)[facility]annCHEM COLRY3918-47-20 10:55:001.9[facility] HermannCHEM JJVAT2507-68-86 10:55:008.6[facility]annCHEM PDQHC9261-83-78 10:55:0010.7[facility]annCHEM DFBSI6343-45-22 10:55:0046[facility]annCHEM XCNLJ8336-31-15 10:55:0089[facility]annCHEM KIUUV2642-59-48 10:55:0026 [facility]annCHEM DOYUP9840-96-41 10:55:003.7[facility] HermannCHEM PANEL 2017-05-15 10:55:48075Xmmdpmni HermannCHEM ZVAXP5811-33-69 10:55:00495Ekcjbfvf HermannCHEM BSKBL4166-00-30 10:55:0022[facility]annCHEM ANSJP5214-25-15 10:55:001.15[facility]annCHEM VYTES8453-83-03 09:12:002.1[facility]annCHEM RGMAD1812-43-37 09:12:003.4[facility] SoqrttgZWKOUEIBCFGO2002-02-23 09:12:0011.6 [facility] IniqwptLXNGRELZOEPY3739-29-71 09:12:009.0[facility] HermannELECTROLYTES 2017-05-14 09:12:0043[facility] ZxqzcorKHICWWVUNVUX5239-62-27 09:12:003.6[facility] YgwbbcwRNEMLWNKTGAU6411-61-99 09:12:001.23[facility] MqiyajgZFLZTUZFYMWK6457-40-84 09:12:98338Tqaeveka VxxiibfGFVXEWKDAIUI5992-51-59 09:12:77830Sriwxcrc Mikey VRKWCKKKRCQH5721-91-72 09:12:0026[facility] SkwfunqRRDQGFPDSZIV5489-08-83 09:12:00 30[facility] ObyflsfSLNMNQXJSXTX4071-37-07 09:12:0086[facility]annHEMATOLOGY 2017-05-14 09:12:89457Urlobtly McrntkhGKYWEPNQUL5542-54-18 09:12:009.6[facility] LzfacusJUBKNOHRNR5441-50-95 09:12:007.4[facility] RkndrjlXJVWOZJOVP3005-59-17 09:12:0014.2[facility] EwpaopdYMGDCFIUTA9545-63-15 09:12:004.75[facility] TXHUJONOTS2057-14-42 09:12:00 Test Item Value Reference Range Interpretation Comments MCH (test code = MCH) 29.9 pg 27.0-31.0 [facility] LahzhfxXJNXMODCBM9679-01-87 09:12:0090.0[facility] HermannHEMATOLOGY 2017-05-14 09:12:0033.3[facility] CcqplmcNYQACBFGJJ3010-14-82 09:12:0015.6[facility] BtujcnzIQURUNLOGD5453-82-28 09:12:0042.7[facility] BsyfutaBRZEXTAIAG8719-22-22 09:12:000.1[facility] VdcoztzGIGUFKFAVF6023-64-74 09:12:003.6[facility] CUHBAHCEIM1110-87-22 09:12:001.1[facility] VwmftulABIGPCWSLN9693-88-71 09:12:002.4 [facility] FvghysdKTJEGBMXMK6154-94-16 09:12:0048.0[facility]annHEMATOLOGY 2017-05-14 09:12:000.7[facility] QrfjbycOOGRHXLLEF2548-76-01 09:12:000.7[facility] NcrtsixYJNFXMWKVQ8807-28-25 09:12:009.4[facility] JdawzvtKYHVQTWOPF9028-75-32 09:12:009.6[facility] DfnuenvVLGAONKLFJ9055-89-06 09:12:0031.9[facility] URINE AND ULVZT6014-14-21 00:20:00None Seen (05/13/17 6:20 PM)[facility] URINE AND VDQDD4223-97-19 00:20:00None Seen (05/13/17 6:20 PM)[facility] URINE AND OIWPX3455-35-20 00:20:000-2 (05/13/17 6:20 PM)[facility]ann[facility] AND PHXFC6195-30-36 00:20:000.2[facility]annUR[facility] AND CRXKK0011-20-47 00:20:00Negative (05/13/17 6:20 PM)[facility] ZSWPK7514-08-87 00:20:00Negative (05/13/17 6:20 PM)[facility] HVOLD1763-70-50 00:20:00Negative (05/13/17 6:20 PM)[facility] CPPKO4568-72-54 00:20:00Negative *NA*(05/13/17 6:20 PM)[facility] PKFES0584-27-71 00:20:00Negative *NA*(05/13/17 6:20 PM)[facility] IXRXO3313-13-84 00:20:00Negative (05/13/17 6:20 PM)[facility] XWQLQ6994-00-54 00:20:00Clear (05/13/17 6:20 PM)[facility] TGQBT3890-24-52 00:20:00 Test Item Value Reference Range Interpretation Comments UA Spec Grav (test code = UA Spec 1.020 1 Grav) [facility] ZGCAC5084-63-47 00:20:00 Test Item Value Reference Range Interpretation Comments UA pH (test code = UA pH) 6.5 1 5.0-8.0 [facility] PGTSY3237-33-24 00:20:00Yellow *NA*(05/13/17 6:20 PM) [facility]annCARDIAC NMEIHAY8819-04-97 22:28:0050[facility]annCARDIAC XWWNNVX2034-45-52 22:28:000.02[facility]annCARDIAC AZCYXWD2499-13-59 22:28:00 3.3[facility]annCARDIAC XCYUQKE2361-24-84 22:28:006.6[facility] HermannCHEM QEDWO4731-57-64 22:28:0036[facility] HermannCHEM HMTIT0430-82-31 22:28:001.43 [facility]annCHEM NVPDK4274-56-70 22:28:009.8[facility] HermannCHEM PANEL 2017-05-13 22:28:0010.0[facility] HermannCHEM EJLZJ5417-83-60 22:28:83122Yhdpvgpo HermannCHEM BBHRX1159-29-46 22:28:0028[facility]annCHEM RWIVX8667-67-73 22:28:004.0[facility] HermannCHEM KVNQX7013-54-68 22:28:0034[facility]annCHEM LIFRW5361-29-35 22:28:42957Quciyvec HermannCHEM VCLXG2533-27-65 22:28:25143 [facility] ZdwvxnsTOCFPKUVRI0593-75-19 22:28:001.03[facility]annHEMATOLOGY 2017-05-13 22:28:00 Test Item Value Reference Range Interpretation Comments PROTIME (test code = PROTIME) 13.5 s 12.0-14.[address] [facility] KrxaauoWHLLHQVKKA2971-05-91 22:28:00 Test Item Value Reference Range Interpretation Comments aPTT (test code = aPTT) 38.0 s 22.9-35.8 [facility]XYSML[facility]22[facility] 22:28:00 Test Item Value Reference Range Interpretation Comments MCH (test code = MCH) 29.8 pg 27.0-31.[address] [facility] OjrktnsGDKIWXMITX7330-09-45 22:28:0015.9[facility]annHEMATOLOGY 2017-05-13 22:28:0046.5[facility] HwnukovWBGMVNPSUL4723-45-50 22:28:0015.4[facility] KlxuryyUEVUMKPFJV2837-83-73 22:28:0090.2[facility] UmxqeyqVGAQHAPEDV2950-80-77 22:28:009.0[facility] SerezmtXDBSWBZUIA1613-59-66 22:28:09368Bwyyoljq Mikey HSUQOYCSQW1127-86-06 22:28:0033.0[facility] LftopmyYVCHTITRPI9706-00-97 22:28:00 5.16[facility] VtmmmemIXZBBXFLGI7688-16-74 22:28:008.2[facility] HermannHEMATOLOGY 2017-05-13 22:28:000.7[facility] DluohhwFSQVTJIDLR4705-02-36 22:28:000.1[facility] JqmepvgUKEHXBFBDN9470-15-80 22:28:002.6[facility] BlsqoqrNRHLPJYBOF6818-24-63 22:28:004.2[facility] XotljbiYSXQKZIKZG8601-15-37 22:28:000.7[facility] IBUBUGODEY2561-54-12 22:28:001.0[facility] VhwriduJTCIWYLQBF8655-95-20 22:28:00 51.em[facility] MvuqzoyIXLKEDETFK7311-23-11 22:28:0030.9[facility]annHEMATOLOGY 2017-05-13 22:28:008.5[facility] UputvvlZRWEQTPNON9804-36-81 22:28:008.0[facility] HermannCHEM CNQAW8175-23-21 12:52:000.6[facility] HermannCHEM IDAPL9588-15-08 12:52:79578Uqwrwmax HermannCHEM VRHEC5820-19-81 12:52:0025[facility] HermannCHEM THEVI7559-05-24 12:52:000.1[facility] HermannCHEM OXXIT8357-42-69 12:52:000.5 [facility]annCHEM PFNNT9458-71-37 12:52:0021[facility] HermannCHEM PANEL 2017-05-09 12:52:003.7[facility] HermannCHEM NEMKA2474-88-54 12:52:006.7[facility] HermannCHEM ZOOUF6181-83-97 12:52:000.8[facility] HermannCHEM AEAXW0182-47-70 12:52:003.0[facility] HermannCHEM GPFLW7341-04-66 12:52:009.0[facility] HermannCHEM HUUJA3540-34-01 12:52:0041[facility] HermannCHEM NSBJJ5180-07-38 12:52:0097 [facility]annCHEM BCYHF5819-95-10 12:52:001.26[facility] HermannCHEM PANEL 2017-05-09 12:52:0025[facility] HermannCHEM PBCKZ7070-54-16 12:52:0010.7[facility] HermannCHEM LGSPE4625-80-99 12:52:0027[facility] HermannCHEM TKPXX4338-16-24 12:52:64814Gqnstibk HermannCHEM RJKEQ9259-04-93 12:52:003.7[facility] HermannCHEM LVPLL2605-25-70 12:52:77547Mwmsdaer UnmyanhIBFBYC9102-92-19 12:52:0023[facility] VyonrgoWWARYK4507-80-52 12:52:0034[facility] SywgcosFRWQFM1215-23-81 12:52:84279 [facility] TvjahknJDELSS0606-62-22 12:52:002.30[facility] ZozvremNLJWGJ9625-50-71 12:52:0044[facility] WpaaitmHGQIJS3972-94-72 12:52:15371Hwackbxk HermannANEMIA DWZXD6749-13-08 00:52:00>2000[facility] HermannANEMIA LIMTX1156-51-72 00:52:00 49.5[facility] MidimcbGKZDYZJJFZ6218-47-52 00:52:005[facility]annHEMATOLOGY 2017-05-09 00:52:009.2[facility] CkazgcoSDSMZFKGRO8164-03-55 00:52:005.36[facility] BdwyqcfKXRCUTHGVI9994-59-87 00:52:0015.8[facility] NphomtbDQFFBOWXFS4292-24-05 00:52:008.5[facility] HqnmmbtENIURTOIXJ0033-92-79 00:52:00 Test Item Value Reference Range Interpretation Comments MCH (test code = MCH) 29.6 pg 27.0-31.0 [facility] RfyskweMBHXVBUELP5195-94-72 00:52:0032.8[facility] HermannHEMATOLOGY 2017-05-09 00:52:0015.7[facility] KhwcxnvUANOIUZEWC0618-96-17 00:52:53902Zckhbozd NhimwjzJUFLUPYWNA9340-50-76 00:52:0048.3[facility] QuidmqaVEMTRDUVAO7906-73-17 00:52:0090.2[facility] OskhdqiCRWNBXIKFW6118-53-66 00:52:000.1[facility] FCBUEESCPE0624-62-14 00:52:000.5[facility] PxaqjseQTFNSZWOCE0130-05-51 00:52:000.5 [facility] WegffeeHLJOEEJIQS6401-01-66 00:52:003.0[facility] HermannHEMATOLOGY 2017-05-09 00:52:0052.2[facility] RirutrnKYVMSKXQII7662-68-02 00:52:0035.2[facility] RpmgbwpGFTDGUOPYR9814-91-30 00:52:006.4[facility] MugtatmZTQKWDWNFN2031-30-98 00:52:004.4[facility] KsnvivdDVQIYNPYIT8362-74-04 00:52:005.5[facility] DSUOTWVXYH4386-71-90 00:52:000.7[facility] ShfdnijROLCJPTRHX0448-35-49 00:52:00 <2.9[facility] DzlyadeQYYCZCCTOL4000-56-20 00:52:00<10[facility] PMTWSXUZBS2815-77-75 00:52:00Negative (05/08/17 6:52 PM)[facility] KUFAYNCOPC5350-41-14 00:52:00Negative (05/08/17 6:52 PM)[facility] GHXPEJSSII0555-48-74 00:52:00Positive *ABN*(05/08/17 6:52 PM)[facility] VZYMBFOKBS9519-47-67 00:52:00<0.2[facility] TjurbljHUIHRRTMRT6956-30-50 00:52:00<0.2[facility] AvbuyxvIRKVOOJQJJ6187-11-50 00:52:00<0.2[facility] OpudrcbRJNOMXQONK6177-02-91 00:52:00<0.2[facility] TuexrbtRKEMOYLUOW7210-04-47 00:52:001:40 *ABN*(05/08/17 6:52 PM)[facility] OaudhxcJWSVRRVREZ3044-47-25 00:52:00Negative *NA*(05/08/17 6:52 PM)[facility] RmewchcEECEOZGVCI4229-83-66 00:52:00Negative *NA*(05/08/17 6:52 PM)[facility] SezxaejLKFTGHXHLA2073-05-87 00:52:00Negative *NA*(05/08/17 6:52 PM)[facility] MiyyndnFMRBDMFTDA1818-53-15 00:52:00Negative *NA*(05/08/17 6:52 PM)[facility] BifzazgCGVUMBXDLY5167-91-65 00:52:00>8.0[facility] GqsvbkcLIICCTGCHY1094-96-76 00:52:00>8.0[facility] XcrzxzfNPTMFHEXEC5394-83-83 00:52:00<0.2[facility] PrfoxbnXTHXSPINB4238-20-61 00:52:0093[facility]UR[facility] AND FCTXJ0958-21-97 20:02:00Negative (05/08/17 2:02 PM)[facility] TZWVJ6859-44-77 20:02:00Negative *NA*(05/08/17 2:02 PM)[facility] NSGMF6749-84-95 20:02:00Negative *NA*(05/08/17 2:02 PM)[facility] DAZMS1457-19-95 20:02:00Negative (05/08/17 2:02 PM)[facility] VXYCD9845-27-59 20:02:00Negative (05/08/17 2:02 PM)[facility] FTBUM1815-68-15 20:02:00Negative (05/08/17 2:02 PM)[facility] RGUZT0926-30-32 20:02:000.2[facility] URINE AND HUVQO4089-76-89 20:02:00Yellow *NA*(05/08/17 2:02 PM)[facility] URINE AND JXTHJ7339-79-47 20:02:00Clear (05/08/17 2:02 PM)[facility] JTPIJ6006-88-94 20:02:00 Test Item Value Reference Range Interpretation Comments UA Spec Grav (test code = UA Spec 1.020 1 Grav) [facility] KUVCS2348-64-57 20:02:00 Test Item Value Reference Range Interpretation Comments UA pH (test code = UA pH) 6.0 1 5.0-8.0 [facility] QOEPJ3008-51-22 20:02:00None Seen (05/08/17 2:02 PM) [facility] LJHDN7075-33-83 20:02:00None Seen (05/08/17 2:02 PM) [facility]annCARDIAC EHTRZUQ6512-47-35 19:41:00<0.02[facility] CARDIAC UUGWVMK4740-09-83 19:41:002.5[facility] HermannCARDIAC BIHGVUQ5150-78-96 19:41:0074[facility]annCARDIAC ROCDQDB9482-21-70 19:41:003.4[facility] CHEM JRYXB7123-25-86 19:41:0027[facility] HermannCHEM QVVPA4911-19-97 19:41:000.8 [facility]annCHEM NHJPP1469-81-33 19:41:0042[facility]annCHEM PANEL 2017-05-08 19:41:0024[facility] HermannCHEM RGRNP6256-54-51 19:41:41566Ojcpesfz HermannCHEM QPBPW5849-31-40 19:41:000.8[facility] HermannCHEM MVNMQ0586-89-14 19:41:004.7[facility] HermannCHEM SLWWR3769-29-17 19:41:003.7[facility] HermannCHEM CFCST8430-74-95 19:41:004.7[facility] HermannCHEM FKRCE2545-33-31 19:41:009.5 [facility]annCHEM OCCHF1759-28-45 19:41:0027[facility]annCHEM PANEL 2017-05-08 19:41:0012.7[facility] HermannCHEM XBPML1352-69-06 19:41:008.4[facility] HermannCHEM NNWYI9428-54-01 19:41:0022[facility]annCHEM UBBAY5247-14-96 19:41:34442Akljgnbf HermannCHEM IJRAX6278-34-42 19:41:0039[facility] HermannCHEM OKFTH3393-41-71 19:41:001.80[facility]annCHEM IQHTA2602-64-00 19:41:51900 [facility]annCHEM OEWFV1153-02-15 19:41:81305Gtoiheds HermannCHEM PANEL 2017-05-08 19:41:001.5[facility] HermannCHEM VUMRD4080-75-93 19:41:63674Vlwimrfh IebwnujRKJBSCGAMP5726-00-53 19:41:009.0[facility] XuyhjimPHFQGODDTM8114-76-59 19:41:0015.7[facility] XtyodlwMCMBTIZOKW2874-38-48 19:41:46141Nvlqiokf [place] OUGNDYFDGP0483-42-68 19:41:00 Test Item Value Reference Range Interpretation Comments MCH (test code = MCH) 29.9 pg 27.0-31.0 [facility] LohgnzlRTIAEUPOQE2165-65-47 19:41:0033.2[facility] HermannHEMATOLOGY 2017-05-08 19:41:0050.0[facility] CdqxrvuZDITXYEYWQ9682-20-14 19:41:0090.2[facility] GmpmykpWONJFPYCWG5942-92-57 19:41:0016.6[facility] UlnnoarOEHUVRXIUH2995-10-44 19:41:0010.0[facility] TnudeqcSCQKNRNBQJ0693-10-95 19:41:005.54[facility] NDUSVPWYRD1143-31-18 19:41:000.1[facility] BdpekgkUGMLUPYGXU8731-80-68 19:41:000.5 [facility] ZkwuwiaANRKRSEPCO9810-04-53 19:41:006.1[facility] HermannHEMATOLOGY 2017-05-08 19:41:001.0[facility] SahuwssCRBQHCWDYD7236-35-89 19:41:001.0[facility] XadmisfWDXBBXARAA5608-32-79 19:41:002.3[facility] VakddyyTUZZTJSXGB7453-82-29 19:41:005.1[facility] CljkolsVYNXJMZVSY4736-51-61 19:41:009.7[facility] PHUJZVBRAW6867-88-63 19:41:0023.1[facility] DrexjusCDELPHQNDS1322-99-18 19:41:00 61.1[facility]
[2020-07-02] MEDS ORDERED: LEVALBUTEROL 1.25 MG/3 ML NEB ONE (18:53)
[2020-07-02] MEDS ORDERED: METHYLPREDNISOLONE 40 MG INJ ONE (18:53)
[2020-07-02] MEDS ORDERED: FUROSEMIDE 40 MG/4 ML VIAL ONE (18:53)
--- NOTE | 2020-07-02 18:53 | RAD REPORT ---
EXAM DESCRIPTION: RAD - Chest Single View - 07/02/2020 6:40 pm CLINICAL HISTORY: Congestion;Cough;SOB Chest pain. COMPARISON: Chest Single View dated 06/25/2020; Chest Single View dated 06/21/2020; Chest Single View da luís 06/20/2020; Chest Pa And Lat (2 Views) dated 06/04/2018 FINDINGS: Portable technique limits examination quality. Bilateral interstitial and alveolar lung opacities are again noted with a left pleural effusion. Find ings likely represent infection/pneumonia appears slightly progressive since the comparative chest ra diograph. The heart is moderately enlarged with a dual lead pacer device present. No displaced fractu res.Vascular stent is seen in the left neck. IMPRESSION: Bilateral pneumonia pattern appears mildly progressive since the comparative chest radio graph.
[2020-07-02 19:39] LABS: Absolute Lymphocytes (CBC) 0.4 K/uL (0.7-4.9); Basophils % 0.2 % (0-1.3); Hematocrit 31.1 % (36.0-45.0); MPV 9.9 fL (7.6-11.3); RBC Red Blood Cell Count 3.77 M/uL (3.86-4.86)
[2020-07-02 19:45] LABS: Protime INR 1.86
[2020-07-02 19:53] LABS: Albumin 2.7 g/dL (3.4-5.0); Bilirubin Direct 0.2 mg/dL (0-0.2); Bilirubin Total 0.6 mg/dL (0.2-1.0); Magnesium 2.5 mg/dL (1.8-2.4); Potassium 4.2 mmol/L (3.5-5.1); Protein, Total 6.3 g/dL (6.4-8.2); Troponin (Emerg Dept Use Only) 0.02 ng/mL (0.0-0.045)
[2020-07-02 20:33] LABS: Blood Morphology Comment NOTED (NOT SEEN); Platelet Estimate ADEQ; Teardrop Cell 2+
[2020-07-02] MEDS ORDERED: Levofloxacin500mg IV 500 MG/100 ML BAG IV ONE (20:58)
[2020-07-02] MEDS ORDERED: ALBUTEROL INHALER 60 PUFF/8 GM IH ONE (20:59)
--- NOTE | 2020-07-02 21:13 | ER ---
Nurse's Notes [facility] Name: Tamia Colon Age: 80 yrs Sex: Female : 1940 Arrival Date: 07/02/2020 Time: 17:45 Bed 17 Private MD: Diagnosis: Pneumonia;Hypoxia Presentation: 07/02 17:51 Chief complaint: Patient states: SOB, wheezing, low O2 90% at home on 3l[place]. Coronavirus ll1 screen: Client denies travel out of the [place] in the last 14 days. At this time, the client does not indicate any symptoms associated with coronavirus-19. Ebola Screen: Patient denies travel to an Ebola-affected area in the 21 days before illness onset. Initial Sepsis Screen: Does the patient meet any 2 criteria? No. Patient's initial sepsis screen is negative. Does the patient have a suspected source of infection? Yes: Productive cough/pneumonia. Risk Assessment: Do you want to hurt yourself or someone else? Patient reports no desire to harm self or others. Onset of symptoms was July 02, 2020. 17:51 Method Of Arrival: Ambulatory ll1 17:51 Acuity: SARA 2 ll1 Triage Assessment: 17:51 General: Appears uncomfortable, Behavior is calm, cooperative, appropriate for age. ll1 Pain: Denies pain. Respiratory: Reports shortness of breath labored breathing Airway is patent Trachea midline Respiratory effort is even, labored, Respiratory pattern is regular, symmetrical, the patient has moderate shortness of breath. GI: No deficits noted. Historical: - Allergies: 17:51 No Known Allergies; ll1 - PMHx: 17:51 Hypertension; CVA; CHF; Renal Disease; ll1 - Immunization history:: Flu vaccine is up to date. - Social history:: Smoking status: Patient denies any tobacco usage or history of. Patient/guardian denies using tobacco, the patient reports quitting approximately 8 years ago. Screenin:29 Abuse screen: Denies threats or abuse. Nutritional screening: No deficits noted. vg1 Tuberculosis screening: No symptoms or risk factors identified. Fall Risk No fall in past 12 months (0 pts). No secondary diagnosis (0 pts). IV access (20 points). Ambulatory Aid- Crutches/Cane/Walker (15 pts). Gait- Weak (10 pts.). Mental Status- Oriented to own ability (0 pts). Total Malagon Fall Scale indicates Low Risk Score (25-44 pts). Fall prevention measures have been instituted. Side Rails Up X 2 Placed close to Nursing Station Family Present and informed to notify staff if they need to leave bedside. Assessment: 18:15 General: Appears in no apparent distress. comfortable, Behavior is calm, cooperative. vg1 Pain: Denies pain. Neuro: Level of Consciousness is awake, alert, obeys commands, Oriented to person, place. Cardiovascular: Patient's skin is warm and dry. Edema pitting to MURALI lower extremities and MURALI upper extremities. Respiratory: Airway is patent Respiratory effort is even, labored, Respiratory pattern is regular, symmetrical. Respiratory: Breath sounds with wheezes bilaterally. Parent/caregiver reports the patient having shortness of breath cough that is non-productive. GI: Abdomen is flat, Patients Daughter states no N/V/D. : No signs and/or symptoms were reported regarding the genitourinary system. EENT: No signs and/or symptoms were reported regarding the EENT system. Derm: Skin is pink, warm \T\ dry. Musculoskeletal: Circulation, motion, and sensation intact. 20:54 Reassessment: Patient appears in no apparent distress at this time. Patient and/or vg1 family updated on plan of care and expected duration. Pain level reassessed. Patient is alert, oriented x 3, equal unlabored respirations, skin warm/dry/pink. 21:59 Reassessment: No changes from previously documented assessment. vg1 22:55 Reassessment: Patient appears in no apparent distress at this time. Patient and/or vg1 family updated on plan of care and expected duration. Pain level reassessed. Patient is alert, oriented x 3, equal unlabored respirations, skin warm/dry/pink. Patient denies pain at this time. Vital Signs: 17:51 BP 139 / 82; Pulse 61; Resp 20; Temp 97.4; Pulse Ox 86% on R/A; Weight 63.5 kg; Height ll1 5 ft. 1 in. (154.94 cm); Pain 0/10; 18:01 Pulse Ox 91% on 4 lpm NC; ll1 18:15 BP 129 / 65; Pulse 62; Resp 16; Pulse Ox 94% on 4 lpm NC; vg1 19:30 BP 124 / 72; Pulse 60; Resp 12; Pulse Ox 12% on 4 lpm NC; vg1 20:45 BP 124 / 60; Pulse 70; Resp 14; Pulse Ox 93% on 4 lpm NC; vg1 21:30 BP 119 / 69; Pulse 59; Resp 16; Pulse Ox 92% on 4 lpm NC; vg1 22:00 BP 110 / 67; Pulse 59; Resp 18; Pulse Ox 92% on 4 lpm NC; vg1 23:00 BP 119 / 61; Pulse 59; Resp 18; Pulse Ox 93% on 4 lpm NC; vg1 17:51 Body Mass Index 26.45 (63.50 kg, 154.94 cm) ll1 ED Course: 17:45 Patient arrived in ED. ds1 17:51 Arm band placed on. ll1 17:54 Triage completed. ll1 17:56 Espinoza Darby MD is Attending Physician. kdr 17:56 Patient placed in an exam room, on a stretcher. ll1 18:00 Jordyn Berumen, RN is Primary Nurse. vg1 18:30 Patient has correct armband on for positive identification. Bed in low position. Call vg1 light in reach. Side rails up X2. Adult w/ patient. 18:39 XRAY Chest (1 view) In Process Unspecified. EDMS 18:56 Inserted saline lock: 20 gauge in right wrist, using aseptic technique. 1 18:59 Attending Physician role handed off by Espinoza Darby MD 7 18:59 Vinny Pope MD is Attending Physician. 7 21:12 Ariana Koroma MD is Hospitalizing Provider. 7 21:57 Urine collected: straight cath specimen, clear, polina colored. jp3 22:00 Straight cath inserted, using sterile technique, 16 Fr. Specimen obtained. vg1 23:04 No provider procedures requiring assistance completed. Patient admitted, IV remains in vg1 place. Administered Medications: 19:27 Drug: SOLU-Medrol 80 mg Route: IVP; Site: right wrist; lp1 23:11 Follow up: Response: No adverse reaction vg1 19:27 Drug: Lasix 40 mg Route: IVP; Site: right wrist; lp1 23:09 Follow up: Response: No adverse reaction vg1 19:37 Drug: Xopenex (3) 1.25 mg Route: Inhalation; lp1 20:53 Drug: LevaQUIN 500 mg Volume: 100 ml; Route: IVPB; Infused Over: 60 mins; Site: right vg1 wrist; 22:01 Follow up: IV Status: Completed infusion vg1 20:53 Drug: Albuterol HFA Inhaler 2 puffs Route: Inhalation; vg1 22:02 Follow up: Response: No adverse reaction vg1 Outcome: 21:13 Decision to Hospitalize by Provider. 7 23:03 Admitted to Tele accompanied by tech, via stretcher, room 232, with oxygen, with chart, vg1 Report called to JHON Molina 23:03 Condition: good 23:03 Instructed on the need for admit. 23:20 Patient left the ED. vg1 Signatures: Dispatcher [employer] EDMS Espinoza Darby MD MD kdr Sanford, Carmen ds1 Ludwig Wise em1 Tahmina Durand RN RN lp1 Isidro Yeh Victoria, RN RN vg1 Snehal Villatoro RN RN 1 Vinny Pope MD MD 7 Corrections: (The following items were deleted from the chart) 18:41 18:15 Respiratory: Parent/caregiver reports the patient having shortness of breath vg1 cough that is non-productive, vg1 21:59 18:15 Cardiovascular: Patient's skin is warm and dry. vg1 vg1
--- NOTE | 2020-07-02 21:13 | EDPHYS ---
Physician Documentation [facility] Name: Tamia Colon Age: 80 yrs Sex: Female : 1940 Arrival Date: 07/02/2020 Time: 17:45 Bed 17 Private MD: ED Physician Vinny Pope HPI: 07/02 18:24 This 80 yrs old Female presents to ER via Ambulatory with complaints of kdr Wheezing Low O2. 18:24 The patient has shortness of breath at rest. Onset: The symptoms/episode began/occurred kdr gradually, today. Duration: The symptoms are continuous, and are unchanged since they started, are intermittent. The patient's shortness of breath has no apparent modifying factors. Associated signs and symptoms: Pertinent positives: Wheezing. Severity of symptoms: At their worst the symptoms were mild in the emergency department the symptoms are unchanged. The patient has experienced similar episodes in the past, chronically, The patient has COPD and CHF. The patient has not recently seen a physician. Historical: - Allergies: 17:51 No Known Allergies; ll1 - PMHx: 17:51 Hypertension; CVA; CHF; Renal Disease; ll1 - Immunization history:: Flu vaccine is up to date. - Social history:: Smoking status: Patient denies any tobacco usage or history of. Patient/guardian denies using tobacco, the patient reports quitting approximately 8 years ago. ROS: 18:24 Constitutional: Negative for fever, chills, and weight loss, - the patinet has dementia kdr and the daughter is not confident of the patinet's ability to accurately reflect and report her amador circumstances Eyes: Negative for injury, pain, redness, and discharge, ENT: Negative for injury, pain, and discharge, Neck: Negative for injury, pain, and swelling, Cardiovascular: Negative for chest pain, palpitations, and edema, Abdomen/GI: Negative for abdominal pain, nausea, vomiting, diarrhea, and constipation, Back: Negative for injury and pain, : Negative for injury, bleeding, discharge, and swelling, MS/Extremity: Negative for injury and deformity, Skin: Negative for injury, rash, and discoloration, Allergy/Immunology: Negative for hives, rash, and allergies, Endocrine: Negative for neck swelling, polydipsia, polyuria, polyphagia, and marked weight changes, Hematologic/Lymphatic: Negative for swollen nodes, abnormal bleeding, and unusual bruising. 18:24 Respiratory: Positive for shortness of breath, wheezing, The daughter states that the patient Home Health noted low oxygen levels. Earlier in the day she was above 90% on 3 L/NC but later in the day they could not get her sat above 90 and it remained in the mid to high 80's. Exam: 18:24 Constitutional: This is a well developed, well nourished patient who is awake, alert, kdr and in no acute distress. Head/Face: Normocephalic, atraumatic. Eyes: Pupils equal round and reactive to light, extra-ocular motions intact. Lids and lashes normal. Conjunctiva and sclera are non-icteric and not injected. Cornea within normal limits. Periorbital areas with no swelling, redness, or edema. Neck: Trachea midline, no thyromegaly or masses palpated, and no cervical lymphadenopathy. Supple, full range of motion without nuchal rigidity, or vertebral point tenderness. No Meningismus. Chest/axilla: Normal chest wall appearance and motion. Nontender with no deformity. No lesions are appreciated. Cardiovascular: Regular rate and rhythm with a normal S1 and S2. No gallops, murmurs, or rubs. Normal PMI, no JVD. No pulse deficits. Abdomen/GI: Soft, non-tender, with normal bowel sounds. No distension or tympany. No guarding or rebound. No evidence of tenderness throughout. Back: No spinal tenderness. No costovertebral tenderness. Full range of motion. Skin: Warm, dry with normal turgor. Normal color with no rashes, no lesions, and no evidence of cellulitis. MS/ Extremity: Pulses equal, no cyanosis. Neurovascular intact. Full, normal range of motion. Neuro: Awake and alert, GCS 15, oriented to person, place, time, and situation. Cranial nerves II-XII grossly intact. Motor strength 5/5 in all extremities. Sensory grossly intact. Cerebellar exam normal. Normal gait. Psych: Awake, alert, with orientation to person, place and time. Behavior, mood, and affect are within normal limits. 18:24 Respiratory: the patient does not display signs of respiratory distress, Respirations: normal, Breath sounds: rales, that are mild, are heard diffusely, wheezing: expiratory that is mild, is heard in the left upper lobe. Vital Signs: 17:51 BP 139 / 82; Pulse 61; Resp 20; Temp 97.4; Pulse Ox 86% on R/A; Weight 63.5 kg; Height ll1 5 ft. 1 in. (154.94 cm); Pain 0/10; 18:01 Pulse Ox 91% on 4 lpm NC; ll1 18:15 BP 129 / 65; Pulse 62; Resp 16; Pulse Ox 94% on 4 lpm NC; vg1 19:30 BP 124 / 72; Pulse 60; Resp 12; Pulse Ox 12% on 4 lpm NC; vg1 20:45 BP 124 / 60; Pulse 70; Resp 14; Pulse Ox 93% on 4 lpm NC; vg1 21:30 BP 119 / 69; Pulse 59; Resp 16; Pulse Ox 92% on 4 lpm NC; vg1 22:00 BP 110 / 67; Pulse 59; Resp 18; Pulse Ox 92% on 4 lpm NC; vg1 23:00 BP 119 / 61; Pulse 59; Resp 18; Pulse Ox 93% on 4 lpm NC; vg1 17:51 Body Mass Index 26.45 (63.50 kg, 154.94 cm) ll1 MDM: 21:11 Differential diagnosis: Anemia Anxiety Reaction asthma, Bronchitis CHF exacerbation, 7 Chronic Obstructive Pulmonary Disease Myocardial Infarction pneumonia, Pneumothorax Psychogenic pulmonary edema, reactive airway disease. Antibiotic administration: Levaquin given. Data reviewed: vital signs, nurses notes, old medical records, lab test result(s), cardiac enzymes, CBC, electrolytes, urinalysis, EKG, radiologic studies, plain films. Data interpreted: Pulse oximetry: on 6L(s) per nasal canula, is 93 %. Interpretation: acceptable. Counseling: I had a detailed discussion with the patient and/or guardian regarding: the historical points, exam findings, and any diagnostic results supporting the discharge/admit diagnosis, lab results, radiology results, the need for further work-up and treatment in the hospital. Response to treatment: the patient's symptoms have markedly improved after treatment. 21:13 Patient medically screened. [facility] 07/02 18:16 Order name: Basic Metabolic Panel; Complete Time: 20:39 kdr 07/02 18:16 Order name: CBC with Diff; Complete Time: 20:39 kdr 07/02 18:16 Order name: LFT's; Complete Time: 20:39 [facility] 07/02 18:16 Order name: Magnesium; Complete Time: 20:39 [facility] 07/02 18:16 Order name: NT PRO-BNP; Complete Time: 20:39 [facility] 07/02 18:16 Order name: PT-INR; Complete Time: 20:39 [facility] 07/02 18:16 Order name: Troponin (emerg Dept Use Only); Complete Time: 20:39 [facility] 07/02 18:20 Order name: Urine Culture [facility] 07/02 18:23 Order name: Lactate; Complete Time: 20:39 [facility] 07/02 18:23 Order name: Procalcitonin; Complete Time: 20:39 [facility] 07/02 19:35 Order name: Blood Culture Adult (2) 7 07/02 19:40 Order name: Manual Differential; Complete Time: 20:39 [facility] 07/02 18:16 Order name: XRAY Chest (1 view); Complete Time: 19:32 [facility] 07/02 21:20 Order name: Basic Metabolic Panel [facility] 07/02 21:20 Order name: Basic Metabolic Panel [facility] 07/02 21:20 Order name: CBC with Automated Diff [facility] 07/02 21:20 Order name: CBC with Automated Diff [facility] 07/02 21:20 Order name: NT PRO-BNP [facility] 07/02 21:20 Order name: NT PRO-BNP [facility] 07/02 21:20 Order name: Troponin I [facility] 07/02 21:20 Order name: Troponin I [facility] 07/02 21:20 Order name: Troponin I [facility] 07/02 21:54 Order name: COVID-19/FLU A+B [facility] 07/02 21:58 Order name: Urine Dipstick--Ancillary (enter results) 2 07/02 22:08 Order name: Urine Dipstick-Ancillary [facility] 07/02 18:16 Order name: EKG; Complete Time: 18:18 [facility] 07/02 18:16 Order name: Cardiac monitoring; Complete Time: 19:28 [facility] 07/02 18:16 Order name: EKG - Nurse/Tech; Complete Time: 19:28 [facility] 07/02 18:16 Order name: IV Saline Lock; Complete Time: 18:56 [facility] 07/02 18:16 Order name: Labs collected and sent; Complete Time: 21:38 [facility] 07/02 18:16 Order name: O2 Per Protocol; Complete Time: 18:23 kdr 07/02 18:16 Order name: O2 Sat Monitoring; Complete Time: 18:23 [facility] 07/02 18:20 Order name: Urine Dipstick-Ancillary (obtain specimen): Cath; Complete Time: 22:20 kdr 07/02 21:20 Order name: Consistent Carb (ADA) 1800 Fish EDMS Administered Medications: 19:27 Drug: SOLU-Medrol 80 mg Route: IVP; Site: right wrist; lp1 23:11 Follow up: Response: No adverse reaction vg1 19:27 Drug: Lasix 40 mg Route: IVP; Site: right wrist; lp1 23:09 Follow up: Response: No adverse reaction vg1 19:37 Drug: Xopenex (3) 1.25 mg Route: Inhalation; lp1 20:53 Drug: LevaQUIN 500 mg Volume: 100 ml; Route: IVPB; Infused Over: 60 mins; Site: right vg1 wrist; 22:01 Follow up: IV Status: Completed infusion vg1 20:53 Drug: Albuterol HFA Inhaler 2 puffs Route: Inhalation; vg1 22:02 Follow up: Response: No adverse reaction vg1 Disposition: 07/02/20 21:13 Hospitalization ordered by Ariana Koroma for Inpatient Admission. Preliminary diagnosis are Pneumonia, Hypoxia. - Bed requested for Telemetry/MedSurg (Inpatient). - Status is Inpatient Admission. vg1 - Condition is Stable. - Problem is an ongoing problem. - Symptoms have improved. Signatures: Dispatcher [employer] EDAR Espinoza Darby MD MD kdr Tahmina Durand RN RN lp1 Jordyn Berumen RN RN vg1 Snehal Villatoro RN RN 1 Vinny Pope MD MD [email or web address] Corrections: (The following items were deleted from the chart) 21:00 19:35 CORONAVIRUS+MR.LAB.BRZ ordered. EDAR EDAR 21:01 19:35 Influenza Screen (A \T\ B)+BA.LAB.BRZ ordered. [facility] EDAR 22:35 21:13 Hospitalization Ordered by Ariana Koroma MD for Inpatient Admission. Preliminary lp1 diagnosis is Pneumonia; Hypoxia. Bed requested for Telemetry/MedSurg (Inpatient). Status is Inpatient Admission. Condition is Stable. Problem is an ongoing problem. Symptoms have improved. [email or web address] 23:20 22:35 07/02/2020 21:13 Hospitalization Ordered by Ariana Koroma MD for Inpatient vg1 Admission. Preliminary diagnosis is Pneumonia; Hypoxia. Bed requested for Telemetry/MedSurg (Inpatient). Status is Inpatient Admission. Condition is Stable. Problem is an ongoing problem. Symptoms have improved. lp1
[2020-07-02] MEDS ORDERED: MORPHINE 4 MG/ML SYR IV PRN (21:16)
[2020-07-02] MEDS ORDERED: ONDANSETRON 4 MG/2 ML VIAL IV PRN (21:16)
[2020-07-02] MEDS ORDERED: ACETAMINOPHEN 325 MG TABLET PO PRN (21:16)
[2020-07-02 21:54] LABS: SARS-COV-2 RT PCR NEGATIVE (NEGATIVE)
[2020-07-02 22:07] LABS: Urine Blood 1+ (NEG); Urine Glucose NEGATIVE (NEG); Urine Protein NEGATIVE (NEG); Urine Specific Gravity 1.015 (1.005-1.030)
[2020-07-02 23:50] VITALS: BMI 27.3
[2020-07-03 05:54] LABS: Absolute Lymphocytes (CBC) 0.2 K/uL (0.7-4.9); Basophils % 0.1 % (0-1.3); Hematocrit 29.5 % (36.0-45.0); MPV 10.9 fL (7.6-11.3); RBC Red Blood Cell Count 3.56 M/uL (3.86-4.86)
[2020-07-03 06:04] LABS: Potassium 4.3 mmol/L (3.5-5.1)
[2020-07-03] MEDS ORDERED: TRAZODONE 50 MG TABLET PO PRN (09:43)
[2020-07-03] MEDS ORDERED: DRISDOL (VITAMIN D=ERGOCALCIFEROL) 50000 UNIT CAP PO SCH (10:00)
[2020-07-03] MEDS: IPRATROPIUM BROM 0.5MG/2.5ML NEB PRN ×3 (11:40→19:40)
[2020-07-03] MEDS: ALBUTEROL 2.5 MG/3 ML NEB SOL NEB PRN ×3 (11:40→19:40)
[2020-07-03] MEDS: FUROSEMIDE 40 MG TABLET PO SCH ×2 (12:48→21:00)
[2020-07-03] MEDS ORDERED: METHYLPRED NA SUC 40 MG in NA CHLORIDE 0.9% 100 ML IV SCH (14:00)
--- NOTE | 2020-07-03 14:30 | HP ---
Date of Admission: 07/02/2020 History Of Present Illness: A 80-year-old female, just recently has been discharged from the [facility] because of bilateral pneumonia and congestive heart failure, diastolic exacerbation. On discharge, she was put on Augmentin, antibiotic and prednisone; however, while the visiting nurse had been carri garcia on her, the patient complained that she was slightly more short of breath. The patient was foun d to be wheezing and her pulse oximetry was at about 89 on 2 L of oxygen, so she was brought to the e mergency room. Evaluation in the emergency room showed slight worsening of her bilateral pneumonia a nd the patient was admitted for that. Past Medical History: As per recent admit and discharge notes. Social History: As per recent admit and discharge notes. Family History: As per recent admit and discharge notes. Medications: As per recent admit and discharge notes. Allergies: PER RECENT ADMIT AND DISCHARGE NOTES. Physical Examination: General: The patient is alert and oriented x4. Vital Signs: Blood pressure 144/67, pulse 68, temperature 97.7, pulse oximetry was 90% at 5 L of oxy gen. Heart: Regular rate and rhythm. Chest: Mild bilateral crackles. Abdomen: Soft, benign. Neurological: Alert, oriented, grossly intact. Extremities: Trace edema in the pedal and tibial areas, pitting. The patient has had mild swelling and edema in her upper extremities from her pulmonary hypertension and diastolic dysfunction, which i s better than before. Laboratory Data: Her chest x-ray showed mild progression of bilateral pneumonia with left pleural ef fusion. White cell count was 12.9 and dropped to 10.1, hemoglobin 9.7, hematocrit 29.5, and platelet s 137. Sodium 132, potassium 4.3, chloride 97, bicarb 28, BUN 72, creatinine 2.37 and filtration rat e was 20 L. Blood sugar was 139. The patient's BNP was 19,799. Prolactin was less than 0.05. Assessment And Plan: 1.Hypoxia more than the patient's baseline for which she needs now more oxygen along with chest x-ra y showing mild progression of bilateral pneumonia. The patient was re-admitted. We put her at this time on Levaquin 500 mg IV q.48 hours considering her kidney functions. We will also put the patient on beta-2 agonist breathing treatments and we will put her on IV Solu-Medrol. I still had a suspici on of COVID with pneumonia as the origin of pneumonia is suspected, although her second COVID test wh ich was done on her readmission was still negative; however, we will monitor that. We will repeat a chest x-ray in the morning and we will monitor her pulse oximetry. 2.Chronic renal insufficiency. Her filtration rate is stable. 3.Diastolic congestive heart failure, chronic. At this time, the patient is stable at furosemide 40 mg t.i.d. on her home medications and we will continue that. We will continue the rest of her medic al problems. Her chronic anemia is stable. We will also monitor that. Look orders for details. MARISSA/MODL Voice ID: [id number]
[2020-07-03] MEDS: METHYLPREDNISOLONE 40 MG INJ IV SCH (17:09)
[2020-07-03] MEDS: ATORVASTATIN 20 MG TAB PO SCH (20:55)
[2020-07-03] MEDS: DONEPEZIL HCL 5 MG TAB PO SCH (20:57)
[2020-07-03] MEDS: APIXABAN 5 MG TABLET PO SCH (20:58)
[2020-07-03] MEDS: AMLODIPINE 10 MG TAB PO SCH (20:58)
[2020-07-03] MEDS: carvediloL 12.5 MG TAB PO SCH (20:59)
[2020-07-03] MEDS ORDERED: predniSONE 10 MG TAB PO SCH (21:00)
[2020-07-04 04:59] LABS: Absolute Lymphocytes (CBC) 0.3 K/uL (0.7-4.9); Basophils % 0.2 % (0-1.3); Lymphocytes % 2.3 % (15.3-44.8); MPV 10.4 fL (7.6-11.3); RBC Red Blood Cell Count 3.38 M/uL (3.86-4.86)
[2020-07-04 05:08] LABS: Potassium 4.4 mmol/L (3.5-5.1)
--- NOTE | 2020-07-04 07:47 | RAD REPORT ---
EXAM DESCRIPTION: RAD - Chest Single View - 07/04/2020 4:36 am CLINICAL HISTORY: pneumonia COMPARISON: Portable July 02June 25 TECHNIQUE: AP portable chest image was obtained 07/04/2020 4:36 am . FINDINGS: Bilateral pneumonia changes are still present, worse in the left base. Left pleural effusi on is present. Right lung field findings are stable. There is questionable slight further progression at the left base and left perihilar region. Heart size is prominent but stable. Pulmonary vascular e ngorgement is seen. Left-sided pacemaker is in place. No pneumothorax. No acute bony abnormality seen . No acute aortic findings suspected. IMPRESSION: Bilateral pneumonia pattern is present with questionable left base and left perihilar pr ogression. Right lung field is stable.
[2020-07-04] MEDS: APIXABAN 5 MG TABLET PO SCH ×2 (09:00→21:00)
[2020-07-04] MEDS: HOME MED 1 EA UNK (Mirabegron [Myrbetriq] 50 MG Tab.Er.24h) PO SCH (09:00)
[2020-07-04] MEDS: DONEPEZIL HCL 5 MG TAB PO SCH ×2 (09:00→21:00)
[2020-07-04] MEDS ORDERED: AMIODARONE HCL 200 MG TAB PO SCH (09:00)
[2020-07-04] MEDS: carvediloL 12.5 MG TAB PO SCH ×2 (09:00→21:00)
[2020-07-04] MEDS: AMLODIPINE 2.5 MG TAB PO SCH (09:00)
[2020-07-04] MEDS: FUROSEMIDE 40 MG TABLET PO SCH ×3 (10:10→21:00)
[2020-07-04] MEDS: METHYLPREDNISOLONE 40 MG INJ IV SCH ×3 (10:11→21:46)
--- NOTE | 2020-07-04 11:46 | PN ---
Subjective: The patient continues to require 5 L of oxygen by nasal prong with saturation more than 92. Has no new complaints. Objective: Vital Signs: Blood pressure 132/60, pulse 74, temperature 98.9. Heart: Regular rate and rhythm. Chest: Bilateral crackles. Abdomen: Soft, benign. Neurological: Alert, oriented, intact. Extremities: Trace to 1+ edema, pitting. Laboratory Data: Chest x-ray; bilateral pneumonia, possible progression on the left base and the lef t perihilar area. CBC; white cell count 10.8, hemoglobin 9.1, hematocrit 28, platelets 117. Sodium 131, potassium 4.4, chloride 97, CO2 28, BUN 74, creatinine 2.35, GFR 20. Assessment And Plan: 1.Bilateral pneumonia. We will continue the patient on Levaquin. We will consult Dr. Ferguson. A suspicion of COVID pneumonia is entertained. 2.Chronic respiratory failure with acute exacerbation and hypoxia. We will continue to monitor puls e oximetry and respiratory and oxygen supplement. 3.Rest of medical problems including chronic renal insufficiency, stable. MFS/MODL Voice ID: [id number] Report ID: [id number]
[2020-07-04] MEDS ORDERED: Levofloxacin500mg IV 500 MG/100 ML BAG IV SCH (21:00)
[2020-07-04] MEDS: ATORVASTATIN 20 MG TAB PO SCH (21:00)
[2020-07-04] MEDS: AMLODIPINE 10 MG TAB PO SCH (21:00)
--- NOTE | 2020-07-05 08:05 | P.CNS ---
Date of Consult: 07/05/20 Reason for Consult: Wheezing and swelling Chief Complaint: Wheezing History of Present Illness: Patient is 80 years of age the triple recurrent hospitalizations for pneumonia she was recently here discharged came back again according to the daughter was wheezing also complaining of chronic left arm swelling patient was taking steroids at home denies any fever Allergies No Known Allergies Allergy (Verified 07/02/20 23:46) Home Medications: Amlodipine [Norvasc*] 10 mg PO BEDTIME 10/29/13 Atorvastatin Calcium [Lipitor*] 40 mg PO BEDTIME 10/29/13 allopurinoL [Zyloprim*] 100 mg PO DAILY 10/29/13 Amiodarone HCl [Pacerone] 1 tab PO DAILY 06/20/20 Apixaban [Eliquis] 1 tab PO BID 06/20/20 Donepezil HCl 10 mg PO BID 06/20/20 Ergocalciferol (Vitamin D2) [Vitamin D2] 50,000 unit PO SEECOM 06/20/20 Mirabegron [Myrbetriq] 50 mg PO DAILY 06/20/20 carvediloL [Coreg*] 12.5 mg PO BID 06/20/20 Amlodipine [Norvasc] 2.5 mg PO DAILY 06/23/20 predniSONE [Deltasone*] 10 mg PO BID #24 tab 06/25/20 Furosemide [Lasix] 40 mg PO TID 07/03/20 Memantine HCl 10 mg PO BID 07/03/20 Trazodone [Desyrel] 50 mg PO BEDTIME PRN PRN 07/03/20 - Past Medical/Surgical History Diabetic: No -: HTN -: CVA -: Pneumonia -: Atrial fibrillation -: COPD -: CHF -: Alzheimers -: 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 -: Hysterectomy -: Carotid stents bilat -: Stent in kidney - Family History Father Medical History: Heart disease Brother Medical History: Heart disease - Social History Smoking Status: Current every day smoker Alcohol use: No CD- Drugs: No Caffeine use: Yes Place of Residence: Home Review of Systems is unable to be obtained Physical Examination Temp Pulse Resp BP Pulse Ox 97.9 F 69 18 122/80 95 07/05/20 04:00 07/05/20 04:00 07/05/20 04:00 07/05/20 04:00 07/05/20 04:00 General: Alert, Cooperative Respiratory: Clear to auscultation bilaterally Cardiovascular: No edema, Regular rate/rhythm, Normal S1 S2 Gastrointestinal: Normal bowel sounds, Soft and benign Musculoskeletal: Other (Left arm is swollen and tender to touch) - Problems (1) Pneumonia Current Visit: No Status: Acute Plan: Patient is 80 years of age admitted with recurrent hospital admissions for pneumonia she has bilateral pulmonary fibrosis the patient was sent home on steroids developed wheezing S chronic swelling of her left arm as admitted to the hospital again there is no evidence of active sepsis chest x-ray still shows bilateral infiltrates as chronic renal failure prior as volume overload normal. Repeat upper extremity Doppler rule out DVT Dc amiodarone possible cause off lung injury t repeat CT of the chest/consult nephrology Dc antibiotics for now left shoulder x-ray increase Lasix to 80 b.i.d. IV patient is a former smoker add a schedule bronchodilators reduce dose of steroids patient's blood pressure is saturation satisfactory she does have home oxygen Addendum CT scan shows bilateral pulmonary fibrosis recommend stopping steroids stopping amiodarone. Also using 80 mg of Lasix once a day and 40 mg in the afternoon if needed also discussed with the daughter that I will order her a nebulizer as some breathing treatments p.r.n. 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
[2020-07-05] MEDS: ARFORMOTEROL TARTRATE 15 MCG/2 ML VIAL.NEB NEB SCH ×2 (08:43→20:10)
[2020-07-05] MEDS: ALBUTEROL 2.5 MG/3 ML NEB SOL IH SCH ×3 (08:43→20:10)
[2020-07-05] MEDS ORDERED: ARFORMOTEROL TARTRATE 15 MCG/2 ML VIAL.NEB ONE (08:54)
[2020-07-05] MEDS: HOME MED 1 EA UNK (Mirabegron [Myrbetriq] 50 MG Tab.Er.24h) PO SCH (09:00)
[2020-07-05] MEDS ORDERED: METHYLPREDNISOLONE 40 MG INJ IV SCH (09:00)
[2020-07-05] MEDS ORDERED: FUROSEMIDE 40 MG/4 ML VIAL IV SCH (09:00)
--- NOTE | 2020-07-05 09:35 | RAD REPORT ---
EXAM DESCRIPTION: RAD - Shoulder 1 View - 07/05/2020 8:57 am CLINICAL HISTORY: Shoulder pain FINDINGS: Frontal view of the right shoulder was obtained. No fracture or dislocation is visualized. Bones are osteoporotic. No additional significant bone or joint abnormality seen
--- NOTE | 2020-07-05 09:39 | RAD REPORT ---
EXAM DESCRIPTION: CT - Thorax Wo Con - 07/05/2020 9:29 am CLINICAL HISTORY: sob COMPARISON: none TECHNIQUE: Computed axial tomography of the chest was obtained. Contrast was not requested. All CT scans are performed using dose optimization technique as appropriate and may include automated exposure control or mA/KV adjustment according to patient size. FINDINGS: The evaluation of mediastinum, mick and vessels is limited secondary to lack of IV contras t administration. Mild improvement in mild to moderate patchy right lung opacities. No significant change in mild to moderate patchy left lung opacities. No mediastinal or hilar lymphadenopathy is seen. Small pericardial effusion. Cardiomegaly Right pleural effusion has decreased in size and is small. No significant change in a small to modera te left pleural effusion IMPRESSION: Mild improvement in right and no significant change in left pulmonary opacities likely p neumonia
[2020-07-05] MEDS: FUROSEMIDE 40 MG/4 ML VIAL IV SCH ×2 (10:12→17:03)
[2020-07-05] MEDS: DONEPEZIL HCL 5 MG TAB PO SCH ×2 (10:13→20:34)
[2020-07-05] MEDS: carvediloL 12.5 MG TAB PO SCH ×2 (10:13→20:32)
[2020-07-05] MEDS: APIXABAN 5 MG TABLET PO SCH ×2 (10:14→20:31)
[2020-07-05] MEDS: AMLODIPINE 2.5 MG TAB PO SCH (10:14)
--- NOTE | 2020-07-05 11:10 | RAD REPORT ---
EXAM DESCRIPTION: US - UPPER EXTREMITY VENOUS UNILATE - 07/05/2020 10:04 am CLINICAL HISTORY: Left arm swelling COMPARISON: June 22, 2020 FINDINGS: Echogenic material is present within the left internal jugular vein compatible with a comb ination of rouleaux formation and nonocclusive thrombus Left subclavian vein, left axillary vein, left brachial vein, left cephalic, left basilic, left ulnar and left radial veins demonstrate phasic signal. The veins are compressible. Doppler demonstrates go od flow. . 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
--- NOTE | 2020-07-05 11:58 | P.CNS ---
Date of Consult: 07/05/20 Reason for Consult: CKD , fluid overload Chief Complaint: Wheezing History of Present Illness: A 80 Y/o woman with PMhx of COPD on Home oxygen , CKD baseline Cr ~2.0 polycystic kidney disease, left renal artery stenosis, active smoker , HTN m Hx of TIA and diastolic CHF admitted with SOB and hypoxia Pt was discharged recently , she was admitted for SOB and Pneumonia, pt was discharged on ABx and Lasix tid pt have significant edema , last admission , cr on discharged 2.9 Deneid NSAID intake Physical exam general: Awake and alert , thin, audible wheezes Neck; Supple, No elevated JVD hear: RRR, normal S1,2 no murmur or rub Chest: Good air entry, expiratory wheezes Abdomen: Soft , Nt Extremities +2 edema Assessment And Plan: CKD IIIB/IV cont lasix Cr stable HTN BP borderline will reduce amlodipine , pt was on total 15mg daily edema likely multifactorial due to CHF and amlodipine Agree with IV lasix will reduce amlodipine , pt was on total 15mg daily will consider metolazone tomorrow if no improvement fluid restriction mild hyponatremia due to fluif overload cont lasix fluid restriction COPD exacerbation Cont lasix and inhalers Afib rate controlled now Lt arm swelling DVT study : non occlusove thrombosis pneumonia COnt ABx CHF cont lasix total time spent 65 min Allergies No Known Allergies Allergy (Verified 07/02/20 23:46) Home Medications: Amlodipine [Norvasc*] 10 mg PO BEDTIME 10/29/13 Atorvastatin Calcium [Lipitor*] 40 mg PO BEDTIME 10/29/13 allopurinoL [Zyloprim*] 100 mg PO DAILY 10/29/13 Amiodarone HCl [Pacerone] 1 tab PO DAILY 06/20/20 Apixaban [Eliquis] 1 tab PO BID 06/20/20 Donepezil HCl 10 mg PO BID 06/20/20 Ergocalciferol (Vitamin D2) [Vitamin D2] 50,000 unit PO SEECOM 06/20/20 Mirabegron [Myrbetriq] 50 mg PO DAILY 06/20/20 carvediloL [Coreg*] 12.5 mg PO BID 06/20/20 Amlodipine [Norvasc] 2.5 mg PO DAILY 06/23/20 predniSONE [Deltasone*] 10 mg PO BID #24 tab 06/25/20 Furosemide [Lasix] 40 mg PO TID 07/03/20 Memantine HCl 10 mg PO BID 07/03/20 Trazodone [Desyrel] 50 mg PO BEDTIME PRN PRN 07/03/20 - Past Medical/Surgical History Diabetic: No -: HTN -: CVA -: Pneumonia -: Atrial fibrillation -: COPD -: CHF -: Alzheimers -: 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
--- NOTE | 2020-07-05 15:25 | PN ---
Subjective: The patient is sitting on the bedside chair, comfortable. No new complaints. Objective: Vital Signs: Saturation 95% on 5 L oxygen nasal prong, blood pressure 139/60, pulse 60, temperature 97.1. Heart: Regular rate and rhythm. Chest: Mild bilateral crackles. Abdomen: Soft, benign. Neurological: Alert, oriented, intact. Extremities: The patient's left upper extremity swelling not changed. Laboratory Data: Left shoulder x-ray showed no fracture, some osteoporosis. Left upper extremity ve nous study showed no occlusive thrombus and rouleaux formation within the left internal jugular vein. Assessment And Plan: 1.Bilateral pneumonia. Appreciate Dr. Ferguson's input, but he does not think that the patient has bacterial pneumonia or sepsis. He stopped her antibiotics and lowered her steroids, kept her on the rest of the treatment. 2.Left upper extremity internal jugular nonocclusive thrombus. The patient is on Eliquis. We will continue that. 3.Diastolic congestive heart failure and fluid overload with chronic renal insufficiency. Nephrolog y saw the patient and we will continue her on IV Lasix. Look orders for details. MFS/MODL Voice ID: [id number] Report ID: [id number]
[2020-07-05] MEDS: ATORVASTATIN 20 MG TAB PO SCH (20:32)
[2020-07-05] MEDS ORDERED: AMLODIPINE 5 MG TAB PO SCH (21:00)
[2020-07-06] MEDS: ALBUTEROL 2.5 MG/3 ML NEB SOL IH SCH ×4 (01:10→19:50)
[2020-07-06 06:37] LABS: Absolute Lymphocytes (CBC) 0.3 K/uL (0.7-4.9); Basophils % 0.2 % (0-1.3); Hematocrit 29.6 % (36.0-45.0); Lymphocytes % 2.9 % (15.3-44.8); MPV 10.1 fL (7.6-11.3); RBC Red Blood Cell Count 3.54 M/uL (3.86-4.86)
[2020-07-06 06:53] LABS: Potassium 4.1 mmol/L (3.5-5.1)
[2020-07-06] MEDS: ARFORMOTEROL TARTRATE 15 MCG/2 ML VIAL.NEB NEB SCH ×2 (07:19→19:50)
[2020-07-06 07:29] LABS: Anisocytosis 3+; Blood Morphology Comment NOTED (NOT SEEN); Platelet Estimate ADEQ; White Blood Cell Scan OK (OK)
[2020-07-06 07:30] LABS: Burr Cells 1+; Ovalocytes 1+
--- NOTE | 2020-07-06 08:51 | CON ---
Date of Consultation: 07/05/2020 Reason For Consultation: Congestive heart failure, chronic renal failure, and pneumonia. History Of Present Illness: Ms. Berumen is a 80-year-old woman. She is a patient of i n the office, has a history of congestive heart failure, chronic atrial fibrillation, status post pac emaker, hypertension, PVD, chronic renal disease. Had a new onset left internal jugular venous throm bosis. She is really not having any specific complaint. Now, she is on inhalers. She is on IV Lasi x. She continues to take medicines at home including amiodarone, Eliquis, Norvasc, Lipitor, Coreg, a nd prednisone. She denied any chest pain. Complains of slight shortness of breath. Denied PND, ort hopnea, pedal edema, palpitations, or syncope. She is also being treated for pneumonia. Her last cr eatinine is 2.35. Nephrology is following. Echocardiogram in June of 2020, showed moderate pulmo nary hypertension and normal ejection fraction. Her hemoglobin is 9.1. Allergies: NONE. Review of Systems: Negative. Social History: Negative. Family History: Negative. Medications: Listed earlier. Physical Examination: Vital Signs: She is in a paced rhythm. Vital signs otherwise stable. Afebrile. HEENT: Negative. Neck: Supple with no bruit. Chest: Clear to auscultation and percussion. Cardiac: Revealed atrial fibrillation. Abdomen: Benign. Extremities: Revealed no clubbing, cyanosis. She had edema in the left upper extremity, 1+ edema bi lateral lower extremity. Diagnostic Data: As stated earlier. Impression And Plan: 1.Deep vein thrombosis of the left internal jugular vein, on Eliquis. 2.Chronic atrial fibrillation, on amiodarone, status post pacemaker. 3.Chronic diastolic congestive heart failure, stable. 4.Moderate pulmonary hypertension. 5.Hypertension, well controlled. 6.Status post cerebrovascular accident, well controlled. 7.Chronic renal disease, followed by Nephrology. I agree with the regimen including her home medication, inhalers, antibiotics, IV Lasix. No plan for any cardiac workup at this point. Continue present regimen. We will continue to follow her. MONICA/NEIDA Voice ID: [id number] Report ID: [id number]
[2020-07-06] MEDS: HOME MED 1 EA UNK (Mirabegron [Myrbetriq] 50 MG Tab.Er.24h) PO SCH (09:00)
[2020-07-06] MEDS: carvediloL 12.5 MG TAB PO SCH ×2 (09:36→21:00)
[2020-07-06] MEDS: APIXABAN 5 MG TABLET PO SCH ×2 (09:36→21:00)
[2020-07-06] MEDS: DONEPEZIL HCL 5 MG TAB PO SCH ×2 (09:38→21:00)
[2020-07-06] MEDS: FUROSEMIDE 40 MG/4 ML VIAL IV SCH ×2 (09:38→17:00)
--- NOTE | 2020-07-06 11:57 | PN ---
Subjective: The patient is currently stable. Objective: Vital Signs: Blood pressure 130/62, pulse 70, temperature 98.4. Rest of her exam, no ch yesica. Diagnostic Studies: The patient's ultrasound or vascular study on her left upper extremity showed no n occlusive thrombus and rouleaux formation within the left internal jugular vein. Assessment And Plan: Shortness of breath with respiratory failure, chronic. The patient is clinical ly stable. Dr. Ferguson helped stop her antibiotics and lowered her steroids. The patient is still clinically stable I think from that standpoint. The patient could be discharged as per Pulmonary on home oxygen and lower dose of steroids and on beta-2 agonist inhalers and as far as her kidney functi ons, the patient's GFR today is at 18 with BUN 83 and creatinine 2.56. Her chronic anemia is stable with hemoglobin at 9.6 and hematocrit 29.6. I think unless Dr. Norwood, Nephrology, thought to keep the patient 1 more day from the standpoint of her renal function, otherwise, the patient can be disc harged and expect that to be tomorrow. MFS/MODL Voice ID: [id number] Report ID: [id number]
[2020-07-06] MEDS: IPRATROPIUM BROM 0.5MG/2.5ML NEB PRN (15:30)
[2020-07-06] MEDS: ATORVASTATIN 20 MG TAB PO SCH (21:00)
--- NOTE | 2020-07-06 23:03 | PN ---
Date of Progress Note: 07/06/2020 Subjective: The patient was admitted with acute kidney injury on chronic kidney disease. The patient's creatinine baseline around 2, currently around 2.5. Physical Examination: Vital Signs: Blood pressure 125/60, pulse of 70, afebrile. The patient had good urine output. Chest: Faint rales at bilateral base. Heart: S1, S2 regular. Abdomen: Soft, nontender. Extremities: Trace edema. Neuro: Alert. No focality. Laboratory Data: Sodium 135, potassium 4.1, bicarb 29, BUN 83, creatinine 2.5, calcium 8.4. BNP 19,000. Hemoglobin 9.6. Current Medications: The patient on include, 1. Trazodone. 2. Carvedilol. 3. Atorvastatin. 4. Eliquis. 5. Vitamin. 6. Lasix 80 b.i.d. Assessment And Plan: 1. Chronic kidney disease with acute kidney injury secondary to cardiorenal. I am going to try to optimize fluid status with increasing the Lasix and we will monitor the patient. 2. Hypertension. Controlled, optimal, continue current treatment. 3. Coronary artery disease with congestive heart failure. Continue Lasix t.i.d. 4. Diabetes as by primary. time spend discussing with the patient face to face , placing order , discuses with the patient and other marine steam fitter including hospitalist 45 min. DANIELE Voice ID: [id number] Report ID: [id number] PIERO
[2020-07-07] MEDS: ALBUTEROL 2.5 MG/3 ML NEB SOL IH SCH ×3 (02:39→15:12)
[2020-07-07 05:48] VITALS: O2SAT 96
[2020-07-07 06:31] LABS: Potassium 4.3 mmol/L (3.5-5.1)
[2020-07-07] MEDS: FUROSEMIDE 40 MG/4 ML VIAL IV SCH ×2 (09:00→14:00)
[2020-07-07] MEDS ORDERED: HOME MED 1 EA UNK (Mirabegron [Myrbetriq] 50 MG Tab.Er.24h) PO SCH (09:00)
[2020-07-07] MEDS: carvediloL 12.5 MG TAB PO SCH (09:00)
[2020-07-07] MEDS: DONEPEZIL HCL 5 MG TAB PO SCH (09:00)
[2020-07-07] MEDS: APIXABAN 5 MG TABLET PO SCH (09:00)
[2020-07-07] MEDS: ARFORMOTEROL TARTRATE 15 MCG/2 ML VIAL.NEB NEB SCH (09:25)
--- NOTE | 2020-07-07 12:46 | PN ---
Date of Progress Note: 07/07/2020 Subjective: Patient was admitted with acute kidney injury on chronic kidney disease secondary to cardiorenal. Patient also found to have internal jugular deep vein thrombosis, non-occluded. Physical Examination: Vital Signs: Blood pressure 114/57, pulse of 69, afebrile. Chest: Faint rales bilateral base. Heart: S1, S2. Systolic murmur. Abdomen: Soft and nontender. Extremities: Trace edema. +3 edema on the left upper extremity. Neurological: Alert. No focality. Laboratory Data: WBC is 9.8, hemoglobin and hematocrit are 9.6 and 29.6. Sodium 135, potassium 4.3, bicarb 29, BUN 90, creatinine 2.4, calcium 8.6. Current Medications: The patient on include; 1. Imposil. 2. Eliquis. 3. Carvedilol 12.5 b.i.d. 4. Atorvastatin. 5. Lasix 80 t.i.d. 6. Trazodone. 7. Breathing treatment. 8. Vitamin. Assessment And Plan: 1. 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 Stable around her baseline. Currently, started being close to normal volume. I am going to continue current Lasix dose and we will monitor. Patient cleared from the renal standpoint for discharge planning to be on the Lasix 80 mg t.i.d. orally as outpatient. 2. Hypertension, controlled optimal. Continue current medication. 3. Deep vein thrombosis, left upper extremity. Patient on Eliquis. We will follow up with Cardiology. 4. Diabetes, as by primary. time spend discussing with the patient face to face , placing order , discusse with the patient and other outreach team member including hospitalist 45 min. DANIELE Voice ID: [id number] Report ID: [id number] PIERO
[2020-07-07 12:51] VITALS: BP 124/83; TEMP 97.5
--- NOTE | 2020-07-11 11:15 | PN ---
Date of Progress Note: 07/06/2020 The patient had come in with deep venous thrombosis of the left internal jugular vein, on Eliquis; ch ronic atrial fibrillation, on amiodarone, status post pacemaker; chronic diastolic congestive heart f ailure; moderate pulmonary hypertension; status post CVA; chronic renal disease. The reason I was co nsulted was congestive heart failure. The patient has improved dramatically on IV Lasix. She is con tinuing her antibiotics, inhalers and her Eliquis for her new-onset DVT. Her last echocardiogram was in June 2020 showing moderate pulmonary hypertension with a normal ejection fraction. I do not r ecommend any further cardiac workup. Follow up with Nephrology is crucial in the future considering her need for diuresis. She can go home whenever it is okay with Dr. Koroma. Her last vital signs w ere perfect. Her last O2 saturation is 96% on room air. Her last creatinine of 2.45. MONICA/NEIDA Voice ID: [id number] Report ID: [id number]
--- NOTE | 2020-08-09 19:16 | DS ---
Date of Discharge: 07/07/2020 History Of Present Illness: A 80-year-old female, who was admitted to the hospital because of bilate ral pneumonia with acute respiratory failure, and also she had diastolic congestive heart failure exa cerbation. Past Medical History: As per admit note. Social History: As per admit note. Family History: As per admit note. Medications: As per admit note. Allergies: PER ADMIT NOTE. Physical Examination: As per admit note. Diagnostic Data: As per admit note. Hospital Course: The patient was admitted to the hospital. She was put on oxygen protocol, put on L evaquin IV antibiotic for her pneumonia. Also, we put the patient on beta-2 agonist breathing treatm ents and IV Solu-Medrol for COPD. Continue her home medicines for chronic medical illnesses and put her on diuretics for her diastolic dysfunction and failure. Dr. Leon Ferguson was consulted for he r COPD because he follows the patient and he did the CT scan, showed bilateral pulmonary fibrosis. N o other changes. Nephrology has seen the patient for her renal function and the patient had deep grayson ous thrombosis in her left upper extremity, however, she was on Eliquis. We also monitored her blood sugar fingersticks and put her on sliding scale. The patient's fluid status on IV Lasix was back to baseline. Dr. Cordero has seen the patient also for her atrial fibrillation. No further cardiac wo rkup at this time. The patient improved and her breathing improved to where she could be discharged home to continue her home medications and to follow up with Nephrology and with me. Look discharge o rders for details. MFS/MODL Voice ID: [id number] Report ID: [id number]
== END 2020-07-07 18:16 | disposition home health service (06) | DRG 299 ==
LOC: ER 17:43 → ERHOLD 21:34 → 2ND 23:05
PROVIDERS: ADMIT Internal Medicine; ATTEND Internal Medicine
DX: I82.622 Acute embolism and thrombosis of deep veins of left upper extremity (principal); J96.21 Acute and chronic respiratory failure with hypoxia; I50.32 Chronic diastolic (congestive) heart failure; I13.0 Hypertensive heart and chronic kidney disease with heart failure and stage 1 through stage 4 chronic kidney disease, or unspecified chronic kidney disease; N18.4 Chronic kidney disease, stage 4 (severe); E87.1 Hypo-osmolality and hyponatremia; J44.1 Chronic obstructive pulmonary disease with (acute) exacerbation; I48.20 Chronic atrial fibrillation, unspecified; N17.9 Acute kidney failure, unspecified; J84.10 Pulmonary fibrosis, unspecified; I25.10 Atherosclerotic heart disease of native coronary artery without angina pectoris; E11.22 Type 2 diabetes mellitus with diabetic chronic kidney disease; E11.51 Type 2 diabetes mellitus with diabetic peripheral angiopathy without gangrene; I27.20 Pulmonary hypertension, unspecified; F17.200 Nicotine dependence, unspecified, uncomplicated; D64.9 Anemia, unspecified; Z86.73 Personal history of transient ischemic attack (TIA), and cerebral infarction without residual deficits; Z79.01 Long term (current) use of anticoagulants; Z79.52 Long term (current) use of systemic steroids; Z79.899 Other long term (current) drug therapy; Z90.710 Acquired absence of both cervix and uterus; Z99.81 Dependence on supplemental oxygen; Z20.822 Contact with and (suspected) exposure to COVID-19
CPT/HCPCS: 0240U; 36415; 51702; 71045; 71250; 73020; 80048; 80076; 81003; 83605; 83735; 83880; 84145; 84443; 84484; 85025; 85610; 87040; 87086; 87088; 93005; 93971; 94640; 94760; 96365; 96375; 97116; 97161; 97530; 99285; J1940; J2920; J7605

== ENCOUNTER 2020-07-15 11:19 | Emergency (ER) | payer OTHER ==
--- OUTSIDE RECORDS SUMMARY | 2020-07-15 11:22 | XMS REPORT | Clinical Summary ---
:1940 Author Organization [facility] Address [address] [place] [address] Care Team Providers Name Role Phone Meghann [...] TERESA/STR (GLUCOSAMINE mouth daily. CHONDROITIN PLUS ORAL) [id number] Take 1 tablet by 0 Active S-MANGA [...] INFLUENZA VACCINE 01/16/2020 Results Not on fileafter 07/15/2019 Insurance Payer Benefit Plan / Subscriber ID Effective Dates Phone Addre ss Type Group MEDICARE MEDICARE PART A [id number] 2006-Present [place], [place] Medicare AND B ([place]) [place] [address] Advance Directives For more information, please contact: [phone] Type Date Recorded Patient [employer] Explanati on Advance Directives, Living Will and Medical Power of Computer Equipment Repairer
--- OUTSIDE RECORDS SUMMARY | 2020-07-15 11:25 | XMS REPORT | Continuity of Care Document ---
:1940 Author Organization [facility] Information [employer] Care Team Providers Name Role Phone [facility] [employer] Unavailable Un available Problems Problem Status Onset Classification Date Comments Sour e Date Reported NEW ONSET OF Active 12/15/19 [facility] 19 Leonila theast FAILURE, P WEAKNESS Active 12/15/19 [facility] 19 Mikey POSSIBLE STROKE Active 05/13/20 Jensen rial 17 [place] RIGHT SIDED Active 05/13/20 [facility] WEAKNESS 17 [place] ACUTE KIDNEY Active 05/08/20 Memoria l INJURY, 17 Mikey GENERALIZED WEAKNES Weakness 05/18/2017 [place] Acute on chronic 12/22/2018 diastolic [place] (congestive) heart failure Carotid Active Problem 12/22/2018 endarterectomy [place] and, (procedure) [place] Cerebrovascular Resolved Problem 12/22/2018 accident [facility] (disorder) [place] 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 Active 2018 [facility] [place] (Same As: Ecotrin) Eliquis Notes: Same as: No Longer Eliquis Active 2018 [facility] [place] atorvastatin Notes: (Same Inactive as: Lipitor) 2018 [facility] [place] [facility] Memantine Notes: (Same Inactive As: Namenda) 2018 [facility] [place] Levetiracetam Notes: (Same Inactive as:Keppra) 2018 [facility] [place] Furosemide 40 MG Notes: (Same No Longer Oral Tablet as: Lasix) October Active 2018 [place] [Lasix] cause GI upset. Give with food or milk. donepezil Notes: (Same Inactive as: Aricept) 2018 [facility] [place] Spironolactone Notes: (Same Inactive As: Aldactone) 2018 [facility] [place] Potassium Notes: (Same Inactive Chloride 1.33 as: [...] Patient’s with feeding tube less than 14 Spanish (Dobhoff, J-tube etc) and pediatric and patients. Lasix Notes: (Same No Longer as: Lasix) Active 2018 [facility] [place] MEDICATION WASTE Product Size: 40 mg Product Wasted: ___ mg pantoprazole Notes: Tablet No Longer should not be Active 2018 [facility] [place] [facility] chewed or crushed. (Same as: Protonix) Atorvastatin 80 Atorvastatin 80 No Longer mg tab Pt's mg tab Pt's Active 2018 [place] Own MED Own MED, 80 mg, Drug form: MISC, Route: PO, Bedtime, 12/15/18 21:00:00 CDT, Duration: 30 day, Stop date: 01/13/19 21:00:00 CDT, 0 atorvastatin Notes: (Same Inactive as: Lipitor) 2018 [facility] [place] Memantine 10 mg Memantine 10 mg No Longer tab Pt's Own tab Pt's Own Active 2019 [facility] [place] Med Med, 10 mg, Drug form: MISC, [...] mg tab 250 mg tab Active 2018 [facility] [place] [facility] Pt's Own Med Pt's Own Med, 250 mg, Drug form: MISC, Route: PO, Q12H, 12/15/18 12:00:00 CDT, Duration: 30 day, Stop date: 01/14/19 9:00:00 CDT, 0 Donepezil 10 mg Donepezil 10 mg No Longer tab Pt's Own tab Pt's Own Active 2018 [facility] [place] MED MED, 10 mg, Drug form: MISC, [...] 0 Levetiracetam Notes: (Same Inactive as:Keppra) 2018 [facility] [place] donepezil Notes: (Same Inactive as: Aricept) 2018 [facility] [place] clopidogrel Notes: (Same Inactive As: Plavix) 2018 [facility] [place] carvedilol Notes: Give No Longer with food. Active 2018 [facility] [place] (Same As: Coreg) Aspirin Notes: Take Inactive with food. 2019 [facility] [place] Memantine Notes: (Same Inactive As: Namenda) 2018 [facility] [place] losartan 25 mg 25 mg = 1 tab, No Longer oral tablet PO, Daily, 0 Active [address] [facility] [address] Refill(s) heparin Notes: porcine No Longer heparin Active 2018 [facility] [place] Lasix Notes: (Same No Longer as: Lasix) Active 2018 [facility] [place] MEDICATION WASTE Product Size: 40 mg Product Wasted: ___ mg Budesonide 0.25 Notes: (Same No Longer H MG/ML Inhalant As: Pulmicort) Active 2018 [place] Solution [Pulmicort] Albuterol 0.833 Notes: (Same No Longer H MG/ML / as: Duoneb) Active 2018 [facility] [place] [facility] Ipratropium [place] 0.167 MG/ML Inhalant Solution [DuoNeb] Rocephin + Notes: (Same No Longer sterile water 10 As: Rocephin). Active 2018 [facility] [place] mL Use with 100 mL NS and infuse over 30 min MEDICATION WASTE Product Size: 1000 mg Product Wasted: ___ mg Azithromycin Notes: (Same No Longer As: Zithromax Active 2018 [facility] [place] [facility] IV) Lasix Notes: (Same Inactive as: Lasix) 2018 [place] MEDICATION WASTE Product Size: 40 mg Product Wasted: ___ mg Solu-Medrol Notes: (Same Inactive as:Solu-MEDROL, 2019 [place] A-Methapred) Magnesium Notes: WASTE: Inactive Sulfate F/P - Sink; E - 2019 [place] [facility] Albuterol 0.833 Notes: (Same Inactive MG/ML / as: Duoneb) 2018 [place] Ipratropium [place] 0.167 MG/ML Inhalant Solution [DuoNeb] pantoprazole 40 40 mg = 1 tab, Active H mg oral enteric PO, Before 2016 [place]vie and coated tablet Breakfast, # 30 tab, 0 Refill(s), Pharmacy: [id number] Sodium Chloride 1,000 mL, Rate: Inactive 0.9% IV 1,000 mL 21 ml/hr, 2016 [place] and Infuse over: 47.6 hr, Route: IV, Dosing Weight 65.2 kg, Total Volume: 1,000, Start date: 05/15/17 7:30:00 SHEET WRITER, Duration: 30 day, Stop date: 06/14/17 7:29:00 SHEET WRITER, 1.71, m2 atorvastatin atorvastatin No Longer 80mg pt own med 80mg pt own Active 2016 [place] med, 80 mg, Drug form: MISC, Route: PO, Bedtime, 05/14/17 21:00:00 SHEET WRITER, Duration: 30 day, Stop date: 06/12/17 21:00:00 SHEET WRITER atorvastatin Notes: (Same Inactive as: Lipitor) 2016 [place] Amlodipine Notes: (Same No Longer as: Norvasc) Active 2016 [place] Memantine Notes: (Same Inactive As: Namenda) 2016 [place] Allopurinol Notes: (Same No Longer as: Zyloprim) Active 2016 [place] Levetiracetam Notes: (Same No Longer as:Keppra) Active 2016 [place] donepezil Notes: (Same Inactive as: Aricept) 2016 [place] Memantine 10mg Memantine 10mg No Longer pt own med pt own med, 10 Active 2016 [place] mg, Drug form: MISC, Route: PO, BID, 05/14/17 9:00:00 SHEET WRITER, Duration: 30 day, Stop date: 06/12/17 17:00:00 SHEET WRITER clopidogrel Notes: (Same No Longer As: Plavix) Active 2016 [place] carvedilol Notes: Give No Longer with food. Active 2016 [place] (Same As: Coreg) Donepezil 10mg Donepezil 10mg No Longer pt own med pt own med, 10 Active 2016 [place] mg, Drug form: MISC, Route: PO, BID, 05/14/17 9:00:00 SHEET WRITER, Duration: 30 day, Stop date: 06/12/17 17:00:00 SHEET WRITER Streptococcus Notes: Shake Inactive pneumoniae well prior to 2016 [place] serotype 1 use (Same as: capsular antigen Prevnar 13) diphtheria [id number] protein conjugate vaccine / Streptococcus pneumoniae serotype 14 capsular antigen diphtheria [id number] protein conjugate vaccine / Streptococcus pneumoniae serotype [...] No Longer 0.9% as: BD Active 2016 [place] Posiflush) Sodium Chloride 1,000 mL, Rate: No Longer 0.9% IV 1,000 mL 100 ml/hr, Active 2016 [place] Infuse over: 10 hr, Route: IV, Dosing Weight 65.2 kg, Total Volume: 1,000, Start date: 05/13/17 21:15:00 SHEET WRITER, Duration: 30 day, Stop date: 06/12/17 21:14:00 SHEET WRITER, 1.71, m2 Acetaminophen Notes: Do not No [...] Weight 68.182 kg, Start date: 05/13/17 18:13:00 SHEET WRITER, Stop date: 05/13/17 18:13:00 SHEET WRITER NS (Bolus) IV 1,000 mL, 1,000 Inactive H ml/hr, Infuse 2016 [place] Over: 1 hr, Route: IV, 1,000, Drug form: INJ, ONCE, Priority: STAT, Dosing Weight 68.182 kg, Start date: 05/13/17 16:25:00 SHEET WRITER, Stop date: 05/13/17 16:25:00 SHEET WRITER Saline Flush Notes: (Same No Longer 0.9% as: BD Active 2016 [place] Posiflush) Streptococcus Notes: Shake Inactive pneumoniae well prior to 2016 [place] d serotype 1 use (Same as: capsular antigen Prevnar 13) diphtheria [id number] protein conjugate vaccine / Streptococcus pneumoniae serotype 14 capsular antigen diphtheria [id number] protein conjugate vaccine / Streptococcus pneumoniae serotype 18C capsular antigen d influenza virus Notes: (Same Inactive vaccine, as: Fluzone 2017 [place] inactivated Quadrivalent, Fluarix Quadrivalent) For 3 years of age and older (0.5 mL IM) Shake well before use clopidogrel Notes: (Same Inactive As: Plavix) 2016 [place] Aspirin Notes: Do not Inactive 05/09[facility] crush or chew. 2016 [place] (Same As: Ecotrin) Allopurinol Notes: (Same Inactive as: Zyloprim) 2016 [place] Sodium Chloride 1,000 mL, 1,000 Inactive 0.9% (Bolus) IV ml/hr, Infuse 2016 [facility] Over: 1 hr, Route: IV, 1,000, Drug form: INJ, ONCE, Priority: STAT, Dosing Weight 64.716 kg, Start date: 05/09/17 8:14:00 SHEET WRITER, Stop date: 05/09/17 8:14:00 SHEET WRITER heparin Notes: porcine Inactive heparin 2016 [place] atorvastatin atorvastatin No Longer 80mg pt own med 80mg pt own Active 2016 [place] med, 80 mg, Drug form: MISC, Route: PO, Bedtime, 05/08/17 22:31:00 SHEET WRITER, Duration: 30 day, Stop date: 06/07/17 21:00:00 SHEET WRITER Memantine 10mg Memantine 10mg No Longer pt own med pt own med, 10 Active 2016 [place] mg, Drug form: MISC, Route: PO, BID, 05/08/17 22:29:00 SHEET WRITER, Duration: 30 day, Stop date: 06/07/17 17:00:00 SHEET WRITER Donepezil 10mg Donepezil 10mg No Longer pt own med pt own med, 10 Active 2016 [place] mg, Drug form: MISC, Route: PO, BID, 05/08/17 22:24:00 SHEET WRITER, Duration: 30 day, Stop date: 06/07/17 17:00:00 SHEET WRITER atorvastatin 80 mg, Route: Inactive PO, Drug form: 2016 [place] TAB, Bedtime, Dosing Weight 64.716, kg, Start date: 05/08/17 22:09:00 SHEET WRITER, Duration: 30 day, Stop date: 06/07/17 21:00:00 SHEET WRITER Levetiracetam Notes: (Same No Longer 250 MG Oral as:Keppra) Active 2016 [place] Tablet Amlodipine Notes: (Same No Longer as: Norvasc) Active 2016 [place] Memantine 10 mg, Route: Inactive PO, Drug form: 2016 [place] TAB, BID, Dosing Weight 64.716, kg, Start date: 05/08/17 22:07:00 SHEET WRITER, Duration: 30 day, Stop date: 06/07/17 17:00:00 SHEET WRITER carvedilol Notes: Give No Longer with food. Active 2016 [place] (Same As: Coreg) donepezil Notes: (Same Inactive as: Aricept) 2017 [place] clopidogrel 75 mg, PO, Active Daily, 0 2016 [place] Refill(s) Azithromycin 250 mg, PO, No Longer Daily, Take 2 Active 2016 [place] tablets by mouth the first day then 1 tablet by mouth daily on days 2-5, # 6 tab, 0 Refill(s) Aspirin 81 mg, PO, Active Daily, 0 2016 [place] Refill(s) atorvastatin 80 mg, PO, Active Bedtime, 0 2016 [place] Refill(s) donepezil 10 mg, PO, BID, Active 0 Refill(s) 2016 [place] Levetiracetam 250 mg, PO, Active BID, 0 2016 [place] Refill(s) Memantine 10 mg, PO, BID, Active 0 Refill(s) 2016 [place] Amlodipine 10 mg, PO, Active Bedtime, 0 2016 [place] Refill(s) carvedilol 6.25 mg, PO, Active BID, 0 2016 [place] Refill(s) Allopurinol 100 mg, PO, Active Daily, 0 2016 [place] Refill(s) morphine Sulfate Notes: (Same No Longer as:MORPine Active 2016 [place] Sulfate) Docusate Notes: (Same No Longer as: Colace) (Do Active 2016 [place] Not Crush) Saline Flush Notes: (Same No Longer 0.9% as: BD Active 2016 [place] Posiflush) Sodium Chloride 1,000 mL, Rate: No Longer 0.9% IV 1,000 mL 125 ml/hr, Active 2016 [facility] Infuse over: 8 hr, Route: IV, Dosing Weight 63.636 kg, Total Volume: 1,000, Start date: 05/08/17 16:14:00 SHEET WRITER, Duration: 30 day, Stop date: 06/07/17 16:13:00 SHEET WRITER, 1.69, m2 Acetaminophen Notes: Do not No Longer exceed 4 Active 2016 [place] gm/day. (Same as: Tylenol) Acetaminophen Notes: (Same No Longer 325 MG / as: [place] Active 2016 [place] Hydrocodone 325/5) Do not Bitartrate 5 MG exceed 4gm/day Oral Tablet of acetaminophen. Morphine 2 mg, Route: Inactive IVP, Q4H, 2016 [place] Dosing Weight 63.636, kg, PRN Pain Score 7-10, Start date: 05/08/17 16:14:00 SHEET WRITER, Duration: 30 day, Stop date: 06/07/17 16:13:00 SHEET WRITER Ondansetron Notes: (Same No Longer as: Zofran) Active 2016 [place] MEDICATION WASTE Product Size: 4 mg Product Wasted: ___ mg NS (Bolus) IV 1,000 mL, 1,000 Inactive H ml/hr, Infuse [place] Over: 1 hr, Route: IV, 1,000, Drug form: INJ, ONCE, Priority: STAT, Dosing Weight 63.636 kg, Start date: 05/08/17 14:28:00 SHEET WRITER, Stop date: 05/08/17 14:28:00 SHEET WRITER Pepcid Notes: (Same Inactive as: Pepcid) Can 2016 [place] be dilute in 5-10cc NS IVP: Slow IV push over at least 2 minutes. Allergies, Adverse Reactions, Alerts Substance Category Reaction Severity Reaction Status Date Comments S ource type Reported No Known Assertion Drug MH Medication allergy [facility] Allergies Immunizations Immunization Date Site Status Last Comments Source Given Updated pneumococcal Right completed Huang MH 13-valent 7 Deltoid [place],M H vaccine [place] influenza virus Left completed Huang MH vaccine, 7 Deltoid [place] H inactivated [place] influenza virus Not Given MH vaccine, 7 [place] H inactivated [place] pneumococcal Not Given 13-valent 7 [place],M H vaccine [place] pneumococcal Left completed Emiliano MH 23-valent 0 deltoid [place],M H vaccine [place] Results Order Name Results [...] Calcium Lvl 8.9 8.5 - 10.5 12/19 [facility] [place] CHEM PANEL AGAP 14.3 10.0 - 12/19 MH 20.0 /2018 [place] CHEM PANEL eGFR 18 12/19 Result Comment: [facility] [place] eGFR is calculated using the CKD-EPI formula. [...] Glucose Lvl 122 70 - 99 12/18 [facility] [place] CHEM PANEL Calcium Lvl 9.4 8.5 - 10.5 12/18 [place] CHEM PANEL CO2 30 24 - 32 12/18 [place] CHEM PANEL Chloride Lvl 101 95 - 109 12/18 [place] CHEM PANEL Potassium 4.0 3.5 - 5.1 12/18 MH Lvl [place] CHEM PANEL Sodium Lvl 139 135 - 145 12/18 [place] CHEM PANEL eGFR 19 12/18 Result Comment: [facility] [place] eGFR is calculated using the CKD-EPI formula. [...] 12.0 10.0 - 07/ MH 20.0 /2018 [facility] [place] CHEM PANEL Magnesium 2.2 1.8 - 2.4 07/ MH Lvl /2018 [facility] [place] HEMATOLOGY Lymphocytes 2.0 1.0 - 5.5 07/04 MH # /2019 [facility] [place] HEMATOLOGY Monocytes # 0.8 0.0 - 0.8 07/ MH /2018 [facility] [place] HEMATOLOGY Eosinophils 0.2 0.0 - 0.5 07/ MH # /2018 [facility] [place] HEMATOLOGY Segs 57.0 45.0 - 07/ MH 75.0 /2018 [facility] [place] HEMATOLOGY Monocytes 11.6 2.0 - 12.0 07/ MH /2018 [facility] [place] HEMATOLOGY Eosinophils 2.7 0.0 - 4.0 07/ /2018 [facility] [place] HEMATOLOGY Lymphocytes 28.5 20.0 - 07/ MH 40.0 /2018 [facility] [place] HEMATOLOGY Neutrophils 4.0 1.5 - 8.1 / MH # /2018 [facility] [place] HEMATOLOGY Basophils 0.2 0.0 - 1.0 07/ /2018 [facility] [place] HEMATOLOGY Platelet 234 133 - 450 07/ /2018 [facility] [place] HEMATOLOGY MCHC 32.2 32.0 - 07/ MH 36.0 /2019 [facility] [place] HEMATOLOGY RDW 16.0 11.5 - 07/ MH 14.5 /2019 [facility] [place] HEMATOLOGY MPV 9.0 7.4 - 10.4 07/ MH /2018 [facility] [place] HEMATOLOGY MCV 91.9 80.0 - 07/ MH 98.0 /2019 [facility] [place] HEMATOLOGY MCH 29.6 27.0 - 07/04 MH 31.0 /2019 [facility] [place] HEMATOLOGY Hct 43.0 36.0 - 07/04 MH 48.0 /2019 [facility] [place] HEMATOLOGY Hgb 13.9 12.0 - 07/04 MH 16.0 /2018 [facility] [place] HEMATOLOGY RBC 4.68 4.20 - 07/04 MH 5.40 /2019 [facility] [place] HEMATOLOGY WBC 7.0 3.7 - 10.4 07/04 /2018 [facility] [place] CARDIAC Troponin-I <0.02 0.00 - 07 ENZYMES 0.40 /2018 [facility] [place] ELECTROLYT AGAP 11.1 10.0 - 12/17 ES 20.0 /2018 [place] ELECTROLYT eGFR 20 12/17 Result Comment: [facility] [place] eGFR is calculated using the CKD-EPI formula. [...] Lvl 140 135 - 145 12/17 ES [facility] [place] ELECTROLYT BUN 61 7 - 22 12/17 ES [facility] [place] ELECTROLYT Creatinine 2.30 0.50 - 12/17 ES Lvl 1.40 /2018 [facility] [place] ELECTROLYT Potassium 3.1 3.5 - 5.1 12/17 ES Lvl /2018 [facility] [place] ELECTROLYT Calcium Lvl 9.5 8.5 - 10.5 12/17 ES [facility] [place] ELECTROLYT CO2 29 24 - 32 12/17 ES /2018 [facility] [place] ELECTROLYT Chloride Lvl 103 95 - 109 12/17 ES /2018 [facility] [place] ELECTROLYT Glucose Lvl 110 70 - 99 12/17 ES /2018 [facility] [place] HEMATOLOGY Neutrophils 6.3 1.5 - 8.1 12/17 MH # /2018 [facility] [place] HEMATOLOGY Basophils 0.2 0.0 - 1.0 12/17 /2018 [facility] [place] HEMATOLOGY Lymphocytes 1.6 1.0 - 5.5 12/17 MH # /2019 [facility] [place] HEMATOLOGY Monocytes # 0.9 0.0 - 0.8 12/17 /2018 [facility] [place] HEMATOLOGY Segs 71.2 45.0 - 12/17 MH [...] HEMATOLOGY Monocytes 5.8 2.0 - 12.0 / [facility] [place] HEMATOLOGY Lymphocytes 0.7 1.0 - 5.5 / # /2019 [facility] [place] HEMATOLOGY Neutrophils 10.3 1.5 - 8.1 / # /2018 [facility] [place] HEMATOLOGY Monocytes # 0.7 0.0 - 0.8 12/16 [place] CHEM PANEL Magnesium 2.6 1.8 - 2.4 / [place] CHEM PANEL Phosphorus 5.1 2.5 - 4.5 12/15 [place] CHEM PANEL Magnesium 3.0 1.8 - 2.4 12/15 [place] CHEM PANEL AST 15 0 - 37 12/15 [place] CHEM PANEL Alk Phos 101 39 - 136 12/15 [facility] [place] CHEM PANEL Bili Total 0.4 0.2 - [...] B/C Ratio 22 6 - 25 12/15 [facility] [place] HEMATOLOGY Plt Morph Normal Normal 12/15 (12/15/18 1:30 AM) /2018 [facility] HEMATOLOGY RBC Morph Normal Normal 12/15 (12/15/18 1:30 AM) /[address] [facility] [address] URINE AND UA <=1.0 0.1 - 1.0 12/15 STOOL Urobilinogen mg/dL [place] URINE AND UA Color STRAW 12/15 STOOL [place] URINE AND UA Hyal Cast 3 0 - 2 12/15 STOOL [place] URINE AND UA pH 5.0 5.0 - 8.0 12/15 STOOL [place] URINE AND UA Protein 100 mg/dL Negative 12/15 [place] mg/dL [place] URINE AND UA Spec Grav 1.008 <=1.030 12/15 [place] URINE AND UA Turbidity Slight Clear 12/15 [facility]OOL *ABN* /2018 [place] (12/14/18 9:51 PM) URINE AND UA Blood Negative Negative 12/15 [place] (12/14/18 9:51 PM) [place] URINE AND UA Nitrite Negative Negative 12/15 [place] (12/14/18 9:51 PM) [place] URINE AND UA Ketones Negative Negative 12/15 [place]OOL mg/dL mg/dL [place] URINE AND UA Glucose Negative Negative 12/15 [place]OL mg/dL mg/dL [place] URINE AND UA Bili Negative Negative 12/15 [place]OOL *NA* /2018 [place] (12/14/18 9:51 PM) URINE AND UA RBC 3 0 - 2 12/15 STOOL [place] URINE AND UA Bacteria Occasional None Seen 12/15 STOOL /HPF /HPF /2018 [place] URINE AND UA Sq Epi Occasional Few /LPF 12/15 STOOL /LPF [place] URINE AND UA Mucus Few /LPF None Seen 12/15 STOOL /LPF [place] URINE AND UA Leuk Est Negative Negative 12/15 [place] (12/14/18 9:51 PM) [place] URINE AND UA WBC 3 0 - 5 12/15 STOOL [place] CARDIAC BNP 764 <=100 12/15 ENZYMES pg/mL /2018 [place] CARDIAC Troponin-I 0.02 0.00 - 12/15 ENZYMES 0.40 [place] CHEM PANEL Lactic Acid 1.5 0.5 - 2.2 12/15 Lvl [place] ELECTROLYT AGAP 14.0 10.0 - 12/15 MH ES 20.0 /2018 [place] ELECTROLYT Globulin 4.7 2.7 - 4.2 12/15 [place] ELECTROLYT B/C Ratio 19 6 - 25 12/15 [place] ELECTROLYT A/G Ratio 0.6 0.7 - 1.6 12/15 [place] ELECTROLYT eGFR 21 12/15 Comment: The [place] eGFR is calculated using the CKD-EPI formula. [...] ELECTROLYT AST 18 0 - 37 12/15 [place] ELECTROLYT Total 7.7 6.4 - 8.4 12/15 ES Protein [place] ELECTROLYT Calcium Lvl 8.9 8.5 - 10.5 12/15 [place] ELECTROLYT ALT 22 0 - 65 12/15 [place] ELECTROLYT Albumin Lvl 3.0 3.5 - 5.0 12/15 [place] ELECTROLYT Bili Total 0.6 0.2 - 1.3 12/15 [place] ELECTROLYT Alk Phos 109 39 - 136 12/15 [place] ELECTROLYT BUN 43 7 - 22 12/15 [place] ELECTROLYT Glucose Lvl 142 70 - 99 12/15 [place] ELECTROLYT CO2 23 24 - 32 12/15 MH ES [place] ELECTROLYT Sodium Lvl 140 135 - 145 07/ MH ES [place] ELECTROLYT Creatinine 2.22 0.50 - 07/ MH ES Lvl 1. [place] ELECTROLYT Chloride Lvl 107 95 - 109 07/ MH ES [place] ELECTROLYT Potassium 4.0 3.5 - 5.1 07/ MH ES Lvl /2018 [place] HEMATOLOGY Lymphocytes 1.5 1.0 - 5.5 07/ MH # /2018 [place] HEMATOLOGY Monocytes # 1.5 0.0 - 0.8 07/ [place] HEMATOLOGY Basophils 1.1 0.0 - 1.0 07/ [place] HEMATOLOGY Neutrophils 9.6 1.5 - 8.1 07 MH [place] HEMATOLOGY Monocytes 12.0 2.0 - 12.0 12/15 [place] HEMATOLOGY Segs 74.7 45.0 - 07/ MH 75.0 /2018 [place] HEMATOLOGY Lymphocytes 11.7 20.0 - 07 MH 40.0 [place] HEMATOLOGY Eosinophils 0.5 0.0 - 4.0 07/ [place] HEMATOLOGY Eosinophils 0.1 0.0 - 0.5 07/ MH [place] HEMATOLOGY Basophils # 0.1 0.0 - 0.2 07 [place] HEMATOLOGY MCV 90.9 80.0 - 07/ MH 98.0 [place] HEMATOLOGY Hct 35.4 36.0 - 07/ MH 48.0 2019 [place] HEMATOLOGY MCH 30.3 27.0 - 07/ MH 31.0 2019 [place] HEMATOLOGY WBC 12.9 3.7 - 10.4 07/ [place] HEMATOLOGY Hgb 11.8 12.0 - 07/ MH 16.0 2019 [place] HEMATOLOGY RBC 3.89 4.20 - 07 MH 5.40 [place] HEMATOLOGY MPV 9.2 7.4 - 10.4 07 [place] HEMATOLOGY Platelet 202 133 - 450 07 [place] HEMATOLOGY RDW 15.6 11.5 - 07/ MH 14.5 [place] HEMATOLOGY MCHC 33.3 32.0 - 07/ MH 36.0 2018 [place] MOLECULAR vanB Not Detected Not 07/01 DIAGNOSTIC Vancomycin (12/14/18 7:46 PM) Detected /2018 [place] Resistance MOLECULAR Nazanin Not Detected Not 12/15 DIAGNOSTIC Vancomycin (12/14/18 7:46 PM) Detected /2018 [place] Resistance MOLECULAR E. faecium Not Detected Not 12/15 DIAGNOSTIC (12/14/18 7:46 PM) Detected /2018 [place] MOLECULAR S. Not Detected Not 12/15 DIAGNOSTIC pneumoniae (12/14/18 7:46 PM) Detected /2018 [place] MOLECULAR S. pyogenes Not Detected Not 12/15 DIAGNOSTIC (12/14/18 7:46 PM) Detected /2018 [facility] MOLECULAR Streptococcu Not Detected Not 12/15 DIAGNOSTIC s spp. (12/14/18 7:46 PM) Detected /2018 [facility] MOLECULAR E. faecalis Not Detected Not 12/15 DIAGNOSTIC (12/14/18 7:46 PM) Detected /2018 [facility] MOLECULAR Staphylococc Not Detected Not 12/15 DIAGNOSTIC us spp. (12/14/18 7:46 PM) Detected /2018 [facility] MOLECULAR S. anginosus Not Detected Not 12/15 DIAGNOSTIC grp (12/14/18 7:46 PM) Detected /2018 [facility] MOLECULAR S. Not Detected Not 12/15 DIAGNOSTIC agalactiae (12/14/18 7:46 PM) Detected /2018 [place] MOLECULAR S. Not Detected Not 12/15 DIAGNOSTIC lugdunensis (12/14/18 7:46 PM) Detected /2018 [place] MOLECULAR S. Not Detected Not 12/15 DIAGNOSTIC epidermidis (12/14/18 7:46 PM) Detected /2018 [place] MOLECULAR S. aureus Not Detected Not 12/15 DIAGNOSTIC (12/14/18 7:46 PM) Detected /2018 [place] MOLECULAR Listeria Not Detected Not 12/15 DIAGNOSTIC spp. (12/14/18 7:46 PM) Detected /2018 [facility] MOLECULAR mecA Not Detected Not 12/15 DIAGNOSTIC Methicillin (12/14/18 7:46 PM) Detected [place] Resistance CHEM PANEL Magnesium 1.9 1.8 - 2.4 05/15 Lvl /2016 [place] CHEM PANEL Calcium Lvl 8.6 8.5 - 10.5 05/15 [place] CHEM PANEL AGAP 10.7 10.0 - 11/29 MH 20. [place] CHEM PANEL eGFR 46 05/15 Result Comment: The [place] eGFR is calculated using the CKD-EPI formula. [...] Glucose Lvl 89 70 - 99 05/15 [place] CHEM PANEL CO2 26 24 - 32 05/15 [place] CHEM PANEL Potassium 3.7 3.5 - 5.1 05/15 Lv [place] CHEM PANEL Chloride Lvl 109 95 - 109 05/15 [place] CHEM PANEL Sodium Lvl 142 135 - 145 05/15 [place] CHEM PANEL BUN 22 7 - 22 05/15 [place] CHEM PANEL Creatinine 1.15 0.50 - 05/15 Lvl 1.40 [place] CHEM PANEL Magnesium 2.1 1.8 - 2.4 05/14 [place] CHEM PANEL Phosphorus 3.4 2.5 - 4.5 05/14 [place] ELECTROLYT AGAP 11.6 10.0 - 05/14 ES 20. [place] ELECTROLYT Calcium Lvl 9.0 8.5 - 10.5 05/14 [place] ELECTROLYT eGFR 43 05/14 Result Comment: The [place] eGFR is calculated using the CKD-EPI formula. [...] 3.6 3.5 - 5.1 05/14 ES Lvl [place] ELECTROLYT Creatinine 1.23 0.50 - 05/14 ES Lvl 1.40 [place] ELECTROLYT Chloride Lvl 107 95 - 109 05/14 [place] ELECTROLYT Sodium Lvl 141 135 - 145 05/14 [place] ELECTROLYT CO2 26 24 - 32 05/14 [place] ELECTROLYT BUN 30 7 - 22 05/14 [place] ELECTROLYT Glucose Lvl 86 70 - 99 05/14 [place] HEMATOLOGY Platelet 155 133 - 450 05/14 [place] HEMATOLOGY MPV 9.6 7.4 - 10.4 05/14 [place] HEMATOLOGY WBC X 10x3 7.4 3.7 - 10.4 05/14 [place] HEMATOLOGY Hgb 14.2 12.0 - 05/14 MH 16.0 [place] HEMATOLOGY RBC X 10x6 4.75 4.20 - 05/14 MH 5.40 [place] HEMATOLOGY MCH 29.9 27.0 - 05/14 MH 31.0 [place] HEMATOLOGY MCV 90.0 80.0 - 05/14 MH 98.0 [place] HEMATOLOGY MCHC 33.3 32.0 - 05/14 MH 36.0 [place] HEMATOLOGY RDW 15.6 11.5 - 05/14 MH 14.5 [place] HEMATOLOGY Hct 42.7 36.0 - 05/14 MH 48.0 [place] HEMATOLOGY Basophils # 0.1 0.0 - 0.2 05/14 [place] HEMATOLOGY Segs-Bands # 3.6 1.5 - 8.1 05/14 /2016 [place] HEMATOLOGY Basophils 1.1 0.0 - 1.0 05/14 [place] HEMATOLOGY Lymphocytes 2.4 1.0 - 5.5 05/14 MH # /2017 [place] HEMATOLOGY Segs 48.0 45.0 - 05/14 MH 75.0 [place] HEMATOLOGY Eosinophils 0.7 0.0 - 0.5 05/14 MH # /2016 [place] HEMATOLOGY Monocytes # 0.7 0.0 - 0.8 05/14 /2016 [place] HEMATOLOGY Monocytes 9.4 2.0 - 12.0 05/14 [place] HEMATOLOGY Eosinophils 9.6 0.0 - 4.0 05/14 [place] HEMATOLOGY Lymphocytes 31.9 20.0 - 05/14 MH 40.0 [place] URINE AND UA WBC 0-2 /HPF None Seen 05/14 [facility] /HPF /2016 [place] URINE AND UA RBC None Seen 0 - 2 05/14 [facility] (05/13/17 6:20 PM) [facility] and URINE AND UA Bacteria None Seen None Seen 05/14 [facility] (05/13/17 6:20 PM) [place] and URINE AND UA Sq Epi Rare /LPF Few /LPF 05/14 STOOL /2016 [place] URINE AND UA Hyal Cast 0-2 0 - 2 05/14 [facility] (05/13/17 6:20 PM) [place] and URINE AND UA 0.2 0.1 - 1.0 05/14 ST[facility] Urobilinogen /2016 [place] URINE AND UA Nitrite Negative Negative 05/14 [facility] (05/13/17 6:20 PM) [place] and URINE AND UA Leuk Est Negative Negative 05/14 [facility] (05/13/17 6:20 PM) [place] and URINE AND UA Protein 100 mg/dL Negative 05/14 [facility] mg/dL /2016 [place] URINE AND UA Glucose Negative Negative 05/14 [facility] (05/13/17 6:20 PM) [place] and URINE AND UA Ketones Negative Negative 05/14 STOOL *NA* /2016 [place] (05/13/17 6:20 PM) URINE AND UA Bili Negative Negative 05/14 STOOL *NA* /2016 [place] (05/13/17 6:20 PM) URINE AND UA Blood Negative Negative 05/14 [facility] (05/13/17 6:20 PM) [place] and URINE AND UA Turbidity Clear Clear 05/14 [facility] (05/13/17 6:20 PM) [place] and URINE AND UA Spec Grav 1.020 <=1.030 05/14 STOOL [place] URINE AND UA pH 6.5 5.0 - 8.0 05/14 STOOL [place] URINE AND UA Color Yellow Yellow 05/14 STOOL *NA* /2016 [place] (05/13/17 6:20 PM) CARDIAC Total CK 50 12 - 191 05/13 ENZYMES [place] CARDIAC Troponin-I 0.02 0.00 - 05/13 ENZYMES 0.40 [place] CARDIAC CK MB 3.3 0.5 - 3.6 05/13 ENZYMES [place] CARDIAC CK-MB INDEX 6.6 0.0 - 2.5 05/13 ENZYMES [place] CHEM PANEL eGFR 36 05/13 [facility] Comment: The [place] eGFR is calculated using the CKD-EPI formula. [...] 1.43 0.50 - 05/13 MH Lvl 1.40 [place] CHEM PANEL Calcium Lvl 9.8 8.5 - 10.5 05/13 [place] CHEM PANEL AGAP 10.0 10.0 - 05/13 MH 20.0 [place] CHEM PANEL Sodium Lvl 138 135 - 145 05/13 [place] CHEM PANEL CO2 28 24 - 32 05/13 [place] CHEM PANEL Potassium 4.0 3.5 - 5.1 05/13 MH Lvl /2016 [place] CHEM PANEL BUN 34 7 - 22 05/13 [place] CHEM PANEL Glucose Lvl 105 70 - 99 05/13 [place] CHEM PANEL Chloride Lvl 104 95 - 109 05/13 [place] HEMATOLOGY INR 1.03 0.85 - 05/13 MH 1.17 [place] HEMATOLOGY PROTIME 13.5 12.0 - 05/13 MH 14.7 [place] HEMATOLOGY aPTT 38.0 22.9 - 05/13 MH 35.8 [place] HEMATOLOGY MCH 29.8 27.0 - 05/13 MH 31.0 [place] HEMATOLOGY RDW 15.9 11.5 - 05/13 MH 14. [place] HEMATOLOGY Hct 46.5 36.0 - 05/13 MH 48.0 [place] HEMATOLOGY Hgb 15.4 12.0 - 05/13 MH 16.0 [place] HEMATOLOGY MCV 90.2 80.0 - 05/13 MH 98.0 [place] HEMATOLOGY MPV 9.0 7.4 - 10.4 05/13 [place] HEMATOLOGY Platelet 175 133 - 450 05/13 [place] HEMATOLOGY MCHC 33.0 32.0 - 05/13 MH 36.0 [place] HEMATOLOGY RBC X 10x6 5.16 4.20 - 05/13 MH 5.40 [place] HEMATOLOGY WBC X 10x3 8.2 3.7 - 10.4 05/13 [place] HEMATOLOGY Eosinophils 0.7 0.0 - 0.5 05/13 MH # /2016 [place] HEMATOLOGY Basophils # 0.1 0.0 - 0.2 05/13 [place] HEMATOLOGY Lymphocytes 2.6 1.0 - 5.5 05/13 MH # /2016 [place] HEMATOLOGY Segs-Bands # 4.2 1.5 - 8.1 05/13 [place] HEMATOLOGY Monocytes # 0.7 0.0 - 0.8 05/13 [place] HEMATOLOGY Basophils 1.0 0.0 - 1.0 05/13 [place] HEMATOLOGY Segs 51.6 45.0 - 05/13 MH 75.0 [place] HEMATOLOGY Lymphocytes 30.9 20.0 - 11 MH 40.0 [place] HEMATOLOGY Monocytes 8.5 2.0 - 12.0 05/13 [place] HEMATOLOGY Eosinophils 8.0 0.0 - 4.0 05/13 [place] CHEM PANEL Bili Total 0.6 0.2 - 1.3 05/09 [place] CHEM PANEL Alk Phos 116 39 - 136 05/09 [place] CHEM PANEL ASPARTATE 25 0 - 37 05/09 TRANSAMINASE [place] CHEM PANEL Bili Direct 0.1 0.0 - 0.3 05/09 [place] CHEM PANEL Bili 0.5 0.0 - 1.0 05/09 Indirect [place] CHEM PANEL ALANINE 21 0 - 65 05/09 AMINOTRANSFE [place] RASE CHEM PANEL Globulin 3.7 2.7 - 4.2 05/09 [place] CHEM PANEL Total 6.7 6.4 - 8.4 05/09 Protein [place] CHEM PANEL A/G Ratio 0.8 0.7 - 1.6 05/09 [place] CHEM PANEL Albumin Lvl 3.0 3.5 - 5.0 05/09 [place] CHEM PANEL Calcium Lvl 9.0 8.5 - 10.5 05/09 [place] CHEM PANEL eGFR 41 05/09 [facility] Comment: The [place] eGFR is calculated using the CKD-EPI formula. [...] Glucose Lvl 97 70 - 99 05/09 [place] CHEM PANEL Creatinine 1.26 0.50 - 05/09 MH Lvl 1.40 [place] CHEM PANEL CO2 25 24 - 32 05/09 [place] CHEM PANEL AGAP 10.7 10.0 - 05/09 MH 20.0 [place] CHEM PANEL BUN 27 7 - 22 05/09 [place] CHEM PANEL Sodium Lvl 140 135 - 145 05/09 [place] CHEM PANEL Potassium 3.7 3.5 - 5.1 05/09 MH Lvl [place] CHEM PANEL Chloride Lvl 108 95 - 109 05/09 [place] LIPIDS VLDL 23 05/09 [place] LIPIDS LDL 34 <=99 mg/dL 05/09 (Calculated) [place] LIPIDS Trig 117 <=149 05/09 mg/dL [place] LIPIDS CHD Risk 2.30 3.90 - 05/09 MH 5.80 [place] LIPIDS HDL 44 >=61 mg/dL 05/09 [place] LIPIDS Chol 101 <=199 05/09 mg/dL [place] ANEMIA Vitamin B12 >2000 254 - 1320 05/09 STUDY Lvl [place] ANEMIA Folate Lvl 49.5 >=3.0 05/09 STUDY ng/mL [place] CHEM PANEL Procalcitoni <0.05 0.00 - 05/09 MH n Lvl ng/mL 0.10 [place] HEMATOLOGY Sed Rate 5 0 - 20 05/09 [place] HEMATOLOGY MPV 9.2 7.4 - 10.4 05/09 [place] HEMATOLOGY RBC X 10x6 5.36 4.20 - 05/09 MH 5.40 [place] HEMATOLOGY Hgb 15.8 12.0 - 05/09 MH 16.0 [place] HEMATOLOGY WBC X 10x3 8.5 3.7 - 10.4 05/09 [place] HEMATOLOGY MCH 29.6 27.0 - 05/09 MH 31.0 [place] HEMATOLOGY MCHC 32.8 32.0 - 05/09 MH 36.0 [place] HEMATOLOGY RDW 15.7 11.5 - 05/09 MH 14.5 /2017 [place] HEMATOLOGY Platelet 199 133 - 450 05/09 [place] HEMATOLOGY Hct 48.3 36.0 - 05/09 MH 48.0 [place] HEMATOLOGY MCV 90.2 80.0 - 05/09 MH 98.0 [place] HEMATOLOGY Basophils # 0.1 0.0 - 0.2 05/09 [place] HEMATOLOGY Monocytes # 0.5 0.0 - 0.8 05/09 [place] HEMATOLOGY Eosinophils 0.5 0.0 - 0.5 05/09 MH # /2016 [place] HEMATOLOGY Lymphocytes 3.0 1.0 - 5.5 05/09 MH # /2016 [place] HEMATOLOGY Segs 52.2 45.0 - 05/09 MH 75.0 [place] HEMATOLOGY Lymphocytes 35.2 20.0 - 05/09 MH 40.0 [place] HEMATOLOGY Monocytes 6.4 2.0 - 12.0 05/09 [place] HEMATOLOGY Segs-Bands # 4.4 1.5 - 8.1 05/09 [place] HEMATOLOGY Eosinophils 5.5 0.0 - 4.0 05/09 [place] HEMATOLOGY Basophils 0.7 0.0 - 1.0 05/09 [place] IMMUNOLOGY C-REACTIVE <2.9 <=2.9 mg/L 05/09 [place] IMMUNOLOGY RF Qnt <10 0 - 20 05/09 [place] IMMUNOLOGY P-ANCA Negative Negative 05/09 (05/08/17 6:52 PM) [facility] and IMMUNOLOGY C-ANCA Negative Negative 05/09 (05/08/17 6:52 PM) [place] and IMMUNOLOGY C[place] Positive Negative 05/09 *ABN* /2016 [place] (05/08/17 6:52 PM) IMMUNOLOGY Sm Ab <0.2 <=0.9 AI 05/09 [place] IMMUNOLOGY PUBLIC SAFETY TEACHER Ab <0.2 <=0.9 AI 05/09 [place] IMMUNOLOGY [place] Interp Pattern 05/09 appears [place] Nucleolar. IMMUNOLOGY SS-A (Ro) Ab <0.2 <=0.9 AI 05/09 [place] IMMUNOLOGY SS-B (La) Ab <0.2 <=0.9 AI 05/09 [place] IMMUNOLOGY [place] Titer 1:40 Negative 05/09 MH *ABN* /2016 [place] (05/08/17 6:52 PM) IMMUNOLOGY Hep B Core Negative Negative 05/09 IgM *NA* [place] (05/08/17 6:52 PM) IMMUNOLOGY Hep C Ab Negative 05/09 MH *NA* [place] (05/08/17 6:52 PM) IMMUNOLOGY Hep Bs Ag Negative Negative 05/09 MH *NA* [place] (05/08/17 6:52 PM) IMMUNOLOGY Hep A IgM Negative Negative 05/09 MH *NA* [place] (05/08/17 6:52 PM) IMMUNOLOGY EBV VCA IgG >8.0 <=0.8 AI 05/09 [place] IMMUNOLOGY EBV NA IgG >8.0 <=0.8 AI 05/09 [place] IMMUNOLOGY EBV VCA IgM <0.2 <=0.8 AI 05/09 [place] MYOGLOBIN Myoglobin 93 25 - 72 05/09 [place] URINE AND UA Protein 100 mg/dL Negative 05/08 STOOL mg/dL [place] URINE AND UA Glucose Negative Negative 05/08 STOOL (05/08/17 2:02 PM) [place] and URINE AND UA Ketones Negative Negative 05/08 STOOL *NA* [place] (05/08/17 2:02 PM) URINE AND UA Bili Negative Negative 05/08 STOOL *NA* [place] (05/08/17 2:02 PM) URINE AND UA Leuk Est Negative Negative 05/08 STOOL (05/08/17 2:02 PM) [place] and URINE AND UA Nitrite Negative Negative 05/08 STOOL (05/08/17 2:02 PM) [place] and URINE AND UA Blood Negative Negative 05/08 STOOL (05/08/17 2:02 PM) [place] and URINE AND UA 0.2 0.1 - 1.0 05/08 STOOL Urobilinogen [place] URINE AND UA Color Yellow Yellow 05/08 STOOL *NA* [place] (05/08/17 2:02 PM) URINE AND UA Turbidity Clear Clear 05/08 STOOL (05/08/17 2:02 PM) [place] and URINE AND UA Spec Grav 1.020 <=1.030 05/08 STOOL [place] URINE AND UA pH 6.0 5.0 - 8.0 05/08 STOOL [place] URINE AND UA RBC None Seen 0 - 2 05/08 STOOL (05/08/17 2:02 PM) [place] and URINE AND UA Bacteria None Seen None Seen 05/08 STOOL (05/08/17 2:02 PM) [place] and URINE AND UA WBC 0-2 /HPF None Seen 05/08 STOOL /HPF /2016 [place] URINE AND UA Sq Epi Rare /LPF Few /LPF 05/08 STOOL [place] CARDIAC Troponin-I <0.02 0.00 - 05/08 ENZYMES 0.40 /2016 [place] CARDIAC CK MB 2.5 0.5 - 3.6 05/08 ENZYMES [place] CARDIAC Total CK 74 12 - 191 05/08 ENZYMES [place] CARDIAC CK-MB INDEX 3.4 0.0 - 2.5 05/08 ENZYMES [place] CHEM PANEL eGFR 27 05/08 Comment: The [place] eGFR is calculated using the CKD-EPI formula. [...] A/G Ratio 0.8 0.7 - 1.6 05/08 [place] CHEM PANEL ASPARTATE 42 0 - 37 05/08 TRANSAMINASE [place] CHEM PANEL ALANINE 24 0 - 65 05/08 AMINOTRANSFE [place] RASE CHEM PANEL Alk Phos 137 39 - 136 05/08 [place] CHEM PANEL Bili Total 0.8 0.2 - 1.3 05/08 [place] CHEM PANEL Potassium 4.7 3.5 - 5.1 05/08 Result MH Lvl /2016 Comment: [place] Specimen Hemolyzed. CHEM PANEL Albumin Lvl 3.7 3.5 - 5.0 05/08 [place] CHEM PANEL Globulin 4.7 2.7 - 4.2 05/08 [place] CHEM PANEL Calcium Lvl 9.5 8.5 - 10.5 05/08 [place] CHEM PANEL CO2 27 24 - 32 05/08 [place] CHEM PANEL AGAP 12.7 10.0 - 05/08 MH 20.0 [place] CHEM PANEL Total 8.4 6.4 - 8.4 05/08 MH [place] CHEM PANEL B/C Ratio 22 6 - 25 05/08 [place] CHEM PANEL Glucose Lvl 116 70 - 99 05/08 [place] CHEM PANEL BUN 39 7 - 22 05/08 [place] CHEM PANEL Creatinine 1.80 0.50 - 05/08 MH Lvl 1.40 [place] CHEM PANEL Sodium Lvl 138 135 - 145 05/08 [place] CHEM PANEL Chloride Lvl 103 95 - 109 05/08 [place] CHEM PANEL Lactic Acid 1.5 0.5 - 2.2 05/08 MH Lvl /2016 [place] CHEM PANEL Lipase Lvl 465 73 - 393 05/08 [place] HEMATOLOGY MPV 9.0 7.4 - 10.4 05/08 [place] HEMATOLOGY RDW 15.7 11.5 - 05/08 MH 14.5 [place] HEMATOLOGY Platelet 207 133 - 450 05/08 [place] HEMATOLOGY MCH 29.9 27.0 - 05/08 MH 31.0 [place] HEMATOLOGY MCHC 33.2 32.0 - 05/08 MH 36.0 [place] HEMATOLOGY Hct 50.0 36.0 - 05/08 MH 48.0 [place] HEMATOLOGY MCV 90.2 80.0 - 05/08 MH 98.0 [place] HEMATOLOGY Hgb 16.6 12.0 - 05/08 MH 16.0 [place] HEMATOLOGY WBC X 10x3 10.0 3.7 - 10.4 05/08 [place] HEMATOLOGY RBC X 10x6 5.54 4.20 - 05/08 5.40 /2016 [place] HEMATOLOGY Basophils # 0.1 0.0 - 0.2 05/08 [place] HEMATOLOGY Eosinophils 0.5 0.0 - 0.5 05/08 # /2017 [place] HEMATOLOGY Segs-Bands # 6.1 1.5 - 8.1 05/08 [place] HEMATOLOGY Basophils 1.0 0.0 - 1.0 05/08 [place] HEMATOLOGY Monocytes # 1.0 0.0 - 0.8 05/08 [place] HEMATOLOGY Lymphocytes 2.3 1.0 - 5.5 05/08 [place] HEMATOLOGY Eosinophils 5.1 0.0 - 4.0 05/08 [place] HEMATOLOGY Monocytes 9.7 2.0 - 12.0 05/08 [place] HEMATOLOGY Lymphocytes 23.1 20.0 - 05/08 40.0 [place] HEMATOLOGY Segs 61.1 45.0 - 05/08 75.0 [place] Pathology Reports No Data Provided for This Section Diagnostic Reports Report Value Date Source Chest 1view DX Portable chest: There is bee n improvement in pulmonary venous congestion and edema compared to 12/15/2018 with mild residual interstitial edema in the perihilar regions. The lungs and pleural spaces are 12/18/2018 [facility] otherwise clear. The cardia c silhouette is enlarged but decreased in size. There is no other significant change. SL [id number] Chest 1view DX Portable chest: The cardiac silhouette is enlarged. There is pulmonary venous congestion and perihilar edema in the lung showing no significant change from the previous day considering technical differe 12/15/2018 [facility] nces and phase of respiratio n. There is no significant effusion. There is no other change. SL [id number] Retroperitoneal Complete Clinical Indication: - LILIANA. 12/15/2018 [facility] US Comparison: None. TECHNIQUE: Multiple longitudinal [...] Chest 1view DX PROCEDURE: Chest Radiograph. 12/14/2018 [facility] Clinical Indication: Cough, shortness of breath. Comparison: Chest radiograph 05/13/2017. FINDINGS: The chest shows diffuse bila teral pulmonary infiltrate/edema most pronounced in the midlung zones and lower lobes. The cardiac silhouette is en larged. Degenerative change involves the thoracic spine. IMPRESSION: 1. Cardiomegaly with bilateral pulmonary infiltr ate/edema. [id number] Carotid artery Doppler Study: Carotid artery Dopple r bilat US 05/14/2017 9:47 AM SHEET WRITER 05/14/2017 [facility] bil US Clinical Indication: - stro ke [...] sided we akness x 2 weeks; 05/13/2017 [facility] Comparison: None TECHNIQUE: MRI of the brain [...] contrast CT Patient Name: LAURIE OLEARY 04/18 [facility] : 1940; Age: 77 years y/o Female MR: [id number] Study: Brain wo contrast CT 05/13/2017 2:15 [...] cortically based left parietal infarct . SL: [id number] Chest 1view DX Chest 1view DX 05/13/2017 2:15 PM SHEET WRITER 05/13/2017 [facility] Ordering Physician: Kate Rodriguez CLINICAL HISTORY: - [...] acute radiographic abnormality of the chest. SL: [id number] Abdomen RUQ US Patient Name: LAURIE OLEARY 7 [facility] : 1940; Age: 77 years y/o Female MR: [id number] Study: Abdomen RUQ US Order Date: 05/08/2017 5:07 PM SHEET WRITER Ordering Physician: Clinical Indication: Elevated hepatic enzymes [...] CT Study: Chest wo contrast CT 05/08/2017 [facility] Clinical Indication: - r/o acute pathology/Weakness, not eating for the past 8 days. Seen by PCP yesterday \\T\\ was Rx Z-pack. [facility] Saturday \\T\\ Saturday for the [...] wo IV Patient Name: LAURIE CEDILLO 05/08/2017 [facility] contrast CT : 1940; Age: 77 years y/o Female MR: [id number] Study: Abdomen/Pelvis wo IV contrast CT 05/08/20 17 2:44 PM SHEET WRITER Referring physician:Antonette Giordano DO Clinical Indication: abdomin [...] or pelvic noncontr ast CT findings. SL: [id number] Brain wo contrast CT Patient Name: LAURIE CEDILLO 05/08/2017 [facility] : 1940; Age: 77 years y/o Female MR: [id number] Study: Brain wo contrast CT 05/08/2017 2:28 [...] 3. 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 SL: [id number] Chest 1view DX CHEST 1 VIEW 05/08/2017 [facility] INDICATION: Heart failure. Not eating for the nm st 8 days. COMPARISON: 08/10/2008 chest x-ray FINDINGS: Faint opacity righ t base. The lungs are otherwise clear. No pleural abnormality. The cardiomediastinal silhouette is normal. Vascular stent left side of the neck. IMPRESSION: Subtle area of a telectasis or infiltrate right base. Otherwise normal exam. END IMPRESSION SL: [id number] Consultation Notes No Data Provided for This [...] 12/15/2018 [facility] Systolic (mm Hg) 141 12/15/2018 [place] Diastolic (mm Hg) 66 12/15/2018 [place] Respitory Rate 17 12/15/2018 MH [place] Systolic (mm Hg) 141 12/15/2018 MH [place] Diastolic (mm Hg) 61 12/15/2018 [place] Respitory Rate 25 12/15/2018 [place] Temperature Oral (F) 97.9 F 12/15/2018 [place] Systolic (mm Hg) 156 12/15/2018 [place] Diastolic (mm Hg) 68 12/15/2018 [place] Respitory Rate 41 12/15/2018 [place] Height 162.56 cm 12/14/2018 [place] Heart Rate 85 12/14/2018 MH [place] Temperature Oral (F) 97.9 F 12/14/2018 [place] BMI Calculated 24.08 12/14/2018 [place] Weight 63.636 12/14/2018 MH [place] Respitory Rate 18 05/15/2017 [place] Systolic (mm Hg) 165 05/15/2017 MH [place] Diastolic (mm Hg) 73 05/15/2017 [place] Systolic (mm Hg) 161 05/15/2017 MH [place] Diastolic (mm Hg) 76 05/15/2017 [place] Respitory Rate 14 05/15/2017 [place] Systolic (mm Hg) 164 05/15/2017 [place] Diastolic (mm Hg) 77 05/15/2017 [place] Heart Rate 67 05/15/2017 [place] Respitory Rate 19 05/15/2017 [place] Heart Rate 73 05/15/2017 [place] Temperature Oral (F) 99.1 F 05/15/2017 [place] Heart Rate 70 05/15/2017 [place] Temperature Oral (F) 97.5 F 05/15/2017 [place] Temperature Oral (F) 98.1 F 05/15/2017 [place] Weight 65.2 05/14/2017 [place] Height 157.48 cm 05/14/2017 [place] BMI Calculated 26.29 05/14/2017 [place] Weight 68.182 05/13/2017 [place] BMI Calculated 22.86 05/13/2017 [place] Height 172.72 cm 05/13/2017 [place] Heart Rate 63 05/09/2017 [place] Temperature Oral (F) 97.8 F 05/09/2017 [place] Systolic (mm Hg) 138 05/09/2017 [place] Diastolic (mm Hg) 76 05/09/2017 [place] Respitory Rate 17 05/09/2017 [place] Respitory Rate 15 05/09/2017 [place] Systolic (mm Hg) 153 05/09/2017 [place] Diastolic (mm Hg) 73 05/09/2017 [place] Respitory Rate 17 05/09/2017 [place] Temperature Oral (F) 97.7 F 05/09/2017 [place] Heart Rate 60 05/09/2017 [place] Temperature Oral (F) 97.9 F 05/09/2017 [place] Heart Rate 62 05/09/2017 [place] Systolic (mm Hg) 144 05/09/2017 [place] Diastolic (mm Hg) 74 05/09/2017 [place] Height 157.48 cm 05/08/2017 [place] BMI Calculated 26.1 05/08/2017 [place] Weight 64.716 05/08/2017 [place] Weight 63.636 05/08/2017 [place] BMI Calculated 25.66 05/08/2017 [place] Height 157.48 cm 05/08/2017 [facility] Encounters Location Location Encounter Encounter Reason Attending ADM DC Stat us Source Details Type Number For Provider Date Date Visit [facility] [id number] Shruthi 05/08 05/09 Mikey Vazquez /2016 [facility] [id number] Valeri 05/13 05/15 Mikey Amor /2016 [facility] Emergency [id number] Angie Felicity 12/14 12/15 Mikey /2018 [facility] Inpatient [id number] [facility] Procedures Procedure Code Date Perfomer Comments Source Hysterectomy [id number] Mariano [facility] Stent [id number] [facility] and [facility] Assessment and Plan Date Source Extracted from:Title: Clinical Document 12/20/2018 [facility] Author: Fransisca Hensley MD Date: 12/20/18 Pulmonary and Critical Care Progress Note [facility] Sujective/overnight events: Chart reviewed. Patient [...] sterile water 10 mL) 1 gm IV [id number] 120 ml/hr 12/18/18 furosemide (Lasix 40 mg [...] Santos MD Date: 12/16/18 Internal Medicine Consultation [facility] Ankit De Los Santos MD SUBJECTIVE: pt [...] stents, HTN, dementia, and COPD presented to [facility] with a 2 day h/o progressive shortness [...] limb ischemia All imaging and labs from [facility] reviewed Impression: 1. Hypoxic respiratory failure 2. [...] as Motrin, Aspirin, Al jessica, Advil, Ibuprofen halfway if possible. Outpt EUS for antral nodule. [...] , BS + Ext : no edema MINES SAFETY ENGINEER: No gross motor/sensory defects Vitals Tmp(F) Pulse [...] Rowan MD Date: 05/14/17 full H&P dictated, #[id number] date/time: 05/13/2017 20:45 Extracted from:Title: Teleneurology Consultation--ROUTINE [...] herself. She does see Dr. Lacy at [facility] as her neurological issues. no new med [...] call with ? Juan Lockhart MD ([place]) Order Manager of Neurology Call Center: [phone] Extracted from:Title: Nephrology Progress Note * Author: [...] History Date Source Social History TypeResponse 05/08/2017 [facility] Substance Abuse Use: None. Alcohol Never Smoking Status Former smoker; Type: Cigarettes; Exposur e to Tobacco Smoke None; Cigarette Smoking Last 365 Days No; Reg Smoking Cessation Counseling No entered on: 12/14/18 Social History TypeResponse 05/08/2017 [facility] Substance Abuse Use: None. Alcohol Never [...]
--- OUTSIDE RECORDS SUMMARY | 2020-07-15 11:28 | XMS REPORT | Continuity of Care Document ---
:1940 Author Organization [facility] t Address [address] [place] [address] Care Team Providers Name Role Phone Ga [...] WEAKNESS 00:00: Eduardo n 00 Active 12/14/2018 [facility] Mikey POSSIBLE Diagnosis Active 2016-062017-05-13 M emoria STROKE 07-13 15:34:00 l POSSIBLE 00:00: Eduardo n STROKE 00 Active 05/13/2017 [facility] Mikey RIGHT Diagnosis Active 2016-062017-06-12 Mem oria SIDED 07-13 11:14:00 l WEAKNESS RIGHT 00:00: [place] SIDED 00 WEAKNESS Active 05/13/2017 [facility] ACUTE Diagnosis Active 2016-2017-05-15 Mem oria KIDNEY - 21:58:00 l INJURY, ACUTE 00:00: Mikey GENERALIZE KIDNEY 00 D WEAKNES INJURY, GENERALIZE D WEAKNES Active 05/08/2017 [facility] Dizziness Dizziness Disease Active 2015-06 Tyson patel 0-31 Methodi 00:00: st 00 Weakness Problem 2017-05-18 Mem oria 03:14:20 l Weakness Eduardo n 05/18/2017 [facility] Acute on Problem 2018-12-22 Mem oria chronic 21:52:09 l diastolic Acute on Her grider (congestiv chronic e) heart diastolic failure (congestiv e) heart failure 12/22/2018 [facility] Cerebrovas Problem Resolve 2018-12-22 Memoria cular d 21:52:09 l accident [place] (disorder) Cerebrovas cular accident (disorder) [facility]olve 2018-12-22 Mem oria obstructiv d 21:52:09 l e lung 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 (disorder) Resolved Problem 12/22/2018 [facility] Congestive Problem Resolve 2018-12-22 Memoria heart d 21:52:09 l failure [place] (disorder) Congestive heart failure (disorder) Resolved Problem 12/22/2018 [facility] Dementia Problem Resolve 2018-12-22 Me moria (disorder) d 21:52:09 l Dementia Eduardo n (disorder) Resolved Problem 12/22/2018 [facility] Carotid Problem Active 2018-12-22 Jensen ricco endarterec 21:52:09 l delmis Carotid [place] (procedure endarterec ) delmis (procedure ) Active Problem 12/22/2018 [facility] Hypertensi Problem Active 2018-12-22 M emoria ve 21:52:09 l disorder, [place] systemic Hypertensi arterial ve (disorder) disorder, systemic arterial (disorder) Active Problem 12/22/2018 [facility] ACUTE Diagnosis Active 2017-05-15 Mem oria KIDNEY 21:58:00 l FAILURE, ACUTE Mikey UNSPECIFIE KIDNEY D FAILURE, UNSPECIFIE D Active [facility] DEHYDRATIO Diagnosis Active 2017-05-15 Memoria N 21:58:00 l Mikey DEHYDRATIO N Active [facility] ACUTE ON Diagnosis Active 2018-12-29 M emoria CHRONIC 22:24:00 l DIASTOLIC ACUTE ON Her grider (CONGESTIV CHRONIC E) DIASTOLIC (CONGESTIV E) Active [facility] Allergies, Adverse Reactions, Alerts Allergy Allergy Status Severity Reaction(s) Onset Inactive Treating Comm ents Source Name Type Date Date Clinician No Known No Known Active Memori a Medicati Medicati l on on Mikey Allergie Allergie s s Social History Social Habit Start Date Stop Date Quantity Comments Source Sex Assigned At [facility] ethodist Social History 2017-05-08 2017-05-[address] [facility] ermann 23:39:20 23:39:20 Cigarettes smoked 2016-04-17 2016-04-17 Joe Anglin current (pack per 00:00:00 00:00:00 day) - Reported Cigarette 2016-04-17 2016-04-17 Joe Mcnamara ist pack-years 00:00:00 00:00:00 Alcohol intake 2016-04-17 2016-04-17 Current Diaz thodist 00:00:00 00:00:00 non-drinker of alcohol (finding) [...] # 60 l Tablet 20:41: tab, 3 [place] [Eliquis] 00 Refill(s) Doxycycline Yes 100 mg [...] No Notes: Do Me moria MG Enteric 06 not crush l Coated 14:00: or chew. Mikey Tablet 00 (Same As: Ecotrin) Aspirin No Notes: Do Memor ia - not crush l 14:00: or chew. Mikey (Same As: Ecotrin) Eliquis No Notes: Memoria 12-19 Same as: l 02:00: Eliquis atorvastati No Notes: Jensen ricco n 12-19 (Same as: l 02:00: Lipitor) Memantine No Notes: Memori a 12-18 (Same As: l 22:00: Namenda) Levetiracet No [...] s with feeding tube less than 14 Portuguese (Dobhoff, J-tube etc) and pediatric and patients. Lasix No Notes: Memoria 12-16 (Same as: l 18:00: Lasix) MEDICATION WASTE Product Size: 40 mg Product Wasted: ___ mg pantoprazol No Notes: Jensen ricco e 12-16 Tablet l 12:30: should not be chewed or crushed. (Same as: Protonix) Atorvastati No Atorvastat Memoria n 80 mg tab 12-16 in 80 mg l Pt's Own 02:00: tab Eduardo n MED 00 Pt's Own MED, 80 mg, Drug form: MISC, Route: PO, Bedtime, 12/15/18 21:00:00 CDT, Duration: 30 day, Stop date: 01/13/19 21:00:00 CDT, 0 atorvastati 2019-0 No Notes: Jensen ricco n 12-16 (Same as: l 02:00: Lipitor) [place] 00 Memantine 2018-0 No Memantine Mem oria [...] a 12-15 (Same As: l 14:00: Namenda) [place] losartan 25 No 25 mg = 1 M emoria mg oral 12-15 tab, PO, l tablet 13:25: Daily, 0 Refill(s) heparin No Notes: Memoria 12-15 porcine l 13:00: heparin Lasix No Notes: Memoria - (Same as: l 13:00: Lasix) MEDICATION WASTE Product Size: 40 mg Product Wasted: ___ mg Budesonide No Notes: Memor ia 0.25 MG/ML 12-15 (Same As: l Inhalant 13:00: Pulmicort) [facility] Solution [Pulmicort] Albuterol No Notes: Memori a 0.833 MG/ML 12-15 (Same as: l / 08:00: Duoneb) [place] Ipratropium 00 Allen 0.167 MG/ML Inhalant Solution [DuoNeb] Rocephin + No Notes: Memor ia sterile 12-15 (Same As: l water 10 mL 06:28: Rocephin). [place] 00 Use with 100 mL NS and infuse over 30 min MEDICATION WASTE Product Size: 1000 mg Product Wasted: ___ mg Azithromyci No Notes: Jensen ricco n 12-15 (Same As: l 06:28: Zithromax [place] 00 IV) Lasix No Notes: Memoria 12-15 (Same as: l 00:08: Lasix) [place] 00 MEDICATION WASTE Product Size: 40 mg Product Wasted: ___ mg Solu-Medrol No Notes: Jensen ricco 12-14 (Same l 23:39: as:Solu-ME DROL, A-Methapre d) Magnesium No Notes: Memori a Sulfate 12-14 WASTE: F/P l 23:39: - Sink; E [place] [facility] Albuterol No Notes: Memori a 0.833 MG/ML 12-14 (Same as: l / 23:38: Duoneb) Ipratropium 00 Allen 0.167 MG/ML Inhalant Solution [DuoNeb] pantoprazol 2016-06 Yes 40 mg = 1 M emoria e 40 mg 1-29 tab, PO, l oral 19:38: Before [place] enteric 00 Breakfast, coated # 30 tab, tablet 0 Refill(s), Pharmacy: [facility] [id number] Sodium 2016-06 No 1,000 mL, Memori a Chloride -29 Rate: 21 l 0.9% IV 13:30: ml/hr, Mikey 1,000 mL 00 Infuse over: 47.6 hr, Route: IV, Dosing Weight 65.2 kg, Total Volume: 1,000, Start date: 05/15/17 7:30:00 SOFTWARE ENGINEERING ANALYST, Duration: 30 day, Stop date: 06/14/17 7:29:00 SOFTWARE ENGINEERING ANALYST, 1.71, m2 atorvastati 2016-06 No atorvastat Memoria n 80mg pt -29 in 80mg pt l own med 03:00: own med, Eduardo n 00 80 mg, Drug form: MISC, Route: PO, Bedtime, 05/14/17 21:00:00 SOFTWARE ENGINEERING ANALYST, Duration: 30 day, Stop date: 06/12/17 21:00:00 SOFTWARE ENGINEERING ANALYST atorvastati 2016-06 No Notes: Jensen ricco n [...] form: MISC, Route: PO, BID, 05/14/17 9:00:00 SOFTWARE ENGINEERING ANALYST, Duration: 30 day, Stop date: 06/12/17 17:00:00 SOFTWARE ENGINEERING ANALYST clopidogrel 2016-06 No Notes: Jensen ricco 07-14 (Same As: l 15:00: Plavix) carvedilol 2016-06 No Notes: Memor ia 07-14 Give with l 15:00: food. (Same As: Coreg) Donepezil 2016-06 No Donepezil Mem oria 10mg pt own 28 10mg pt l med 15:00: own med, [place] 00 10 mg, Drug form: MISC, Route: PO, BID, 05/14/17 9:00:00 SOFTWARE ENGINEERING ANALYST, Duration: 30 day, Stop date: 06/12/17 17:00:00 SOFTWARE ENGINEERING ANALYST Streptococc 2016-06 No Notes: Jensen ricco us 07-14 Shake well l pneumoniae 15:00: prior to Her grider serotype 1 00 use (Same capsular as: antigen Prevnar diphtheria 13) [id number] protein conjugate vaccine / Streptococc us pneumoniae serotype 14 capsular antigen diphtheria [id number] protein conjugate vaccine / Streptococc us pneumoniae [...] Memoria 07-14 Tablet l 13:30: should not [place] 00 be chewed or crushed. (Same as: Protonix) Saline 2016-06 No Notes: Memoria Flush 0.9% 07-14 (Same as: l 03:15: BD [place] 00 Posiflush) Sodium 2016-06 No 1,000 mL, Memori a Chloride 07-14 Rate: 100 l 0.9% IV 03:15: ml/hr, Mikey 1,000 mL 00 Infuse over: 10 hr, Route: IV, Dosing Weight 65.2 kg, Total Volume: 1,000, Start date: 05/13/17 21:15:00 SOFTWARE ENGINEERING ANALYST, Duration: 30 day, Stop date: 06/12/17 21:14:00 SOFTWARE ENGINEERING ANALYST, 1.71, m2 Acetaminoph 2016-06 No Notes: Do M emoria en 07-14 not exceed l 03:15: 4 gm/day. [place] 00 (Same as: Tylenol) Ondansetron 2016-06 No [...] Weight 68.182 kg, Start date: 05/13/17 18:13:00 SOFTWARE ENGINEERING ANALYST, Stop date: 05/13/17 18:13:00 SOFTWARE ENGINEERING ANALYST NS (Bolus) 2016-06 No 1,000 mL, Me moria IV -27 1,000 l 22:25: ml/hr, [place] 00 Infuse Over: 1 hr, Route: IV, 1,000, Drug form: INJ, ONCE, Priority: STAT, Dosing Weight 68.182 kg, Start date: 05/13/17 16:25:00 SOFTWARE ENGINEERING ANALYST, Stop date: 05/13/17 16:25:00 SOFTWARE ENGINEERING ANALYST Saline 2016-06 No Notes: Memoria Flush 0.9% 07-13 (Same as: l 20:15: BD Mikey 00 Posiflush) Streptococc 2016-06 No Notes: Jensen ricco us -23 Shake well l pneumoniae 15:00: prior to Her grider serotype 1 00 use (Same capsular as: antigen Prevnar diphtheria 13) [id number] protein conjugate vaccine / Streptococc us pneumoniae serotype 14 capsular antigen diphtheria [id number] protein conjugate vaccine / Streptococc us pneumoniae [...] Aspirin 2016-06 No Notes: Do Memor ia -23 not crush l 15:00: or chew. [place] 00 (Same As: Ecotrin) Allopurinol 2016-06 No Notes: Jensen ricco -23 (Same as: l 15:00: Zyloprim) Mikey 00 Sodium 2016-06 No 1,000 mL, Memori a Chloride 1-23 1,000 l 0.9% 14:14: ml/hr, Mikey (Bolus) IV 00 Infuse Over: 1 hr, Route: IV, 1,000, Drug form: INJ, ONCE, Priority: STAT, Dosing Weight 64.716 kg, Start date: 05/09/17 8:14:00 SOFTWARE ENGINEERING ANALYST, Stop date: 05/09/17 8:14:00 SOFTWARE ENGINEERING ANALYST heparin 2016-06 No Notes: Memoria 1-23 porcine l 06:00: heparin [place] 00 atorvastati 2016-06 No atorvastat Memoria n 80mg pt 1-23 in 80mg pt l own med 04:31: own med, Eduardo n 00 80 mg, Drug form: MISC, Route: PO, Bedtime, 05/08/17 22:31:00 SOFTWARE ENGINEERING ANALYST, Duration: 30 day, Stop date: 06/07/17 21:00:00 SOFTWARE ENGINEERING ANALYST Memantine 2016-06 No Memantine Mem oria 10mg pt own 1-23 10mg pt l med 04:29: own med, Mikey 00 10 mg, Drug form: MISC, Route: PO, BID, 05/08/17 22:29:00 SOFTWARE ENGINEERING ANALYST, Duration: 30 day, Stop date: 06/07/17 17:00:00 SOFTWARE ENGINEERING ANALYST Donepezil 2016-06 No Donepezil Mem oria 10mg pt own 1-23 10mg pt l med 04:24: own med, [place] 00 10 mg, Drug form: MISC, Route: PO, BID, 05/08/17 22:24:00 SOFTWARE ENGINEERING ANALYST, Duration: 30 day, Stop date: 06/07/17 17:00:00 SOFTWARE ENGINEERING ANALYST atorvastati 2016-06 No 80 mg, Jensen ricco n 07-09 Route: PO, l 04:09: Drug form: [place] 00 TAB, Bedtime, Dosing Weight 64.716, kg, Start date: 05/08/17 22:09:00 SOFTWARE ENGINEERING ANALYST, Duration: 30 day, Stop date: 06/07/17 21:00:00 SOFTWARE ENGINEERING ANALYST Levetiracet 2016-06 No Notes: Jensen ricco am 250 MG 07-09 (Same l Oral Tablet 04:08: as:Keppra) Amlodipine 2016-06 No Notes: Memor ia -23 (Same as: l 04:08: Norvasc) Memantine 2016-06 No 10 mg, Memori a - Route: PO, l 04:07: Drug form: [place] 00 TAB, BID, Dosing Weight 64.716, kg, Start date: 05/08/17 22:07:00 SOFTWARE ENGINEERING ANALYST, Duration: 30 day, Stop date: 06/07/17 17:00:00 SOFTWARE ENGINEERING ANALYST carvedilol 2016-06 No Notes: Memor ia Give with l 04:05: food. [place] 00 (Same As: Coreg) donepezil 2016-06 No [...] Total Volume: 1,000, Start date: 05/08/17 16:14:00 SOFTWARE ENGINEERING ANALYST, Duration: 30 day, Stop date: 06/07/17 16:13:00 SOFTWARE ENGINEERING ANALYST, 1.69, m2 Acetaminoph 2016-06 No Notes: Do M emoria en 07-08 not exceed l 22:14: 4 gm/day. [place] 00 (Same as: Tylenol) Acetaminoph 2016-06 No Notes: Jensen ricco en 325 MG / 07-08 (Same as: l Hydrocodone 22:14: Dumas Naty nn Bitartrate 00 325/5) Do 5 MG Oral not exceed Tablet 4gm/day of acetaminop hen. Morphine 2016-06 No 2 mg, Memoria 07-08 Route: l 22:14: IVP, Q4H, Mikey 00 Dosing Weight 63.636, kg, PRN Pain Score 7-10, Start date: 05/08/17 16:14:00 SOFTWARE ENGINEERING ANALYST, Duration: 30 day, Stop date: 06/07/17 16:13:00 SOFTWARE ENGINEERING ANALYST Ondansetron 2016-06 No Notes: Jensen ricco 07-08 (Same as: l 22:14: Zofran) Mikey 00 MEDICATION WASTE Product Size: 4 mg Product Wasted: ___ mg NS (Bolus) 2016-06 No 1,000 mL, Me moria IV 07-08 1,000 l 20:28: ml/hr, [place] 00 Infuse Over: 1 hr, Route: IV, 1,000, Drug form: INJ, ONCE, Priority: STAT, Dosing Weight 63.636 kg, Start date: 05/08/17 14:28:00 SOFTWARE ENGINEERING ANALYST, Stop date: 05/08/17 14:28:00 SOFTWARE ENGINEERING ANALYST Pepcid 2016-06 No Notes: Memoria 07-08 (Same as: l 18:11: Pepcid) [place] 00 Can be dilute in 5-10cc NS IVP: [...] Diastolic (mm Hg) 2018-12-20 20:13:00 Mem orial [place] Respitory Rate 2018-12-20 20:13:00 Memori al Mikey Systolic (mm Hg) 2018-12-20 19:00:00 Jensen rial Mikey Diastolic (mm Hg) 2018-12-20 19:00:00 Mem orial [place] Respitory Rate 2018-12-20 19:00:00 Memori al [place] Systolic (mm Hg) 2018-12-20 18:00:00 Jensen rial Mikey Diastolic (mm Hg) 2018-12-20 18:00:00 Mem orial Mikey Respitory Rate 2018-12-20 18:00:00 Memori al [place] Temperature Oral (F) 2018-12-20 17:02:00 98.0 F [facility] Mikey Temperature Oral (F) 2018-12-20 13:00:00 97.7 F [facility] [place] Height 2018-12-15 06:10:00 160.02 cm [facility] [place] Weight 2018-12-15 06:10:00 [facility] BMI Calculated 2018-12-15 06:10:00 Memori al [place] Systolic (mm Hg) 2018-12-15 03:53:00 Jensen rial [place] Diastolic (mm Hg) 2018-12-15 03:53:00 Mem orial [place] Respitory Rate 2018-12-15 03:53:00 Memori al [place] Systolic (mm Hg) 2018-12-15 02:45:00 Jensen rial Mikey Diastolic (mm Hg) 2018-12-15 02:45:00 Mem orial [place] Respitory Rate 2018-12-15 02:45:00 Memori al [place] Temperature Oral (F) 2018-12-15 02:45:00 97.9 F [facility] [place] Systolic (mm Hg) 2018-12-15 01:04:00 Jensen rial [place] Diastolic (mm Hg) 2018-12-15 01:04:00 Mem orial Mikey Respitory Rate 2018-12-15 01:04:00 Memori al [place] Height 2018-12-14 23:18:00 162.56 cm [facility] [place] Heart Rate 2018-12-14 23:18:00 [facility] Mikey Temperature Oral (F) 2018-12-14 23:18:00 97.9 F [facility] [place] BMI Calculated 2018-12-14 23:18:00 Memori al Mikey Weight 2018-12-14 23:18:00 [facility] Mikey Respitory Rate 2017-05-15 18:40:00 Memori al [place] Systolic (mm Hg) 2017-05-15 18:40:00 Jensen rial [place] Diastolic (mm Hg) 2017-05-15 18:40:00 Mem orial Mikey Systolic (mm Hg) 2017-05-15 18:30:00 Jensen rial [place] Diastolic (mm Hg) 2017-05-15 18:30:00 Mem orial Mikey Respitory Rate 2017-05-15 18:30:00 Memori al [place] Systolic (mm Hg) 2017-05-15 17:36:00 Jensen rial [place] Diastolic (mm Hg) 2017-05-15 17:36:00 Mem orial Mikey Heart Rate 2017-05-15 17:36:00 [facility] [place] Respitory Rate 2017-05-15 17:36:00 Memori al [place] Heart Rate 2017-05-15 14:54:00 [facility] Mikey Temperature Oral (F) 2017-05-15 14:54:00 99.1 F [facility] [place] Heart Rate 2017-05-15 09:05:00 [facility] Mikey Temperature Oral (F) 2017-05-15 09:05:00 97.5 F [facility] Mikey Temperature Oral (F) 2017-05-15 05:40:00 98.1 F [facility] [place] Weight 2017-05-14 02:15:00 [facility] [place] Height 2017-05-14 02:15:00 157.48 cm [facility] [place] BMI Calculated 2017-05-14 02:15:00 Memori al [place] Weight 2017-05-13 20:07:00 [facility] [place] BMI Calculated 2017-05-13 20:07:00 Memori al Mikey Height 2017-05-13 20:07:00 172.72 cm [facility] [place] Heart Rate 2017-05-09 17:15:00 [facility] [place] Temperature Oral (F) 2017-05-09 17:15:00 97.8 F [facility] [place] Systolic (mm Hg) 2017-05-09 17:15:00 Jensen rial Mikey Diastolic (mm Hg) 2017-05-09 17:15:00 Mem orial [place] Respitory Rate 2017-05-09 17:15:00 Memori al [place] Respitory Rate 2017-05-09 14:29:00 Memori al Mikey Systolic (mm Hg) 2017-05-09 13:36:00 Jensen rial Mikey Diastolic (mm Hg) 2017-05-09 13:36:00 Mem orial [place] Respitory Rate 2017-05-09 13:36:00 Memori al Mikey Temperature Oral (F) 2017-05-09 13:36:00 97.7 F [facility] Mikey Heart Rate 2017-05-09 13:36:00 [facility] [place] Temperature Oral (F) 2017-05-09 10:00:00 97.9 F [facility] Mikey Heart Rate 2017-05-09 10:00:00 [facility] [place] Systolic (mm Hg) 2017-05-09 10:00:00 Jensen rial [place] Diastolic (mm Hg) 2017-05-09 10:00:00 Mem orial [place] Height 2017-05-08 23:34:00 157.48 cm [facility] Mikey BMI Calculated 2017-05-08 23:34:00 Memori al Mikey Weight 2017-05-08 23:34:00 [facility] [place] Weight 2017-05-08 18:08:00 [facility] Mikey BMI Calculated 2017-05-08 18:08:00 Memori al Mikey Height 2017-05-08 18:08:00 157.48 cm [facility] [place] Procedures Procedure Date / Time Performed Performing Clinician Sourc e Hysterectomy [facility] Mikey Stent placement [facility] [place] Plan of Care Planned Activity Planned Date Details Comments Source Future Scheduled 2020-01-16 INFLUENZA VACCINE [place] [facility] 00:00:00 [code = INFLUENZA VACCINE] Future Scheduled 2006 65+ PNEUMOCOCCAL [place] [facility] 00:00:00 VACCINE (1 of 1 - PPSV23) [code = 65+ PNEUMOCOCCAL VACCINE (1 of 1 - PPSV23)] Future Scheduled 1991 SHINGLES VACCINES (#1) [place] [facility] 00:00:00 [code = SHINGLES VACCINES (#1)] Future Scheduled 1957 COVID-19 VACCINE (1 of [place] [facility] 00:00:00 2) [code = COVID-19 VACCINE (1 of 2)] Encounters Start End Encounter Admission Attending Care Care Encounter Source Date/Time Date/Time Type Type Clinicians Facility Department ID 2018-12-15 Inpatient U [facility] MED [id number] 00:39:00 [facility] l 2018-12-15 2018-12-20 Outpatient Filiberto SE SE [id number] 00:39:00 16:45:00 Taso 81 2018-12-14 2018-12-14 Outpatient Angie Blevins MHPL MHPL [id number] 18:07:42 23:10:00 Sheryl 04 2018-12-14 2018-12-14 Emergency E MHBL MHBL [id number] MHBL 18:07:00 18:07:00 2017-05-13 2017-05-15 Outpatient Mt, MHPL MHPL [id number] 14:04:00 14:38:00 Trammell 03 Anjum 2017-05-08 2017-05-09 Outpatient George, MHPL MHPL [id number] 11:57:00 13:32:00 Shruthi 02 Breonna Results Test [...] code = MCH) 29.6 pg 27.0-31.0 [facility] XdbszckRETBPMWEXI2592-39-58 09:42:0043.0[facility] 2018-12-18 09:42:0013.9[facility] KocmruwVHMEFEOURX1790-21-33 09:42:004.68[facility] BhvpzvsZWYWIAGUMH9270-11-14 09:42:007.0[facility] HermannCARDIAC GJHVXBK9406-95-85 12:00:00<0.02[facility] BhqpxxfLYEJBGLTGIPS7353-18-02 12:00:0011.1[facility] SmkseinGBUCZFASHVLR4018-04-83 12:00:0020[facility] QsayfliHDQOFVMMMIHR1133-59-20 12:00:78123Sdrqabis IgriobpUDHMKULDMNJU1160-89-73 12:00:0061[facility] [place] XRVXDCJYXUKS3117-29-69 12:00:002.30[facility] UllpnefTWVVCXKTFEUZ0577-18-10 12:00:003.1[facility] IzavqcdMUJKVFWMWBJF8734-33-20 12:00:009.5[facility] [place] NYXCOTTQGZDU5198-72-67 12:00:0029[facility] VkgszunKKSTQDFDQKLQ5070-24-08 12:00:00 103[facility] OrusrnkEASMCOYUAPDI7155-91-96 12:00:37141Rdzrbkez HermannHEMATOLOGY 2018-12-17 12:00:006.3[facility] XchhdxrEJGLETAGPE5625-91-59 12:00:000.2[facility] XhthtzpZJJPLMHHTD0598-00-22 12:00:001.6[facility] RrbxubiTPKROFIEXU7431-31-74 12:00:000.9[facility] SqiovhzTDNOGZEWEA3141-29-98 12:00:0071.2[facility] [place] PYXTIFGOBT0430-32-20 12:00:0018.5[facility] VvxufivXZYTTNCPDL9415-22-50 12:00:00 0.5[facility] ZfouuucGUJHSQAHBH9930-83-30 12:00:009.6[facility]annHEMATOLOGY 2018-12-17 12:00:009.6[facility] DgvrdjyDIXYJBSQUA8812-64-83 12:00:008.8[facility] YxidxwaSGGXJSDBVL9252-26-63 12:00:004.43[facility] ZmarapeGYVQFMREPA8409-26-49 12:00:0013.3[facility] DurtipqVJHFFYOIUG0064-91-83 12:00:0091.6[facility] [place] XXFMMQSWBS5459-82-54 12:00:0040.6[facility] TxkodpsYPTHGQIRVK3795-84-89 12:00:00 32.7[facility] WvnxxapXXXFLMVXJF7612-80-23 12:00:00 Test Item Value Reference Range Interpretation Comments MCH (test code = MCH) 29.9 pg 27.0-31.0 [facility] SyvjhoiCSMFONJRDE3923-83-14 12:00:08029Pfzokaka HermannHEMATOLOGY 2018-12-17 12:00:0016.1[facility] ZbckxwwKIWRFOMPXL4591-35-76 09:47:0015.6[facility] SycyrtoGGDBGUDDVA2858-89-32 09:47:009.5[facility] DfgybufOFDEYXJUVG4337-00-24 09:47:72976Npuqjdli JqfzlhjHUWROLRYSP0945-40-80 09:47:003.86[facility] Mikey AZFIYTGZXR2431-73-68 09:47:0011.emorial LdczvbxOKAFOBRZKT3757-05-02 09:47:00 35.0[facility] BczsrvoAWCTKJDTGE0523-01-09 09:47:0090.6[facility] HermannHEMATOLOGY 2018-12-16 09:47:0033.3[facility] GuwxxluFCBJBMZHFN9710-18-14 09:47:00 Test Item Value Reference Range Interpretation Comments MCH (test code = MCH) 30.2 pg 27.0-31.0 [facility] KgyowfrAVDSIOPZKH6391-01-09 09:47:0011.7[facility] HermannHEMATOLOGY 2018-12-16 09:47:006.2[facility] MofnkzsBHQVIUJAIX2984-44-80 09:47:0087.6[facility] FpcbxtmUHNKKMIVEX5033-09-20 09:47:000.4[facility] EwzrqgtZYSMSIVWKQ7765-12-98 09:47:005.8[facility] PeozultJENSQNRDYM2393-94-39 09:47:000.7[facility] [place] RELXPBNGOR8674-14-21 09:47:0010.3[facility] CrgfbixJWMZZJMXJG6637-51-31 09:47:00 0.7[facility] HermannCHEM YLEVL5360-42-87 05:14:002.6[facility] HermannCHEM PANEL 2018-12-15 09:25:005.1[facility] HermannCHEM CHXHE2304-53-89 09:25:003.0[facility] HermannCHEM BRPKW1899-31-39 09:25:0015[facility] HermannCHEM UWWAZ4830-27-87 09:25:39765Aymjqyno HermannCHEM KISFF0020-30-17 09:25:000.4[facility] HermannCHEM OZKRP2297-88-40 09:25:0016[facility] HermannCHEM MFVDW7508-01-11 09:25:007.4 [facility] HermannCHEM XNZJM8850-46-88 09:25:002.7[facility] HermannCHEM PANEL 2018-12-15 09:25:00 Test Item Value Reference Range Interpretation Comments A/G Ratio (test code = A/G Ratio) 0.6 1 0.7-1.6 [facility] HermannCHEM KMYXL9430-15-18 09:25:00 Test Item Value Reference Range Interpretation Comments B/C Ratio (test code = B/C Ratio) 22 1 6-25 [facility] HermannCHEM LTZKE5576-03-96 09:25:004.7[facility] HermannCHEM PANEL 2018-12-15 06:30:004.2[facility] HermannCHEM RUXGB6414-05-73 06:30:0016[facility] HermannCHEM ZXBOY0385-68-15 06:30:90461Ybccvhvq HermannCHEM BSIAW7912-24-40 06:30:0015[facility] HermannCHEM RDPVN6302-23-98 06:30:004.5[facility] HermannCHEM NUJNN5964-14-98 06:30:00 Test Item Value Reference Range Interpretation Comments A/G Ratio (test code = A/G Ratio) 0.6 1 0.7-1.6 [facility] HermannCHEM [id number] 06:30:000.7[facility]annCHEM PANEL 2018-12-15 06:30:002.8[facility]annCHEM [id number] 06:30:007.3[facility]annCHEM [id number] 06:30:00 Test Item Value Reference Range Interpretation Comments B/C Ratio (test code = B/C Ratio) 22 1 6-25 [facility] [id number] 06:30:00Normal (12/15/18 1:30 AM)[facility] [id number] 06:30:00Normal (12/15/18 1:30 AM)[facility] [id number] 02:51:003[facility] [id number] 02:51:00 Test Item Value Reference Range Interpretation Comments UA pH (test code = UA pH) 5.0 1 5.0-8.0 [facility] [id number] 02:51:00 Test Item Value Reference Range Interpretation Comments UA Spec Grav (test code = UA Spec 1.008 1 Grav) [facility] [id number] 02:51:00Slight *ABN*(12/14/18 9:51 PM) [facility] [id number] 02:51:00Negative (12/14/18 9:51 PM) [facility] [id number] 02:51:00Negative (12/14/18 9:51 PM) [facility] [id number] 02:51:00Negative *NA*(12/14/18 9:51 PM) [facility] [id number] 02:51:003[facility] [id number] 02:51:00Negative (12/14/18 9:51 PM)[facility] [id number] 02:51:003[facility]annCARDIAC [id number] 00:46:14727 [facility]annCARDIAC [id number] 00:46:000.02[facility]annCHEM PANEL 2018-12-15 00:46:001.5[facility] RxymbcwRXBCOZRFHNKK6347-19-36 00:46:0014.0 [facility] RomgtvjQQOHLVACQMGG7044-26-40 00:46:004.7[facility]annELECTROLYTES 2018-12-15 00:46:00 Test Item Value Reference Range Interpretation Comments B/C Ratio (test code = B/C Ratio) 19 1 6-25 [facility] ZkivurwLFLDPTAQYHJN7445-05-95 00:46:00 Test Item Value Reference Range Interpretation Comments A/G Ratio (test code = A/G Ratio) 0.6 1 0.7-1.6 [facility] YuoiabxHPHVJCUUZNDB0536-88-63 00:46:0021[facility]annELECTROLYTES 2018-12-15 00:46:0018[facility] CbvvkthHLGLZVGQGATE6587-89-32 00:46:007.7[facility] TyptpykMACFQENBIZIW6076-23-95 00:46:008.9[facility] WikumamHVVWRROYGULQ9930-92-56 00:46:0022[facility] BfbaguhUHQPSWLGKTHH5537-46-48 00:46:003.0[facility] [place] OSFVAAMFAFMF0606-82-03 00:46:000.6[facility] EndeumvJCEUJPJLXEME0941-09-12 00:46:12211Reaasqzz MshclwmZKQENCNGNFAR7146-88-78 00:46:0043[facility] YHPTKKELMUNZ7771-88-63 00:46:72350Vsphxmuy PtqpancOCQCDKLOLQZI5293-26-80 00:46:0023[facility] QlkvpfaHRKCGPSHTQVX3122-91-19 00:46:46230Nfxzbsxl Mikey AQXDBGHZSPCQ3402-29-39 00:46:002.22[facility] JxblbhsMLVYYKMYPVNH5583-21-01 00:46:15201Witgvwwm FifrqhtNOSKUMTZFNIA9400-40-79 00:46:004.0[facility] XLKTHQSBRU7604-74-93 00:46:001.5[facility] ZfbrcnmMXOKWGOULL8930-83-70 00:46:001.5 [facility] GhaukymZRFIHCLABF4300-51-53 00:46:001.1[facility]annHEMATOLOGY 2018-12-15 00:46:009.6[facility] NzngduxPNDLEXYQEW0467-58-76 00:46:0012.0[facility] AfkgopkAQTRVFQNDV4394-00-25 00:46:0074.7[facility] CyjiauyCJJUIXWTOA6104-26-60 00:46:0011.7[facility] GuepslqFKJYRLLGBE7061-24-30 00:46:000.5[facility] EVSAOPZMBI7950-00-43 00:46:000.1[facility] CsmajniBOXNOXGPZX4729-52-31 00:46:000.1 [facility] TzckpqbGVBMZITFQX2404-98-03 00:46:0090.9[facility]annHEMATOLOGY 2018-12-15 00:46:0035.4[facility] GofoegyBQZQJJULCF4469-53-38 00:46:00 Test Item Value Reference Range Interpretation Comments MCH (test code = MCH) 30.3 pg 27.0-31.0 [facility] UljgsuwDNAOGPSKNQ1553-21-86 00:46:0012.9[facility]annHEMATOLOGY 2018-12-15 00:46:0011.8[facility] QdhvyugPUYKWRAIRK4789-92-45 00:46:003.89[facility] SpbhmrvJHWFBVJFXW2331-35-34 00:46:009.2[facility] TiaqsydYTUFNRHVZB3015-75-99 00:46:53219Clnwamgv FrxdxloSERJLSQJLP2332-92-72 00:46:0015.6[facility] MEBLBQHRZK7870-48-71 00:46:0033.3[facility]annMOLECULAR TBTSDJVNTB8457-39-42 00:46:00Not Detected (12/14/18 7:46 PM)[facility]annMOLECULAR DIAGNOSTIC 2018-12-15 00:46:00Not Detected (12/14/18 7:46 PM)[facility]annMOLECULAR AJFXXTCRSR3846-04-04 00:46:00Not Detected (12/14/18 7:46 PM)[facility] MOLECULAR WKOQDSIEJK2630-34-80 00:46:00Not Detected (12/14/18 7:46 PM)[facility]annMOLECULAR ZRYMHYVJKY1430-01-76 00:46:00Not Detected (12/14/18 7:46 PM) [facility]annMOLECULAR DBOMQNQIBV1537-37-33 00:46:00Not Detected (12/14/18 7:46 PM)[facility]annMOLECULAR HFELSBSRZB2093-75-71 00:46:00Not Detected (12/14/18 7:46 PM)[facility]annMOLECULAR FHRXCVMDNX1823-94-13 00:46:00Not Detected (12/14/18 7:46 PM)[facility]annMOLE[facility]ULAR FSRYLUOMEW7558-14-39 00:46:00Not Detected (12/14/18 7:46 PM)[facility]annMOLE[facility]ULAR DIAGNOSTIC 2018-12-15 00:46:00Not Detected (12/14/18 7:46 PM)[facility]annMOLECULAR PHTEYTDXHY0781-31-96 00:46:00Not Detected (12/14/18 7:46 PM)[facility] MOLECULAR ZJANFJFMSS3911-53-45 00:46:00Not Detected (12/14/18 7:46 PM)[facility]annMOLECULAR TWAUUVVXPJ5979-64-72 00:46:00Not Detected (12/14/18 7:46 PM) [facility]MOLE[facility] ZEBWZLFMCS7612-78-45 00:46:00Not Detected (12/14/18 7:46 PM)[facility]annMOLECULAR RXVRWXYYSU8998-83-55 00:46:00Not Detected (12/14/18 7:46 PM)[facility]annCHEM TWDQU7410-63-78 10:55:001.9[facility]annCHEM NTOXG7900-14-68 10:55:008.6[facility]annCHEM CTLXT9791-98-33 10:55:0010.7[facility]annCHEM WNDYC2343-45-95 10:55:0046[facility]annCHEM WUYVQ8878-59-52 10:55:0089[facility]annCHEM WCLYF4356-12-41 10:55:0026 [facility]annCHEM WDSXP2477-57-27 10:55:003.7[facility] HermannCHEM PANEL 2017-05-15 10:55:73687Ktihnqhu HermannCHEM MJJIB7491-79-15 10:55:22491Pcmqfwtd HermannCHEM ZUQPH1655-87-80 10:55:0022[facility]annCHEM YWLUZ8784-21-74 10:55:001.15[facility]annCHEM CFIZK8730-10-47 09:12:002.1[facility] HermannCHEM OIVRG0085-37-11 09:12:003.4[facility] CfcwgvsEETKZMJEARXB2575-77-38 09:12:0011.6 [facility] YpgbtivZDYJNRPQREWW0614-99-48 09:12:009.0[facility] HermannELECTROLYTES 2017-05-14 09:12:0043[facility] AmgakbnKWYREJEQFQKE3713-42-02 09:12:003.6[facility] MdfiyjvCGMINTLYPJWL8927-75-65 09:12:001.23[facility] WtrtzewPIFLAWSSZKLP0780-19-87 09:12:73829Ildboidq JyozztoSAAUBBBQONEJ2252-14-12 09:12:44212Wgwgifva Mikey WVEGSWWDBHPF9153-10-38 09:12:0026[facility] ZxmtuxdXTCGICJEZRQM8222-31-64 09:12:00 30[facility] FwbevjzMHYGDMMPSRXO1201-49-67 09:12:0086[facility]annHEMATOLOGY 2017-05-14 09:12:22957Yqdhdfgn TgnwbswGJJCCGNQAP5543-35-72 09:12:009.6[facility] KthgnlkQFEHSVOLLY7002-12-02 09:12:007.4[facility] RbygccdQALTHTJLVR0314-33-45 09:12:0014.2[facility] BbjjzzbSCLVNGUYUR9237-00-52 09:12:004.75[facility] IFQFVAELJK5950-99-22 09:12:00 Test Item Value Reference Range Interpretation Comments MCH (test code = MCH) 29.9 pg 27.0-31.0 [facility] BulawayGTTCIHQPEK3947-01-00 09:12:0090.0[facility] HermannHEMATOLOGY 2017-05-14 09:12:0033.3[facility] FwtialpAZJTKIGCNA1239-32-17 09:12:0015.6[facility] BdgyomhKVEISAVZNT2705-57-92 09:12:0042.7[facility] JhrapekIMAXQUCRZW0828-68-37 09:12:000.1[facility] HkdrnsgYQWTPOZKRS9913-72-07 09:12:003.6[facility] ZXVSTNIBWG9413-93-29 09:12:001.1[facility] GzvyihwEDUTNXIEHA4186-69-30 09:12:002.4 [facility] ZaritrkXKLJQINLGE1441-12-41 09:12:0048.0[facility] HermannHEMATOLOGY 2017-05-14 09:12:000.7[facility] EdxcfnaMAFOPPKYWX5854-93-46 09:12:000.7[facility] PuornadPFQKHXQVHS5956-73-88 09:12:009.4[facility] BxnkjldMZMLFMTBLN2039-22-53 09:12:009.6[facility] WbnnowhTRFRUNIAQH2570-43-28 09:12:0031.9[facility] URINE AND OAUTX2884-18-10 00:20:00None Seen (05/13/17 6:20 PM)[facility] URINE AND TXFZR3892-77-93 00:20:00None Seen (05/13/17 6:20 PM)[facility] URINE AND EZIEJ3780-00-99 00:20:000-2 (05/13/17 6:20 PM)[facility] PCXCE1062-44-45 00:20:000.2[facility]UR[facility] UJACY3072-25-66 00:20:00Negative (05/13/17 6:20 PM)[facility] DKPBH3370-68-71 00:20:00Negative (05/13/17 6:20 PM)[facility] GLVMZ9951-87-73 00:20:00Negative (05/13/17 6:20 PM)[facility] FHWRY8905-30-74 00:20:00Negative *NA*(05/13/17 6:20 PM)[facility] WYAXA7555-30-54 00:20:00Negative *NA*(05/13/17 6:20 PM)[facility] SMILX3617-83-07 00:20:00Negative (05/13/17 6:20 PM)[facility] OGUOM2261-71-04 00:20:00Clear (05/13/17 6:20 PM)[facility] KANGC3051-09-77 00:20:00 Test Item Value Reference Range Interpretation Comments UA Spec Grav (test code = UA Spec 1.020 1 Grav) [facility] PRVIF5429-04-84 00:20:00 Test Item Value Reference Range Interpretation Comments UA pH (test code = UA pH) 6.5 1 5.0-8.0 [facility] NDUPX2639-50-63 00:20:00Yellow *NA*(05/13/17 6:20 PM) [facility]annCARDIAC UGTVVGW2071-00-72 22:28:0050[facility]annCARDIAC KJZEGHK6325-83-90 22:28:000.02[facility]annCARDIAC SDJZDTC5714-73-67 22:28:00 3.3[facility]annCARDIAC JLYWMDZ3374-79-52 22:28:006.6[facility] HermannCHEM FIOMW3936-79-96 22:28:0036[facility] HermannCHEM REWLJ4505-94-12 22:28:001.43 [facility]annCHEM FNLRG9198-81-26 22:28:009.8[facility] HermannCHEM PANEL 2017-05-13 22:28:0010.0[facility] HermannCHEM YGJHV9620-24-82 22:28:18839Lupxctsl HermannCHEM WLLPY4018-56-90 22:28:0028[facility] HermannCHEM TFDZL6348-92-05 22:28:004.0[facility] HermannCHEM UHEFZ4278-63-07 22:28:0034[facility] HermannCHEM ZTINZ7226-69-60 22:28:97417Ymyuwsqk HermannCHEM WDYPD7545-80-63 22:28:28005 [facility] AbbqgdlUQRYSZFVQO3892-73-41 22:28:001.03[facility]annHEMATOLOGY 2017-05-13 22:28:00 Test Item Value Reference Range Interpretation Comments PROTIME (test code = PROTIME) 13.5 s 12.0-14.7 [facility] CfucmozQLVZOWUZOD6144-68-31 22:28:00 Test Item Value Reference Range Interpretation Comments aPTT (test code = aPTT) 38.0 s 22.9-35.8 [facility]KygihjgNBSHPXFSBQ1509-84-97 22:28:00 Test Item Value Reference Range Interpretation Comments MCH (test code = MCH) 29.8 pg 27.0-31.0 [facility] VxstolmBVPCUVSMLA7117-98-89 22:28:0015.9[facility] HermannHEMATOLOGY 2017-05-13 22:28:0046.5[facility] MujzlzgUMHZFHGZLR4355-71-75 22:28:0015.4[facility] YfipviaKVMFSDVGPP4093-89-98 22:28:0090.2[facility] FhardrvFPCIPXVJSW4141-64-02 22:28:009.0[facility] JpyjdgrZMYDFRHWEO1063-36-48 22:28:69714Zawciebr Mikey LOMRAVKXLS5913-10-28 22:28:0033.0[facility] ZdlbojrMZJWCUXPMK1273-77-64 22:28:00 5.16[facility] StqihsgHFFRVCGOVZ3120-70-02 22:28:008.2[facility]annHEMATOLOGY 2017-05-13 22:28:000.7[facility] PckcbyzFHQNFCYXSO8817-20-40 22:28:000.1[facility] MsnvcscAPZKPUMMXR6958-70-48 22:28:002.6[facility] AasvehsSIOYQDKKZH7722-35-50 22:28:004.2[facility] KgqdnccLNWQINYVRD6022-94-75 22:28:000.7[facility] BUXQYGSNLL7204-73-65 22:28:001.0[facility] GkcaybjLWNZSASHBT0139-03-51 22:28:00 51.emorial NgfhsjeFSQBJFXGCJ9495-40-44 22:28:0030.9[facility]annHEMATOLOGY 2017-05-13 22:28:008.5[facility] JymhrvtVONXLTOGUH1682-03-01 22:28:008.0[facility] HermannCHEM PVSKN7157-65-38 12:52:000.6[facility] HermannCHEM CPIFZ9598-63-38 12:52:81698Hitpujdz HermannCHEM TALSY3335-66-76 12:52:0025[facility] HermannCHEM XXGPA4942-10-36 12:52:000.1[facility] HermannCHEM TCDDN3229-04-47 12:52:000.5 [facility]annCHEM RRSAS4701-66-40 12:52:0021[facility] HermannCHEM PANEL 2017-05-09 12:52:003.7[facility] HermannCHEM SRBLW9907-97-33 12:52:006.7[facility] HermannCHEM XYREF9885-77-83 12:52:000.8[facility] HermannCHEM HCCMK7601-69-98 12:52:003.0[facility] HermannCHEM FVWJT3678-96-08 12:52:009.0[facility] HermannCHEM JJNWD3489-26-79 12:52:0041[facility]annCHEM KSDCJ1324-41-33 12:52:0097 [facility]annCHEM SIYVO1833-79-27 12:52:001.26[facility] HermannCHEM PANEL 2017-05-09 12:52:0025[facility] HermannCHEM KGXJI5610-49-73 12:52:0010.7[facility] HermannCHEM YYXJA9873-44-95 12:52:0027[facility] HermannCHEM WAWSF0951-07-04 12:52:92157Mfkkbfzk HermannCHEM SXVOS7468-06-16 12:52:003.7[facility] HermannCHEM GKNNW2514-04-73 12:52:24780Ifawikhn KsgpwdpBQXWEP5597-53-75 12:52:0023[facility] EsoyyalGAKUTF6681-61-78 12:52:0034[facility] FyprvjeZCVTUF1059-93-37 12:52:43287 [facility] UoaecprWQWFKL0393-55-63 12:52:002.30[facility] SmooywrGYNAVK5868-63-18 12:52:0044[facility] KuuzmvvTCABXC0099-17-76 12:52:07892Wahrqfuy HermannANEMIA QFFTY9141-48-73 00:52:00>2000[facility] HermannANEMIA GEZFU0842-02-83 00:52:00 49.5[facility] UkrhfutGKKSZWFUQI0292-70-43 00:52:005[facility]annHEMATOLOGY 2017-05-09 00:52:009.2[facility] VrczglsUTGWQQXFRB5546-29-34 00:52:005.36[facility] LrzktweHLFHJAKEHK1256-27-33 00:52:0015.8[facility] JagbfvmGKDKJGEOBD2483-47-03 00:52:008.5[facility] KajwqzbRWNNKRYXCH9571-27-52 00:52:00 Test Item Value Reference Range Interpretation Comments MCH (test code = MCH) 29.6 pg 27.0-31.0 [facility] PpntwapBVOOFDOVEU5493-92-40 00:52:0032.8[facility]annHEMATOLOGY 2017-05-09 00:52:0015.7[facility] ChjdfyoQHIVNFKTQM1226-16-87 00:52:09989Dnmggzxd SrjbsujBDIAOZQMZY8743-54-90 00:52:0048.3[facility] MhmlmesEVYILBXOLW5173-66-80 00:52:0090.2[facility] GdooxprGBZGXZIOBU9789-81-74 00:52:000.1[facility] DKJMJMBTRT7443-04-08 00:52:000.5[facility] LgccqikYTLFFYCRBQ8564-44-27 00:52:000.5 [facility] NzloauqQAVEYABHWI3547-29-95 00:52:003.0[facility]annHEMATOLOGY 2017-05-09 00:52:0052.2[facility] VbtfgmvUVLPGNGRGR1728-09-93 00:52:0035.2[facility] WyzdztmXHXHJJSCVZ6745-14-71 00:52:006.4[facility] BgitoezIBZWEWGIHS2542-03-34 00:52:004.4[facility] EfjvqiwXXMJPYZXMM3025-61-14 00:52:005.5[facility] PHGPYIJPJW2182-55-26 00:52:000.7[facility] RpssyjfEZEDBIHCVG4032-95-38 00:52:00 <2.9[facility] MhidlguWAJMMHHQUQ5778-84-34 00:52:00<10[facility] SJGRAPMDQN6608-61-24 00:52:00Negative (05/08/17 6:52 PM)[facility] FLXCBZSLRM4025-14-75 00:52:00Negative (05/08/17 6:52 PM)[facility] KGYMGSVJRL3826-87-88 00:52:00Positive *ABN*(05/08/17 6:52 PM)[facility] WLOHJOAALS9358-64-65 00:52:00<0.2[facility] OgeiscdXVEWWWKRDI0921-55-17 00:52:00<0.2[facility] KlezzccCYYGYXGJKH3121-40-88 00:52:00<0.2[facility] HhfgwgdFBOVLCPZKC6644-69-65 00:52:00<0.2[facility] CarqowsAYKVHMLMOB0577-66-60 00:52:001:40 *ABN*(05/08/17 6:52 PM)[facility] VtyyfijHCSGWJUBGD3423-81-02 00:52:00Negative *NA*(05/08/17 6:52 PM)[facility] FbrrdkjGHBFHEVXXW3721-88-81 00:52:00Negative *NA*(05/08/17 6:52 PM)[facility] PsugwiuEHFYAGLATH0620-44-59 00:52:00Negative *NA*(05/08/17 6:52 PM)[facility] SdldoedQFWOQLYOPK9880-76-03 00:52:00Negative *NA*(05/08/17 6:52 PM)[facility] DaukpqxGXIQHTEVHZ3403-79-88 00:52:00>8.0[facility] GvfvxiiJFVUMNBUDX3634-85-84 00:52:00>8.0[facility] FlqktobABYGRZTUDH2736-14-61 00:52:00<0.2[facility] JeywzpdFHXMDJTAH6441-81-66 00:52:0093[facility] THECD1423-35-44 20:02:00Negative (05/08/17 2:02 PM)[facility] KRQAI8796-39-12 20:02:00Negative *NA*(05/08/17 2:02 PM)[facility] HGBAT0556-97-45 20:02:00Negative *NA*(05/08/17 2:02 PM)[facility] QUPBE7108-95-36 20:02:00Negative (05/08/17 2:02 PM)[facility] ELZSQ9013-40-96 20:02:00Negative (05/08/17 2:02 PM)[facility] ASLDZ6717-95-22 20:02:00Negative (05/08/17 2:02 PM)[facility] BEPXC3080-68-32 20:02:000.2[facility] URINE AND OAHON5431-30-92 20:02:00Yellow *NA*(05/08/17 2:02 PM)[facility]INE AND AQXMN2384-81-14 20:02:00Clear (05/08/17 2:02 PM)[facility] LGMVV2829-02-53 20:02:00 Test Item Value Reference Range Interpretation Comments UA Spec Grav (test code = UA Spec 1.020 1 Grav) [facility] NYFDV8169-46-38 20:02:00 Test Item Value Reference Range Interpretation Comments UA pH (test code = UA pH) 6.0 1 5.0-8.0 [facility] YXJEU4873-19-87 20:02:00None Seen (05/08/17 2:02 PM) [facility] QHECB7973-63-22 20:02:00None Seen (05/08/17 2:02 PM) [facility]annCARDIAC XCVLHVN6006-57-57 19:41:00<0.02[facility] CARDIAC HFJCOXK0966-01-54 19:41:002.5[facility]annCARDIAC HIXEGSH2784-01-41 19:41:0074[facility]annCARDIAC CKVWEXD3764-43-53 19:41:003.4[facility] CHEM JVKBX4722-09-45 19:41:0027[facility] HermannCHEM FUOQY6232-32-38 19:41:000.8 [facility]annCHEM XLTYX2521-01-36 19:41:0042[facility]annCHEM PANEL 2017-05-08 19:41:0024[facility] HermannCHEM JPBUS7328-68-91 19:41:50246Fwvyvehv HermannCHEM XAFRZ0261-00-30 19:41:000.8[facility] HermannCHEM TTCCU4065-49-89 19:41:004.7[facility] HermannCHEM ASFYX7016-00-41 19:41:003.7[facility] HermannCHEM HGULQ7265-21-00 19:41:004.7[facility]annCHEM OXREV8704-58-78 19:41:009.5 [facility]annCHEM IKMSE5080-16-04 19:41:0027[facility]annCHEM PANEL 2017-05-08 19:41:0012.7[facility] HermannCHEM LQDNJ4916-41-83 19:41:008.4[facility] HermannCHEM QLIPU4018-55-28 19:41:0022[facility] HermannCHEM VEIHI5291-70-04 19:41:06272Gevpojxn HermannCHEM PEDBW2174-41-61 19:41:0039[facility]annCHEM CGVZI6873-14-84 19:41:001.80[facility]annCHEM HWSJU2186-43-53 19:41:08645 [facility]annCHEM AKGOK0336-23-13 19:41:30142Nfynxisa HermannCHEM PANEL 2017-05-08 19:41:001.5[facility] HermannCHEM APXUP0931-65-73 19:41:99481Tedrwptr ZurygjpMSRWYSMGGB2090-75-85 19:41:009.0[facility] FvpvmvjPBWSSBKRLV8102-24-90 19:41:0015.7[facility] RwvumxsOVYAUUWMYO5264-78-51 19:41:32711Wuohbilz [place] RDTCYTFNEP2534-05-70 19:41:00 Test Item Value Reference Range Interpretation Comments MCH (test code = MCH) 29.9 pg 27.0-31.0 [facility] DwsvbncJTPHHCIBAC7752-41-89 19:41:0033.2[facility] HermannHEMATOLOGY 2017-05-08 19:41:0050.0[facility] KyftilaCWUAKJFLJP1094-00-17 19:41:0090.2[facility] YmxekdqABLDGCXUCQ5985-86-04 19:41:0016.6[facility] JwpbnpiKUCOZGTLQI6383-90-04 19:41:0010.0[facility] TodmobaXFAIGIZCNL2965-75-68 19:41:005.54[facility] UDSWKTNSET3816-18-82 19:41:000.1[facility] SkiqldsRRWIUZGSUK6165-57-55 19:41:000.5 [facility] RqslrggLFEBUTCQQQ3138-57-38 19:41:006.1[facility] HermannHEMATOLOGY 2017-05-08 19:41:001.0[facility] HhotxmlPUMLTFNPCH3883-31-21 19:41:001.0[facility] TudfxmgCLYWXFIGWK1124-46-33 19:41:002.3[facility] RthymdlTKZIDXTVZE2127-14-06 19:41:005.1[facility] IvuyqdfLACEMUOEFK2987-43-95 19:41:009.7[facility] VWBESNZJMN4806-11-46 19:41:0023.1[facility] XnjnpccKZUCHECUDZ6967-59-24 19:41:00 61.1[facility]
[2020-07-15 13:51] LABS: Absolute Lymphocytes (CBC) 0.4 K/uL (0.7-4.9); Basophils % 0.3 % (0-1.3); Hematocrit 29.4 % (36.0-45.0); Lymphocytes % 10.9 % (15.3-44.8); RBC Red Blood Cell Count 3.48 M/uL (3.86-4.86)
[2020-07-15 13:52] LABS: Protime INR 1.99
[2020-07-15 14:11] LABS: Albumin 2.3 g/dL (3.4-5.0); Bilirubin Direct 0.2 mg/dL (0-0.2); Bilirubin Total 0.6 mg/dL (0.2-1.0); Magnesium 2.1 mg/dL (1.8-2.4); Potassium 4.1 mmol/L (3.5-5.1); Protein, Total 5.6 g/dL (6.4-8.2)
[2020-07-15 14:19] LABS: White Blood Cell Scan OK (OK)
--- NOTE | 2020-07-15 14:19 | RAD REPORT ---
EXAM DESCRIPTION: RAD - Chest Single View - 07/15/2020 1:43 pm CLINICAL HISTORY: SWELLING Chest pain. COMPARISON: Chest Single View dated 07/04/2020; Chest Single View dated 07/02/2020; Chest Single View dated 06/25/2020; Chest Single View dated 06/21/2020 FINDINGS: Portable technique limits examination quality. Moderate bilateral interstitial lung opacities are present suggesting pulmonary edema. The heart is m oderately enlarged with aortic atherosclerosis. Dual lead pacer device is present.Stent is present in the left neck. IMPRESSION: Moderate CHF pattern.
[2020-07-15 14:20] LABS: Anisocytosis 1+; Blood Morphology Comment NOTED (NOT SEEN); Platelet Estimate DECR
[2020-07-15 15:05] LABS: Urine Blood NEGATIVE (NEG); Urine Glucose NEGATIVE (NEG); Urine Protein 1+ (NEG)
[2020-07-15 15:18] LABS: Urine Amorphous Sediment TRACE /HPF (NONE SEEN); Urine Bacteria <20 /HPF (<20); Urine RBC NONE SEEN /HPF (NONE SEEN)
--- NOTE | 2020-07-15 16:03 | RAD REPORT ---
EXAM DESCRIPTION: US - Extrem Venous W Compress [place] - 07/15/2020 3:49 pm CLINICAL HISTORY: bilateral lower extremities, left upper ext;Swelling Bilateral leg edema and swelling. COMPARISON: No comparisons TECHNIQUE: Real-time sonographic interrogation of the left and right lower extremity deep venous sys tems was performed. FINDINGS: Normal compressibility, flow augmentation, phasic flow and spontaneous flow is identified in both the left and right lower extremity deep venous systems. IMPRESSION: No sonographic evidence of left or right lower extremity deep venous thrombosis.
--- NOTE | 2020-07-15 16:06 | RAD REPORT ---
EXAM DESCRIPTION: US - UPPER EXTREMITY VENOUS UNILATE - 07/15/2020 3:49 pm CLINICAL HISTORY: R/O DVT Arm pain and swelling. COMPARISON: UPPER EXTREMITY VENOUS UNILATE dated 07/05/2020 FINDINGS: Left upper extremity venous system was interrogated with Doppler technique. Partial to jackie rly noncompression seen within the left internal jugular vein compatible with chronic thrombosis. Thi s thrombus is not appear progressive since the prior study.No new or additional areas of left upper e xtremity venous thrombosis. 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
--- NOTE | 2020-07-15 16:10 | RAD REPORT ---
EXAM DESCRIPTION: CT - Abdomen Pelvis Wo Contrast - 07/15/2020 3:55 pm CLINICAL HISTORY: Abdominal pain. no contrast COMPARISON: Thorax Wo Con dated 07/05/2020 TECHNIQUE: CT imaging of the abdomen and pelvis was performed without contrast. Solid organ, bowel a nd vascular assessment is limited due to lack of IV and oral contrast. All CT scans are performed using dose optimization technique as appropriate and may include automated exposure control or mA/KV adjustment according to patient size. FINDINGS: Moderate bibasilar lung consolidations are present with small bilateral pleural effusions most compatible with infiltrate/pneumonia.Heart size is mildly enlarged pacer device present. The liver, spleen, pancreas, adrenal glands and left kidney are within normal limits for a limited no n-contrast examination.The right kidney is moderately atrophic with 13 mm benign cortical cyst. Aorto iliac atherosclerosis is present. No bowel obstruction, free air, free fluid or abscess. Prominent sigmoid diverticulosis is present wi th moderate retained stool. The appendix is not identified as a discrete structure, however, no secon tequila findings of appendicitis are identified. Mild lumbar degenerative changes are present. IMPRESSION: Moderate bibasilar lung consolidations with pleural effusions likely represent pneumonia . No acute intra-abdominal or pelvic finding demonstrated. Sigmoid diverticulosis coli. A limited non-contrast examination was performed as detailed.
--- NOTE | 2020-07-15 17:29 | ER ---
Nurse's Notes [facility] Name: Tamia Colon Age: 80 yrs Sex: Female : 1940 Arrival Date: 07/15/2020 Time: 11:22 Bed 15 Private MD: Ariana Koroma F Diagnosis: Edema, not elsewhere classified;Chronic combined systolic (congestive) and diastolic (congestive) heart failure;Chronic kidney disease (CKD) Presentation: 07/15 12:08 Chief complaint: Patient states: Still retaining body fluid from last admission here 2 ss weeks ago. Left arm, both legs edema. No fever. Coronavirus screen: Client denies travel out of the [place] in the last 14 days. At this time, the client does not indicate any symptoms associated with coronavirus-19. Ebola Screen: Patient denies travel to an Ebola-affected area in the 21 days before illness onset. Initial Sepsis Screen: Does the patient meet any 2 criteria? No. Patient's initial sepsis screen is negative. Does the patient have a suspected source of infection? No. Patient's initial sepsis screen is negative. Risk Assessment: Do you want to hurt yourself or someone else? Patient reports no desire to harm self or others. Onset of symptoms was July 01, 2020. 12:08 Method Of Arrival: Wheelchair ss 12:08 Acuity: SARA 3 ss Historical: - Allergies: 15:21 No Known Allergies; iw - Home Meds: 15:18 allopurinol 100 mg Oral tab 1 tab once daily [Active]; amiodarone 200 mg Oral tab 1 tab iw once daily [Active]; amlodipine 2.5 mg oral tab once daily [Active]; trazodone 50 mg Oral tab nightly [Active]; amlodipine 10 mg tab nightly [Active]; Myrbetriq 25 mg oral Tb24 1 tab once daily [Active]; furosemide 40 mg Oral tab 1 tab 2 times per day [Active]; carvedilol 12.5 mg oral tab 1 tab 2 times per day [Active]; Eliquis 5 mg oral tab 1 tab 2 times per day [Active]; memantine 10 mg oral tab 1 tab 2 times per day [Active]; - PMHx: 12:11 CHF; CVA; Hypertension; Renal Disease; ss - PSHx: 12:11 carotid sx; Hysterectomy; ss - Immunization history:: Flu vaccine is up to date. - Social history:: Smoking status: Patient/guardian denies using tobacco, the patient reports quitting approximately 8 years ago. Screenin:38 Abuse screen: Denies threats or abuse. Denies injuries from another. Nutritional iw screening: No deficits noted. Tuberculosis screening: No symptoms or risk factors identified. Fall Risk IV access (20 points). Assessment: 15:13 Reassessment: Patient appears in no apparent distress at this time. Patient and/or iw family updated on plan of care and expected duration. Pain level reassessed. wound care completed, pt has skin tear to RFA, daughter states she nicked her with her fingernail earlier today. Vital Signs: 12:08 BP 97 / 52; Pulse 69; Resp 18; Temp 97.6; Pulse Ox 96% on R/A; Weight 63.5 kg; Height 5 ss ft. 1 in. (154.94 cm); Pain 0/10; 17:33 BP 102 / 59; Pulse 70; Resp 16; Pulse Ox 95% on R/A; iw 12:08 Body Mass Index 26.45 (63.50 kg, 154.94 cm) ss ED Course: 11:22 Patient arrived in ED. am4 11:25 Ariana Koroma MD is Private Physician. am4 12:10 Triage completed. ss 12:11 Arm band placed on. ss 13:03 Yajaira Mann FNP-C [facility]. kb 13:03 Espinoza Darby MD is Attending Physician. kb 13:39 Initial lab(s) drawn, by me, sent to lab. X-ray(s) taken. Inserted saline lock: 20 jp3 gauge in right antecubital area, using aseptic technique. Blood collected. 13:40 Bed in low position. Call light in reach. Side rails up X 1. Warm blanket given. Verbal jp3 reassurance given. general matcher on. Pulse ox on. NIBP on. 13:43 XRAY Chest (1 view) In Process Unspecified. EDMS 14:02 Bladder scan completed. 93ml. Patient maintains SpO2 saturation greater than 95% on jp3 room air. 14:09 EKG done, by ED staff, reviewed by Yajaira YODER. jp3 14:30 Straight cath inserted, using sterile technique, 16 Fr. Specimen obtained. Returned jp3 clear yellow urine. Patient tolerated well. 14:30 Urine collected: straight cath specimen, clear, polina colored, Amount Returned: 64mL. jp3 14:36 Bridgette Vazquez, RN is Primary Nurse. iw 15:49 US Extremity Venous W Compression Kings In Process Unspecified. EDMS 15:49 UPPER EXTREMITY VENOUS UNILATE In Process Unspecified. EDMS 15:55 CT Abd/Pelvis - Without Contrast In Process Unspecified. EDMS 17:28 Ariana Koroma MD is Referral Physician. kb 17:28 Evaristo Norwood MD is Referral Physician. kb 17:47 Dressings: Adaptic X 1; right arm Hugo x 1 right arm non-adherent dressing x 1 right jp3 arm Tegaderm X 1; right arm. Removal of peripheral IV. Catheter intact, dressing applied. Administered Medications: No medications were administered Outcome: 17:29 Discharge ordered by MD. kb 18:02 Patient left the ED. iw Signatures: Dispatcher [employer] EDMS Yajaira Mann, RATE CLERK-C RATE CLERK-Ckb Bridgette Vazquez, RN RN iw Jemma Plascencia, JHON RN ss Isidro Yeh jp3 Susan Wise am4 Corrections: (The following items were deleted from the chart) 12:11 12:11 Allergies: No Known Allergies; ss ss 15:21 12:11 Allergies: COPD; ss iw
--- NOTE | 2020-07-15 17:29 | EDPHYS ---
Physician Documentation [facility] Name: Tamia Colon Age: 80 yrs Sex: Female : 1940 Arrival Date: 07/15/2020 Time: 11:22 Bed 15 Private MD: Ariana Koroma F ED Physician Espinoza Darby HPI: 07/16 00:20 This 80 yrs old Female presents to ER via Wheelchair with complaints of kb Urinary Incontinence. 00:21 The patient presents with decreased urination. Onset: The symptoms/episode kb began/occurred yesterday. Modifying factors: The symptoms are alleviated by nothing, the symptoms are aggravated by nothing. Associated signs and symptoms: Pertinent positives: swelling, decreased urination. Severity of symptoms: At their worst the symptoms were moderate, in the emergency department the symptoms are unchanged. The patient has not experienced similar symptoms in the past. The patient has been recently seen at the [facility] Emergency Department, a couple of weeks ago. Daughter states pt was admitted for pneumonia on the , discharged around the . States pt has had swelling to left arm and both legs since that admission. [facility] she brought pt to the ER today because she has had decreased urination over the past 2 days. . Historical: - Allergies: 07/15 15:21 No Known Allergies; iw - Home Meds: 15:18 allopurinol 100 mg Oral tab 1 tab once daily [Active]; amiodarone 200 mg Oral tab 1 tab iw once daily [Active]; amlodipine 2.5 mg oral tab once daily [Active]; trazodone 50 mg Oral tab nightly [Active]; amlodipine 10 mg tab nightly [Active]; Myrbetriq 25 mg oral Tb24 1 tab once daily [Active]; furosemide 40 mg Oral tab 1 tab 2 times per day [Active]; carvedilol 12.5 mg oral tab 1 tab 2 times per day [Active]; Eliquis 5 mg oral tab 1 tab 2 times per day [Active]; memantine 10 mg oral tab 1 tab 2 times per day [Active]; - PMHx: 12:11 CHF; CVA; Hypertension; Renal Disease; ss - PSHx: 12:11 carotid sx; Hysterectomy; ss - Immunization history:: Flu vaccine is up to date. - Social history:: Smoking status: Patient/guardian denies using tobacco, the patient reports quitting approximately 8 years ago. ROS: 23:52 Constitutional: Negative for fever, chills, and weight loss, Respiratory: Negative for kb shortness of breath, cough, wheezing, and pleuritic chest pain, Abdomen/GI: Negative for abdominal pain, nausea, vomiting, diarrhea, and constipation, MS/Extremity: Negative for injury and deformity, Neuro: Negative for headache, weakness, numbness, tingling, and seizure. 23:52 Cardiovascular: Positive for edema. 23:52 : Positive for decreased urination. 23:52 Skin: Positive for pressure ulcer to left upper buttock with redness and a small area of open skin. Exam: 23:59 Constitutional: This is a well developed, well nourished patient who is awake, alert, kb and in no acute distress. Head/Face: Normocephalic, atraumatic. Chest/axilla: Normal chest wall appearance and motion. Nontender with no deformity. No lesions are appreciated. Cardiovascular: Regular rate and rhythm with a normal S1 and S2. No gallops, murmurs, or rubs. Normal PMI, no JVD. No pulse deficits. Respiratory: Lungs have equal breath sounds bilaterally, clear to auscultation and percussion. No rales, rhonchi or wheezes noted. No increased work of breathing, no retractions or nasal flaring. Abdomen/GI: Soft, non-tender, with normal bowel sounds. No distension or tympany. No guarding or rebound. No evidence of tenderness throughout. Neuro: Awake and alert, GCS 15, oriented to person, place, time, and situation. Cranial nerves II-XII grossly intact. Motor strength 5/5 in all extremities. Sensory grossly intact. Cerebellar exam normal. Normal gait. 23:59 Cardiovascular: Edema: 3+ edema to level of bilateral lower extremites, left upper extremity. 23:59 Skin: erythema to left upper buttock with dime sized area of open skin, no signs of infection noted. Vital Signs: 12:08 BP 97 / 52; Pulse 69; Resp 18; Temp 97.6; Pulse Ox 96% on R/A; Weight 63.5 kg; Height 5 ss ft. 1 in. (154.94 cm); Pain 0/10; 17:33 BP 102 / 59; Pulse 70; Resp 16; Pulse Ox 95% on R/A; iw 12:08 Body Mass Index 26.45 (63.50 kg, 154.94 cm) ss MDM: 13:03 Patient medically screened. kb 17:26 Data reviewed: vital signs, nurses notes. Data interpreted: Pulse oximetry: on room air kb is 96 %. Interpretation: normal. Physician consultation: Evaristo Norwood MD was contacted at 17:26, regarding consult, patient's condition, and will see patient in office, next week, would like medications started. 23:52 Counseling: I had a detailed discussion with the patient and/or guardian regarding: the kb historical points, exam findings, and any diagnostic results supporting the discharge/admit diagnosis, lab results, radiology results, the need for outpatient follow up, a family practitioner, to return to the emergency department if symptoms worsen or persist or if there are any questions or concerns that arise at home. 07/16 00:22 ED course: Discussed HPI and physical exam with ERP. Agrees with outpatient follow up kb for chronic conditions. Daughter educated on findings and need for evaluation for elevated liver enzymes. New medication that was recommended by Dr Cardenas explained to daughter. . 07/15 13:22 Order name: Basic Metabolic Panel 07/15 13:22 Order name: CBC with Diff 07/15 13:22 Order name: LFT's 07/15 13:22 Order name: Magnesium kb 07/15 13:22 Order name: NT PRO-BNP; Complete Time: 14:14 kb 07/15 13:22 Order name: PT-INR; Complete Time: 14:07 kb 07/15 13:22 Order name: XRAY Chest (1 view); Complete Time: 14:22 kb 07/15 13:23 Order name: Basic Metabolic Panel; Complete Time: 14:14 EDVA 07/15 13:23 Order name: CBC with Automated Diff; Complete Time: 14:22 EDVA 07/15 13:23 Order name: Liver (Hepatic) Function; Complete Time: 14:14 EDVA 07/15 13:23 Order name: Magnesium; Complete Time: 14:14 EDVA 07/15 14:20 Order name: CBC Smear Scan; Complete Time: 14:22 EDVA 07/15 14:41 Order name: Urine Microscopic Only; Complete Time: 15:20 kb 07/15 14:54 Order name: Urine Dipstick--Ancillary (enter results); Complete Time: 15:17 eb 07/15 13:22 Order name: EKG; Complete Time: 13:24 kb 07/15 13:22 Order name: Cardiac monitoring; Complete Time: 13:40 kb 07/15 13:22 Order name: EKG - Nurse/Tech; Complete Time: 15:10 kb 07/15 13:22 Order name: IV Saline Lock; Complete Time: 13:40 kb 07/15 13:22 Order name: Labs collected and sent; Complete Time: 13:40 kb 07/15 13:22 Order name: O2 Per Protocol; Complete Time: 13:40 kb 07/15 13:22 Order name: O2 Sat Monitoring; Complete Time: 13:40 kb 07/15 13:22 Order name: Bladder Scanner; Complete Time: 14:02 kb 07/15 14:32 Order name: Straight Cath - Urine; Complete Time: 15:09 kb 07/15 14:56 Order name: US Extremity Venous W Compression Kings; Complete Time: 16:05 kb 07/15 15:01 Order name: CT Abd/Pelvis - Without Contrast; Complete Time: 16:14 kb 07/15 15:02 Order name: UPPER EXTREMITY VENOUS UNILATE; Complete Time: 16:09 EDMS Administered Medications: No medications were administered Disposition: 07/15 18:51 Co-signature as Attending Physician, Espinoza Darby MD I agree with the assessment and kdr plan of care. Disposition: 07/15/20 17:29 Discharged to Home. Impression: Edema, not elsewhere classified, Chronic combined systolic (congestive) and diastolic (congestive) heart failure, Chronic kidney disease (CKD). - Condition is Stable. - Discharge Instructions: Edema, [id number], Heart Failure, [id number]. - Prescriptions for metolazone 2.5 mg Oral tablet - take 1 tablet by ORAL route every other day Take before morning dose of lasix; 20 tablet. - Medication Reconciliation Form, Thank You Letter, Antibiotic Education, Prescription Opioid Use form. - Follow up: Emergency Department; When: As needed; Reason: Worsening of condition. Follow up: Ariana Koroma MD; When: 2 - 3 days; Reason: Recheck today's complaints, Continuance of care, Re-evaluation by your physician. Follow up: Evaristo Norwood MD; When: 1 week; Reason: Recheck today's complaints, Continuance of care, Re-evaluation by your physician. Signatures: Dispatcher [employer] Yajaira Taylor, JAMES-C SEED COLLECTOR-Espinoza Varner MD MD kdr Williams, Irene, RN RN Jemma Plascencia RN RN ss Corrections: (The following items were deleted from the chart) 12:11 12:11 Allergies: No Known Allergies; ss ss 15:21 12:11 Allergies: COPD; ss iw 18:02 17:29 07/15/2020 17:29 Discharged to Home. Impression: Edema, not elsewhere classified; iw Chronic combined systolic (congestive) and diastolic (congestive) heart failure; Chronic kidney disease (CKD). Condition is Stable. Prescriptions for metolazone 2.5 mg Oral tablet - take 1 tablet by ORAL route every other day Take before morning dose of lasix; 20 tablet. and Forms are Medication Reconciliation Form, Thank You Letter, Antibiotic Education, Prescription Opioid Use. Follow up: Emergency Department; When: As needed; Reason: Worsening of condition. Follow up: Ariana Koroma; When: 2 - 3 days; Reason: Recheck today's complaints, Continuance of care, Re-evaluation by your physician. Follow up: Evaristo Norwood; When: 1 week; Reason: Recheck today's complaints, Continuance of care, Re-evaluation by your physician. kb
[2020-07-15 18:19] VITALS: BP 102/59; O2SAT 95
--- NOTE | 2020-07-16 14:24 | EKG ---
Test Date: 2020-07-15 Test Time: 14:09:23 Retail Store Associate: PURA MEASUREMENT RESULTS: Intervals: Rate: 70 AK: QRSD: 212 QT: 568 QTc: 613 [place]: P: AK: QRS: -84 T: 92 INTERPRETIVE STATEMENTS: Electronic ventricular pacemaker Compared to ECG 07/02/2020 19:13:13 AV dual-paced complex(es) or rhythm no longer present Electronically Signed On 07-16-20 14:23:00 SERVICE COUNSELOR by Matthew Cordero
== END 2020-07-15 18:02 | disposition home or self-care (01) ==
LOC: ER 11:19
DX: I50.42 Chronic combined systolic (congestive) and diastolic (congestive) heart failure (principal); R60.9 Edema, unspecified; N18.9 Chronic kidney disease, unspecified; I10 Essential (primary) hypertension
CPT/HCPCS: 36415; 51702; 71045; 74176; 80048; 80076; 81003; 81015; 83735; 83880; 85025; 85610; 93005; 93970; 93971; 99285